=== PATIENT | female | born 1950 | race Caucasian/White ===

== ENCOUNTER → 2017-09-21 06:38 | Outpatient (CLI) | payer MEDICARE, OTHER, SELFPAY ==
[2017-09-21 07:06] LABS: Bedside Glucose 159 mg/dL (70-110)
--- NOTE | 2017-09-21 09:57 | STRESSREP_ITS ---
Stress Test Report Exercise myocardial perfusion stress test. 66-year-old lady with a history of syncope. Medications Norvasc Lipitor Lotensin Plavix. Stress protocol: Resting EKG demonstrates normal sinus rhythm with a rate of 69 bpm. Normal intervals are noted. The resting blood pressure is 122/80 mmHg. The patient exercised according to the regular Helio protocol for total duration of 4 minutes and 30 seconds completing 1 minute and 30 seconds into stage II of the Helio protocol the maximum heart rate attained was 129 bpm which was 84% of the maximum predicted heart rate. The maximum workload attained was 6.4 metabolic equivalents. At rest there were no ST or T-wave changes noted suggest ischemia at peak exercise upsloping ST changes only were noted with no meet the criteria for ischemia. No clinical angina was noted the test was terminated due to fatigue. The resting blood pressure was 122/80 with a final blood pressure 130/ 80 mmHg. Myocardial perfusion protocol. 11.1 mCi of technetium 99m sestamibi was injected at rest. The patient exercised for 4 minutes and 30 seconds attaining 84% of maximum predicted heart rate. The maximum workload was 6.4 metabolic equivalents at peak exercise 33.3 mCi of technetium 99m sestamibi was injected. Stress images were obtained stress and rest images were reconstructed and compared in the short axis vertical long and horizontal long axis. Gated images were also obtained. Perfusion SPECT analysis: Review of the stress images demonstrate normal uptake of tracer noted in all areas of the myocardium. The resting images similarly demonstrate normal uptake of tracer noted in all areas myocardium there is a small area of the apex which appears to have a mild perfusion defect on the stress and resting images suggestive of possible apical striping. No obvious ischemia is noted. No previous infarct is present. Gated SPECT analysis: The gated ejection fraction is 68%. Conclusion: Normal exercise myocardial perfusion stress test at a moderate workload. Preserved ejection fraction.
== END ==
PROVIDERS: Family Provider Family Medicine; PCP Family Medicine; Visit Provider Nurse Practitioner Family
DX: I25.10 Atherosclerotic heart disease of native coronary artery without angina pectoris (principal); I10 Essential (primary) hypertension; E78.2 Mixed hyperlipidemia; R55 Syncope and collapse
CPT/HCPCS: 78452; 82962; 93017; A9500; A4216

== ENCOUNTER 2017-10-02 22:41 | Emergency (ER) | payer MEDICARE, OTHER, SELFPAY ==
[2017-10-02 22:43] VITALS: BP 149/74; PULSE 82; RESP 14; TEMP 36.9; O2SAT 99; BMI 25.5
--- NOTE | 2017-10-02 22:55 | ED.RN ---
ED DR CALLED AND INFORMED ABOUT PT. DR ASKED ABOUT ORDERING A CT OF HEAD DUE TO PRIOR BRAIN BLEED. ED DR DECIDED TO HOLD ON CT TILL HIS EVALUATION.
--- NOTE | 2017-10-02 23:14 | CT_ITS ---
CT Head or Brain W/O Contrast INDICATION: FALL/HX OF BRAIN BLEED 08/09/17 COMPARISON: None TECHNIQUE: Noncontrast axial CT examination of the brain. Coronal and sagittal reformatted images. Radiation dose optimization technique applied. FINDINGS: The ventricular system is symmetric in size with mild prominence of the occipital horns. Cortical sulci and basal cisterns are well seen. Patchy bilateral periventricular and subcortical low densities are noted, similar compared to the prior study, and most compatible with chronic ischemic microvascular white matter changes. Hemorrhagic products over the left frontal region have resolved since the prior study. There is no evidence of acute intracranial hemorrhage at this time, no evidence of mass effect, midline shift, or abnormal extra-axial collection. The calvarium is intact and the visualized paranasal sinuses and mastoid air cells are clear. CT/Brain/Head without Contrast IMPRESSION: Chronic ischemic microvascular white matter changes and age-related cerebral volume loss. No evidence of acute intracranial hemorrhage at this time. at 0002 Reported and signed by: Radha Persaud MD Electronically Signed: Radha Persaud MD at 23:00 EST Tel , Service support ,
[2017-10-02] MEDS: Ondansetron ODT 4 MG Tablet PO (23:19)
[2017-10-02] MEDS: HYDROmorphone 1 MG/ML Syringe 0.5 MG IM (23:19)
--- NOTE | 2017-10-02 23:30 | RAD_ITS ---
XR Humerus Min 2 Views INDICATION: right arm pain after fall COMPARISON: None TECHNIQUE: 2 views of the humerus FINDINGS: There is a comminuted fracture at the right humerus involving the surgical neck and lateral aspect of the head. Mild angulation. The humerus appears low in position in relationship to the glenoid fossa, likely due to joint effusion. RAD/Humerus min 2 Views IMPRESSION: Mildly impacted and angulated fracture at the surgical neck of the right humerus and additional fracture fragment off of the lateral aspect of the humeral head. at 0014 Reported and signed by: Radha Persaud MD Electronically Signed: Radha Persaud MD at 23:12 EST Tel , Service support ,
--- NOTE | 2017-10-03 00:21 | RAD_ITS ---
XR Shoulder Min 2 Views INDICATION: right arm pain after fall. looking for dislocation COMPARISON: None TECHNIQUE: 3 views of the right shoulder FINDINGS: There is a fracture dislocation of the right shoulder with an impacted and displaced fracture at the surgical neck and an additional fracture fragment noted arising from the lateral aspect of the humeral head. There is abnormal glenohumeral relationship. RAD/Shoulder min 2 Views IMPRESSION: Fracture dislocation at the right shoulder with displaced and overlapping fracture at the surgical neck and additional small fracture fragment laterally. at 0039 Reported and signed by: Radha Persaud MD Electronically Signed: Radha Persaud MD at 23:38 EST Tel , Service support ,
[2017-10-03] MEDS: HYDROmorphone 1 MG/ML Syringe 0.5 MG IM (00:24)
--- NOTE | 2017-10-03 00:29 | ED.VISSUMM ---
- ER Visit Summary Date of Service: 10/03/17 Chief Complaint: Fall History of Present Illness: The patient is a [address] Johnathon Brown and Dr. Kearney. She reports that 3 or 4 hours ago she lost her balance going up an escalator when her suitcases got stuck. She fell backwards down the escalator. She hit her head but did not have a loss of consciousness. She is not on any anticoagulants. She denies a headache. She denies neck or back pain. No wrist or hip pain. Reports she has right shoulder pain is 10 out of 10 severity. Physical Examination: Vitals: Stable. Afebrile. Neck: No vertebral tenderness. Full ROM without difficulty. Cleared by NEXUS criteria. Back: No vertebral tenderness. General: A&O x 3. NAD. Cardiovascular exam: Regular rate and rhythm, no murmur, rub or gallop. Respiratory exam: Chest nontender. No crepitus. Clear to auscultation bilaterally. No wheezes or stridor. Abdominal exam: Soft, nontender, nondistended, normal bowel sounds. No pain in RUQ or LUQ specifically. No peritoneal signs. Extremity: Severe tenderness palpation over the right proximal humerus. Pain with any range of motion. She is neurovascular intact distal to this. Test Results: CT brain shows chronic changes and no intracranial hemorrhage. Right humerus x-ray shows a proximal humerus fracture. I did question whether there was dislocation of this. Because of this vacated right shoulder films were obtained. There is no dislocation. Emergency Department Course and Treatment: Patient was treated with Dilaudid IM and Zofran p.o. She was placed in a sling. Treatment Plan: She will be discharged with Clarinda, Zofran, and Colace. Instructed follow-up Dr. Yip in 1 week for another exam. Disposition: To home in improved and stable condition. Impression: 1. Fall. 2. Right proximal humerus fracture. This note was generated with [employer] dictation software. It may contain incorrect words, spelling, and punctuation that were not noted in review of the chart prior to signing ED Disposition - Plan for ED Patient: Disposition: Home or Assisted Living Chief Complaint: Upper Extremity Injury Instructions: ED Fx Shoulder Prescriptions: Hydrocodone Bitart/Apap 5-325 [[place] 5/325] 1 - 2 tablet PO Q4H PRN PRN 5 Days #20 tablet PRN Reason: Pain Ondansetron [Zofran Odt] 4 mg PO Q8H PRN PRN #10 tablet PRN Reason: Nausea Docusate Sodium [Colace] 100 mg PO DAILY #20 capsule Referrals: Leonel Yip DO [STAFF PHYSICIAN] - 1 Week
[2017-10-03] MEDS: HYDROcodone Bitartrate/Apap 5/325 Tablet PO (00:48)
[2017-10-03 01:01] VITALS: BP 132/68; PULSE 68; RESP 14; O2SAT 68
== END 2017-10-03 01:02 | disposition home or self-care (01) ==
LOC: ED 23:20
PROVIDERS: Emergency Provider Emergency Medicine; Family Provider Family Medicine; PCP Family Medicine
DX: S42.211A Unspecified displaced fracture of surgical neck of right humerus, initial encounter for closed fracture (principal); W10.0XXA Fall (on)(from) escalator, initial encounter; Y93.89 Activity, other specified; Y92.9 Unspecified place or not applicable; I25.10 Atherosclerotic heart disease of native coronary artery without angina pectoris; I10 Essential (primary) hypertension; E78.00 Pure hypercholesterolemia, unspecified; E11.9 Type 2 diabetes mellitus without complications; Z79.4 Long term (current) use of insulin; Z79.01 Long term (current) use of anticoagulants; Z79.899 Other long term (current) drug therapy
CPT/HCPCS: 70450; 73030; 73060; 96372; 99283

== ENCOUNTER → 2017-10-10 06:52 | Outpatient (CLI) | payer MEDICARE, OTHER, SELFPAY ==
--- NOTE | 2017-10-10 06:54 | CT_ITS ---
STUDY: CT RIGHT SHOULDER REASON FOR EXAM: Female, 66 years old. Fall 2 weeks ago. Pain RADIATION DOSAGE (If Supplied By Facility): CTDIvol = ( 24.58 ) mGy, DLP = ( 486.85 ) mGycm TECHNIQUE: The patient was scanned in a multi detector CT scanner. High resolution transaxial imaging was performed without the administration of intravenous contrast material. Sagittal and coronal images were reconstructed. Individualized dose optimization techniques were used for this CT. COMPARISON: X-ray October 03, 2017 FINDINGS: Normal glenohumeral articulation. There is joint effusion. Normal glenoid rim, neck and visualized scapula. There is comminuted humeral head and surgical neck fracture. There is impaction and overlapping of 1.4 cm. Fracture involves the greater tuberosity with displacement of 0.3 cm. Normal coracoid process. Normal visualized lateral clavicle. There is mild osteoarthritis with articular joint space narrowing. There is a Type II morphology (curved) acromion, with a neutral orientation. There is soft tissue swelling. There is postoperative change of the right breast with residual fluid collection. There are healing right rib fractures. CT/Extremity Upper without Contra IMPRESSION: Comminuted humeral head and surgical neck fractures. Electronically Signed: Jesus Cervantes MD at 8:59 EST , Service support ,
--- NOTE | 2017-10-10 06:54 | CT_ITS ---
STUDY: CT RIGHT SHOULDER REASON FOR EXAM: Female, 66 years old. Fall 2 weeks ago. Pain RADIATION DOSAGE (If Supplied By Facility): CTDIvol = ( 24.58 ) mGy, DLP = ( 486.85 ) mGycm TECHNIQUE: The patient was scanned in a multi detector CT scanner. High resolution transaxial imaging was performed without the administration of intravenous contrast material. Sagittal and coronal images were reconstructed. Individualized dose optimization techniques were used for this CT. COMPARISON: X-ray October 03, 2017 FINDINGS: Normal glenohumeral articulation. There is joint effusion. Normal glenoid rim, neck and visualized scapula. There is comminuted humeral head and surgical neck fracture. There is impaction and overlapping of 1.4 cm. Fracture involves the greater tuberosity with displacement of 0.3 cm. Normal coracoid process. Normal visualized lateral clavicle. There is mild osteoarthritis with articular joint space narrowing. There is a Type II morphology (curved) acromion, with a neutral orientation. There is soft tissue swelling. There is postoperative change of the right breast with residual fluid collection. There are healing right rib fractures. CT/Coronals Sag Multi Obl 3-D Rec IMPRESSION: Comminuted humeral head and surgical neck fractures. Electronically Signed: Jesus Cervantes MD at 8:59 EST , Service support ,
== END ==
PROVIDERS: Family Provider Family Medicine; PCP Family Medicine; Visit Provider Orthopaedic Surgery
DX: S42.291A Other displaced fracture of upper end of right humerus, initial encounter for closed fracture (principal); S42.211A Unspecified displaced fracture of surgical neck of right humerus, initial encounter for closed fracture; W19.XXXA Unspecified fall, initial encounter
CPT/HCPCS: 73200; 76377

== ENCOUNTER → 2017-10-29 09:16 | Outpatient (CLI) | payer MEDICARE, OTHER, SELFPAY ==
--- NOTE | 2017-10-29 09:36 | RAD_ITS ---
STUDY: X-RAY - RIGHT SHOULDER REASON FOR EXAM: Female, 66 years old. Pain. Fracture follow-up. TECHNIQUE: 3 view(s) of the shoulder. COMPARISON: 3 views of the right shoulder October 03, 2017; right shoulder CT October 10, 2017. FINDINGS: Normal glenohumeral alignment. There is stable mild degenerative arthrosis of the acromioclavicular joint without inferior osseous spur formation. Normal acromion. Comminuted fracture of the right humeral head again noted. Subtle haziness inferior to the lateral most fracture fragment suggests early callus formation. Dorsal angulation of the humeral shaft relative to the humeral head is stable. The soft tissue structures are unremarkable. Normal visualized pulmonary apex. RAD/Shoulder min 2 Views IMPRESSION: Early callus formation at the otherwise stable appearing comminuted fracture of the right humeral head. Electronically Signed: Guido Webber MD at 17:48 EST , Service support ,
== END ==
PROVIDERS: Family Provider Family Medicine; PCP Family Medicine; Visit Provider Orthopaedic Surgery
DX: S42.291A Other displaced fracture of upper end of right humerus, initial encounter for closed fracture (principal)
CPT/HCPCS: 73030

== ENCOUNTER → 2017-11-16 09:55 | Outpatient (CLI) | payer MEDICARE, OTHER, SELFPAY ==
--- NOTE | 2017-11-16 09:57 | RAD_ITS ---
STUDY: X-RAY - RIGHT SHOULDER REASON FOR EXAM: Female, 67 years old. Fracture, follow-up TECHNIQUE: 3 view(s) of the shoulder. COMPARISON: 10/30/2015 FINDINGS: Normal glenohumeral alignment. There is stable mild degenerative arthrosis of the acromioclavicular joint without inferior osseous spur formation. Normal acromion. Comminuted fracture of the right humeral head again noted. Subtle haziness inferior to the lateral most fracture fragment suggests early callus formation. Dorsal angulation of the humeral shaft relative to the humeral head is stable. The soft tissue structures are unremarkable. Normal visualized pulmonary apex. There is only been a minimal amount of healing since the previous study RAD/Shoulder min 2 Views IMPRESSION: Early callus formation at the otherwise stable appearing comminuted fracture of the right humeral head. Electronically Signed: Guido Patel MD at 10:31 EDT , Service support ,
== END ==
PROVIDERS: Family Provider Family Medicine; PCP Family Medicine; Visit Provider Orthopaedic Surgery
DX: S42.291A Other displaced fracture of upper end of right humerus, initial encounter for closed fracture (principal); M25.711 Osteophyte, right shoulder
CPT/HCPCS: 73030

== ENCOUNTER → 2017-12-28 09:00 | Outpatient (CLI) | payer MEDICARE, OTHER, SELFPAY ==
--- NOTE | 2017-12-28 09:02 | RAD_ITS ---
STUDY: X-RAY - RIGHT SHOULDER REASON FOR EXAM: Female, 67 years old. Follow up fracture TECHNIQUE: Three view(s) of the RIGHT shoulder were obtained. COMPARISON: November 16, 2017 FINDINGS: The glenohumeral joint is within normal limits. There is degenerative arthrosis of the acromioclavicular joint without inferior osseous spur formation. No acute abnormalities are seen in the visualized clavicle. Cortical irregularities are again seen in the greater tuberosity and humeral neck. The soft tissues are unremarkable. There are mild chronic changes in the visualized right lung. There is likely an old fracture of the anterior right third rib. RAD/Shoulder min 2 Views IMPRESSION: Stable appearance of old fractures in the greater tuberosity and neck of the right humerus. Electronically Signed: Aziza Madsen MD at 17:00 EDT Tel Direct: [phone], Service support ,
== END ==
PROVIDERS: Family Provider Family Medicine; PCP Family Medicine; Visit Provider Orthopaedic Surgery
DX: S42.291A Other displaced fracture of upper end of right humerus, initial encounter for closed fracture (principal)
CPT/HCPCS: 73030

== ENCOUNTER → 2018-04-12 12:55 | Outpatient (CLI) | payer MEDICARE, OTHER, SELFPAY ==
[2018-04-12 13:12] LABS: Lyme Ab Screen Interpretation REF LAB
[2018-04-12 14:08] LABS: Absolute Lymphocyte Count 1.24 X10^3/ul (0.83-4.51); Absolute Neutrophil Count 10.6 X10^3/uL (2.0-7.7); Basophil# 0.02 X10^3/uL; Basophil% 0.2 % (0-1); Eosinophil# 0.07 X10^3/uL; Eosinophils% 0.6 % (0-5); Hematocrit 42.9 % (37-47); Lymphocyte # 1.24 X10^3/ul (4.0); Lymphocyte % 9.9 % (19-41); Mean Corp Hgb Conc 32.6 g/gl (32-36); Mean Corpuscular Hgb 28.8 pg (27.0-32.0); Mean Corpuscular Volume 88.3 fL (81-99); Mean Platelet Vol. 9.5 fl (6.2-12.0); Monocyte# 0.65 X10^3/uL; Monocyte% 5.2 % (0-10); Neutrophil # 10.58 X10^3/uL (2.7-7.7); Platelet Count 238 K/mm3 (150-450); RBC Distribution Width SD 41.5 fl (35.1-43.9); Red Blood Count 4.86 M/mm3 (4.2-5.4); White Blood Count 12.6 K/mm3 (4.4-11.0)
[2018-04-12 14:10] LABS: POSITIVE COUNT NO; POSITIVE DIFFERENTIAL NO; POSITIVE MORPHOLOGY NO
[2018-04-12 14:25] LABS: Hemoglobin A1c 10.5 % (4.2-6.3)
[2018-04-12 14:31] LABS: BUN 17 mg/dL (7-18); Glucose 241 mg/dL (74-106)
[2018-04-12 14:32] LABS: ALB/GLOB Ratio 0.9 RATIO (0.9-2.4); AST(SGOT) 20 U/L (15-37); Alanine Aminotransfer ALT/SGPT 32 U/L (13-56); Albumin, Serum 3.7 g/dL (3.2-5.0); Alkaline Phosphatase 146 U/L (45-117); Anion Gap 12 (5-15); Calcium,Total 8.9 mg/dL (8.5-10.1); Chloride 105 mmol/L (98-107); EST Glomerular Filtration Rate 66 mL/min (>60); Est Glom Filt Rate - Afr Amer 80 mL/min (>60); Ferritin 89 ng/mL (8-252); Free T3 2.2 pg/mL (2.18-3.98); Globulin 3.9 g/dL (2.2-4.2); Potassium 4.2 mmol/L (3.5-5.1); Protein, Total 7.6 g/dL (6.4-8.2); Sodium Level 143 mmol/L (136-145); Thyroid Stim Hormone (TSH) 2.52 uIU/mL (0.358-3.74)
[2018-04-12 15:02] LABS: HIV - WCH Non-Reactive (Nonreactive); Vitamin B12 988 pg/mL (211-911); Vitamin D,25 Hydroxy 29.5 ng/mL (29.95-100.01)
[2018-04-13 13:13] LABS: Lyme Scn Total Ab w/Rflx <0.91 ISR (0.00-0.90)
[2018-04-16 03:58] LABS: Rapid Plasmin Reagin (RPR) NONREACTIVE (NONREACTIVE)
== END ==
PROVIDERS: Family Provider Family Medicine; PCP Family Medicine; Visit Provider Family Medicine
DX: I62.01 Nontraumatic acute subdural hemorrhage (principal); E03.9 Hypothyroidism, unspecified; E11.65 Type 2 diabetes mellitus with hyperglycemia; R41.89 Other symptoms and signs involving cognitive functions and awareness
CPT/HCPCS: 36415; 80053; 82306; 82607; 82728; 83036; 84439; 84443; 84481; 85025; 86592; 86618; 86703

== ENCOUNTER 2018-06-07 01:13 | Emergency (ER) | payer MEDICARE, OTHER, SELFPAY ==
[2018-06-07 01:14] VITALS: BP 177/90; PULSE 90; RESP 18; TEMP 36.4; O2SAT 94; BMI 26.7
--- NOTE | 2018-06-07 01:46 | ED.VIS.GEN ---
History of Present Illness Chief Complaint: Lower Extremity Injury Informant: Patient Onset: Hours - 1-2 Context: Sudden Onset - noticed when put weight on it to try to walk Timing: Continuous Quality: pain Location: left ankle Current Severity: Severe Maximum Severity: Severe Worsened by: any slight movement of ankle Relieved by: rest Associated Symptoms: none Narrative: Spontaneous onset of left ankle pain. No injuries. No fevers or systemic symptoms. No history of gout or other systemic arthritis. No other bothersome joints at this time. - Past Medical History (1) Controlled type 1 diabetes mellitus without complication Status: Chronic (2) HLD (hyperlipidemia) Status: Chronic (3) HTN (hypertension) Status: Chronic (4) History of coronary artery stent placement Status: Chronic Comment: PTCA/stent (JERROD) of proximal LAD 02/13/2009; PTCS/stent (JERROD) to OM1 and D2 10/12/2009. (5) Old myocardial infarction Status: Chronic Past Medical History - Allergies and Home Meds Allergies/Adverse Reactions: Allergies fentanyl Allergy (Verified 06/07/18 01:16) Low blood pressure diazepam [From Valium] Adverse Reaction (Verified 06/07/18 01:16) Other Primary Care Physician: Johnathon Brown MD [Primary Care Provider] - Smoking Status: Never smoker Review of Systems General: Denies: Chills, Fever, Sweats Cardiovascular: Denies: Chest pain, Palpitations Respiratory: Denies: Dyspnea, Cough, Dyspnea on exertion Gastrointestinal: Denies: Abdominal pain, Nausea, Vomiting, Diarrhea, Melena, Hematochezia Genitourinary: Denies: Dysuria, Hematuria, Frequency Musculoskeletal: Reports: Extremity Pain. Denies: Swelling Skin: Denies: Rash Neurological: Denies: Headache, Weakness, Numbness Physical Exam Vital Signs/Narrative: Vital Signs Temp Pulse Resp BP Pulse Ox 06/07/18 01:14 97.6 F L 90 18 177/90 H 94 Inital Vital Signs reviewed: Yes General: Well nourished, Well developed Head: Normocephalic, Atraumatic Eyes: Perrl, EOMI ENT: Moist mucous membranes, No rhinorrhea Respiratory: No distress, Chest nontender Extremities: No edema, Tenderness - left lateral ankle (pain is medial mostly). Laterally, ankle effusion is evident, and this area is tender. Not excessively warm/hot. Skin: Normal color - without erythema to left ankle, No rash - specifically, no lesions distal LLE. Neurological: Alert, Oriented x3, Cranial nerves II-XII grossly intact, Normal Strength, Normal Sensation Psychological: - - odd affect. Diagnostic/Tx/Re-eval Impressions Ankle X-Ray 06/07/18 03:10 IMPRESSION: Mild degenerative changes. Joint effusion. No demonstrated fracture, dislocation, or destructive osseous lesion. Electronically Signed: Nikko Zamora MD at 3:52 EDT , Service support , 06/07/18 03:10 Ankle min 3 Views [RAD] Stat 06/07/18 02:45 Fluid - Synovial (joint) Gram Stain - Preliminary Laboratory Results 06/07/18 06/07/18 06/07/18 01:58 01:58 02:45 WBC 5.8 RBC 4.99 Hgb 14.5 Hct 42.9 MCV 86.0 MCH 29.1 MCHC 33.8 RDW 12.8 RDW Differential 40.5 Plt Count 225 MPV 9.5 Immature Gran % (Auto) 0.000 Neut % (Auto) 56.3 Lymph % (Auto) 32.7 [place] % (Auto) 9.5 Eos % (Auto) 1.2 Baso % (Auto) 0.3 Absolute Neuts (auto) 3.3 Absolute Lymphs (auto) 1.89 Total Counted Not Reportable ESR 10 Sodium 137 Potassium 3.8 Chloride 103 Carbon Dioxide 27.0 Anion Gap 7 BUN 17 Creatinine 0.85 Estim Creat Clear Calc 47.14 Est GFR (MDRD) Af Amer 86 Est GFR (MDRD) Non-Af 71 BUN/Creatinine Ratio 20.1 H Glucose 442 H Uric Acid 3.0 Calcium 9.4 C-React Prot Ext Range < 2.90 Fluid Source Cancelled Fluid Color Cancelled Fluid Appearance Cancelled Fluid WBC Cancelled Fluid RBC Cancelled Fluid Tot Cell Count Cancelled Fld Polynuclear WBCs # Cancelled Fld Polynuclear WBCs % Cancelled Fluid Mononuclear WBCs Cancelled Fld Mononuclear WBCs % Cancelled Fluid Neutrophils Cancelled Fluid Lymphocytes Cancelled Fluid Monocytes Cancelled Fluid Plasma Cells Cancelled Fluid Macrophages Cancelled Fld Mesothelial Cells Cancelled Fluid Other Cells Cancelled Fluid Crystals Cancelled Fluid Crystal Source Cancelled Fl Crystal Path Review Cancelled Fl Pathologist Comment Cancelled Fluid Comment 2 Cancelled Synovial Source Synovial Color Synovial Appearance Synovial Volume Synovial Viscosity Synovial WBC Synovial RBC Synovial Tot Cell Ct Synov Polynuclear WBCs Synov Mononuclear WBCs Synovial Neutrophils Synovial Lymphocytes Synovial Monocytes Synovial Other Cells Synovial Polynuclear % Synovial Mononuclear % Synovial Path Comment 06/07/18 02:45 WBC RBC Hgb Hct MCV MCH MCHC RDW RDW Differential Plt Count MPV Immature Gran % (Auto) Neut % (Auto) Lymph % (Auto) [place] % (Auto) Eos % (Auto) Baso % (Auto) Absolute Neuts (auto) Absolute Lymphs (auto) Total Counted ESR Sodium Potassium Chloride Carbon Dioxide Anion Gap BUN Creatinine Estim Creat Clear Calc Est GFR (MDRD) Af Amer Est GFR (MDRD) Non-Af BUN/Creatinine Ratio Glucose Uric Acid Calcium C-React Prot Ext Range Fluid Source Fluid Color Fluid Appearance Fluid WBC Fluid RBC Fluid Tot Cell Count Fld Polynuclear WBCs # Fld Polynuclear WBCs % Fluid Mononuclear WBCs Fld Mononuclear WBCs % Fluid Neutrophils Fluid Lymphocytes Fluid Monocytes Fluid Plasma Cells Fluid Macrophages Fld Mesothelial Cells Fluid Other Cells Fluid Crystals SEE PATH REV Fluid Crystal Source SYNOVIAL Fl Crystal Path Review Will follow Fl Pathologist Comment Fluid Comment 2 Synovial Source LEFT ANKLE Synovial Color Bloody Synovial Appearance Turbid Synovial Volume 7.0 H Synovial Viscosity Viscous Synovial WBC 1.6250 H Synovial RBC 4.515 H Synovial Tot Cell Ct 1.6320 H Synov Polynuclear WBCs 0.777 Synov Mononuclear WBCs 0.848 Synovial Neutrophils 56 H Synovial Lymphocytes 40 Synovial Monocytes 1 Synovial Other Cells 3 Synovial Polynuclear % 47.8 Synovial Mononuclear % 52.2 [address]ovial [address] Comment May follow - Medical Decision Making Labs are very reassuring, with normal white blood count, ESR, and CRP. X-ray confirms my clinical suspicion of a joint effusion, and shows no other acute abnormality. The patient was barely able to display any motion of the ankle joint. Given her age and diabetes, I discussed with her the possibilities, which include septic arthritis, gout/pseudogout, which is not an inclusive list. However, we did discuss how treatment for these are opposite, and treating gout could make infection much worse. I recommended arthrocentesis, and after discussing pros and cons, she consented. This was performed with an anterior medial approach, first prepping with isopropanol and injecting 2 cc total of 1% lidocaine without epinephrine, subcutaneously, and without blood on aspiration prior to injecting. Then at the same location, between the medial malleolus and the tendon of the tibialis anterior, and a 18-gauge needle was inserted into the joint after prepping with chlorhexidine. About 3 cc of blood was obtained. In order to rule out the possibility of being in a vein, I reinserted a needle about 1.5-2 cm distally in the same region, again obtaining blood. This time, the 18-gauge needle was almost completely inserted, and was definitely within the joint space. Prior to the arthrocentesis, patient was given morphine, which helped just a little. Still very painful to move the joint at all. She declined empiric colchicine. We did send the blood/fluid from the synovial aspiration to the lab. Culture is sent and pending, Gram stain is negative, crystals preliminary is negative, and there are more red cells than white, there are approximately 1600 white blood cells per microliter. On reevaluation, she is able to move her ankle extremely well, saying that it does feel better. Given all of this, I do not think she has an acute septic arthritis. She is on clopidogrel. She appears to have a spontaneous hemarthrosis. Supportive care is advised for right now, including frequent icing, pain control, and crutches to limit weightbearing. She is also given an Kwan wrap and instructions for use. She should follow-up with orthopedics this week. She is comfortable with this plan and has a ride home. ED Disposition - Plan for ED Patient: Disposition: Home or Assisted Living Chief Complaint: Lower Extremity Injury Diagnosis: Hemarthrosis of left ankle Instructions: ED Braces for Lower Musculoskeletal Injuries Prescriptions: Hydrocodone Bitart/Apap 5-325 [[place] 5MG-325MG] 1 tablet PO Q4H PRN PRN 2 Days #10 tablet PRN Reason: Pain Referrals: Johnathon Brown MD [Primary Care Provider] - Mayank Gonsalves MD [STAFF PHYSICIAN] - Additional Instructions: Ice your ankle frequently. Limit your weightbearing for at least one week, moving her ankle and bearing weight could exacerbate the problem. Do not apply heat, do not take aspirin if you are already not taking it, do not take ibuprofen. You may continue your other medications. Return to ER for any other issues or if you spike a fever. Otherwise, follow-up with orthopedics.
[2018-06-07] MEDS: Morphine 4 MG/ML Syringe IV (02:01)
[2018-06-07 02:10] LABS: Absolute Lymphocyte Count 1.89 X10^3/ul (0.83-4.51); Absolute Neutrophil Count 3.3 X10^3/uL (2.0-7.7); Basophil# 0.02 X10^3/uL; Basophil% 0.3 % (0-1); Eosinophil# 0.07 X10^3/uL; Eosinophils% 1.2 % (0-5); Hematocrit 42.9 % (37-47); Hemoglobin 14.5 g/dl (12.0-15.0); Lymphocyte # 1.89 X10^3/ul (4.0); Lymphocyte % 32.7 % (19-41); Mean Corp Hgb Conc 33.8 g/gl (32-36); Mean Corpuscular Hgb 29.1 pg (27.0-32.0); Mean Platelet Vol. 9.5 fl (6.2-12.0); Monocyte# 0.55 X10^3/uL; Monocyte% 9.5 % (0-10); Neutrophil # 3.25 X10^3/uL (2.7-7.7); Neutrophil % 56.3 % (47-70); Platelet Count 225 K/mm3 (150-450); RBC Distribution Width CV 12.8 % (11.6-14.6); RBC Distribution Width SD 40.5 fl (35.1-43.9); Red Blood Count 4.99 M/mm3 (4.2-5.4); White Blood Count 5.8 K/mm3 (4.4-11.0)
[2018-06-07 02:16] LABS: POSITIVE COUNT NO; POSITIVE DIFFERENTIAL NO; POSITIVE MORPHOLOGY NO
[2018-06-07 02:23] LABS: Erythrocyte Sedimentation Rate 10 mm/hr (0-30)
[2018-06-07 02:36] LABS: Anion Gap 7 (5-15); BUN 17 mg/dL (7-18); BUN/Creat Ratio 20.1 RATIO (10-20); CRP < 2.90 mg/L (0.0-3.0); Calcium,Total 9.4 mg/dL (8.5-10.1); Chloride 103 mmol/L (98-107); Creatinine, Serum 0.85 mg/dL (0.55-1.02); EST Glomerular Filtration Rate 71 mL/min (>60); Est Glom Filt Rate - Afr Amer 86 mL/min (>60); Estimated Creatinine Clearance 47.14 ml/min; Glucose 442 mg/dL (74-106); Potassium 3.8 mmol/L (3.5-5.1); Sodium Level 137 mmol/L (136-145)
--- NOTE | 2018-06-07 03:10 | RAD_ITS ---
STUDY: X-RAY - LEFT ANKLE REASON FOR EXAM: Female, 67 years old. Distal tibia and fibular pain. No known injury. TECHNIQUE: view(s) of the ankle. COMPARISON: None. FINDINGS: Normal visualized distal tibia and fibula. Normal medial and lateral malleoli. There is mild degenerative arthrosis of the tibiotalar articulation and ankle mortise. Normal visualized talus and calcaneus. The visualized subtalar, talonavicular, calcaneocuboid and tarsal articulations are normal. There are atherosclerotic calcifications. There is soft tissue density overlying the anterior aspect of the tibiotalar articulation, consistent with a joint effusion. RAD/Ankle min 3 Views IMPRESSION: Mild degenerative changes. Joint effusion. No demonstrated fracture, dislocation, or destructive osseous lesion. Electronically Signed: Nikko Zamora MD at 3:52 EDT , Service support ,
[2018-06-07 03:20] LABS: Pathologist Comment May follow; Source- Body Fluid SYNOVIAL
[2018-06-07 03:21] LABS: Appearance /Synovial Fluid Turbid (CLEAR); Color / Synovial Fluid Bloody (Pale Yellow); Viscosity / Synovial Fluid Viscous (HIGH)
[2018-06-07 03:22] LABS: Source / Synovial Fluid LEFT ANKLE
[2018-06-07 03:44] LABS: AUTO B FLUID DILUENT BKGD CT WBC <0.1 RBC <0.01 (W<.1,R<.01); RBC /Synovial Fluid 4.515 10^6/uL (0)
[2018-06-07 03:45] LABS: Synovial Fld Mononuclear WBC # 0.848 10^3/ul; Synovial Fld Mononuclear WBC % 52.2 %; Synovial Fld Polynuclear WBC # 0.777 10^3/ul; Synovial Fld Polynuclear WBC % 47.8 %
[2018-06-07 03:48] LABS: Body Fluid QC Type(s) BF1Q,BF2Q
[2018-06-07 03:59] LABS: Lymph 40 %; Monocyte /Synovial Fluid 1 %; Neutrophil 56 % (0-25); Other Cell /Synovial Fluid 3 %
[2018-06-07 14:19] LABS: Pathologist Review Reviewed
== END 2018-06-07 05:44 | disposition home or self-care (01) ==
PROVIDERS: Emergency Provider Emergency Medicine; Family Provider Family Medicine; PCP Family Medicine
DX: M25.072 Hemarthrosis, left ankle (principal); E10.9 Type 1 diabetes mellitus without complications; E78.5 Hyperlipidemia, unspecified; I25.2 Old myocardial infarction; I10 Essential (primary) hypertension; Z79.4 Long term (current) use of insulin; Z79.82 Long term (current) use of aspirin; Z79.899 Other long term (current) drug therapy; Z98.61 Coronary angioplasty status
CPT/HCPCS: 20605; 20610; 73610; 80048; 84550; 85025; 85652; 86140; 87070; 87075; 87205; 89050; 89051; 89060; 96374; 99284; A4216

== ENCOUNTER → 2018-08-10 10:51 | Outpatient (CLI) | payer MEDICARE, OTHER, SELFPAY ==
[2018-08-10 12:13] LABS: Anion Gap 10 (5-15); Chloride 103 mmol/L (98-107); Sodium Level 136 mmol/L (136-145); Thyroid Stim Hormone (TSH) 0.46 uIU/mL (0.358-3.74)
[2018-08-10 12:20] LABS: Vitamin B12 940 pg/mL (211-911)
--- OUTSIDE RECORDS SUMMARY | 2018-11-11 19:16 | XMS RPT_ITS ---
:1950 Author Organization OHIP Support Name Relationship Address Phone FABIÁN ARAUZ Unavailable Unavailable + [place] [address] R Unavailable Unavailable Unavailable RICE, KATHARINA Unavailable Unavailable + [place] [address] HOFFFREDI FABIÁN Unavailable Unavailable + [place] [address] R Unavailable Unavailable Unavailable RICE, KATHARINA Unavailable Unavailable + [place] [address] HOFFEE FABIÁN Unavailable Unavailable + [place] [address] R Unavailable Unavailable Unavailable RICE, KATHARINA Unavailable Unavailable + [place] [address] HOFFEE, FABIÁN Unavailable Unavailable + [place] [address] R Unavailable Unavailable Unavailable RICE, KATHARINA Unavailable Unavailable + [place] [address] HOFFEE, FABIÁN Unavailable Unavailable + [place] [address] R Unavailable Unavailable Unavailable RICE, KATHARINA Unavailable Unavailable + [place] [address] [place] [address] + [place] [address] REGLA FABIÁN Un[place] + [place] [address] + [place] [address] REGLA FABIÁN Un[place] + [place] [address] + [place] [address] HOFFFREDI, FABIÁN Unavailable [place] + [place] [address] + [place] [address] HOFFEE, FABIÁN Unavailable [place] + [place] [address] + [place] [address] HOFFEE, FABIÁN Unavailable [place] + [place] [address] + [place] [address] HOFFEE, FABIÁN Unavailable [place] + [place] [address] + [place] [address] HOFFEE, FABI[place]N Unavailable [place] + [place] [address] + [place] [address] HOFFEE, FABI[place]N Unavailable [place] [address] + [place] [address] HOFFEE, FABIÁN Unavailable NA + [place] [address] + [place] [address] HOFFEE, FABIÁN Unavailable [place] + [place] [address] + [place] [address] HOFFEE, FABIÁN Unavailable [place] + [place] [address] + [place] [address] HOFFEE, FABI[place]N Unavailable [place] + [place] [address] + [place] [address] HOFFEE, FABIÁN Unavailable NA + [place], [place] Care Team Providers Name Role Phone Liberty Chiu Attending Unavailable Liberty Chiu Referring Unavailable Johnathon Brown Primary Care Unavailable Liberty Chiu Attending Unavailable Liberty Chiu Referring Unavailable Johnathon Brown Primary Care Unavailable Johnathon Brown Attending Unavailable Johnathon Brown Referring Unavailable Brown, Johnathon Primary Care Unavailable Roof, Tomas H Attending Unavailable Roof, Tomas H Referring Unavailable Brown, Johnathon Primary Care Unavailable Brown, Johnathon Primary Care Unavailable Stefan Dockery Attending Unavailable Phi, Leonel Attending Unavailable Brown, Johnathon Referring Unavailable Brown, Johnathon Primary Care Unavailable Phi, Leonel Attending Unavailable Brown, Johnathon Primary Care Unavailable Phi, Leonel Attending Unavailable Brown, Johnathon Referring Unavailable Brown, Johnathon Primary Care Unavailable [place], Castro Attending Unavailable Roof, Tomas H Referring Unavailable Phi, [place]onel Attending Unavailable Brown, Johnathon Referring Unavailable Brown, Johnathon Primary Care Unavailable Phi, [place]onel Attending Unavailable Brown, Johnathon Primary Care Unavailable Phi, Leonel Attending Unavailable Brown, Johnathon Referring Unavailable Brown, Johnathon Primary Care Unavailable Phi, Leonel Attending Unavailable Phi, [place]onel Referring Unavailable Brown, Johnathon Primary Care Unavailable Phi, [place]onel Attending Unavailable Brown, Johnathon Referring Unavailable Brown, Johnathon Primary Care Unavailable Phi, Leonel Attending Unavailable Phi, Leonel Referring Unavailable Brown, Johnathon Primary Care Unavailable [place], Castro Attending Unavailable Brown, Johnathon Referring Unavailable Brown, Johnathon Primary Care Unavailable Brown, Johnathon Attending Unavailable Brown, Johnathon Referring Unavailable Brown, Johnathno Primary Care Unavailable Brown, Johnathon Primary Care Unavailable DEREK FLOREZ Attending Unavailable PROBLEMS PROBLEMS DATE TYPE CONDITION / CODE ATTENDING STATUS SOURCE 09/14/2018 Unknown 250.02 - Diabetes Brown, Johnathon Active [place] mellitus without Community mention of Hospital complication, type II Repository or unspecified type, uncontrolled / 250.02(ICD-9) 09/14/2018 Unknown E11.65 - Type 2 Brown, Johnathon Active [place] diabetes mellitus Community with hyperglycemia / Hospital E11.65(ICD-10) Repository 09/14/2018 Unknown 780.93 - Memory loss Brown, Johnathon Active [place] / 780.93(ICD-9) Community Hospital Repository 09/14/2018 Unknown R41.3 - Other amnesia Brown, Johnathon Active [place] / R41.3(ICD-10) Community Hospital Repository 09/14/2018 Unknown N30.00 - Acute Brown, Johnathon Active [place] cystitis without Community hematuria / Hospital N30.00(ICD-10) Repository 06/07/2018 Unknown M25.072 - DEREK FLOREZ Active [place] Hemarthrosis, left Community ankle / Hospital M25.072(ICD-10) Repository 03/02/2018 Unknown I25.10 - [place], Castro Active [place] Atherosclerotic heart Community 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 Repository without angina pectoris / I25.10(ICD-10) 03/02/2018 Unknown I10 - Essential [place], [place] Active [place] (primary) Community hypertension / Hospital I10(ICD-10) Repository 03/02/2018 Unknown E78.2 - Mixed [place], Castro Active [place] hyperlipidemia / Community E78.2(ICD-10) Hospital Repository 03/02/2018 Unknown R07.9 - Chest pain, [place], [place] Active [place] unspecified / Community R07.9(ICD-10) Hospital Repository 12/28/2017 Unknown S42.291A - Other Leonel Yip Active [place] displaced fracture of Community upper end of right Hospital humerus, initial Repository encounter for closed fracture / S42.291A(ICD-10) 10/14/2017 Unknown S42.231A - 3-part [place] Yip Active [place] fracture of surgical Community neck of right Hospital humerus, initial Repository encounter for closed fracture / S42.231A(ICD-10) 10/03/2017 Unknown S42.91XA - Fracture Stefan Dockery Active [place] of right shoulder Community girdle, part Hospital unspecified, initial Repository encounter for closed fracture / S42.91XA(ICD-10) 09/21/2017 Unknown R55 - Syncope and Tomas Recinos Active [place] collapse / Community R55(ICD-10) Hospital Repository PROCEDURES PROCEDURES No Procedure Records FoundRESULTS RESULTS HEMOGLOBIN A1C Collected: 09/14/2018 Status: F Source: [facility] 9:55 AM [facility] REPOSITORY TYPE CODE TESTS RESULT OUT OF RANGE REFERENCE UNITS LAB L501.9985 4.2-6.3 % High HGB A1C 11.0 Performed By: #### L501.9985, L500.4050, L501.5200, L501.9520 #### [facility] [address] [place], [address] COMPREHENSIVE METABOLIC Collected: 09/14/2018 Status: F Source: [facility] 9:55 AM [facility] REPOSITORY TYPE CODE TESTS RESULT OUT OF RANGE REFERENCE UNITS LAB L501.0100 74-106 mg/dL High GLU 295 Result Comment: Glucose result greater than or equal to 200 mg/dL suggests DIABETES MELLITUS per A.D.A. criteria. Please note revised GLUCOSE reference range effective 2017. LAB L501.1000 7-18 mg/dL Normal BUN 15 LAB L501.1100 0.55-1.02 mg/dL Normal CREAT,SERUM 0.76 Result Comment: The validity of the calculated GFR AND GFRAA in patients over 70 years has not been determined. Clinical correlation is essential. LAB L501.1110 >60 mL/min Normal EST GFR 81 Result Comment: Non- GFR Calc LAB L501.1115 >60 mL/min Normal EST GFR - AA 97 Result Comment: GFR Calc LAB L501.1300 10-20 RATIO Normal BUN/CRE 19.8 LAB L501.1500 6.4-8.2 g/dL T Normal PROT 7.1 LAB L501.1800 3.2-5.0 g/dL Normal ALB 3.2 LAB L501.1950 2.2-4.2 g/dL Normal GLOB 3.9 LAB L501.2000 0.9-2.4 RATIO Low A/G 0.8 LAB L501.2200 8.5-10.1 mg/dL CA Normal 8.5 LAB L501.4100 15-37 U/L Low AST 14 LAB L501.4305 45-117 U/L High ALK P 122 LAB L501.4405 13-56 U/L Normal ALT 25 LAB L501.4600 0.20-1.00 mg/dL T Normal BILI 0.40 LAB L501.5300 136-145 mmol/L NA Normal 138 LAB L501.5600 3.5-5.1 mmol/L K Normal 4.0 LAB L501.5900 98-107 mmol/L CL Normal 105 LAB L501.6100 21.0-32.0 mmol/L Normal CO2 25.0 LAB L501.6200 5-15 Normal GAP 8 Performed By: #### L501.9985, L500.4050, L501.5200, L501.9520 #### [facility] [address] [place], [address] MAGNESIUM Collected: 09/14/2018 Status: F Source: [place] 9:55 AM [facility] REPOSITORY TYPE CODE TESTS RESULT OUT OF RANGE REFERENCE UNITS LAB L501.5200 1.6-2.6 mg/dL Normal MG 1.7 Performed By: #### L501.9985, L500.4050, L501.5200, L501.9520 #### [facility] [address] [place], [address] THYROID STIM HORMONE Collected: 09/14/2018 Status: F Source: [place] (TSH) 9:55 AM [facility] REPOSITORY TYPE CODE TESTS RESULT OUT OF RANGE REFERENCE UNITS LAB L501.9520 0.358-3.74 uIU/mL Normal TSH 0.76 Performed By: #### L501.9985, L500.4050, L501.5200, L501.9520 #### [facility] [address] [facility] [place], [address] ELECTROENCEPHALOGRAM Observed: 08/30/2018 Status: F Source: [place] 8:57 PM [facility] REPOSITORY [facility] Pulmonary Services/Neurology [address] [place] [address] MR#: [id number] Acct: [id number] Name: KAYLEIGH ROBERTS Rep #: [id number] : 1950 67 From: Lbierty Chiu MD Referring Dr: Aram VELASCO, Jo Ann Status: REG CLI Ordering Dr: Date: Location: [facility] Sex: F C - Electroencephalogram Date of service 08/27/2018 History EEG is being done in this 67 yr F to rule out seizures EEG Description: This is an 18 channel EEG with 10-20 lead placement system. Bipolar montages, Referential and Circumferential montages were reviewed. Photic stimulation and Hyperventilation were performed. The posterior dominant rhythm is 8 HZ synchronous, symmetric, reacting to eye opening and closing. Photo stimulation elicited normal driving response but no abnormal photoparoxysmal response, Hyperventilation did not elicit any abnormal photoparoxysmal response. Sleep was identified. There is no abnormal background slowing noted. There was no epileptiform discharges or electrographic seizures noted during this recording. EEG Interpretation This is a normal awake and asleep EEG. There is no epileptiform discharges or electrographic seizures noted during the record. 08/30/182056 <Electronically signed by Liberty Chiu MD> Date Liberty Chiu MD CC: Jo Ann Chiu MD; Johnathon Brown MD Date Dictated: 08/27/181424 Date Transcribed: 08/27/181424 Foundry Technician: RSR Signed BRAIN WITHOUT Observed: 08/27/2018 Status: F Source: [place] CONTRAST 9:27 AM [facility] REPOSITORY [facility] Imaging Services [address] [place] [address] Brain without Contrast MR#: [id number] Acct: [id number] Name: KAYLEIGH ROBERTS Rep #: [id number] : 1950 F 67 From: Joseph Rosas MD PCP: Johnathon Brown MD Status: REG CLI Study: Brain without Contrast Date of Exam: 08/27/18 Exam# [id number] Ordering Dr: Liberty Chiu MD STUDY: MRI BRAIN WITHOUT CONTRAST REASON FOR EXAM: Female, 67 years old. Confusion. Memory loss. TECHNIQUE: Standardized multiplanar fat and water weighted pulse sequences were obtained. COMPARISON: CT head without contrast 10/02/2017. FINDINGS: No restricted diffusion to suspect acute or subacute ischemic infarct. Normal size of the ventricles and extra-axial spaces for the patient's age. Multiple T2 FLAIR high signal intensity foci in the white matter of both cerebral hemispheres and across the central pontine tegmentum are chronic white matter ischemic changes. Normal bilateral basal ganglia. Normal thalami. There is no extra-axial fluid accumulation. Normal flow voids within the major intracranial circulation suggesting patency by spin echo criteria. Normal sella turcica, pituitary gland, infundibular stalk, optic chiasm and hypothalamus. Normal tectal plate and pineal gland. Normal midbrain and medulla. Normal cerebellum. Normal basal cisterns. Normal bilateral temporal bones. Normal bilateral internal auditory canals. No demonstrated orbital abnormality, within the constraints of a routine brain study. Normal visualized paranasal sinuses. Normal calvarium and skull base. Normal visualized soft tissue structures. Normal visualized upper cervical spine. MRI/Brain without Contrast IMPRESSION: 1. No MRI evidence of acute or subacute ischemic infarct. 2. Chronic white matter ischemic changes in both cerebral hemispheres and across the central pontine tegmentum. Electronically Signed: Joseph Rosas MD at 17:03 EST , Service support , CC: Jo Ann Chiu MD; Johnathon Brown MD Foundry Technician: Signed ELECTROLYTE PANEL Collected: 08/10/2018 Status: F Source: [place] 10:58 AM [facility] REPOS[facility]ORY TYPE CODE TESTS RESULT OUT OF RANGE REFERENCE UNITS LAB L501.5300 136-145 mmol/L Normal NA 136 LAB L501.5600 3.5-5.1 mmol/L Normal K 4.0 LAB L501.5900 98-107 mmol/L Normal CL 103 LAB L501.6100 21.0-32.0 mmol/L Normal CO2 23.0 LAB L501.6200 5-15 Normal GAP 10 Performed By: #### L501.5294, L501.9520 #### [facility] [address] [facility] [place], [place], [id number] THYROID STIM HORMONE Collected: 08/10/2018 Status: F Source: [place] (TSH) 10:58 AM [facility] REPOSITORY TYPE CODE TESTS RESULT OUT OF RANGE REFERENCE UNITS LAB L501.9520 0.358-3.74 uIU/mL Normal TSH 0.46 Performed By: #### L501.5294, L501.9520 #### [facility] [address] [facility]. [place], [place], [address] VITAMIN B12 Collected: 08/10/2018 Status: F Source: [place] 10:58 AM [facility] REPOS[facility]ORY TYPE CODE TESTS RESULT OUT OF REFERENCE UNITS RANGE LAB L503.0105 211-911 pg/mL High Vitamin B12 940 Performed By: #### L503.0105 #### [facility] [address] [place], [address] EMERGENCY DEPARTMENT Observed: 06/07/2018 Status: F Source: [facility] SUMMARY 5:27 AM [facility] REPOSITORY [facility] Medical Records Department [address] [place] [address] Emergency Department Summary 06/07/18 0146 MR#: [id number] Acct: [id number] Name: KAYELIGH ROBERTS Rep #: [id number] : 1950 67 From: Derek Florez MD PCP: Johnathon Brown MD Status: REG ER History of Present Illness Chief Complaint: Lower Extremity Injury Informant: Patient Onset: Hours - 1-2 Context: Sudden Onset - noticed when put weight on it to try to walk Timing: Continuous Quality: pain Location: left ankle Current Severity: Severe Maximum Severity: Severe Worsened by: any slight movement of ankle Relieved by: rest Associated Symptoms: none Narrative: Spontaneous onset of left ankle pain. No injuries. No fevers or systemic symptoms. No history of gout or other systemic arthritis. No other bothersome joints at this time. - Past Medical History (1) Controlled type 1 diabetes mellitus without complication Status: Chronic (2) HLD (hyperlipidemia) Status: Chronic (3) HTN (hypertension) Status: Chronic (4) History of coronary artery stent placement Status: Chronic Comment: PTCA/stent (JERROD) of proximal LAD 02/13/2009; PTCS/stent (JERROD) to OM1 and D2 10/12/2009. (5) Old myocardial infarction Status: Chronic Past Medical History - Allergies and Home Meds Allergies/Adverse Reactions: Allergies fentanyl Allergy (Verified 06/07/18 01:16) Low blood pressure diazepam [From Valium] Adverse Reaction (Verified 06/07/18 01:16) Other Primary Care Physician: Johnathon Brown MD [Primary Care Provider] - Smoking Status: Never smoker Review of Systems General: Denies: Chills, Fever, Sweats Cardiovascular: Denies: Chest pain, Palpitations Respiratory: Denies: Dyspnea, Cough, Dyspnea on exertion Gastrointestinal: Denies: Abdominal pain, Nausea, Vomiting, Diarrhea, Melena, Hematochezia Genitourinary: Denies: Dysuria, Hematuria, Frequency Musculoskeletal: Reports: Extremity Pain. Denies: Swelling Skin: Denies: Rash Neurological: Denies: Headache, Weakness, Numbness Physical Exam Vital Signs/Narrative: Vital Signs 06/07/18 01:14 97.6 F L 90 18 177/90 H 94 Inital Vital Signs reviewed: Yes General: Well nourished, Well developed Head: Normocephalic, Atraumatic Eyes: Perrl, EOMI ENT: Moist mucous membranes, No rhinorrhea Respiratory: No distress, Chest nontender Extremities: No edema, Tenderness - left lateral ankle (pain is medial mostly). Laterally, ankle effusion is evident, and this area is tender. Not excessively warm/hot. Skin: Normal color - without erythema to left ankle, No rash - specifically, no lesions distal LLE. Neurological: Alert, Oriented x3, Cranial nerves II-XII grossly intact, Normal Strength, Normal Sensation Psychological: - - odd affect. Diagnostic/Tx/Re-eval Impressions Ankle X-Ray 06/07/18 03:10 IMPRESSION: Mild degenerative changes. Joint effusion. No demonstrated fracture, dislocation, or destructive osseous lesion. Electronically Signed: Nikko Zamora MD at 3:52 EDT , Service support , 06/07/18 03:10 Ankle min 3 Views [RAD] Stat 06/07/18 02:45 Fluid - Synovial (joint) Gram Stain - Preliminary Laboratory Results WBC 5.8 RBC 4.99 Hgb 14.5 Hct 42.9 MCV 86.0 MCH 29.1 MCHC 33.8 RDW 12.8 RDW Differential 40.5 WBC RBC Hgb Hct MCV MCH MCHC RDW RDW Differential Plt Count MPV Immature Gran % (Auto) Neut % (Auto) - Medical Decision Making Labs are very reassuring, with normal white blood count, ESR, and CRP. X-ray confirms my clinical suspicion of a joint effusion, and shows no other acute abnormality. The patient was barely able to display any motion of the ankle joint. Given her age and diabetes, I discussed with her the possibilities, which include septic arthritis, gout/pseudogout, which is not an inclusive list. However, we did discuss how treatment for these are opposite, and treating gout could make infection much worse. I recommended arthrocentesis, and after discussing pros and cons, she consented. This was performed with an anterior medial approach, first prepping with isopropanol and injecting 2 cc total of 1% lidocaine without epinephrine, subcutaneously, and without blood on aspiration prior to injecting. Then at the same location, between the medial malleolus and the tendon of the tibialis anterior, and a 18-gauge needle was inserted into the joint after prepping with chlorhexidine. About 3 cc of blood was obtained. In order to rule out the possibility of being in a vein, I reinserted a needle about 1.5-2 cm distally in the same region, again obtaining blood. This time, the 18-gauge needle was almost completely inserted, and was definitely within the joint space. Prior to the arthrocentesis, patient was given morphine, which helped just a little. Still very painful to move the joint at all. She declined empiric colchicine. We did send the blood/fluid from the synovial aspiration to the lab. Culture is sent and pending, Gram stain is negative, crystals preliminary is negative, and there are more red cells than white, there are approximately 1600 white blood cells per microliter. On reevaluation, she is able to move her ankle extremely well, saying that it does feel better. Given all of this, I do not think she has an acute septic arthritis. She is on clopidogrel. She appears to have a spontaneous hemarthrosis. Supportive care is advised for right now, including frequent icing, pain control, and crutches to limit weightbearing. She is also given an Kwan wrap and instructions for use. She should follow-up with orthopedics this week. She is comfortable with this plan and has a ride home. ED Disposition - Plan for ED Patient: Disposition: Home or Assisted Living Chief Complaint: Lower Extremity Injury Diagnosis: Hemarthrosis of left ankle Instructions: ED Braces for Lower Musculoskeletal Injuries Prescriptions: Hydrocodone Bitart/Apap 5-325 [[place] 5MG-325MG] 1 tablet PO Q4H PRN PRN 2 Days #10 tablet PRN Reason: Pain Referrals: Johnathon Brown MD [Primary Care Provider] - Mayank Gonsalves MD [STAFF PHYSICIAN] - Additional Instructions: Ice your ankle frequently. Limit your weightbearing for at least one week, moving her ankle and bearing weight could exacerbate the problem. Do not apply heat, do not take aspirin if you are already not taking it, do not take ibuprofen. You may continue your other medications. Return to ER for any other issues or if you spike a fever. Otherwise, follow-up with orthopedics. What to do if you have Problems For any increased pain, shortness of breath, bleeding, nausea or vomiting, chest pain, or any unexpected problems, contact your Primary Care Provider. Call [facility] ([phone]) or report to the closest Emergency Room. Call 911 if necessary. 06/07/18 0527 <Electronically signed by Derek Florez MD> Date Derek Florez MD Cosigner Signature (If Indicated): Date CC: Johnathon Brown MD ANKLE MIN 3 VIEWS Observed: 06/07/2018 Status: F Source: [facility] 3:11 AM [facility] REPOSITORY [facility] Imaging Services [address] [place] [address] Ankle min 3 Views MR#: [id number] Acct: [id number] Name: KAYLEIGH ROBERTS Rep #: [id number] : 1950 F 67 From: Nikko Zamora MD PCP: Johnathon Brown MD Status: REG ER Study: Ankle min 3 Views Date of Exam: 06/07/18 Exam# [id number] Ordering Dr: Derek Florez MD STUDY: X-RAY - LEFT ANKLE REASON FOR EXAM: Female, 67 years old. Distal tibia and fibular pain. No known injury. TECHNIQUE: view(s) of the ankle. COMPARISON: None. FINDINGS: Normal visualized distal tibia and fibula. Normal medial and lateral malleoli. There is mild degenerative arthrosis of the tibiotalar articulation and ankle mortise. Normal visualized talus and calcaneus. The visualized subtalar, talonavicular, calcaneocuboid and tarsal articulations are normal. There are atherosclerotic calcifications. There is soft tissue density overlying the anterior aspect of the tibiotalar articulation, consistent with a joint effusion. RAD/Ankle min 3 Views IMPRESSION: Mild degenerative changes. Joint effusion. No demonstrated fracture, dislocation, or destructive osseous lesion. Electronically Signed: Nikko Zamora MD at 3:52 EDT , Service support , CC: DEREK FLOREZ MD; Johnathon Brown MD Foundry Technician: Signed SYNOVIAL FLUID RBC, Collected: 06/07/2018 Status: F Source: [place] WBC AND DIFF 2:45 AM [facility] REPOSITORY TYPE CODE TESTS RESULT OUT OF RANGE REFERENCE UNITS LAB L200.4700 0.1-3.5 ml High SYNOVIAL TV 7.0 LAB L200.4800 HIGH Normal VISCOSITY/SYFL Viscous LAB L200.4900 Pale Yellow Normal SYNOVIAL COLOR Bloody LAB L200.5000 CLEAR Normal SYNOVIAL IRAM. Turbid LAB L200.5800 Normal PATH COM/SYFL May follow LAB L200.4600 Normal SYNOVIAL LEFT ANKLE SOURCE LAB L200.5050 0.000-0.000 10 3 uL High SYN Tot Cell 1.6320 Ct Result Comment: This is the Total Number of Nucleated Cell Types in the Body Fluid. LAB L200.5100 0 10 6/uL High SYNOVIAL RBC 4.515 LAB L200.5200 0.000-0 10 3uL High .002 SYNOVIAL WBC 1.6250 LAB L200.5260 % Normal SYBF PMN WBC% 47.8 LAB L200.5270 10 3/ul Normal SYBF PMN WBC# 0.777 LAB L200.5280 % Normal SYBF MN WBC% 52.2 LAB L200.5290 10 3/ul Normal SYBF MN WBC# 0.848 LAB L200.5300 0-25 % High NEUTROPHIL 56 LAB L200.5400 % Normal LYMPH 40 LAB L200.5500 % Normal MONO 1 LAB L200.5700 % Normal OTHER CELL /SYN 3 Result Comment: EOSINOPHILS Performed By: #### L200.0400, L200.4175 #### [facility] [address] [place], [address] CRYSTALS, BODY FLUID Collected: 06/07/2018 Status: C Source: [facility] 2:45 AM [facility] REPOSITORY TYPE CODE TESTS RESULT OUT OF RANGE REFERENCE UNITS LAB L200.4200 Normal SEE PATH REV CRYSTALS/BF LAB L200.4225 Normal SYNOVIAL SOURCE/BF LAB L200.6020 Normal PATH Reviewed REV Result Comment: Negative for malignant cells. Bloody specimen. A few nondescript crystals are noted. Abdoulaye Meraz M.D. 06/07/18 AMENDED REPORT 06/07/18 1418 PATH REV previously reported as: Will follow Performed By: #### L200.0400, L200.4175 #### [facility] [address] [place], [address] Observed: 06/07/2018 Status: F Source: [facility] CULTURE, BODY FLUID 2:45 AM [facility] Comments: left ankle synovial Gram Stain Acceptable Specimen? Acceptable Specimen(Evaluation not needed) Centrifuged Specimen? Culture performed on centrifuged specimen Gram Stain No organisms seen Body Fluid Cult NO GROWTH IN 14 DAYS Cult, Anaerobic No anaerobic bacteria isolated. Performed By: #### M100.1300 #### [facility] [address] [place], [address] CBC W/DIFF, AUTOMATED Collected: 06/07/2018 Status: F Source: [facility]RISTEL 1:58 AM [facility] TYPE CODE TESTS RESULT OUT OF RANGE REFERENCE UNITS LAB L100.1000 4.4-11.0 K/mm3 Normal WBC 5.8 LAB L100.1200 4.2-5.4 M/mm3 Normal RBC 4.99 LAB L100.1300 12.0-15.0 g/dl Normal HGB 14.5 LAB L100.1400 37-47 % Normal HCT 42.9 LAB L100.1500 81-99 fL Normal MCV 86.0 LAB L100.1600 27.0-32.0 pg Normal MCH 29.1 LAB L100.1700 32-36 g/gl Normal MCHC 33.8 LAB L100.1810 11.6-14.6 % Normal RDW CV 12.8 LAB L100.1820 35.1-43.9 fl Normal RDW SD 40.5 LAB L100.1900 150-450 K/mm3 Normal PLT 225 LAB L100.2000 6.2-12.0 fl Normal MPV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 She is no longer wearing her sling. Denies numbness, tingling or other associated symptoms. ROS Const Reports system reviewed and no additional complaints, except as docu Eyes Reports system reviewed and no additional complaints, except as docu ENT Reports system reviewed and no additional complaints, except as docu Card Reports system reviewed and no additional complaints, except as docu Resp Reports system reviewed and no additional complaints, except as docu GI Reports system reviewed and no additional complaints, except as docu Reports system reviewed and no additional complaints, except as docu Musc Reports stiffness, Reports muscle weakness, Reports limited joint movement Skin/Breast Reports system reviewed and no additional complaints, except as docu Neuro Yes system reviewed and no additional complaints, except as docu Psych Reports system reviewed and no additional complaints, except as docu Endo Reports system reviewed and no additional complaints, except as docu Ortho Exam Right Shoulder Skin/Wound: Yes healed Contralateral Normal: Yes Internal Rotation: L2 SHOULDER: Alert oriented 3 no acute distress. Appropriate eye contact and affect. Otherwise intact the C5 the T2 distributions. She has positive pulses. She has no axial adenopathy. Range of motion to the right shoulder show 65 of external rotation at the side. Patient is able to abduct 80 and forward elevate to 105. Cuff strength appears to be 5 out of 5 days limited somewhat by pain. and plain film radiographs-evaluated by myself the patient patient at this point time which show a healed 3 part proximal humerus fracture with malunion but the articular margin appears to be central and located. Left Shoulder Skin/Wound: Yes CDI Contralateral Normal: Yes Testing: Yes AROM-Forward Elevation 0-180, Yes AROM-External Rotation at side 0-60, Yes PROM-External Rotation at side 0-60, Yes AROM-External Rotation at 90 0-60, Yes PROM-Forward Elevation 0-180, Yes PROM-External Rotation at 90 0-60 Internal Rotation: Tip of Scapula Assessment AND Plan Problems 1. Closed 3-part fracture of proximal end of right humerus with malunion, subsequent encounter S42.847P Plan Assessment: Right shoulder 3 part proximal humerus fracture with malunion but healed. Plan: At this point time shoulder was treated as a conservative measure was obviously given somewhat of a malunited position. However it is healed the articular margin is stable and the patient was well aware that she may have some diminished loss of range of motion over time but did not desire operative intervention. Currently on range of motion X looks very good and I think that over time she will continue to gain better range of motion as the articular margin very good position. I will see the patient back on a as needed basis. T with outpatient physical therapy and physician directed home exercise program. Any major issues return. Patient agrees the plan. The patient desires to follow-up because of issue I will have her see my partner or our physician speech assistant. Orders Orders: Coding Level of Care Code Off vis,est,level 4 Diagnoses Closed 3-part fracture of proximal end of right humerus with malunion, subsequent encounter S42.017S Encounter type: subsequent encounter Fracture healing: with malunion 01/07/18 1013 <Electronically signed by Leonel Yip DO> Date Leonel Yip DO Priyankaigner Signature: Date (if applicable) CC: SHOULDER MIN 2 VIEWS Observed: 12/28/2017 Status: F Source: [facility] 9:02 AM [facility] RE[facility]ITORY [facility] Imaging Services [address] [place] [address] Shoulder min 2 Views MR#: [id number] Acct: [id number] Name: KAYLEIGH ROBERTS Rep #: [id number] : 1950 F 67 From: Aziza Madsen MD PCP: Johnathon Brown MD Status: REG CLI Study: Shoulder min 2 Views Date of Exam: 12/28/17 Exam# [id number] Ordering Dr: Leonel Yip DO STUDY: X-RAY - RIGHT SHOULDER REASON FOR EXAM: Female, 67 years old. Follow up fracture TECHNIQUE: Three view(s) of the RIGHT shoulder were obtained. COMPARISON: November 16, 2017 FINDINGS: The glenohumeral joint is within normal limits. There is degenerative arthrosis of the acromioclavicular joint without inferior osseous spur formation. No acute abnormalities are seen in the visualized clavicle. Cortical irregularities are again seen in the greater tuberosity and humeral neck. The soft tissues are unremarkable. There are mild chronic changes in the visualized right lung. There is likely an old fracture of the anterior right third rib. RAD/Shoulder min 2 Views IMPRESSION: Stable appearance of old fractures in the greater tuberosity and neck of the right humerus. Electronically Signed: Aziza Madsen MD at 17:00 EDT Tel Direct: [phone], Service support , CC: Johnathon Brown MD; Leonel Yip DO Foundry Technician: Signed ORTHOPEDIC VISIT Observed: 11/22/2017 Status: F Source: [facility] REPORT 9:23 AM [facility] [address] [place] [address] [address] [place] [address] OFFICE VISIT Date of Service: 11/16/17 MR#: [id number] Acct: [id number] Name: KAYLEIGH ROBERTS Rep #: [id number] : 1950 Provider: Leonel Yip DO Age/Sex: 67/F Location: [facility] [place] Status: Signed Intake Intake Visit Reasons: RIGHT SHOULDER Allergies fentanyl Allergy (Verified 10/14/17 13:40) Low blood pressure diazepam [From Valium] Adverse Reaction (Verified 10/14/17 13:40) Other Medications Amlodipine [Norvasc] 5 mg PO BID 11/16/13 [History Confirmed 10/14/17] Clopidogrel Bisulfate [Plavix] 75 mg PO DAILY 11/16/13 [History Confirmed 10/14/17] Insulin Glargine [Lantus SoloStar Pen] 20 units SC DAILY 11/16/13 [History Confirmed 10/14/17] Isosorbide Mononitrate [Monoket] 20 mg PO BID 11/16/13 [History Confirmed 10/14/17] Thyroid,Pork [[place] Thyroid] 30 mg PO DAILY 11/16/13 [History Confirmed 10/14/17] Insulin Glargine,Hum.rec.anlog [Lantus] 10 units SQ QHS 07/23/15 [History Confirmed 10/14/17] levothyroxine 25 mcg capsule 25 mcg PO QDAY cap 09/10/17 [History Confirmed 10/14/17] metoprolol tartrate 50 mg tablet 50 mg PO BID tab 09/10/17 [History Confirmed 10/14/17] Docusate Sodium [Colace] 100 mg PO DAILY #20 cap 10/03/17 [Rx Confirmed 10/14/17] benazepril 20 mg tablet 20 mg PO BID tab 10/07/17 [History Confirmed 10/14/17] metoclopramide 5 mg tablet 5 mg PO TID PRN 10/14/17 [History Confirmed 10/14/17] oxycodone 5 mg tablet 5 mg PO Q4H PRN tab 10/14/17 [History Confirmed 10/14/17] atorvastatin 80 mg tablet 80 mg PO QHS #90 tab 10/15/17 [Rx] PFSH Medical History Controlled type 1 diabetes mellitus without complication (Chronic) HTN (hypertension) (Chronic) HLD (hyperlipidemia) (Chronic) Old myocardial infarction (Chronic) Atherosclerotic heart disease of [place] coronary artery without angina pectoris (Chronic) Palpitations (Chronic) Other chest pain (Chronic) Fatigue (Chronic) Surgical History History of coronary artery stent placement (Chronic) Family History Father , age63 CAD (coronary artery disease) CVA (cerebral vascular accident) Brother CVA (cerebral vascular accident) Sister Breast cancer Son Diabetes Social History Smoking Status: Never smoker alcohol intake: never substance use type: does not use caffeine: Yes Type: coffee, carbonated beverages what type of physical activity do you participate in: bicycling frequency: 1-2 times per week duration: 15-30 minutes/day seatbelt use: always do you feel safe at home: Yes HPI RIGHT SHOULDER: Details: KAYLEIGH ROBERTS is a 67 year old F here today for a followup on her right proximal humerus fracture. She states that she is doing well and is improving. Patient has been wearing her sling but has removed it to work on her elbow range of motion. She denies any numbness or tingling. ROS Musc Reports muscle weakness, Reports limited joint movement, Reports stiffness Ortho Exam Right Shoulder SHOULDER: Patient is alert and oriented 3 in no acute distress. Appropriate eye contact and affect. Otherwise intact the C5 to the T2 distributions. She has positive pulses. Gross motor function distally is 5 out of 5. No neurologic abnormalities. Patient has about 20 of external rotation at the side. She is able to forward elevate to about 70 and the patient can do about 50 and 50 of abduction external rotation at best. Otherwise the shoulder appears to be moving through good range of motion. She will flex and extend the elbow without difficulty. She has no adenopathy. X-rays: Evaluated myself with the patient-patient shows a stable healing somewhat of an impacted 3 part proximal humerus fracture. Left Shoulder Skin/Wound: Yes CDI Contralateral Normal: Yes Testing: Yes AROM-Forward Elevation 0-180, Yes AROM-External Rotation at side 0-60, Yes PROM-External Rotation at side 0-60, Yes AROM-External Rotation at 90 0-60, Yes PROM-Forward Elevation 0-180, Yes PROM-External Rotation at 90 0-60 Internal Rotation: Tip of Scapula Assessment AND Plan Problems 1. Closed 3-part fracture of proximal end of right humerus with routine healing, subsequent encounter S42.894N Plan Assessment: Right closed 3 part proximal humerus fracture stable. Plan: At this point time patient appears to be healing well. I want her start doing a little bit of a little more more motion with the shoulder both actively and passively she should be working on gentle forward elevation and table slides I reinstructed the patient on these I also instructed the patient on gentle forward elevation using her contralateral arm with a with forward elevation. The patient needs to be gently bring the arm off the side in order to prevent contracture into the axillary fossa. I will see the patient back in around 6 weeks. I will provide her with physical therapy prescription in case she desires to use it. I did provide her with the [facility] shoulder program for range of motion. X-rays at next. Any major issues return. Patient has been made abundantly clear that her shoulder will not move as well as the contralateral side. We will only know her range of motion restrictions really after 1 year follow-up. For now I think she is doing well in terms of her shoulder any major issues return. Orders Orders: Coding Level of Care Code Off vis,est,level 4 Diagnoses Closed 3-part fracture of proximal end of right humerus with routine healing, subsequent encounter S42.680A Encounter type: subsequent encounter Fracture healing: with routine healing 11/22/17 0923 <Electronically signed by Leonel Yip DO> Date Leonel Yip DO Cosigner Signature: Date (if applicable) CC: SHOULDER MIN 2 VIEWS Observed: 11/16/2017 Status: F Source: [facility] 9:57 AM [facility] REPOSITORY [facility] Imaging Services [address] [place] [address] Shoulder min 2 Views MR#: [id number] Acct: [id number] Name: KAYLEIGH ROBERTS Rep #: [id number] : 1950 F 67 From: Uvaldo Patel MD PCP: Johnathon Brown MD Status: REG CLI Study: Shoulder min 2 Views Date of Exam: 11/16/17 Exam# [id number] Ordering Dr: Leonel Yip DO STUDY: X-RAY - RIGHT SHOULDER REASON FOR EXAM: Female, 67 years old. Fracture, follow-up TECHNIQUE: 3 view(s) of the shoulder. COMPARISON: 10/30/2015 FINDINGS: Normal glenohumeral alignment. There is stable mild degenerative arthrosis of the acromioclavicular joint without inferior osseous spur formation. Normal acromion. Comminuted fracture of the right humeral head again noted. Subtle haziness inferior to the lateral most fracture fragment suggests early callus formation. Dorsal angulation of the humeral shaft relative to the humeral head is stable. The soft tissue structures are unremarkable. Normal visualized pulmonary apex. There is only been a minimal amount of healing since the previous study RAD/Shoulder min 2 Views IMPRESSION: Early callus formation at the otherwise stable appearing comminuted fracture of the right humeral head. Electronically Signed: Guido Patel MD at 10:31 EDT , Service support , CC: Johnathon Brown MD; Leonel Ypi DO Foundry Technician: Signed ORTHOPEDIC VISIT Observed: 11/04/2017 Status: F Source: [facility] REPORT 4:24 PM [facility] REPOSITORY [facility] [address] [place] [address] [address] [place] [address] OFFICE VISIT Date of Service: 10/29/17 MR#: [id number] Acct: [id number] Name: KAYLEIGH ROBERTS Rep #: [id number] : 1950 Provider: Leonel Yip DO Age/Sex: 66/F Location: [facility] [place] Status: Signed Intake Intake Visit Reasons: RIGHT SHOULDER Is patient in pain?: Yes Allergies fentanyl Allergy (Verified 10/14/17 13:40) Low blood pressure diazepam [From Valium] Adverse Reaction (Verified 10/14/17 13:40) Other Medications Amlodipine [Norvasc] 5 mg PO BID 11/16/13 [History Confirmed 10/14/17] Clopidogrel Bisulfate [Plavix] 75 mg PO DAILY 11/16/13 [History Confirmed 10/14/17] Insulin Glargine [Lantus SoloStar Pen] 20 units SC DAILY 11/16/13 [History Confirmed 10/14/17] Isosorbide Mononitrate [Monoket] 20 mg PO BID 11/16/13 [History Confirmed 10/14/17] Thyroid,Pork [[place] Thyroid] 30 mg PO DAILY 11/16/13 [History Confirmed 10/14/17] Insulin Glargine,Hum.rec.anlog [Lantus] 10 units SQ QHS 07/23/15 [History Confirmed 10/14/17] levothyroxine 25 mcg capsule 25 mcg PO QDAY cap 09/10/17 [History Confirmed 10/14/17] metoprolol tartrate 50 mg tablet 50 mg PO BID tab 09/10/17 [History Confirmed 10/14/17] Docusate Sodium [Colace] 100 mg PO DAILY #20 cap 10/03/17 [Rx Confirmed 10/14/17] benazepril 20 mg tablet 20 mg PO BID tab 10/07/17 [History Confirmed 10/14/17] metoclopramide 5 mg tablet 5 mg PO TID PRN 10/14/17 [History Confirmed 10/14/17] oxycodone 5 mg tablet 5 mg PO Q4H PRN tab 10/14/17 [History Confirmed 10/14/17] atorvastatin 80 mg tablet 80 mg PO QHS #90 tab 10/15/17 [Rx] PFSH Medical History Controlled type 1 diabetes mellitus without complication (Chronic) HTN (hypertension) (Chronic) HLD (hyperlipidemia) (Chronic) Old myocardial infarction (Chronic) Atherosclerotic heart disease of [place] coronary artery without angina pectoris (Chronic) Palpitations (Chronic) Other chest pain (Chronic) Fatigue (Chronic) Surgical History History of coronary artery stent placement (Chronic) Family History Father , age63 CAD (coronary artery disease) CVA (cerebral vascular accident) Brother CVA (cerebral vascular accident) Sister Breast cancer Son Diabetes Social History Smoking Status: Never smoker alcohol intake: never substance use type: does not use caffeine: Yes Type: coffee, carbonated beverages what type of physical activity do you participate in: bicycling frequency: 1-2 times per week duration: 15-30 minutes/day seatbelt use: always do you feel safe at home: Yes HPI RIGHT SHOULDER: Details: KAYLEIGH ROBERTS is a 66 year old F here today for a followup on her right proximal humerus fracture. She continues to wear her sling at all times but notes her pain is improving. She has increased pain with any movement of her arm. Denies numbness, tingling or other associated symptoms. ROS Const Reports system reviewed and no additional complaints, except as docu Eyes Reports system reviewed and no additional complaints, except as docu ENT Reports system reviewed and no additional complaints, except as docu Card Reports system reviewed and no additional complaints, except as docu Resp Reports system reviewed and no additional complaints, except as docu GI Reports system reviewed and no additional complaints, except as docu Reports system reviewed and no additional complaints, except as docu Musc Reports muscle weakness, Reports stiffness Skin/Breast Reports system reviewed and no additional complaints, except as docu Neuro Yes system reviewed and no additional complaints, except as docu Psych Reports system reviewed and no additional complaints, except as docu Endo Reports system reviewed and no additional complaints, except as docu Ortho Exam Right Shoulder SHOULDER: Alert and oriented 3 in no acute distress. But I contact and affect. Otherwise intact the C5-T2 distributions. She has positive pulses. She has no active adenopathy. Currently allowing the shoulder to be gently move through internal and external rotation. Feels that the shoulder is moving in continuity across her proximal humerus 3 part fracture. Range of motion external rotation was roughly 30 . She will elevated gently abduct the arm passively to about 45-50 . The shoulder appears to be supple. She will forward elevate to about 50 as well currently. Able to a fire against the axillary nerve function. Able to flex and extend the elbow without difficulty. X-rays: Evaluated myself the patient-3 part proximal humerus fracture with no loss reduction. Looks like there is some callus formation on the lateral aspect of the arm. No obvious signs of avascular necrosis Left Shoulder Skin/Wound: Yes CDI Contralateral Normal: Yes Testing: Yes AROM-Forward Elevation 0-180, Yes AROM-External Rotation at side 0-60, Yes PROM-External Rotation at side 0-60, Yes AROM-External Rotation at 90 0-60, Yes PROM-Forward Elevation 0-180, Yes PROM-External Rotation at 90 0-60 Internal Rotation: Tip of Scapula Assessment AND Plan Problems 1. Closed 3-part fracture of proximal end of right humerus with routine healing, subsequent encounter S42.223Q Plan Assessment: Right closed 3 part proximal humerus fracture healing well. Plan: At this point time again were treating this conservatively. I think the patient started to move the shoulder in continuity so I think the shaft is healing into the proximal humerus. I will start patient start doing a little bit more passive range of motion with the shoulder within her comfort range of prevent it from getting stiff. Ultimately some physical therapy will need to be performed in the future. We will see her back in 2 weeks get repeat radiographs at that time. And hopefully be able to DC her brace completely. Patient was covered by family and they agree with plan. Any major issues return. Gentle range of motion exercises as instructed by me Orders Orders: Coding Level of Care Code Off vis,est,level 4 Diagnoses Closed 3-part fracture of proximal end of right humerus with routine healing, subsequent encounter S42.672P Encounter type: subsequent encounter Fracture healing: with routine healing 11/04/17 1624 <Electronically signed by Leonel Yip DO> Date Leonel iYp DO Cosigner Signature: Date (if applicable) CC: SHOULDER MIN 2 VIEWS Observed: 10/29/2017 Status: F Source: [facility] 9:20 AM [facility] REPOSITORY [facility] Imaging Services [address] [place] [address] Shoulder min 2 Views MR#: [id number] Acct: [id number] Name: KAYLEIGH ROBERTS Rep #: [id number] : 1950 F 66 From: Uvaldo Webber MD PCP: Johnathon Brown MD Status: REG CLI Study: Shoulder min 2 Views Date of Exam: 10/29/17 Exam# [id number] Ordering Dr: Leonel Yip DO STUDY: X-RAY - RIGHT SHOULDER REASON FOR EXAM: Female, 66 years old. Pain. Fracture follow-up. TECHNIQUE: 3 view(s) of the shoulder. COMPARISON: 3 views of the right shoulder October 03, 2017; right shoulder CT October 10, 2017. FINDINGS: Normal glenohumeral alignment. There is stable mild degenerative arthrosis of the acromioclavicular joint without inferior osseous spur formation. Normal acromion. Comminuted fracture of the right humeral head again noted. Subtle haziness inferior to the lateral most fracture fragment suggests early callus formation. Dorsal angulation of the humeral shaft relative to the humeral head is stable. The soft tissue structures are unremarkable. Normal visualized pulmonary apex. RAD/Shoulder min 2 Views IMPRESSION: Early callus formation at the otherwise stable appearing comminuted fracture of the right humeral head. Electronically Signed: Guido Webber MD at 17:48 EST , Service support , CC: Johnathon Brown MD; Leonel Yip DO Foundry Technician: Signed ORTHOPEDIC VISIT Observed: 10/16/2017 Status: F Source: [facility] REPORT 4:05 PM [facility] RE[facility]ORY [facility] [address] [place] [address] [address] [place] [address] OFFICE VISIT Date of Service: 10/14/17 MR#: [id number] Acct: [id number] Name: KAYLEIGH ROBERTS Rep #: [id number] : 1950 Provider: Leonel Yip DO Age/Sex: 66/F Location: [facility] [place] Status: Signed Intake Intake Visit Reasons: RIGHT SHOULDER Is patient in pain?: Yes Pain scale (1-10): 6 Allergies fentanyl Allergy (Verified 10/14/17 13:40) Low blood pressure diazepam [From Valium] Adverse Reaction (Verified 10/14/17 13:40) Other Medications Amlodipine [Norvasc] 5 mg PO BID 11/16/13 [History Confirmed 10/14/17] Clopidogrel Bisulfate [Plavix] 75 mg PO DAILY 11/16/13 [History Confirmed 10/14/17] Insulin Glargine [Lantus SoloStar Pen] 20 units SC DAILY 11/16/13 [History Confirmed 10/14/17] Isosorbide Mononitrate [Monoket] 20 mg PO BID 11/16/13 [History Confirmed 10/14/17] Thyroid,Pork [[place] Thyroid] 30 mg PO DAILY 11/16/13 [History Confirmed 10/14/17] Insulin Glargine,Hum.rec.anlog [Lantus] 10 units SQ QHS 07/23/15 [History Confirmed 10/14/17] levothyroxine 25 mcg capsule 25 mcg PO QDAY cap 09/10/17 [History Confirmed 10/14/17] metoprolol tartrate 50 mg tablet 50 mg PO BID tab 09/10/17 [History Confirmed 10/14/17] Docusate Sodium [Colace] 100 mg PO DAILY #20 cap 10/03/17 [Rx Confirmed 10/14/17] benazepril 20 mg tablet 20 mg PO BID tab 10/07/17 [History Confirmed 10/14/17] metoclopramide 5 mg tablet 5 mg PO TID PRN 10/14/17 [History Confirmed 10/14/17] oxycodone 5 mg tablet 5 mg PO Q4H PRN tab 10/14/17 [History Confirmed 10/14/17] oxycodone 5 mg tablet 5 mg PO Q8H PRN 7 Days #30 tab 10/14/17 [Rx Confirmed 10/14/17] atorvastatin 80 mg tablet 80 mg PO QHS #90 tab 10/15/17 [Rx] PFSH Medical History Controlled type 1 diabetes mellitus without complication (Chronic) HTN (hypertension) (Chronic) HLD (hyperlipidemia) (Chronic) Old myocardial infarction (Chronic) Atherosclerotic heart disease of [place] coronary artery without angina pectoris (Chronic) Palpitations (Chronic) Other chest pain (Chronic) Fatigue (Chronic) Surgical History History of coronary artery stent placement (Chronic) Family History Father , age63 CAD (coronary artery disease) CVA (cerebral vascular accident) Brother CVA (cerebral vascular accident) Sister Breast cancer Son Diabetes Social History Smoking Status: Never smoker alcohol intake: never substance use type: does not use caffeine: Yes Type: coffee, carbonated beverages what type of physical activity do you participate in: bicycling frequency: 1-2 times per week duration: 15-30 minutes/day seatbelt use: always do you feel safe at home: Yes HPI RIGHT SHOULDER: Details: KAYLEIGH ROBERTS is a 66 year old F here today to discuss CT scan results of right shoulder. She denies having any shoulder pain. She complains of upper and lower arm pain with movement. No tingling/numbness. No swelling. She wears her sling daily. She continues to take Oxycodone 3 times per day which does help. ROS Const Reports system reviewed and no additional complaints, except as docu Eyes Reports system reviewed and no additional complaints, except as docu ENT Reports system reviewed and no additional complaints, except as docu Card Reports system reviewed and no additional complaints, except as docu Resp Reports system reviewed and no additional complaints, except as docu GI Reports system reviewed and no additional complaints, except as docu Reports system reviewed and no additional complaints, except as docu Musc Reports radiating pain into limb Skin/Breast Reports system reviewed and no additional complaints, except as docu Neuro Yes system reviewed and no additional complaints, except as docu Psych Reports system reviewed and no additional complaints, except as docu Endo Reports system reviewed and no additional complaints, except as docu Sushil/Lymph Reports system reviewed and no additional complaints, except as docu Aller/Immun Reports system reviewed and no additional complaints, except as docu Ortho Exam Right Shoulder Skin/Wound: Yes CDI, Yes ecchymosis Contralateral Normal: Yes SHOULDER: Patient remains distally neurovascular intact. Intact from C5-T2 distributions. She has positive pulses. She has improved ecchymosis. She will flex and extend the elbow currently without major difficulty. Still guards with gentle internal/external rotation. She is able to fire the axillary nerve. CT examination evaluated myself patient-patient shows a 3 part proximal humerus fracture that would appear to be impacted in mild varus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 Number: Effective Repository Date:2018-08-11 08/10/2018 KAYLEIGH L Primary KAYLEIGH L Christel [id number] Insurance:MEDICARE KAUFMANDOB: [facility] [id number] Number: Repository [address]Luu: 330 [id number] [phone] (HP) Date:2018-08-10 08/10/2018 Secondary KAYLEIGH L [place] Insurance:FORETHOUGHT KAUFMANDOB: Community Policy Number: [id number] Hospital [id number] Repository Date:6234-73-75CB [address] [place], [place] [address]KM: 08/10/2018 Tertiary NOT GIVENUNK Christel Insurance:SELF PAY [facility] Number: Effective Repository Date:2018-08-10 06/07/2018 KAYLEIGH L Primary KAYLEIGH L Christel [id number] Insurance:MEDICARE KAUFMANDOB: [facility] [id number] Number: Repository [address]Bhc: 330 [id number] [phone] () Date:2018-06-07 06/07/2018 Secondary KAYLEIGH L Christ[place] Insurance:FORETHOUGHT KAUFMANDOB: Community Policy Number: [id number] Hospital [id number] Repository Date:6055-91-22KR [address], [place] [address]MI: 06/07/2018 Tertiary NOT GIVENUNK [place] Insurance:SELF PAY [facility] Hospital Number: Effective Repository Date:2018-06-07 04/12/2018 KAYLEIGH L Primary KAYLEIGH L [place] [id number] Insurance:MEDICARE KAUFMANDOB: [facility] [id number] Number: Repository [address]Zqc: 330 [id number] [phone] () Date:2018-04-12 04/12/2018 Secondary KAYLEIGH L [place] Insurance:FORETHOUGHT KAUFMANDOB: Community Policy Number: [id number] Hospital [id number] Repository Date:0351-89-09KS [address] [place], [place] [address]FV: 04/12/2018 Tertiary NOT GIVENUNK [place] Insurance:SELF PAY [facility] Hospital Number: Effective Repository Date:2018-04-12 03/02/2018 KAYLEIGH L Primary KAYLEIGH L Christel [id number] Insurance:MEDICARE KAUFMANDOB: [facility] [id number] Number: Repository [address]Ves: 330 [id number] [phone] () Date:2017-08-04 03/02/2018 Secondary KAYLEIGH L [place] Insurance:FORETHOUGHT KAUFMANDOB: Community Policy Number: [id number] Hospital [id number] Repository Date:7367-70-84VW [address], [place] [address]AL: 03/02/2018 Tertiary NOT GIVENUNK [place] Insurance:SELF PAY [facility] Hospital Number: Effective Repository Date:2017-08-04 12/28/2017 KAYLEIGH L Primary KAYLEIGH L Christel [id number] Insurance:MEDICARE KAUFMANDOB: [facility] [id number] Number: Repository [address]Gxn: 330 [id number] [phone] () Date:2017-12-28 12/28/2017 Secondary KAYLEIGH L [place] Insurance:FORETHOUGHT KAUFMANDOB: [facility] Policy Number: [id number] Hospital [id number] Repository Date:2873-57-02VL [address], [place] [address]BY: 12/28/2017 Tertiary NOT GIVENUNK [place] Insurance:SELF PAY [facility] Hospital Number: Effective Repository Date:2017-12-28 12/28/2017 KAYLEIGH L Primary KAYLEIGH L [place] [id number] Insurance:MEDICARE KAUFMANDOB: [facility] [id number], [place] Number: Repository [address]Jsj: 330 [id number] [phone] () Date:2017-11-16 12/28/2017 Secondary KAYLEIGH L [place] Insurance:FORETHOUGHT KAUFMANDOB: [facility] Policy Number: [id number] Hospital [id number] Repository Date:8693-03-09VI [address], [place] [address]ES: 12/28/2017 Tertiary NOT GIVENUNK Christel Insurance:SELF PAY [facility] Hospital Number: Effective Repository Date:2017-12-28 11/16/2017 KAYLEIGH L Primary KAYLEIGH L Christel [id number] Insurance:MEDICARE KAUFMANDOB: [facility] [id number], [place] Number: Repository [address]Qvq: 330 [id number] [phone] () Date:2017-11-16 11/16/2017 Secondary KAYLEIGH L [place] Insurance:FORETHOUGHT KAUFMANDOB: [facility] Policy Number: [id number] Hospital [id number] Repository Date:4150-89-46ZU [facility] [place]188[place] [address]PV: 11/16/2017 Tertiary NOT GIVENUNK [place] Insurance:SELF PAY [facility] Hospital Number: Effective Repository Date:2017-11-16 11/16/2017 KAYLEIGH L Primary KAYLEIGH L [place] [id number] Insurance:MEDICARE KAUFMANDOB: [facility] [id number], [place] Number: Repository [address]Fwd: 330 [id number] [phone] () Date:2017-10-29 11/16/2017 Secondary KAYLEIGH L [place] Insurance:FORETHOUGHT KAUFMANDOB: Community Policy Number: [id number] Hospital [id number] Repository Date:4239-12-68HL [address], [place] [address]DT: 11/16/2017 Tertiary NOT GIVENUNK [place] Insurance:SELF PAY [facility] Hospital Number: Effective Repository Date:2017-11-16 10/29/2017 KAYLEIGH L Primary KAYLEIGH L [place] [id number] Insurance:MEDICARE KAUFMANDOB: [facility] [id number], [place] Number: Repository [address]Iam: 330 [id number] [phone] (HP) Date:2017-10-29 10/29/2017 Secondary KAYLEIGH L [place] Insurance:FORETHOUGHT KAUFMANDOB: Community Policy Number: [id number] Hospital [id number] Repository Date:0939-36-93JE [address] [place], [place] [address]JX: 10/29/2017 Tertiary NOT GIVENUNK Christel Insurance:SELF PAY [facility] Number: Effective Repository Date:2017-10-29 10/29/2017 KAYLEIGH L Primary KAYLEIGH L Christ[place] [id number] Insurance:MEDICARE KAUFMANDOB: [facility] [id number], [place] Number: Repository [address]Sqi: 330 [id number] [phone] () Date:2017-10-14 10/29/2017 Secondary KAYLEIGH L [place] Insurance:FORETHOUGHT KAUFMANDOB: Community Policy Number: [id number] Hospital [id number] Repository Date:1520-13-20CD [address] [place], [place] [address]GH: 10/29/2017 Tertiary NOT GIVENUNK Christel Insurance:SELF PAY [facility] Hospital Number: Effective Repository Date:2017-10-14 10/14/2017 KAYLEIGH L Primary KAYLEIGH L Christel [id number] Insurance:MEDICARE KAUFMANDOB: [facility] [id number], [place] Number: Repository [address]Tbm: 330 [id number] [phone] () Date:2017-10-08 10/14/2017 Secondary KAYLEIGH L [place] Insurance:FORETHOUGHT KAUFMANDOB: Community Policy Number: [id number] Hospital [id number] Repository Date:5182-29-78BO [address] [place], [place] [address]JP: 10/14/2017 Tertiary NOT GIVENUNK [place] Insurance:SELF PAY [facility] Hospital Number: Effective Repository Date:2017-10-08 10/10/2017 KAYLEIGH L Primary KAYLEIGH L Christel [id number] Insurance:MEDICARE KAUFMANDOB: [facility] [id number], [place] Number: Repository [address]Lqt: 330 [id number] [phone] () Date:2017-10-07 10/10/2017 Secondary KAYLEIGH L [place] Insurance:FORETHOUGHT KAUFMANDOB: Community Policy Number: [id number] Hospital [id number] Repository Date:4109-06-39JU [address] [place], [place] [address]IT: 10/10/2017 Tertiary NOT GIVENUNK Christel Insurance:SELF PAY [facility] Hospital Number: Effective Repository Date:2017-10-07 10/07/2017 KAYLEIGH L Primary KAYLEIGH L [place] [id number] Insurance:MEDICARE KAUFMANDOB: [facility] [id number], [place] Number: Repository [address]Beq: 330 [id number] [phone] () Date:2017-10-05 10/07/2017 Secondary KAYLEIGH L Christ[place] Insurance:FORETHOUGHT KAUFMANDOB: [facility] Policy Number: [id number] Hospital [id number] Repository Date:0528-26-29JJ [address], [place] [address]SN: 10/07/2017 Tertiary NOT GIVENUNK Christel Insurance:SELF PAY [facility] Hospital Number: Effective Repository Date:2017-10-05 10/02/2017 KAYLEIGH L Primary KAYLEIGH L Christel [id number] Insurance:MEDICARE KAUFMANDOB: [facility] [id number] Number: Repository [address]Ntr: 330 [id number] [phone] (HP) Date:2017-10-02 10/02/2017 Secondary KAYLEIGH L [place] Insurance:FORETHOUGHT KAUFMANDOB: Community Policy Number: [id number] Hospital [id number] Repository Date:9732-67-61DU [address] PASOCLEMENTINE [address]IK: 10/02/2017 Tertiary NOT GIVENUNK Christ[place] Insurance:SELF PAY [facility] Number: Effective Repository Date:2017-10-02 09/21/2017 KAYLEIGH L Primary KAYLEIGH L Christ[place] [id number] Insurance:MEDICARE KAUFMANDOB: [facility] [id number], [place] Number: Repository [address]Tpk: 330 [id number] [phone] () Date:2017-09-11 09/21/2017 Secondary KAYLEIGH L Christ[place] Insurance:FORETHOUGHT KAUFMANDOB: Community Policy Number: [id number] Hospital [id number] Repository Date:6244-82-54NA [address] CLEMENT[place] COTO [address]LY: 09/21/2017 Tertiary NOT GIVENUNK Christel Insurance:SELF PAY [facility] Hospital Number: Effective Repository Date:2017-09-11 09/21/2017 KAYLEIGH L Primary KAYLEIGH L [place] [id number] Insurance:MEDICARE KAUFMANDOB: [facility] [id number], [place] Number: Repository [address]Tqp: 330 [id number] [phone] () Date:2017-09-11 09/21/2017 Secondary KAYLEIGH L [place] Insurance:FORETHOUGHT KAUFMANDOB: Community Policy Number: [id number] Hospital [id number] Repository Date:0752-12-73CT [address] CLEMENT[place] COTO [id number]: 09/21/2017 Tertiary NOT GIVENUNK [place] Insurance:SELF PAY [facility] Hospital Number: Effective Repository Date:2017-09-21
== END ==
PROVIDERS: Family Provider Family Medicine; PCP Family Medicine; Referring Provider Psychiatry & Neurology Neurology; Visit Provider Psychiatry & Neurology Neurology
DX: R41.3 Other amnesia (principal)
CPT/HCPCS: 36415; 80051; 82607; 84443

== ENCOUNTER → 2018-08-27 09:09 | Outpatient (CLI) | payer MEDICARE, OTHER, SELFPAY ==
--- NOTE | 2018-08-27 11:30 | MRI_ITS ---
STUDY: MRI BRAIN WITHOUT CONTRAST REASON FOR EXAM: Female, 67 years old. Confusion. Memory loss. TECHNIQUE: Standardized multiplanar fat and water weighted pulse sequences were obtained. COMPARISON: CT head without contrast 10/02/2017. FINDINGS: No restricted diffusion to suspect acute or subacute ischemic infarct. Normal size of the ventricles and extra-axial spaces for the patient's age. Multiple T2 FLAIR high signal intensity foci in the white matter of both cerebral hemispheres and across the central pontine tegmentum are chronic white matter ischemic changes. Normal bilateral basal ganglia. Normal thalami. There is no extra-axial fluid accumulation. Normal flow voids within the major intracranial circulation suggesting patency by spin echo criteria. Normal sella turcica, pituitary gland, infundibular stalk, optic chiasm and hypothalamus. Normal tectal plate and pineal gland. Normal midbrain and medulla. Normal cerebellum. Normal basal cisterns. Normal bilateral temporal bones. Normal bilateral internal auditory canals. No demonstrated orbital abnormality, within the constraints of a routine brain study. Normal visualized paranasal sinuses. Normal calvarium and skull base. Normal visualized soft tissue structures. Normal visualized upper cervical spine. MRI/Brain without Contrast IMPRESSION: 1. No MRI evidence of acute or subacute ischemic infarct. 2. Chronic white matter ischemic changes in both cerebral hemispheres and across the central pontine tegmentum. Electronically Signed: Joseph Rosas MD at 17:03 EST , Service support ,
--- NOTE | 2018-08-27 14:25 | EEG ---
- Electroencephalogram Date of service 08/27/2018 History EEG is being done in this 67 yr F to rule out seizures EEG Description: This is an 18 channel EEG with 10-20 lead placement system. Bipolar montages, Referential and Circumferential montages were reviewed. Photic stimulation and Hyperventilation were performed. The posterior dominant rhythm is 8 HZ synchronous, symmetric, reacting to eye opening and closing. Photo stimulation elicited normal driving response but no abnormal photoparoxysmal response, Hyperventilation did not elicit any abnormal photoparoxysmal response. Sleep was identified. There is no abnormal background slowing noted. There was no epileptiform discharges or electrographic seizures noted during this recording. EEG Interpretation This is a normal awake and asleep EEG. There is no epileptiform discharges or electrographic seizures noted during the record.
== END ==
PROVIDERS: Family Provider Family Medicine; PCP Family Medicine; Referring Provider Psychiatry & Neurology Neurology; Visit Provider Psychiatry & Neurology Neurology
DX: S06.5X9A Traumatic subdural hemorrhage with loss of consciousness of unspecified duration, initial encounter (principal)
CPT/HCPCS: 70551

== ENCOUNTER → 2018-09-14 09:48 | Outpatient (CLI) | payer MEDICARE, OTHER, SELFPAY ==
[2018-09-14 12:41] LABS: ALB/GLOB Ratio 0.8 RATIO (0.9-2.4); AST(SGOT) 14 U/L (15-37); Alanine Aminotransfer ALT/SGPT 25 U/L (13-56); Albumin, Serum 3.2 g/dL (3.2-5.0); Alkaline Phosphatase 122 U/L (45-117); Anion Gap 8 (5-15); BUN 15 mg/dL (7-18); BUN/Creat Ratio 19.8 RATIO (10-20); Calcium,Total 8.5 mg/dL (8.5-10.1); Chloride 105 mmol/L (98-107); Creatinine, Serum 0.76 mg/dL (0.55-1.02); EST Glomerular Filtration Rate 81 mL/min (>60); Est Glom Filt Rate - Afr Amer 97 mL/min (>60); Globulin 3.9 g/dL (2.2-4.2); Glucose 295 mg/dL (74-106); Magnesium 1.7 mg/dL (1.6-2.6); Protein, Total 7.1 g/dL (6.4-8.2); Sodium Level 138 mmol/L (136-145); Thyroid Stim Hormone (TSH) 0.76 uIU/mL (0.358-3.74)
--- OUTSIDE RECORDS SUMMARY | 2018-11-16 11:36 | XMS RPT_ITS ---
:1950 Author Organization OHIP Support Name Relationship Address Phone FABIÁN ARAUZ Unavailable Unavailable + [place] [address] R Unavailable Unavailable Unavailable RICE, KATHARINA Unavailable Unavailable + [place] [address] HOFFFREDI FABIÁN Unavailable Unavailable + [place] [address] R Unavailable Unavailable Unavailable RICE, KATHARINA Unavailable Unavailable + [place] [address] HOFFEE FABIÁN Unavailable Unavailable + [place] [address] R Unavailable Unavailable Unavailable RICE, KATHARINA Unavailable Unavailable + [place] [address] HOFFEE, FABIÁN Unavailable Unavailable + [place] [address] R Unavailable Unavailable Unavailable RICE, KATHARINA Unavailable Unavailable + [place] [address] HOFFEE, FABIÁN Unavailable Unavailable + [place] [address] R Unavailable Unavailable Unavailable RICE, KATHARINA Unavailable Unavailable + [place] [address] [place] [address] + [place] [address] REGLA FABIÁN Un[place] + [place] [address] + [place] [address] REGLA FABIÁN Un[place] [address] + [place] [address] HOFFFREDI, FABIÁN Unavailable [place] [address] + [place] [address] HOFFEE, FABIÁN Un[place] [address] + [place] [address] HOFFEE, FABI[place]N Unavailable [place] [address] + [place] [address] HOFFEE, FABIÁN Unavailable [place] [address] + [place] [address] HOFFEE, FABI[place]N Unavailable [place] [address] + [place] [address] HOFFEE, FABI[place]N Unavailable [place] [address] + [place] [address] HOFFEE, FABIÁN Unavailable [place] [address] + [place] [address] HOFFEE, FABIÁN Unavailable [place] [address] + [place] [address] HOFFEE, FABIÁN Unavailable [place] [address] + [place] [address] HOFFEE, FABIÁN Unavailable [place] [address] + [place] [address] HOFFEE, FABIÁN Unavailable NA + NA, [place] [...] Unknown 250.02 - Diabetes Brown, Johnathon Active [place] mellitus without Community mention of Hospital complication, [...] Unknown N30.00 - Acute Brown, Johnathon Active [place] cystitis without Community hematuria / Hospital N30.00(ICD-10) Repository 06/07/2018 Unknown M25.072 - DEREK FLOREZ Active [place] Hemarthrosis, left Community ankle / Hospital M25.072(ICD-10) Repository 03/02/2018 Unknown I25.10 - [place], Castro Active [place] Atherosclerotic heart Community disease of [facility] coronary artery Repository without angina pectoris / I25.10(ICD-10) 03/02/2018 Unknown I10 - Essential [place], Vernon Active [place] (primary) Community hypertension / Hospital I10(ICD-10) Repository 03/02/2018 Unknown E78.2 - Mixed [place], Castro Active [place] hyperlipidemia / Community E78.2(ICD-10) Hospital Repository 03/02/2018 Unknown R07.9 - Chest pain, [place], Vernon Active [place] unspecified / Community R07.9(ICD-10) Hospital Repository 12/28/2017 Unknown S42.291A - Other Leonel Yip Active [place] displaced fracture of Community upper end of [...] PROCEDURES PROCEDURES No Procedure Records FoundRESULTS RESULTS Observed: 09/14/2018 Status: F Source: [place] CULTURE, URINE 1:12 PM [facility] REPOSITORY Urine Culture ORGANISM 1: Staphylococcus lugdunensis [place] Count 50,000-80,000 Staphylococcus lugdunensis: REACTION Cefoxitin *NF NEG Doxycline <=0.5 S Daptomycin $$ 0.5 S Inducable Clindamycin [place] NEG Gentamicin $ <=0.5 S Levofloxacin $ 0.25 S Linezolid $$$$ 2 S Moxifloxicin *NF <=0.25 S Nitrofurantoin $ <=16 S Oxacillin NF <=0.25 S Rifampin $$ <=0.5 S Tetracycline NF <=1 S Trimethoprim/Sulfametho $ <=10 S Vancomycin $ <=0.5 S (NF) indicates non-formulary drug at [facility]. Approval by Infectious Disease Specialist required before non-formulary drugs may be ordered and/or dispensed. * CLSI guidelines does not recommend testing of cephalosporins. This interpretation is deduced from Beta-lactam/penicillin results. Performed By: #### M100.0650 #### [facility] [address], [address] HEMOGLOBIN A1C Collected: 09/14/2018 Status: F Source: [place] 9:55 AM [facility] REPOSITORY TYPE CODE TESTS RESULT OUT OF RANGE REFERENCE UNITS LAB L501.9985 4.2-6.3 % High HGB A1C 11.0 Performed By: #### L501.9985, L500.4050, L501.5200, L501.9520 #### [facility] [address] [place], [address] COMPREHENSIVE METABOLIC Collected: 09/14/2018 Status: F Source: [facility] 9:55 [facility] TYPE CODE TESTS RESULT [...] By: #### L501.9985, L500.4050, L501.5200, L501.9520 #### [facility] [address] [place], [place], [address] MAGNESIUM Collected: 09/14/2018 Status: F Source: [place] 9:55 AM [facility] REPOSITORY TYPE CODE TESTS RESULT OUT OF RANGE REFERENCE UNITS LAB L501.5200 1.6-2.6 mg/dL Normal MG 1.7 Performed By: #### L501.9985, L500.4050, L501.5200, L501.9520 #### [facility] [address] [place], [place], [address] THYROID STIM HORMONE Collected: 09/14/2018 Status: F Source: [place] (TSH) 9:55 AM [facility] REPOSITORY TYPE CODE TESTS RESULT OUT OF RANGE REFERENCE UNITS LAB L501.9520 0.358-3.74 uIU/mL Normal TSH 0.76 Performed By: #### L501.9985, L500.4050, L501.5200, L501.9520 #### [facility] [address] [place], [place], [address] ELECTROENCEPHALOGRAM Observed: 08/30/2018 Status: F Source: [place] 8:57 PM [facility] REPOSITORY [facility] Pulmonary Services/Neurology [address] [place] [address] MR#: [id number] Acct: [id number] Name: KAYLEIGH ROBERTS Rep #: [id number] : 1950 67 From: Liberty Chiu MD Referring Dr: Aram VELASCO, Jo Ann Status: REG CLI Ordering Dr: Date: Location: [facility] Sex: F C - Electroencephalogram Date [...] MD Date Dictated: 08/27/181424 Date Transcribed: 08/27/181424 Industrial Service Technician: JERO Signed BRAIN WITHOUT Observed: 08/27/2018 Status: F Source: [place] CONTRAST 9:27 AM [facility] REPOSITORY [facility] Imaging Services [address] [place] [address] Brain without Contrast MR#: [id number] Acct: [id number] Name: KAYLEIGH ROBERTS Rep #: [id number] : 1950 F 67 From: Joseph Rosas MD PCP: Johnathon Brown MD Status: REG CLI Study: Brain without Contrast Date of Exam: 08/27/18 Exam# [id number] Ordering Dr: Liberty Chiu MD STUDY: MRI [...] Jo Ann Chiu MD; Johnathon Brown MD Industrial Service Technician: Signed ELECTROLYTE PANEL Collected: 08/10/2018 Status: F Source: [place] 10:58 AM [facility] REPOSITORY TYPE CODE TESTS RESULT OUT OF RANGE REFERENCE UNITS LAB L501.5300 136-145 mmol/L Normal NA 136 LAB L501.5600 3.5-5.1 mmol/L Normal K 4.0 LAB L501.5900 98-107 mmol/L Normal CL 103 LAB L501.6100 21.0-32.0 mmol/L Normal CO2 23.0 LAB L501.6200 5-15 Normal GAP 10 Performed By: #### L501.5294, L501.9520 #### [facility] [address] [place], [address] THYROID STIM HORMONE Collected: 08/10/2018 Status: F Source: [place] (TSH) 10:58 AM [facility] REPOSITORY TYPE CODE TESTS RESULT OUT OF RANGE REFERENCE UNITS LAB L501.9520 0.358-3.74 uIU/mL Normal TSH 0.46 Performed By: #### L501.5294, L501.9520 #### [facility] [address] [place], [address] VITAMIN B12 Collected: 08/10/2018 Status: F Source: [place] 10:58 AM [facility] REPOSITORY TYPE CODE TESTS RESULT OUT OF REFERENCE UNITS RANGE LAB L503.0105 211-911 pg/mL High Vitamin B12 940 Performed By: #### L503.0105 #### [facility] [address] [place], [address] EMERGENCY DEPARTMENT Observed: 06/07/2018 Status: F Source: [place] SUMMARY 5:27 AM [facility] REPOSITORY [facility] Medical Records Department [address] [place] [address] Emergency Department Summary 06/07/18 0146 MR#: [id number] Acct: [id number] Name: KAYLEIGH ROBERTS Rep #: [id number] : 1950 67 From: Derek Florez MD [...] Lower Musculoskeletal Injuries Prescriptions: Hydrocodone Bitart/Apap 5-325 [Tyrone 5MG-325MG] 1 tablet PO Q4H PRN PRN [...] problems, contact your Primary Care Provider. Call [facility] ([phone]) or report to the closest Emergency Room. Call 911 if necessary. 06/07/18 0527 <Electronically signed by Derek Florez MD> Date Derek Florez MD Cosigner Signature (If Indicated): Date CC: Johnathon Brown MD ANKLE MIN 3 VIEWS Observed: 06/07/2018 Status: F Source: [place] 3:11 AM [facility] REPOSITORY [facility] Imaging Services [address] [place] [address] Ankle min 3 Views MR#: [id number] Acct: [id number] Name: KAYLEIGH ROBERTS Rep #: [id number] : 1950 F 67 From: Nikko Zamora MD PCP: Johnathon Brown MD Status: REG ER Study: Ankle min 3 Views Date of Exam: 06/07/18 Exam# [id number] Ordering Dr: Derek Florez MD STUDY: X-RAY [...] CC: DEREK FLOREZ MD; Johnathon Brown MD Industrial Service Technician: Signed SYNOVIAL FLUID RBC, Collected: 06/07/2018 Status: F Source: [place] WBC AND DIFF 2:45 AM [facility] REPOSITORY TYPE CODE TESTS RESULT OUT OF [...] EOSINOPHILS Performed By: #### L200.0400, L200.4175 #### [facility] [address] [place], [address] CRYSTALS, BODY FLUID Collected: 06/07/2018 Status: C Source: [place] 2:45 AM [facility] REPOSITORY TYPE CODE TESTS RESULT OUT OF RANGE REFERENCE UNITS LAB L200.4200 Normal SEE PATH REV CRYSTALS/BF LAB L200.4225 Normal SYNOVIAL SOURCE/BF LAB L200.6020 Normal PATH Reviewed REV Result Comment: Negative for malignant cells. Bloody specimen. A few nondescript crystals are noted. Abdoulaye Meraz M.D. 06/07/18 AMENDED REPORT 06/07/18 1418 PATH REV previously reported as: Will follow Performed By: #### L200.0400, L200.4175 #### [facility] [address] [place], [place], [address] Observed: 06/07/2018 Status: F Source: [place] CULTURE, BODY FLUID 2:45 AM [facility] REPOSITORY Comments: left ankle synovial Gram Stain Acceptable Specimen? Acceptable Specimen(Evaluation not needed) Centrifuged Specimen? Culture performed on centrifuged specimen Gram Stain No organisms seen Body Fluid Cult NO GROWTH IN 14 DAYS Cult, Anaerobic No anaerobic bacteria isolated. Performed By: #### M100.1300 #### [facility] [address] [place], [address] CBC W/DIFF, AUTOMATED Collected: 06/07/2018 Status: F Source: [place] 1:58 AM [facility] REPOSITORY TYPE CODE TESTS RESULT OUT OF [...] 1.89 Performed By: #### L100.0100, L101.9900 #### [facility] [address] [place], [address] ERYTHROCYTE SED RATE Collected: 06/07/2018 Status: F Source: [place] 1:58 AM [facility] REPOSITORY TYPE CODE TESTS RESULT OUT OF RANGE REFERENCE UNITS LAB L102.0000 0-30 mm/hr Normal SED RATE 10 Performed By: #### L100.0100, L101.9900 #### [facility] [address] [place], [address] BASIC METABOLIC Collected: 06/07/2018 Status: F Source: [place] PROFILE (BMP) 1:58 AM [facility] REPOSITORY TYPE CODE TESTS RESULT OUT OF [...] Performed By: #### L500.2500, L501.1400, L501.6710 #### [facility] [address] [place], [address] URIC ACID Collected: 06/07/2018 Status: F Source: [place] 1:58 AM [facility] REPOSITORY TYPE CODE TESTS RESULT OUT OF RANGE REFERENCE UNITS LAB L501.1400 2.6-6.0 mg/dL Normal URIC 3.0 Result Comment: The drugs N-Acetylcysteine and Metamizole may falsely depress this assay. Performed By: #### L500.2500, L501.1400, L501.6710 #### [facility] [address] [place], [place], [id number] CRP Collected: 06/07/2018 Status: F Source: [place] 1:58 AM [facility] REPOSITORY TYPE CODE TESTS RESULT OUT OF RANGE REFERENCE UNITS LAB L501.6710 0.0-3.0 mg/L Normal < 2.90 C-REACTIVE PROT Result Comment: C-Reactive Protein (CRP) provides useful information for the diagnosis, therapy and monitoring of inflammatory processes and associated diseases. For the evaluation of Relative Risk for Cardiovascular Disease, a High Sensitivity CRP (HSCRP) should be ordered. Performed By: #### L500.2500, L501.1400, L501.6710 #### [facility] [address] [place], [address] RAPID PLASMIN REAGIN Collected: 04/12/2018 Status: F Source: [place] (RPR) 1:12 PM [facility] REPOSITORY TYPE CODE TESTS RESULT OUT OF REFERENCE UNITS RANGE LAB L700.5000 NONREACTIVE NONREACTIVE Normal RPR Performed By: #### L700.5000 #### [facility] [address] [place], [place], [address] CBC W/DIFF, AUTOMATED Collected: 04/12/2018 Status: F Source: [place] 1:09 PM [facility] REPOSITORY Order Comment: Order Date: 04/12/18 Order [...] By: #### L100.0100, L501.9985, L500.4050, L501.9520 #### [place] [facility] [address] [place], [address] HEMOGLOBIN A1C Collected: 04/12/2018 Status: F Source: [place] 1:09 PM [facility] Order Comment: Order Date: 09/10/17 Order Info: 4548-4 - A1C TYPE CODE TESTS RESULT OUT OF RANGE REFERENCE UNITS LAB L501.9985 4.2-6.3 % High HGB A1C 10.5 Performed By: #### L100.0100, L501.9985, L500.4050, L501.9520 #### [facility] [address] [place], [place], [address] COMPREHENSIVE METABOLIC Collected: 04/12/2018 Status: F Source: [place] JOY 1:09 PM [facility] REPOSITORY Order Comment: Order Date: 09/10/17 Order [...] By: #### L100.0100, L501.9985, L500.4050, L501.9520 #### [facility] [address] [place], [place], [address] THYROID STIM HORMONE Collected: 04/12/2018 Status: F Source: [place] (TSH) 1:09 PM [facility] REPOSITORY Order Comment: Order Date: 09/10/17 Order Info: 0786-1 - CMP Order Date: 04/12/18 Order Info: 3051-0 - T3F Order Info: 3016-3 - TSH Order Info: 2276-4 - KODY Order Info: 3024-7 - T4F TYPE CODE TESTS RESULT OUT OF RANGE REFERENCE UNITS LAB L501.9520 0.358-3.74 uIU/mL Normal TSH 2.52 Performed By: #### L100.0100, L501.9985, L500.4050, L501.9520 #### [facility] [address] [place], [place], [address] FREE T3 Collected: 04/12/2018 Status: F Source: [place] 1:09 PM [facility] REPOSITORY Order Comment: Order Date: 09/10/17 Order Info: 0786-1 - CMP Order Date: 04/12/18 Order Info: 3051-0 - T3F Order Info: 3016-3 - TSH Order Info: 2276-4 - KODY Order Info: 3024-7 - T4F TYPE CODE TESTS RESULT OUT OF RANGE REFERENCE UNITS LAB L501.29364 2.18-3.98 pg/mL Normal FREE T3 2.2 Performed By: #### L501.98643, L503.6550, L506.0400, L503.0105, L506.1000 #### [facility] [address] [place], [place], [address] #### L7000.5300 #### [facility] (refer to report for specific site) refer to report for address and phone number FERRITIN Collected: 04/12/2018 Status: F Source: [place] 1:09 PM [facility] REPOS[facility] Order Comment: Order Date: 09/10/17 Order Info: 0786-1 - CMP Order Date: 04/12/18 Order Info: 3051-0 - T3F Order Info: 3016-3 - TSH Order Info: 4 - KODY Order Info: 302-7 - T4F TYPE CODE TESTS RESULT OUT OF RANGE REFERENCE UNITS LAB L503.6550 8-252 ng/mL Normal FERRITIN 89 Performed By: #### L501.98467, L503.6550, L506.0400, L503.0105, L506.1000 #### [facility] [place], [place], [address] #### L7000.5300 #### [facility] (refer to report for specific site) refer to report for address and phone number T4 FREE DIRECT Collected: 04/12/2018 Status: F Source: [place] 1:09 PM [facility] REPOS[facility] Order Comment: Order Date: 09/10/17 Order Info: 0786-1 - CMP Order Date: 04/12/18 Order Info: 3051-0 - T3F Order Info: 3016-3 - TSH Order Info: 227-4 - KODY Order Info: 3024-7 - T4F TYPE CODE TESTS RESULT OUT OF RANGE REFERENCE UNITS LAB L506.0400 0.76-1.46 ng/dL Normal T4 FREE 1.00 DIRECT Performed By: #### L501.43010, L503.6550, L506.0400, L503.0105, L506.1000 #### [facility] [facility] [facility] [place], [place], [address] #### L7000.5300 #### [facility] (refer to report for specific site) refer to report for address and phone number VITAMIN B12 Collected: 04/12/2018 Status: F Source: [place] 1:09 PM [facility] REPOSITORY Order Comment: Order Date: 04/12/18 Order Info: 2132-9 - B12 Order Info: 76979-9 - VITD25 TYPE CODE TESTS RESULT OUT OF REFERENCE UNITS RANGE LAB L503.0105 211-911 pg/mL High Vitamin B12 988 Performed By: #### L501.34686, L503.6550, L506.0400, L503.0105, L506.1000 #### [facility] [address] [place], [address] #### L7000.5300 #### [facility] (refer to report for specific site) refer to report for address and phone number VITAMIN D,25 HYDROXY Collected: 04/12/2018 Status: F Source: [place] 1:09 [facility] Order Comment: Order Date: 04/12/18 Order Info: 2132-9 - B12 Order Info: 97938-0 - VITD25 TYPE CODE TESTS RESULT OUT OF REFERENCE UNITS RANGE LAB L506.1000 29.95-100.01 ng/mL Low Vitamin D 29.5 25-OH Result Comment: Vitamin D 25(OH) Status Range Deficiency <20 ng/mL (50nmol/L) Insuffciency 20 - 30 ng/mL (50 - 75 nmol/L) Sufficiency 30 - 100 ng/mL (75 - 250 nmol/L) Toxicity >100 ng/mL (>250 nmol/L) Performed By: #### L501.35998, L503.6550, L506.0400, L503.0105, L506.1000 #### [facility] [address] [place], [address] #### L7000.5300 #### [facility] (refer to report for specific site) refer to report for address and phone number LYME SCREEN W/REFLEX Collected: 04/12/2018 Status: F Source: [place] WB 1:09 PM [facility] REPOS[facility] Order Comment: Order Date: 04/12/18 Order Info: 9586-9 - LYMS TYPE CODE TESTS RESULT OUT OF RANGE REFERENCE UNITS LAB L7000.5400 0.00-0.90 ISR Normal LYME SCN <0.91 AB Result Comment: Negative <0.91 Equivocal 0.91 - 1.09 Positive >1.09 Performed at: [facility] [id number] Draw Press Operator: Dani Orozco PhD, Phone: [phone] LAB L1294.7196 Normal LYME SCN REF INTERP LAB Performed By: #### L501.85294, L503.6550, L506.0400, L503.0105, L506.1000 #### [facility] [address] [place], [place], [address] #### L7000.5300 #### [facility] (refer to report for specific site) refer to report for address and phone number HIV - WC Collected: 04/12/2018 Status: F Source: [place] 1:09 PM [facility] REPOS[facility] Order Comment: Order Date: 04/12/18 Order Info: 2132-9 - B12 Order Info: 62954-3 - VITD25 TYPE CODE TESTS RESULT OUT OF RANGE REFERENCE UNITS LAB L3890.6005 Nonreactive Normal HIV - [facility] Non-Reactive Performed By: #### L3890.6005 #### [facility] [address] [place], [place], [address] CARDIOLOGY VISIT Observed: 03/02/2018 Status: F Source: [place] REPORT 12:22 PM [facility] REPOSITORY [facility] [address] [place] [address] OFFICE VISIT Date of Service: 03/02/18 MR#: [id number] Acct: [id number] Name: KAYLEIGH ROBERTS Rep #: [id number] : 1950 Provider: Castro Kearney MD Age/Sex: 67/F Location: [facility] Status: Signed HPI HPI Chief Complaint: Follow-up [...] subdural hematoma. She was subsequently transferred to [facility] for further evaluation/treatment.Pt. states her last CT of her brain was 07/01/2018 and was told per neurology of [facility] that there was no bleed. She was [...] PO BID 11/16/13 [History Confirmed 03/02/18] Thyroid,Pork [Piffard Thyroid] 30 mg PO DAILY 11/16/13 [History [...] PRN #25 tab 03/02/18 [Rx Confirmed 03/02/18] PFS Medical History Subdural hematoma (Resolved 07/2017) Controlled type 1 diabetes mellitus without complication (Chronic) HTN (hypertension) (Chronic) HLD (hyperlipidemia) (Chronic) Old myocardial infarction (Chronic) 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) Palpitations [...] affect Assessment AND Plan 1. 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 transplanted heart: [place] heart Essential hypertension I10 Hypertension type: essential hypertension Chest pain, unspecified type R07.9 Chest pain type: unspecified Mixed hyperlipidemia E78.2 Hyperlipidemia type: mixed hyperlipidemia Coding Level of Care Code Off vis,est,level 4 Diagnoses Atherosclerosis of [place] coronary artery of [place] heart without angina pectoris I25.10 [place] vs. transplanted heart: [place] heart Essential hypertension I10 Hypertension type: essential hypertension Chest pain, unspecified type R07.9 Chest pain type: unspecified Mixed hyperlipidemia E78.2 Hyperlipidemia type: mixed hyperlipidemia 03/02/18 1222 <Electronically signed by Castro Kearney MD> Date Castro Kearney MD Cosigner Signature: Date (if applicable) CC: Johnathon Brown MD ORTHOPEDIC VISIT Observed: 01/07/2018 Status: F Source: [place] REPORT 10:13 AM [facility] [address] [place] [address] OFFICE VISIT Date of Service: 12/28/17 MR#: [id number] Acct: [id number] Name: KAYLEIGH ROBERTS Rep #: [id number] : 1950 Provider: Leonel Yip DO Age/Sex: 67/F Location: [facility] Status: Signed Intake Intake Visit Reasons: RIGHT [...] PO BID 11/16/13 [History Confirmed 10/14/17] Thyroid,Pork [Piffard Thyroid] 30 mg PO DAILY 11/16/13 [History [...] myocardial infarction (Chronic) 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) Palpitations [...] of right humerus with malunion, subsequent encounter S42.291P Plan Assessment: Right shoulder 3 part proximal [...] her see my partner or our physician assistant softball coach. Orders Orders: Coding Level of Care Code Off vis,est,level 4 Diagnoses Closed 3-part fracture of proximal end of right humerus with malunion, subsequent encounter S42.291P Encounter type: subsequent encounter Fracture healing: with malunion 01/07/18 1013 <Electronically signed by Leonel Yip DO> Date Leonel Yip DO Cosigner Signature: Date (if applicable) CC: SHOULDER MIN 2 VIEWS Observed: 12/28/2017 Status: F Source: [place] 9:02 AM [facility] REPOSITORY [facility] Imaging Services [address] [address] Shoulder min 2 Views MR#: [id number] Acct: [id number] Name: KAYLEIGH ROBERTS Rep #: [id number] : 1950 F 67 From: Aziza Madsen MD PCP: Johnathon Brown MD Status: REG CLI Study: Shoulder min 2 Views Date of Exam: 12/28/17 Exam# [id number] Ordering Dr: Leonel Yip DO STUDY: X-RAY [...] Madsen MD at 17:00 EDT Tel Direct: [phone], Service support , CC: Johnathon Brown MD; Leonel Yip DO Industrial Service Technician: Signed ORTHOPEDIC VISIT Observed: 11/22/2017 Status: F Source: [place] REPORT 9:23 AM [facility] Orthopaedics AND Sports Medicine [address] [place] [address] OFFICE VISIT Date of Service: 11/16/17 MR#: [id number] Acct: [id number] Name: KAYLEIGH ROBERTS Rep #: [id number] : 1950 Provider: Leonel Yip DO Age/Sex: 67/F Location: [facility] [place] Status: Signed Intake Intake Visit Reasons: RIGHT [...] PO BID 11/16/13 [History Confirmed 10/14/17] Thyroid,Pork [Piffard Thyroid] 30 mg PO DAILY 11/16/13 [History [...] myocardial infarction (Chronic) 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) Palpitations [...] She denies any numbness or tingling. ROS Franco Reports muscle weakness, Reports limited joint movement, [...] right humerus with routine healing, subsequent encounter S42.048R Plan Assessment: Right closed 3 part proximal [...] right humerus with routine healing, subsequent encounter S42.291D Encounter type: subsequent encounter Fracture healing: with routine healing 11/22/17 0923 <Electronically signed by Leonel Yip DO> Date Leonel Yip DO Cosigner Signature: Date (if applicable) CC: SHOULDER MIN 2 VIEWS Observed: 11/16/2017 Status: F Source: [place] 9:57 AM [facility] REPOSITORY [facility] Imaging Services [address] [place] [address] 23245 Shoulder min 2 Views MR#: [id number] Acct: [id number] Name: KAYLEIGH ROBERTS Nidhi Rep #: [id number] : 1950 F 67 From: Uvaldo Patel MD PCP: Johnathon Brown MD Status: REG CLI Study: Shoulder min 2 Views Date of Exam: 11/16/17 Exam# [id number] Ordering Dr: Leonel Yip DO STUDY: X-RAY [...] CC: Johnathon Brown MD; Leonel Yip DO Industrial Service Technician: Signed ORTHOPEDIC VISIT Observed: 11/04/2017 Status: F Source: [place] REPORT 4:24 PM [facility] REPOSITORY [facility] Orthopaedics AND Sports Medicine [address] [place] [address] OFFICE VISIT Date of Service: 10/29/17 MR#: [id number] Acct: [id number] Name: KAYLEIGH ROBERTS Rep #: [id number] : 1950 Provider: Leonel Yip DO Age/Sex: 66/F Location: [facility] [place] Status: Signed Intake Intake Visit Reasons: RIGHT [...] PO BID 11/16/13 [History Confirmed 10/14/17] Thyroid,Pork [Piffard Thyroid] 30 mg PO DAILY 11/16/13 [History [...] myocardial infarction (Chronic) 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) Palpitations [...] right humerus with routine healing, subsequent encounter S42.045D Plan Assessment: Right closed 3 part proximal [...] right humerus with routine healing, subsequent encounter S42.291D Encounter type: subsequent encounter Fracture healing: with routine healing 11/04/17 1624 <Electronically signed by Leonel Yip DO> Date Leonel Yip DO Cosigner Signature: Date (if applicable) CC: SHOULDER MIN 2 VIEWS Observed: 10/29/2017 Status: F Source: [place] 9:20 AM [facility] Imaging Services [address] [place] [address] 52910 Shoulder min 2 Views MR#: [id number] Acct: [id number] Name: KAYLEIGH ROBERTS Rep #: [id number] : 1950 F 66 From: Uvaldo Webber MD PCP: Johnathon Brown MD Status: REG CLI Study: Shoulder min 2 Views Date of Exam: 10/29/17 Exam# [id number] Ordering Dr: Leonel Yip DO STUDY: X-RAY [...] CC: Johnathon Brown MD; Leonel Yip DO Industrial Service Technician: Signed ORTHOPEDIC VISIT Observed: 10/16/2017 Status: F Source: [place] REPORT 4:05 PM [facility] REPOSITORY [facility] Orthopaedics AND Sports Medicine [address] [place] [address] OFFICE VISIT Date of Service: 10/14/17 MR#: [id number] Acct: [id number] Name: KAYLEIGH ROBERTS Rep #: [id number] : 1950 Provider: Leonel Yip DO Age/Sex: 66/F Location: [facility] Status: Signed Intake Intake Visit Reasons: RIGHT [...] PO BID 11/16/13 [History Confirmed 10/14/17] Thyroid,Pork [Piffard Thyroid] 30 mg PO DAILY 11/16/13 [History [...] myocardial infarction (Chronic) 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) Palpitations [...] right humerus with routine healing, subsequent encounter S42.099D Plan Assessment: Right closed 3 part proximal [...] right humerus with routine healing, subsequent encounter S42.291D Encounter type: subsequent encounter Fracture healing: with routine healing 10/16/17 1605 <Electronically signed by Leonel Yip DO> Date Leonel Yip DO Cosigner Signature: Date (if applicable) CC: JESÚS HAMPTON MULTI Observed: 10/10/2017 Status: F Source: [facility] 3-D REC 7:07 AM [facility] REPOSITORY [facility] Imaging Services [address] [place] [address] 76994 Coronals Sag Multi Obl 3-D Rec MR#: [id number] Acct: [id number] Name: KAYLEIGH ROBERTS Rep #: [id number] : 1950 F 66 From: Derek Cervantes MD PCP: Johnathon Brown MD Status: REG CLI Study: Coronals Sag Multi Obl 3-D Rec Date of Exam: 10/10/17 Exam# [id number] Ordering Dr: Leonel Yip DO STUDY: CT [...] CC: Johnathon Brown MD; Leonel Yip DO Industrial Service Technician: Signed EXTREMITY UPPER Observed: 10/10/2017 Status: F Source: [place] WITHOUT CONTRA 6:54 AM [facility] REPOSITORY [facility] Imaging Services [address] [place] [address] 14226 Extremity Upper without Contra MR#: [id number] Acct: [id number] Name: KAYLEIGH ROBERTS Rep #: [id number] : 1950 F 66 From: Derek Cervantes MD PCP: Johnathon Brown MD Status: REG CLI Study: Extremity Upper without Contra Date of Exam: 10/10/17 Exam# [id number] Ordering Dr: Leonel Yip DO STUDY: CT [...] CC: Johnathon Brown MD; Leonel Yip DO Industrial Service Technician: Signed ORTHOPEDIC VISIT Observed: 10/07/2017 Status: F Source: [place] REPORT 11:01 AM [facility] Orthopaedics AND Sports Medicine [address] [place] [address] OFFICE VISIT Date of Service: 10/07/17 MR#: [id number] Acct: [id number] Name: KAYLEIGH ROBERTS Rep #: [id number] : 1950 Provider: Leonel Yip DO Age/Sex: 66/F Location: [facility] Status: Signed Intake Vital Signs10/07/17 Height 5 [...] PO BID 11/16/13 [History Confirmed 10/07/17] Thyroid,Pork [Piffard Thyroid] 30 mg PO DAILY 11/16/13 [History [...] PO BID tab 10/07/17 [History Confirmed 10/07/17] PFS Medical History Controlled type 1 diabetes mellitus without complication (Chronic) HTN (hypertension) (Chronic) HLD (hyperlipidemia) (Chronic) Old myocardial infarction (Chronic) 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 She was seen at [place] ER x-ray of arm and CAT scan [...] signed by Leonel Yip DO> Date Leonel Terrellignlolis Signature: Date (if applicable) CC: EMERGENCY DEPARTMENT Observed: 10/05/2017 Status: F Source: [place] SUMMARY 1:11 AM [facility] REPOSITORY [facility] Medical Records Department [address] [place] [address] Emergency Department Summary 10/03/17 0029 MR#: [id number] Acct: [id number] Name: KAYLEIGH ROBERTS Rep #: [id number] : 1950 66 From: Stefan Dockery MD [...] Treatment Plan: She will be discharged with Tyrone, Zofran, and Colace. Instructed follow-up Dr. Yip in 1 week for another exam. Disposition: To home in improved and stable condition. Impression: 1. Fall. 2. Right proximal humerus fracture. This note was generated with BrightEdge dictation software. It may contain incorrect words, spelling, and punctuation that were not noted in review of the chart prior to signing ED Disposition - Plan for ED Patient: Disposition: Home or Assisted Living Chief Complaint: Upper Extremity Injury Instructions: ED Fx Shoulder Prescriptions: Hydrocodone Bitart/Apap 5-325 [Tyrone 5/325] 1 - 2 tablet PO Q4H PRN PRN 5 Days #20 tablet PRN Reason: Pain Ondansetron [Zofran Odt] 4 mg PO Q8H PRN PRN #10 tablet PRN Reason: Nausea Docusate Sodium [Colace] 100 mg PO DAILY #20 capsule Referrals: Leonel Yip DO [STAFF PHYSICIAN] - 1 Week What to do if you have Problems For any increased pain, shortness of breath, bleeding, nausea or vomiting, chest pain, or any unexpected problems, contact your Primary Care Provider. Call [facility] ([phone]) or report to the closest Emergency Room. Call 911 if necessary. 10/05/17 0111 <Electronically signed by Stefan Dockery MD> Date Stefan Dockery MD Cosigner Signature (If Indicated): Date CC: Johnathon Brown MD SHOULDER MIN 2 VIEWS Observed: 10/03/2017 Status: F Source: [place] 12:12 AM [facility] REPOSITORY [facility] Imaging Services [address] [place] [address] 27163 Shoulder min 2 Views MR#: [id number] Acct: [id number] Name: KAYLEIGH ROBERTS Rep #: [id number] : 1950 F 66 From: Radha Persaud MD PCP: Johnathon Brown MD Status: REG ER Study: Shoulder min 2 Views Date of Exam: 10/03/17 Exam# [id number] Ordering Dr: Stefan Dockery MD XR Shoulder Min 2 Views INDICATION: [...] CC: Johnathon Brown MD; Stefan Dockery MD Industrial Service Technician: Signed BRAIN/HEAD WITHOUT Observed: 10/02/2017 Status: F Source: [place] CONTRAST 11:15 PM [facility] REPOSITORY [facility] Imaging Services [address] [place] [address] Brain/Head without Contrast MR#: [id number] Acct: [id number] Name: KAYLEIGH ROBERTS Rep #: [id number] : 1950 F 66 From: Radha Persaud MD PCP: Johnathon Brown MD Status: REG ER Study: Brain/Head without Contrast Date of Exam: 10/02/17 Exam# [id number] Ordering Dr: Stefan Dockery MD CT Head [...] CC: Johnathon Brown MD; Stefan Dockery MD Industrial Service Technician: Signed HUMERUS MIN 2 VIEWS Observed: 10/02/2017 Status: F Source: [place] 10:51 PM [facility] REPOSITORY [facility] Imaging Services [address] [place] [address] Humerus min 2 Views MR#: [id number] Acct: [id number] Name: KAYLEIGH ROBERTS Rep #: [id number] : 1950 F 66 From: Radha Persaud MD PCP: Kevin VELASCO,Johnathon Status: REG ER Study: Humerus min 2 Views Date of Exam: 10/02/17 Exam# [id number] Ordering Dr: Stefan Dockery MD XR Humerus [...] CC: Johnathon Brown MD; Stefan Dockery MD Industrial Service Technician: Signed STRESS REPORT Observed: 09/21/2017 Status: F Source: [place] 9:57 AM [facility] REPOSITORY [facility] Cardiovascular Services [address] [place] [address] MR#: [id number] Acct: [id number] Name: KAYLEIGH ROBERTS Rep #: [id number] : 1950 66 From: Castro Kearney MD [...] MD Date Dictated: 09/21/17953 Date Transcribed: 09/21/17953 Industrial Service Technician: [place] Signed BEDSIDE GLUCOSE Collected: 09/21/2017 Status: F Source: [place] 6:57 AM [facility] REPOSITORY TYPE CODE TESTS RESULT OUT OF REFERENCE UNITS RANGE LAB L501.080 70-110 mg/dL High BEDSIDE GLU 159 Result Comment: MANAGEMENT OF PATIENT CARE PER NURSING PROTOCOL Performed By: #### L501.080 #### [facility] Laboratory Point of Care [address] [place] [address] ALLERGIES ALLERGIES DATE TYPE / CODE NAME / CODE REACTION SEVERITY SOURCE 06/07/2018 Drug diazepam/F00 Other Unknown [facility] Allergy/4160 9677883([place] [address](SNOMED ) Repository CT) 06/07/2018 Drug fentanyl/F00 Low blood Unknown [facility] Allergy/4160 9111207([place] 4723802(SNOMED ) Repository CT) ENCOUNTERS ENCOUNTERS ADMIT/DISCHARGE ACCOUNT ADMITTING ENCOUNTER LOCATION SOURCE NUMBER CLASS 09/14/2018 [id number] Ambulatory [place] 9 [facility] ing:MTLAB Repository 08/27/2018 [id number] Ambulatory [place] 8 [facility] ing:PSN Repository 08/10/2018 [id number] Ambulatory [place] 9 [facility] ing:LAB Repository 06/07/2018/ [id number] Emergency [place] 8 2 [facility] ing:ED Repository 04/12/2018 [id number] Ambulatory [place] 8 [facility] ing:MTLAB Repository 03/02/2018/ [id number] Ambulatory BMSBuilding:B [place] 8 9 [facility] Repository 12/28/2017 [id number] Ambulatory [place] 2 [facility] ing:HPRAD Repository 12/28/2017/ [id number] Ambulatory BMSBuilding:B [place] 8 7 [facility] Repository 11/16/2017 [id number] Ambulatory [place] 4 [facility] ing:HPRAD Repository 11/16/2017/ [id number] Ambulatory BMSBuilding:B [place] 8 7 [facility] Repository 10/29/2017 [id number] Ambulatory [place] 9 [facility] ing:HPRAD Repository 10/29/2017/ [id number] Ambulatory BMSBuilding:B [place] 8 9 [facility] Repository 10/14/2017/ [id number] Ambulatory BMSBuilding:B [place] 8 3 [facility] Repository 10/10/2017 [id number] Ambulatory [place] 1 [facility] ing:CT Repository 10/07/2017/ [id number] Ambulatory BMSBuilding:B [place] 8 0 [facility] Repository 10/02/2017/ [id number] Emergency [place] 8 2 [facility] ing:ED Repository 09/21/2017 [id number] Ambulatory [place] 7 [facility] ing:CVS Repository 09/21/2017 [id number] Ambulatory BMSBuilding:W [place] 0 [facility] Repository PAYERS PAYERS ENCOUNTER GUARANTOR PAYER SUBSCRIBER SOURCE 09/14/2018 KAYLEIGH L Primary KAYLEIGH L [place] [id number] Insurance:MEDICARE KAUFMANDOB: [facility] PART A [facility] [id number] Repository [address]Eul: [phone] [id number] [phone] () Date:2018-09-14 09/14/2018 Secondary KAYLEIGH L [place] Insurance:FORETHOUGHT KAUFMANDOB: [facility] Policy Number: [id number] Hospital [id number] Repository Date:6275-63-85VW [address] [place] [address]TH: 09/14/2018 Tertiary NOT GIVENUNK [place] Insurance:SELF PAY [facility] Number: Effective Repository Date:2018-09-14 08/27/2018 KAYLEIGH L Primary KAYLEIGH L [place] [id number] Insurance:MEDICARE KAUFMANDOB: [facility] [id number] Number: Repository [address]Tai: [phone] [id number] [phone] (HP) Date:2018-08-11 08/27/2018 Secondary KAYLEIGH L [place] Insurance:FORETHOUGHT KAUFMANDOB: Community Policy Number: [id number] Hospital [id number] Repository Date:9593-02-34IY [address] [place] [address]JR: 08/27/2018 Tertiary NOT GIVENUNK [place] Insurance:SELF PAY [facility] Hospital Number: Effective Repository Date:2018-08-11 08/10/2018 KAYLEIGH L Primary KAYLEIGH L [place] [id number] Insurance:MEDICARE KAUFMANDOB: [id number] [place] Number: Repository [address]Xsd: 330 [id number] [phone] (HP) Date:2018-08-10 08/10/2018 Secondary KAYLEIGH L [place] Insurance:FORETHOUGHT KAUFMANDOB: [facility] Policy Number: [id number] Hospital [id number] Repository Date:1650-41-64ME [address] [place] [address]QK: 08/10/2018 Tertiary NOT GIVENUNK [place] Insurance:SELF PAY [facility] Hospital Number: Effective Repository Date:2018-08-10 06/07/2018 KAYLEIGH L Primary KAYLEIGH L [place] [id number] Insurance:MEDICARE KAUFMANDOB: [facility] [id number] Number: Repository 98[address]Wuq: 330 [id number] [phone] (HP) Date:2018-06-07 06/07/2018 Secondary KAYLEIGH L [place] Insurance:FORETHOUGHT KAUFMANDOB: [facility] Policy Number: [id number] Hospital [id number] Repository Date:9544-54-70TE [address] [facility] [address]GZ: 06/07/2018 Tertiary NOT GIVENUNK [place] Insurance:SELF PAY [facility] Number: Effective Repository Date:2018-06-07 04/12/2018 KAYLEIGH L Primary KAYLEIGH L [place] [id number] Insurance:MEDICARE KAUFMANDOB: [facility] [id number] Number: Repository [address]Hkg: 330 [id number] [phone] (HP) Date:2018-04-12 04/12/2018 Secondary KAYLEIGH L [place] Insurance:FORETHOUGHT KAUFMANDOB: [facility] Policy Number: [id number] Hospital [id number] Repository Date:9925-12-02ZX [address] [facility] [address]SN: 04/12/2018 Tertiary NOT GIVENUNK [place] Insurance:SELF PAY [facility] Number: Effective Repository Date:2018-04-12 03/02/2018 KAYLEIGH L Primary KAYLEIGH L [place] [id number] Insurance:MEDICARE KAUFMANDOB: [facility] [id number] Number: Repository 35[address]Pbd: 330 [id number] [phone] (HP) Date:2017-08-04 03/02/2018 Secondary KAYLEIGH L [place] Insurance:FORETHOUGHT KAUFMANDOB: [facility] Policy Number: [id number] Hospital [id number] Repository Date:4609-99-22DQ [address] [place], [place] [address]GS: 03/02/2018 Tertiary NOT GIVENUNK [place] Insurance:SELF PAY [facility] Number: Effective Repository Date:2017-08-04 12/28/2017 KAYLEIGH L Primary KAYLEIGH L [place] [id number] Insurance:MEDICARE KAUFMANDOB: [facility] [id number] Number: Repository [address]Qri: [phone]) [id number] [phone] (HP) Date:2017-12-28 12/28/2017 Secondary KAYLEIGH L [place] Insurance:FORETHOUGHT KAUFMANDOB: [facility] Policy Number: [id number] Hospital [id number] Repository Date:4539-35-59IY [address] [place] [address]EI: 12/28/2017 Tertiary NOT GIVENUNK [place] Insurance:SELF PAY [facility] Number: Effective Repository Date:2017-12-28 12/28/2017 KAYLEIGH L Primary KAYLEIGH L [place] [id number] Insurance:MEDICARE KAUFMANDOB: [facility] [id number], [place] Number: Repository [address]Oha: [phone] [id number] [phone] () Date:2017-11-16 12/28/2017 Secondary KAYLEIGH L [place] Insurance:FORETHOUGHT KAUFMANDOB: [facility] Policy Number: [id number] Hospital [id number] Repository Date:0235-35-57OJ [address] [place] [address]TU: 12/28/2017 Tertiary NOT GIVENUNK [place] Insurance:SELF PAY [facility] Hospital Number: Effective Repository Date:2017-12-28 11/16/2017 KAYLEIGH L Primary KAYLEIGH L [place] [id number] Insurance:MEDICARE KAUFMANDOB: [facility] [id number], [place] Number: Repository [address]Zpl: [phone] [id number] [phone] (HP) Date:2017-11-16 11/16/2017 Secondary KAYLEIGH L [place] Insurance:FORETHOUGHT KAUFMANDOB: [facility] Policy Number: [id number] Hospital [id number] Repository Date:7728-32-21KM [address] [place] [address]TS: 11/16/2017 Tertiary NOT GIVENUNK [place] Insurance:SELF PAY [facility] Hospital Number: Effective Repository Date:2017-11-16 11/16/2017 KAYLEIGH L Primary KAYLEIGH L [place] [id number] Insurance:MEDICARE KAUFMANDOB: [facility] [id number] Number: Repository [address]Alv: 330 [id number] [phone] (HP) Date:2017-10-29 11/16/2017 Secondary KAYLEIGH L [place] Insurance:FORETHOUGHT KAUFMANDOB: [facility] Policy Number: [id number] Hospital [id number] Repository Date:2994-88-68QR [address], [place] [address]AS: 11/16/2017 Tertiary NOT GIVENUNK [place] Insurance:SELF PAY [facility] Number: Effective Repository Date:2017-11-16 10/29/2017 KAYLEIGH L Primary KAYLEIGH L [place] [id number] Insurance:MEDICARE KAUFMANDOB: [facility] [id number] [facility] [place] Number: Repository [address]Pwc: 330 [id number] [phone] (HP) Date:2017-10-29 10/29/2017 Secondary KAYLEIGH L [place] Insurance:FORETHOUGHT KAUFMANDOB: [facility] Policy Number: [id number] Hospital [id number] Repository Date:3503-52-38MG [address] [place], [place] [address]GT: 10/29/2017 Tertiary NOT GIVENUNK [place] Insurance:SELF PAY [facility] Hospital Number: Effective Repository Date:2017-10-29 10/29/2017 KAYLEIGH L Primary KAYLEIGH L [place] [id number] Insurance:MEDICARE KAUFMANDOB: [facility] [id number], [place] Number: Repository [address]Wpm: 330 [id number] [phone] (HP) Date:2017-10-14 10/29/2017 Secondary KAYLEIGH L [place] Insurance:FORETHOUGHT KAUFMANDOB: [facility] Policy Number: [id number] Hospital [id number] Repository Date:3226-18-49HW [address] [place], [place] [address]UQ: 10/29/2017 Tertiary NOT GIVENUNK [place] Insurance:SELF PAY [facility] Number: Effective Repository Date:2017-10-14 10/14/2017 KAYLEIGH L Primary KAYLEIGH L [place] [id number] Insurance:MEDICARE KAUFMANDOB: [facility] [id number], [place] Number: Repository [address]Llu: 330 [id number] [phone] () Date:2017-10-08 10/14/2017 Secondary KAYLEIGH L [place] Insurance:FORETHOUGHT KAUFMANDOB: [facility] Policy Number: [id number] Hospital [id number] Repository Date:1840-46-30ZL [address] [place], [place] [address]LP: 10/14/2017 Tertiary NOT GIVENUNK [place] Insurance:SELF PAY [facility] Number: Effective Repository Date:2017-10-08 10/10/2017 KAYLEIGH L Primary KAYLEIGH L [place] [id number] Insurance:MEDICARE KAUFMANDOB: [facility] [id number] Number: Repository [address]Smu: [phone] [id number] [phone] () Date:2017-10-07 10/10/2017 Secondary KAYLEIGH L [place] Insurance:FORETHOUGHT KAUFMANDOB: [facility] Policy Number: [id number] Hospital [id number] Repository Date:7393-03-31SP [address] [place], [place] [address]HY: 10/10/2017 Tertiary NOT GIVENUNK [place] Insurance:SELF PAY [facility] Number: Effective Repository Date:2017-10-07 10/07/2017 KAYLEIGH L Primary KAYLEIGH L [place] [id number] Insurance:MEDICARE KAUFMANDOB: [facility] [id number], [place] Number: Repository [address]Cwa: 330 [id number] [phone] (HP) Date:2017-10-05 10/07/2017 Secondary KAYLEIGH L [place] Insurance:FORETHOUGHT KAUFMANDOB: Community Policy Number: [id number] Hospital [id number] Repository Date:4861-66-15MO [address] [place], [place] [address]LL: 10/07/2017 Tertiary NOT GIVENUNK [place] Insurance:SELF PAY [facility] Number: Effective Repository Date:2017-10-05 10/02/2017 KAYLEIGH L Primary KAYLEIGH L [place] [id number] Insurance:MEDICARE KAUFMANDOB: [facility] [id number] Number: Repository [address]Iov: 330 [id number] [phone] () Date:2017-10-02 10/02/2017 Secondary KAYLEIGH L [place] Insurance:FORETHOUGHT KAUFMANDOB: Community Policy Number: [id number] Hospital [id number] Repository Date:4053-44-92FE [address] [place], [place] [address]MM: 10/02/2017 Tertiary NOT GIVENUNK [place] Insurance:SELF PAY [facility] Number: Effective Repository Date:2017-10-02 09/21/2017 KAYLEIGH L Primary KAYLEIGH L [place] [id number] Insurance:MEDICARE KAUFMANDOB: [facility] [id number], [place] Number: Repository [address]Wln: 330 [id number] [phone] (HP) Date:2017-09-11 09/21/2017 Secondary KAYLEIGH L [place] Insurance:FORETHOUGHT KAUFMANDOB: [facility] Policy Number: [id number] Hospital [id number] Repository Date:6220-06-84SU [address] [place], [place] [address]WB: 09/21/2017 Tertiary NOT GIVENUNK [place] Insurance:SELF PAY [facility] Hospital Number: Effective Repository Date:2017-09-11 09/21/2017 KAYLEIGH L Primary KAYLEIGH L [place] [id number] Insurance:MEDICARE KAUFMANDOB: [facility] PART A [id number] Repository [address]Rij: [phone] [id number] [phone] (HP) Date:2017-09-11 09/21/2017 Secondary KAYLEIGH L [place] Insurance:FORETHOUGHT KAUFMANDOB: Community Policy Number: [id number] Hospital [id number] Repository Date:[id number] [id number] CLEMENTINE COTO [id number]: 09/21/2017 Tertiary NOT GIVENUNK Christ[place] Insurance:SELF PAY [facility] Number: Effective Repository Date:2017-09-21
== END ==
PROVIDERS: Family Provider Family Medicine; PCP Family Medicine; Referring Provider Family Medicine; Visit Provider Family Medicine
DX: E11.65 Type 2 diabetes mellitus with hyperglycemia (principal); N30.00 Acute cystitis without hematuria; R41.3 Other amnesia
CPT/HCPCS: 36415; 80053; 83036; 83735; 84443; 87077; 87086; 87088; 87186

== ENCOUNTER → 2018-09-23 11:26 | Outpatient (CLI) | payer MEDICARE, OTHER, SELFPAY ==
[2018-09-23 13:38] LABS: Microalbumin:Creatinine Ratio 28.5 mg/g CRE (<30 mg/g CRE)
[2018-09-23 13:40] LABS: ALB/GLOB Ratio 0.8 RATIO (0.9-2.4); AST(SGOT) 17 U/L (15-37); Alanine Aminotransfer ALT/SGPT 27 U/L (13-56); Albumin, Serum 3.3 g/dL (3.2-5.0); Alkaline Phosphatase 125 U/L (45-117); Anion Gap 11 (5-15); BUN 20 mg/dL (7-18); BUN/Creat Ratio 26.7 RATIO (10-20); Calcium,Total 9.2 mg/dL (8.5-10.1); Chloride 105 mmol/L (98-107); Creatinine, Serum 0.75 mg/dL (0.55-1.02); EST Glomerular Filtration Rate 81 mL/min (>60); Est Glom Filt Rate - Afr Amer 98 mL/min (>60); Globulin 3.9 g/dL (2.2-4.2); Glucose 361 mg/dL (74-106); Potassium 4.2 mmol/L (3.5-5.1); Protein, Total 7.2 g/dL (6.4-8.2); Sodium Level 141 mmol/L (136-145)
== END ==
PROVIDERS: Family Provider Family Medicine; PCP Family Medicine; Referring Provider Internal Medicine Endocrinology, Diabetes & Metabolism; Visit Provider Internal Medicine Endocrinology, Diabetes & Metabolism
DX: M85.9 Disorder of bone density and structure, unspecified (principal); E11.65 Type 2 diabetes mellitus with hyperglycemia
CPT/HCPCS: 36415; 80053; 82043; 82570

== ENCOUNTER → 2018-12-06 11:22 | Outpatient (CLI) | payer MEDICARE, OTHER, SELFPAY ==
--- NOTE | 2018-12-06 12:00 | PET_ITS ---
EXAMINATION: FDG PET BRAIN INDICATIONS: A 68-year-old female with reported history of cognitive impairment, memory loss. COMPARISON EXAMINATION: MRI of the brain report dated 08/27/18. TECHNIQUE: Following the intravenous administration of 9.80 mCi of F-18 deoxyglucose via the left antecubital fossa, multiplanar image acquisitions of the brain obtained at 60 minutes post radiopharmaceutical administration reveal: SERUM GLUCOSE LEVEL: mg/dl. HEIGHT: 63 inches. WEIGHT: 140 lbs FINDINGS: 1. Qualitative, visual analysis demonstrates altered glucose metabolism defined in the distribution of the bilateral parietal and temporal cortex, with otherwise relative preservation of glucose metabolism noted in the remaining cerebral cortical structures. There is symmetric visualization of the basal ganglia and cerebellar hemispheres. 2. Quantitative analysis utilizing [employer] software demonstrates statistically significant altered glucose metabolism manifest in the bilateral parietal and temporal cerebral cortex with maximum altered quantitative glucose distribution noted in the right inferior temporal cortex with a Z-score of -6.55 and right inferior parietal cortex with a Z-score of -.4.46. PET/PET Brain Metabolic Eval IMPRESSION: 1. Altered glucose metabolism defined in the bilateral temporal and parietal cerebral cortex is commensurate with cholinergic dysfunction likely attributed to dementia, Alzheimer type, in the appropriate clinical context. Electronic Signature Miah Conteh D.O. Electronically Signed: Miah Conteh DO at 20:49 EDT Tel , Service support ,
== END ==
PROVIDERS: Family Provider Family Medicine; PCP Family Medicine; Referring Provider Psychiatry & Neurology Neurology; Visit Provider Psychiatry & Neurology Neurology
DX: Z00.6 Encounter for examination for normal comparison and control in clinical research program (principal); F03.90 Unspecified dementia, unspecified severity, without behavioral disturbance, psychotic disturbance, mood disturbance, and anxiety
CPT/HCPCS: 78608; A9552

== ENCOUNTER → 2018-12-10 09:02 | Outpatient (CLI) | payer MEDICARE, OTHER, SELFPAY ==
[2018-12-10 09:59] LABS: Hemoglobin A1c 8.9 % (4.2-6.3)
[2018-12-10 10:02] LABS: AST(SGOT) 25 U/L (15-37); Alanine Aminotransfer ALT/SGPT 30 U/L (13-56); Anion Gap 4 (5-15); BUN 19 mg/dL (7-18); BUN/Creat Ratio 24.4 RATIO (10-20); Calcium,Total 8.8 mg/dL (8.5-10.1); Chloride 108 mmol/L (98-107); Creatinine, Serum 0.78 mg/dL (0.55-1.02); EST Glomerular Filtration Rate 78 mL/min (>60); Est Glom Filt Rate - Afr Amer 94 mL/min (>60); Glucose 195 mg/dL (74-106); Potassium 3.8 mmol/L (3.5-5.1); Sodium Level 141 mmol/L (136-145)
== END ==
PROVIDERS: Family Provider Family Medicine; PCP Family Medicine; Referring Provider Internal Medicine Endocrinology, Diabetes & Metabolism; Visit Provider Internal Medicine Endocrinology, Diabetes & Metabolism
DX: M85.9 Disorder of bone density and structure, unspecified (principal); E11.65 Type 2 diabetes mellitus with hyperglycemia
CPT/HCPCS: 36415; 80048; 83036; 84450; 84460

== ENCOUNTER 2019-01-31 13:13 | Inpatient (IN) | payer MEDICARE, OTHER, SELFPAY ==
[2019-01-31 13:14] VITALS: BP 114/50; PULSE 55; PULSE 66; RESP 16; RESP 17; TEMP 36.8; O2SAT 94; O2SAT 99
--- NOTE | 2019-01-31 13:21 | EKG12_ITS ---
Test Reason : Blood Pressure : / mmHG Vent. Rate : 069 BPM Atrial Rate : 069 BPM P-R Int : 156 ms QRS Dur : 076 ms QT Int : 462 ms P-R-T Axes : 071 066 030 degrees QTc Int : 495 ms Sinus rhythm with Premature atrial complexes with Aberrant conduction Low voltage QRS Prolonged QT Abnormal ECG Confirmed by BAUTISTA VELASCO, KARTIK ([id number]), science editor VADIM CARDENAS ([id number]) on 02/01/2019 8:14:26 AM Referred By: Letha Johnson Confirmed By:KARTIK BAUM MD
--- NOTE | 2019-01-31 13:21 | RAD_ITS ---
STUDY: X-RAY CHEST REASON FOR EXAM: Female, 68 years old. Right hip pain following a fall. TECHNIQUE: Single AP portable view of the chest. COMPARISON: Comparison is made with prior study of November 16, 2013. FINDINGS: EKG electrodes are seen. The lungs are clear and expanded. There is no demonstrated pleural abnormality. Normal size heart. Normal mediastinum and sandra. Normal visualized pulmonary arteries. There is atherosclerotic tortuosity of the aortic arch and descending thoracic aorta. There are degenerative changes of the visualized thoracic spine. Normal visualized ribs, clavicles, and shoulders. There is no demonstrated abnormality of the visualized soft tissue structures of the upper abdomen. RAD/Chest 1 View (Portable) IMPRESSION: No acute abnormality is seen. Electronically Signed: Theodore Gorman, at 14:32 EDT , Service support ,
--- NOTE | 2019-01-31 13:23 | RAD_ITS ---
STUDY: X-RAY - PELVIS AND RIGHT HIP REASON FOR EXAM: Female, 68 years old. Right hip pain following a fall. TECHNIQUE: 3 views of the pelvis and hip. COMPARISON: None. FINDINGS: There is a non-specific bowel gas pattern. Calcified fibroid uterus. Normal bilateral iliac wings, sacroiliac joints and visualized sacrum. Normal bilateral superior and inferior pubic rami. There is narrowing with sclerosis of the pubic symphysis. Normal bilateral ischial tuberosities. There is a nondisplaced right intertrochanteric fracture. RAD/HIP, UNI W/ Pelvis 2-3 Views IMPRESSION: Nondisplaced right intertrochanteric fracture. Electronically Signed: Theodore Gorman, at 14:31 EDT , Service support ,
[2019-01-31 13:50] LABS: Absolute Lymphocyte Count 1.32 X10^3/ul (0.83-4.51); Absolute Neutrophil Count 9.1 X10^3/uL (2.0-7.7); Basophil# 0.02 X10^3/uL; Basophil% 0.2 % (0-1); Eosinophil# 0.06 X10^3/uL; Eosinophils% 0.5 % (0-5); Hematocrit 39.1 % (37-47); Hemoglobin 12.7 g/dl (12.0-15.0); Lymphocyte # 1.32 X10^3/ul (4.0); Mean Corp Hgb Conc 32.5 g/gl (32-36); Mean Corpuscular Hgb 28.5 pg (27.0-32.0); Mean Corpuscular Volume 87.9 fL (81-99); Mean Platelet Vol. 9.8 fl (6.2-12.0); Monocyte# 0.49 X10^3/uL; Monocyte% 4.5 % (0-10); Neutrophil # 9.06 X10^3/uL (2.7-7.7); Neutrophil % 82.6 % (47-70); Platelet Count 229 K/mm3 (150-450); RBC Distribution Width CV 14.4 % (11.6-14.6); RBC Distribution Width SD 46.2 fl (35.1-43.9); Red Blood Count 4.45 M/mm3 (4.2-5.4)
[2019-01-31 13:51] LABS: POSITIVE COUNT NO; POSITIVE DIFFERENTIAL NO; POSITIVE MORPHOLOGY NO
[2019-01-31 14:00] LABS: Anion Gap 6 (5-15); BUN 21 mg/dL (7-18); BUN/Creat Ratio 29.7 RATIO (10-20); Calcium,Total 8.9 mg/dL (8.5-10.1); Chloride 109 mmol/L (98-107); Creatinine, Serum 0.71 mg/dL (0.55-1.02); EST Glomerular Filtration Rate 87 mL/min (>60); Est Glom Filt Rate - Afr Amer 105 mL/min (>60); Glucose 91 mg/dL (74-106); Potassium 4.1 mmol/L (3.5-5.1); Sodium Level 141 mmol/L (136-145)
--- NOTE | 2019-01-31 14:19 | ED.VIS.GEN ---
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 She was unable to move after the fall. She is complaining of pain in the proximal anterior right thigh. She denied head trauma. She denies neck pain. She denies paresthesia, anesthesia motors. She denies cardiac restaurant symptoms. She denies black or maroon stool. She denies fever, chills night sweats. - Past Medical History (1) Atherosclerotic heart disease of [place] coronary artery without angina pectoris Status: Chronic Comment: PTCA/JERROD to proximal LAD 02/13/2009; PTCA/JERROD to OM1 and diagonal 2 in 10/12/2009; (2) Controlled type 1 diabetes mellitus without complication Status: Chronic (3) HLD (hyperlipidemia) Status: Chronic (4) HTN (hypertension) Status: Chronic (5) Old myocardial infarction Status: Chronic (6) Palpitations Status: Chronic (7) Subdural hematoma Status: Resolved Past Medical History - Allergies and Home Meds Allergies/Adverse Reactions: Allergies fentanyl Allergy (Verified 01/31/19 13:14) Low blood pressure diazepam [From Valium] Adverse Reaction (Verified 01/31/19 13:14) Other Prior records reviewed: Yes Surgical History: noncontributory Lives: Alone Smoking Status: Never smoker Alcohol: None Review of Systems General: Denies: Chills, Fever, Sweats Eyes: Denies: Visual changes - bilaterally, Blurred Vision - bilaterally, Diplopia ENT: Denies: Rhinorrhea, Sore throat Cardiovascular: Denies: Chest pain, Palpitations Respiratory: Denies: Dyspnea, Cough, Dyspnea on exertion Gastrointestinal: Denies: Abdominal pain, Nausea, Vomiting, Diarrhea, Melena, Hematochezia Genitourinary: Denies: Dysuria, Hematuria, Frequency Musculoskeletal: Reports: Extremity Pain. Denies: Myalgias, Arthralgias, Neck pain, Back pain, Swelling, -, - Skin: Denies: Rash, Wounds Neurological: Denies: Headache, Weakness, Numbness Hematologic: Denies: Easy bruising, Easy bleeding Allergy: Denies: Uticaria, Swelling of the mouth Physical Exam Vital Signs/Narrative: Vital Signs Temp Pulse Resp BP Pulse Ox 01/31/19 13:14 98.2 F 66 16 114/50 L 94 Inital Vital Signs reviewed: Yes General: Well nourished, Well developed, No Acute Distress Head: Normocephalic, Atraumatic Eyes: Perrl, EOMI. Negative for: Pale conjunctiva, Scleral icterus, - ENT: Moist mucous membranes, No rhinorrhea, TM's clear Neck: Supple, Nontender, No lymphadenopathy, No JVD Cardiovascular: Regular rate, Regular rhythm, No murmurs, Normal S1, Normal S2 Respiratory: No distress, CTA bilaterally, Chest nontender Abdomen: Soft, Nontender, Nondistended, Normal bowel sounds, No masses Rectal: Deferred Back: Nontender, Normal Inspection Extremities: No edema, - - There is no shortening of the right lower externally. Logrolling causes discomfort in the groin. This is concerning for a hip fracture.. Negative for: Nontender Skin: Normal color, No rash Neurological: Alert, Oriented x3, Cranial nerves II-XII grossly intact, Normal Strength, Normal Sensation. Negative for: Normal Gait Psychological: Normal affect Diagnostic/Tx/Re-eval Chest X-Ray - ED: 1 View, Read by ED Physician, Normal, Heart, Mediastinum, Bony Structures, No Acute Disease, Chronic Changes, - - Review x-ray of the right hip reveals a nondisplaced intertrochanteric fracture. 01/31/19 13:21 Chest 1 View (Portable) [RAD] Stat 01/31/19 13:23 HIP, UNI W/ Pelvis 2-3 Views [RAD] Stat Laboratory Results 01/31/19 01/31/19 13:40 13:40 WBC 11.0 RBC 4.45 Hgb 12.7 Hct 39.1 MCV 87.9 MCH 28.5 MCHC 32.5 RDW 14.4 RDW Differential 46.2 H Plt Count 229 MPV 9.8 Immature Gran % (Auto) 0.200 Neut % (Auto) 82.6 H Lymph % (Auto) 12.0 L [place] % (Auto) 4.5 Eos % (Auto) 0.5 Baso % (Auto) 0.2 Absolute Neuts (auto) 9.1 H Absolute Lymphs (auto) 1.32 Total Counted Not Reportable Sodium 141 Potassium 4.1 Chloride 109 H Carbon Dioxide 26.0 Anion Gap 6 BUN 21 H Creatinine 0.71 Estim Creat Clear Calc 43.30 Est GFR (MDRD) Af Amer 105 Est GFR (MDRD) Non-Af 87 BUN/Creatinine Ratio 29.7 H Glucose 91 Calcium 8.9 - EKG Initial EKG Interpretation: Sinus Rhythm - Ventricular rate 69. Premature atrial complex noted. Prolonged QT interval. NM intervals 156 ms. QRS duration 76 ms. [place] is normal. ED Disposition - Plan for ED Patient: Disposition: Acute Care [facility] Diagnosis: Intertrochanteric fracture of right femur
--- NOTE | 2019-01-31 14:24 | ED.DCSUM_ITS ---
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 She was unable to move after the fall. She is complaining of pain in the proximal anterior right thigh. She denied head trauma. She denies neck pain. She denies paresthesia, anesthesia motors. She denies cardiac restaurant symptoms. She denies black or maroon stool. She denies fever, chills night sweats. - Past Medical History (1) Atherosclerotic heart disease of [place] coronary artery without angina pectoris Status: Chronic Comment: PTCA/JERROD to proximal LAD 02/13/2009; PTCA/JERROD to OM1 and diagonal 2 in 10/12/2009; (2) Controlled type 1 diabetes mellitus without complication Status: Chronic (3) HLD (hyperlipidemia) Status: Chronic (4) HTN (hypertension) Status: Chronic (5) Old myocardial infarction Status: Chronic (6) Palpitations Status: Chronic (7) Subdural hematoma Status: Resolved Past Medical History - Allergies and Home Meds Allergies/Adverse Reactions: Allergies fentanyl Allergy (Verified 01/31/19 13:14) Low blood pressure diazepam [From Valium] Adverse Reaction (Verified 01/31/19 13:14) Other Prior records reviewed: Yes Surgical History: noncontributory Lives: Alone Smoking Status: Never smoker Alcohol: None Review of Systems General: Denies: Chills, Fever, Sweats Eyes: Denies: Visual changes - bilaterally, Blurred Vision - bilaterally, Diplopia ENT: Denies: Rhinorrhea, Sore throat Cardiovascular: Denies: Chest pain, Palpitations Respiratory: Denies: Dyspnea, Cough, Dyspnea on exertion Gastrointestinal: Denies: Abdominal pain, Nausea, Vomiting, Diarrhea, Melena, Hematochezia Genitourinary: Denies: Dysuria, Hematuria, Frequency Musculoskeletal: Reports: Extremity Pain. Denies: Myalgias, Arthralgias, Neck pain, Back pain, Swelling, -, - Skin: Denies: Rash, Wounds Neurological: Denies: Headache, Weakness, Numbness Hematologic: Denies: Easy bruising, Easy bleeding Allergy: Denies: Uticaria, Swelling of the mouth Physical Exam Vital Signs/Narrative: Vital Signs Temp Pulse Resp BP Pulse Ox 01/31/19 13:14 98.2 F 66 16 114/50 L 94 Inital Vital Signs reviewed: Yes General: Well nourished, Well developed, No Acute Distress Head: Normocephalic, Atraumatic Eyes: Perrl, EOMI. Negative for: Pale conjunctiva, Scleral icterus, - ENT: Moist mucous membranes, No rhinorrhea, TM's clear Neck: Supple, Nontender, No lymphadenopathy, No JVD Cardiovascular: Regular rate, Regular rhythm, No murmurs, Normal S1, Normal S2 Respiratory: No distress, CTA bilaterally, Chest nontender Abdomen: Soft, Nontender, Nondistended, Normal bowel sounds, No masses Rectal: Deferred Back: Nontender, Normal Inspection Extremities: No edema, - - There is no shortening of the right lower externally. Logrolling causes discomfort in the groin. This is concerning for a hip fracture.. Negative for: Nontender Skin: Normal color, No rash Neurological: Alert, Oriented x3, Cranial nerves II-XII grossly intact, Normal Strength, Normal Sensation. Negative for: Normal Gait Psychological: Normal affect Diagnostic/Tx/Re-eval Chest X-Ray - ED: 1 View, Read by ED Physician, Normal, Heart, Mediastinum, Bony Structures, No Acute Disease, Chronic Changes, - - Review x-ray of the right hip reveals a nondisplaced intertrochanteric fracture. 01/31/19 13:21 Chest 1 View (Portable) [RAD] Stat 01/31/19 13:23 HIP, UNI W/ Pelvis 2-3 Views [RAD] Stat Laboratory Results 01/31/19 01/31/19 13:40 13:40 WBC 11.0 RBC 4.45 Hgb 12.7 Hct 39.1 MCV 87.9 MCH 28.5 MCHC 32.5 RDW 14.4 RDW Differential 46.2 H Plt Count 229 MPV 9.8 Immature Gran % (Auto) 0.200 Neut % (Auto) 82.6 H Lymph % (Auto) 12.0 L [place] % (Auto) 4.5 Eos % (Auto) 0.5 Baso % (Auto) 0.2 Absolute Neuts (auto) 9.1 H Absolute Lymphs (auto) 1.32 Total Counted Not Reportable Sodium 141 Potassium 4.1 Chloride 109 H Carbon Dioxide 26.0 Anion Gap 6 BUN 21 H Creatinine 0.71 Estim Creat Clear Calc 43.30 Est GFR (MDRD) Af Amer 105 Est GFR (MDRD) Non-Af 87 BUN/Creatinine Ratio 29.7 H Glucose 91 Calcium 8.9 - EKG Initial EKG Interpretation: Sinus Rhythm - Ventricular rate 69. Premature atrial complex noted. Prolonged QT interval. MD intervals 156 ms. QRS duration 76 ms. [place] is normal. ED Disposition - Plan for ED Patient: Disposition: Acute Care Hospital [facility] Diagnosis: Intertrochanteric fracture of right femur
--- NOTE | 2019-01-31 14:26 | EKG12_ITS ---
Test Reason : PRE OP Blood Pressure : / mmHG Vent. Rate : 071 BPM Atrial Rate : 062 BPM P-R Int : 160 ms QRS Dur : 082 ms QT Int : 468 ms P-R-T Axes : 064 041 047 degrees QTc Int : 508 ms Sinus rhythm with sinus arrhythmia with occasional Premature ventricular complexes Prolonged QT Abnormal ECG Confirmed by ELENA VELASCO, OTIS ([id number]), editor managing director VADIM CARDENAS ([id number]) on 02/02/2019 11:39:09 AM Referred By: Letha Johnson Confirmed By:OTIS PARKER MD
--- NOTE | 2019-01-31 14:27 | NURSING ---
DR BONDS FOR DR CARSON
[2019-01-31 14:29] VITALS: BP 101/50; PULSE 74; RESP 16; O2SAT 97
--- NOTE | 2019-01-31 14:29 | NURSING ---
MED SURG PAINTSIL RT INTERTROCHANTERIC FX
--- NOTE | 2019-01-31 14:38 | HP.PCM_ITS ---
Problem List (1) Intertrochanteric fracture of right femur Status: Acute Qualifiers: Encounter type: initial encounter Fracture type: closed Fracture alignment: nondisplaced Qualified Code(s): S72.144A - Nondisplaced inte rtrochanteric fracture of right femur, initial encounter for closed fracture (2) Controlled type 1 diabetes mellitus without complication Status: Chronic (3) HTN (hypertension) Status: Chronic Qualifiers: Hypertension type: essential hypertension Qualified Code(s): I10 - Essential (primary) hypertension (4) HLD (hyperlipidemia) Status: Chronic Qualifiers: Hyperlipidemia type: mixed hyperlipidemia Qualified Code(s): E78.2 - Mixed hyperlipidemia (5) History of coronary artery stent placement Status: Chronic Comment: PTCA/stent (JERROD) of proximal LAD 02/13/2009; PTCS/stent (JERROD) to OM1 and D2 10/12/2009. (6) Dementia Status: Chronic Qualifiers: Dementia type: unspecified type Dementia behavioral disturbance: without behavioral disturbance Qualified Code(s): F03.90 - Unspecified dementia without behavioral disturbance History of Present Illness Date of Admission: 01/31/19 Chief Complaint: Fall, right hip pain - 1 day The patient is a 68 year old F with PMHx of Type 1 DM complicated by peripheral neuropathy, hypertension, hyperlipidemia, recently diagnosed with dementia, CAD s/p 2 stents who comes in after a fall in her kitchen. Patient believes that she may have tripped and fell down. She lives with his son. She was unable to get up because of severe pain in the right hip. Denied hitting her head. The EMS was called. Vitals in the ED show temperature of 98.2F, heart rate 55, blood pressure 114/50, respiratory rate was 70, SPO2 is 99% on room air. Admitting blood work is unremarkable. Chest x-ray showed no acute abnormality. X-ray of the pelvis and right hip showed nondisplaced right intertrochanteric fracture. Past Medical History Past Medical History (Chronic Problems): Chronic Problems (Last Reviewed 03/02/18 @ 12:17 by Castro Kearney MD) Dementia (Chronic) Controlled type 1 diabetes mellitus without complication (Chronic) HTN (hypertension) (Chronic) HLD (hyperlipidemia) (Chronic) Old myocardial infarction (Chronic) Atherosclerotic heart disease of [place] coronary artery without angina pectoris (Chronic) PTCA/JERROD to proximal LAD 02/13/2009; PTCA/JERROD to OM1 and diagonal 2 in 10/12/2009; Palpitations (Chronic) History of coronary artery stent placement (Chronic) PTCA/stent (JERROD) of proximal LAD 02/13/2009; PTCS/stent (JERROD) to OM1 and D2 10/12/2009. Medical History: Medical History (Last Reviewed 03/02/18 @ 12:17 by Castro Kearney MD) Subdural hematoma (Resolved) Onset Date: 07/2017 S06.5X9A Controlled type 1 diabetes mellitus without complication (Chronic) E10.9 HTN (hypertension) (Chronic) I10 HLD (hyperlipidemia) (Chronic) E78.5 Old myocardial infarction (Chronic) I25.2 Atherosclerotic heart disease of [place] coronary artery without angina pectoris (Chronic) I25.10 PTCA/JERROD to proximal LAD 02/13/2009; PTCA/JERROD to OM1 and diagonal 2 in 10/12/2009; Palpitations (Chronic) R00.2 Fatigue (Inactive) R53.83 Other chest pain (Inactive) R07.89 Allergies fentanyl Allergy (Verified 01/31/19 13:14) Low blood pressure diazepam [From Valium] Adverse Reaction (Verified 01/31/19 13:14) Other Home Medications: Ambulatory Orders Medication Instructions Recorded Amlodipine [Norvasc] 10 mg PO DAILY 11/16/13 Clopidogrel Bisulfate [Plavix] 75 mg PO DAILY 11/16/13 levothyroxine 25 mcg capsule 50 mcg PO DAILY cap 09/10/17 metoprolol tartrate 50 mg tablet 75 mg PO BID tab 09/10/17 benazepril 20 mg tablet 20 mg PO BID tab 10/07/17 aspirin 81 mg tablet,delayed 81 mg PO DAILY 03/02/18 release magnesium oxide 400 mg (241.3 mg 400 mg PO DAILY tab 03/02/18 magnesium) tablet mirabegron ER 25 mg 25 mg PO Q24H 03/02/18 tablet,extended release 24 hr Atorvastatin Calcium [Lipitor] 80 mg PO QHS 01/31/19 Biotin 1,000 mcg PO DAILY 01/31/19 Cholecalciferol (Vitamin D3) 400 unit PO DAILY 01/31/19 [Vitamin D3] Donepezil HCl 10 mg PO QHS 01/31/19 Escitalopram Oxalate 5 mg PO DAILY 01/31/19 Insulin Aspart Prot/Insuln Asp 28 unit SQ DINNER 01/31/19 [Novolog Mix 70-30 Vial] Insulin Aspart Prot/Insuln Asp 30 units SQ BREAKFAST 01/31/19 [Novolog Mix 70-30 Vial] Isosorbide Mononitrate [Monoket] 20 mg PO BID 01/31/19 L.acidoph,Paracasei, B.lactis 1 each PO DAILY 01/31/19 [Probiotic] Liothyronine Sodium 25 mcg PO DAILY 01/31/19 Mirtazapine [Remeron] 15 mg PO QHS 01/31/19 Pioglitazone [Actos] 30 mg PO DAILY 01/31/19 Ubidecarenone [Coq-10] 100 mg PO DAILY 01/31/19 metFORMIN (XR) [Glucophage Xr] 500 mg PO DAILY 01/31/19 Surgical History: Surgical History (Last Reviewed 03/02/18 @ 12:17 by Castro Kearney MD) History of coronary artery stent placement (Chronic) Z95.5 PTCA/stent (JERROD) of proximal LAD 02/13/2009; PTCS/stent (JERROD) to OM1 and D2 10/12/2009. 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 Lives: Alone Smoking Status: Never smoker Alcohol: None - *Family History Maternal Family History: Family History (Last Reviewed 03/02/18 @ 12:17 by Castro Kearney MD) Father CAD (coronary artery disease) CVA (cerebral vascular accident) Brother CVA (cerebral vascular accident) Sister Breast cancer Son Diabetes History Items: No pertinent history Paternal Family History: Family History (Last Reviewed 03/02/18 @ 12:17 by Castro Kearney MD) Father CAD (coronary artery disease) CVA (cerebral vascular accident) Brother CVA (cerebral vascular accident) Sister Breast cancer Son Diabetes History Items: Heart Disease, Stroke Sibling Family History: Family History (Last Reviewed 03/02/18 @ 12:17 by Castro Kearney MD) Father CAD (coronary artery disease) CVA (cerebral vascular accident) Brother CVA (cerebral vascular accident) Sister Breast cancer Son Diabetes History Items: Cancer - breast Offspring Family History: Family History (Last Reviewed 03/02/18 @ 12:17 by Castro Kearney MD) Father CAD (coronary artery disease) CVA (cerebral vascular accident) Brother CVA (cerebral vascular accident) Sister Breast cancer Son Diabetes History Items: Diabetes Review of Systems Constitutional: Denies: Anorexia, Chills, Fever, Night Sweats, Malaise, Weakness, Weight Change, Fatigue Eyes: Denies: Blurred vision, Cataracts, Conjunctivae Inflammation, Double vision, Pain, Redness HEENT: Denies: Difficulty Hearing, Difficulty Swallowing, Dysphasia, Head Aches, Hearing Changes, Sinus Congestion, Sinus Drainage Cardiovascular: Denies: Chest Pain, Claudication, Orthopnea, Palpitations Respiratory: Denies: Cough, Hemoptysis, Shortness of breath at rest, Shortness of breath upon exertion, Sputum production Gastrointestinal: Denies: Abdominal Pain, Constipation, Hematemesis, Hematochezia, Nausea, Vomiting Genitourinary: Denies: Dysuria, Frequency, Incontinence Musculoskeletal: Reports: Joint Pain, Joint stiffness, Joint Tenderness Skin: Denies: Dryness, Jaundice, Pruritis, Rash, Wounds Neurological: Denies: Numbness, Tingling, Focal weakness Psychiatric: Denies: Anxiety, Depression, Homicidal Ideations, Suicidal Ideations Hematologic/ Lymphatic: Denies: Easy Bruising, Easy Bleeding VTE Information - Inpt Only VTE Present on Admission: No VTE Pharm Prophylaxis ordered?: Yes Patient Problems: Active and Suspected Problems (Last Reviewed 03/02/18 @ 12:17 by Castro Kearney MD) Intertrochanteric fracture of right femur (Acute) - Physical Exam General: Alert, Oriented x3, Cooperative, - - in pain in right lower extre HEENT: Atraumatic, PERRLA, EOMI, Normocephalic Oral: Moist Mucosa Neck: Supple Lungs: Clear to auscultation, Normal air movement Cardiovascular: Regular rate, Regular Rhythm, Normal S1, Normal S2, No murmurs Abdomen: Bowel Sounds Present, Soft, Non Tender, Non-Distended, No Hepato- splenomegaly Extremities: Tenderness - over the right hip Skin: No rashes Musculoskeletal: No Tenderness to Palpation of Joints or Extremities Lymphatic: No Cervical, Supraclavicular, or Inguinal Adenopathy Neurological: Cranial nerves II-XII grossly intact, Neuro grossly intact Psych/Mental Status: Normal Affect, Appropriate Vital Signs Temp Pulse Resp BP Pulse Ox 98.2 F 74 16 101/50 L 97 01/31/19 13:14 01/31/19 14:29 01/31/19 14:29 01/31/19 14:29 01/31/19 14:29 Oxygen Delivery Method Room Air Weight: 77 kg Body Mass Index (BMI) 30.0 Finger Stick Blood Glucose 440 Laboratory Tests Past 24 Hrs 01/31/19 01/31/19 13:40 13:40 WBC 11.0 RBC 4.45 Hgb 12.7 Hct 39.1 MCV 87.9 MCH 28.5 MCHC 32.5 RDW 14.4 RDW Differential 46.2 H Plt Count 229 MPV 9.8 Immature Gran % (Auto) 0.200 Neut % (Auto) 82.6 H Lymph % (Auto) 12.0 L [place] % (Auto) 4.5 Eos % (Auto) 0.5 Baso % (Auto) 0.2 Absolute Neuts (auto) 9.1 H Absolute Lymphs (auto) 1.32 Total Counted Not Reportable Sodium 141 Potassium 4.1 Chloride 109 H Carbon Dioxide 26.0 Anion Gap 6 BUN 21 H Creatinine 0.71 Estim Creat Clear Calc 43.30 Est GFR (MDRD) Af Amer 105 Est GFR (MDRD) Non-Af 87 BUN/Creatinine Ratio 29.7 H Glucose 91 Calcium 8.9 Assessment/Plan All Active Problems (Last Reviewed 03/02/18 @ 12:17 by Castro Kearney MD) Intertrochanteric fracture of right femur (Acute) Subdural hematoma (Resolved 07/2017) 68 year old F with PMHx of Type 1 DM complicated by peripheral neuropathy, hypertension, hyperlipidemia, recently diagnosed with dementia, CAD s/p 2 stents who comes in after a fall in her kitchen and sustained severe right nondisplaced intertrochanteric fracture. 1. Acute right nondisplaced intertrochanteric fracture, traumatic, s/p fall, pain is fairly controlled Plan: Admit to MedSurg floor, pain control, IV fluids, orthopedic consulted from the emergency department Patient denies any active cardiac conditions, EKG shows no acute ST-T changes, [place] perioperative cardiac risk is 0.03%, she is low-moderate risk for planned procedure Aspirin and plavix have been held. 2. Type I DM complicated by peripheral neuropathy, would hold metformin, Actos Continue on home insulin therapy, will add Accu-Cheks with insulin sliding scale Her insulin regimen will need to be co-ordinated with timing of surgery. 3. Hypertension, controlled, on metoprolol, Lisinopril, amlodipinewill continue to monitor vitals 4. Hyperlipidemia, on statin, continue same 5. CAD status post stents in 2017 on statin, isosorbide, metoprolol, aspirin and Plavix on hold for now 6. Recently diagnosed dementia, on donepezil, will continue same 7. Hypothyroidism, on replacement, continue same 8. DVT PPx-heparin subcu Code Visit Inpatient E&M: 04086 Init Hosp L3
[2019-01-31 14:56] VITALS: BMI 30.1
[2019-01-31] MEDS: Morphine 2 MG/ML Syringe 1 MG IV (15:50)
[2019-01-31 15:53] VITALS: BMI 27.5
[2019-01-31] MEDS: Morphine 2 MG/ML Syringe IV (16:18)
[2019-01-31] MEDS: 0.9% NaCl Peripheral Flush Adult/Peds IV (16:19)
[2019-01-31 17:45] VITALS: BP 133/66; PULSE 83; RESP 18; TEMP 37.1; O2SAT 95
[2019-01-31 18:56] LABS: Bedside Glucose 116 mg/dL (70-110)
[2019-01-31 19:35] VITALS: O2SAT 96
[2019-01-31 22:15] VITALS: BP 126/56; PULSE 99; RESP 18; TEMP 37.2; O2SAT 93
[2019-01-31] MEDS: oxyCODONE 5 MG Tablet PO (22:30)
[2019-01-31] MEDS: Insulin Lispro 100 UNIT/ML INSULN.PEN SQ (22:31)
[2019-01-31] MEDS: Heparin Injection (Vial) 5,000 UNIT/ML VIAL 5000 UNIT SC (22:31)
[2019-01-31] MEDS: Acetaminophen 500 MG Tablet 1000 MG PO (22:31)
[2019-01-31] MEDS: Lisinopril 20 MG Tablet PO (22:31)
[2019-01-31 22:32] VITALS: BP 126/56; PULSE 99
[2019-01-31] MEDS: Donepezil HCl 10 MG Tablet PO (22:32)
[2019-01-31] MEDS: Isosorbide Mononitrate 20 MG Tablet PO (22:32)
[2019-01-31] MEDS: Metoprolol Tartrate 50 MG Tablet 75 MG PO (22:32)
[2019-01-31] MEDS: Atorvastatin Calcium 80 MG Tablet PO (22:32)
[2019-01-31 22:56] LABS: Bedside Glucose 275 mg/dL (70-110)
[2019-02-01] VITALS (13 sets, daily range): BP systolic 114–168; BP diastolic 57–98; PULSE 60–88; RESP 14–18; TEMP 36.2–36.9; O2SAT 91–97; BMI 27.5; BMI 30.1
[2019-02-01] MEDS: 0.9% Normal Saline 1,000 ML 75 ML IV ×2 (01:16→18:14)
[2019-02-01 05:32] LABS: Absolute Lymphocyte Count 2.02 X10^3/ul (0.83-4.51); Absolute Neutrophil Count 4.8 X10^3/uL (2.0-7.7); Basophil# 0.01 X10^3/uL; Basophil% 0.1 % (0-1); Eosinophil# 0.11 X10^3/uL; Eosinophils% 1.4 % (0-5); Hematocrit 37.5 % (37-47); Hemoglobin 12.3 g/dl (12.0-15.0); Lymphocyte # 2.02 X10^3/ul (4.0); Lymphocyte % 26.2 % (19-41); Mean Corp Hgb Conc 32.8 g/gl (32-36); Mean Corpuscular Hgb 28.5 pg (27.0-32.0); Mean Platelet Vol. 9.4 fl (6.2-12.0); Monocyte# 0.74 X10^3/uL; Monocyte% 9.6 % (0-10); Neutrophil # 4.83 X10^3/uL (2.7-7.7); Neutrophil % 62.6 % (47-70); Platelet Count 203 K/mm3 (150-450); RBC Distribution Width CV 14.4 % (11.6-14.6); RBC Distribution Width SD 44.9 fl (35.1-43.9); Red Blood Count 4.31 M/mm3 (4.2-5.4); White Blood Count 7.7 K/mm3 (4.4-11.0)
[2019-02-01 05:38] LABS: POSITIVE COUNT NO; POSITIVE DIFFERENTIAL NO; POSITIVE MORPHOLOGY NO
[2019-02-01 05:43] LABS: ALB/GLOB Ratio 0.8 RATIO (0.9-2.4); AST(SGOT) 18 U/L (15-37); Alanine Aminotransfer ALT/SGPT 23 U/L (13-56); Albumin, Serum 2.6 g/dL (3.2-5.0); Alkaline Phosphatase 97 U/L (45-117); Anion Gap 7 (5-15); BUN 14 mg/dL (7-18); BUN/Creat Ratio 21.5 RATIO (10-20); Calcium,Total 8.5 mg/dL (8.5-10.1); Chloride 108 mmol/L (98-107); Creatinine, Serum 0.65 mg/dL (0.55-1.02); EST Glomerular Filtration Rate 95 mL/min (>60); Est Glom Filt Rate - Afr Amer 115 mL/min (>60); Globulin 3.4 g/dL (2.2-4.2); Glucose 238 mg/dL (74-106); Sodium Level 140 mmol/L (136-145)
[2019-02-01] MEDS: Levothyroxine 50 MCG Tablet PO (06:27)
[2019-02-01] MEDS: Acetaminophen 500 MG Tablet 1000 MG PO (06:27)
[2019-02-01 06:36] LABS: Bedside Glucose 221 mg/dL (70-110)
--- NOTE | 2019-02-01 07:06 | PCM.CONS.GEN ---
Reason for Consult Date of Consultation: 02/01/19 Reason for Consultation: right Intertrochanteric fracture History of Present Illness: The patient is a 68 year old F Who sustained a ground-level fall in her kitchen landing onto the right hip immediately having pain and inability to ambulate. She denies other injury no back or knee pain no loss of consciousness. Past Medical History Past Medical History (Chronic Problems): Chronic Problems (Last Reviewed 03/02/18 @ 12:17 by Castro Kearney MD) Dementia (Chronic) Controlled type 1 diabetes mellitus without complication (Chronic) HTN (hypertension) (Chronic) HLD (hyperlipidemia) (Chronic) Old myocardial infarction (Chronic) Atherosclerotic heart disease of [place] coronary artery without angina pectoris (Chronic) PTCA/JERROD to proximal LAD 02/13/2009; PTCA/JERROD to OM1 and diagonal 2 in 10/12/2009; Palpitations (Chronic) History of coronary artery stent placement (Chronic) PTCA/stent (JERROD) of proximal LAD 02/13/2009; PTCS/stent (JERROD) to OM1 and D2 10/12/2009. Medical History: Medical History (Last Reviewed 03/02/18 @ 12:17 by Castro Kearney MD) Subdural hematoma (Resolved) Onset Date: 07/2017 S06.5X9A Controlled type 1 diabetes mellitus without complication (Chronic) E10.9 HTN (hypertension) (Chronic) I10 HLD (hyperlipidemia) (Chronic) E78.5 Old myocardial infarction (Chronic) I25.2 Atherosclerotic heart disease of [place] coronary artery without angina pectoris (Chronic) I25.10 PTCA/JERROD to proximal LAD 02/13/2009; PTCA/JERROD to OM1 and diagonal 2 in 10/12/2009; Palpitations (Chronic) R00.2 Fatigue (Inactive) R53.83 Other chest pain (Inactive) R07.89 Allergies fentanyl Allergy (Verified 01/31/19 13:14) Low blood pressure diazepam [From Valium] Adverse Reaction (Verified 01/31/19 13:14) Other Home Medications: Ambulatory Orders Medication Instructions Recorded Amlodipine [Norvasc] 10 mg PO DAILY 11/16/13 Clopidogrel Bisulfate [Plavix] 75 mg PO DAILY 11/16/13 levothyroxine 25 mcg capsule 50 mcg PO DAILY cap 09/10/17 metoprolol tartrate 50 mg tablet 75 mg PO BID tab 09/10/17 benazepril 20 mg tablet 20 mg PO BID tab 10/07/17 aspirin 81 mg tablet,delayed 81 mg PO DAILY 03/02/18 release magnesium oxide 400 mg (241.3 mg 400 mg PO DAILY tab 03/02/18 magnesium) tablet mirabegron ER 25 mg 25 mg PO Q24H 03/02/18 tablet,extended release 24 hr Atorvastatin Calcium [Lipitor] 80 mg PO QHS 01/31/19 Biotin 1,000 mcg PO DAILY 01/31/19 Cholecalciferol (Vitamin D3) 400 unit PO DAILY 01/31/19 [Vitamin D3] Donepezil HCl 10 mg PO QHS 01/31/19 Escitalopram Oxalate 5 mg PO DAILY 01/31/19 Insulin Aspart Prot/Insuln Asp 28 unit SQ DINNER 01/31/19 [Novolog Mix 70-30 Vial] Insulin Aspart Prot/Insuln Asp 30 units SQ BREAKFAST 01/31/19 [Novolog Mix 70-30 Vial] Isosorbide Mononitrate [Monoket] 20 mg PO BID 01/31/19 L.acidoph,Paracasei, B.lactis 1 each PO DAILY 01/31/19 [Probiotic] Liothyronine Sodium 25 mcg PO DAILY 01/31/19 Mirtazapine [Remeron] 15 mg PO QHS 01/31/19 Pioglitazone [Actos] 30 mg PO DAILY 01/31/19 Ubidecarenone [Coq-10] 100 mg PO DAILY 01/31/19 metFORMIN (XR) [Glucophage Xr] 500 mg PO DAILY 01/31/19 Surgical History: Surgical History (Last Reviewed 03/02/18 @ 12:17 by Castro Kearney MD) History of coronary artery stent placement (Chronic) Z95.5 PTCA/stent (JERROD) of proximal LAD 02/13/2009; PTCS/stent (JERROD) to OM1 and D2 10/12/2009. 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 Lives: Alone Smoking Status: Never smoker Tobacco Use: Non-smoker Alcohol: None - *Family History Maternal Family History: Family History (Last Reviewed 03/02/18 @ 12:17 by Castro Kearney MD) Father CAD (coronary artery disease) CVA (cerebral vascular accident) Brother CVA (cerebral vascular accident) Sister Breast cancer Son Diabetes History Items: No pertinent history Paternal Family History: Family History (Last Reviewed 03/02/18 @ 12:17 by Castro Kearney MD) Father CAD (coronary artery disease) CVA (cerebral vascular accident) Brother CVA (cerebral vascular accident) Sister Breast cancer Son Diabetes History Items: Heart Disease, Stroke Sibling Family History: Family History (Last Reviewed 03/02/18 @ 12:17 by Castro Kearney MD) Father CAD (coronary artery disease) CVA (cerebral vascular accident) Brother CVA (cerebral vascular accident) Sister Breast cancer Son Diabetes History Items: Cancer - breast Offspring Family History: Family History (Last Reviewed 03/02/18 @ 12:17 by Castro Kearney MD) Father CAD (coronary artery disease) CVA (cerebral vascular accident) Brother CVA (cerebral vascular accident) Sister Breast cancer Son Diabetes History Items: Diabetes Patient Problems: Active and Suspected Problems (Last Reviewed 03/02/18 @ 12:17 by Castro Kearney MD) Intertrochanteric fracture of right femur (Acute) - Physical Exam General: Alert, Oriented x3, Cooperative, No apparent distress Extremities: - - No open lesion no erythema or ecchymosis compartments soft thigh and calf. No gross motor or sensory deficit 1 out of 4 bilateral dorsalis pedis and posterior tibial pulses Vital Signs Temp Pulse Resp BP Pulse Ox 98 F 66 18 137/57 H 94 02/01/19 04:47 02/01/19 04:47 02/01/19 04:47 02/01/19 04:47 02/01/19 04:47 Oxygen Delivery Method Room Air Weight: 155 lb 9 oz Body Mass Index (BMI) 27.5 Finger Stick Blood Glucose 440 Intake and Output for Last 24 Hours 01/30/19 01/31/19 02/01/19 23:59 23:59 23:59 Intake Total 200 / 200 1150 / 1150 Output Total 175 / 175 700 / 700 Balance 25 / 25 450 / 450 Laboratory Tests Past 24 Hrs 01/31/19 01/31/19 02/01/19 13:40 13:40 05:16 WBC 11.0 7.7 RBC 4.45 4.31 Hgb 12.7 12.3 Hct 39.1 37.5 MCV 87.9 87.0 MCH 28.5 28.5 MCHC 32.5 32.8 RDW 14.4 14.4 RDW Differential 46.2 H 44.9 H Plt Count 229 203 MPV 9.8 9.4 Immature Gran % (Auto) 0.200 0.100 Neut % (Auto) 82.6 H 62.6 Lymph % (Auto) 12.0 L 26.2 [place] % (Auto) 4.5 9.6 Eos % (Auto) 0.5 1.4 Baso % (Auto) 0.2 0.1 Absolute Neuts (auto) 9.1 H 4.8 Absolute Lymphs (auto) 1.32 2.02 Total Counted Not Reportable Not Reportable Sodium 141 Potassium 4.1 Chloride 109 H Carbon Dioxide 26.0 Anion Gap 6 BUN 21 H Creatinine 0.71 Estim Creat Clear Calc 43.30 Est GFR (MDRD) Af Amer 105 Est GFR (MDRD) Non-Af 87 BUN/Creatinine Ratio 29.7 H Glucose 91 Hemoglobin A1c Calcium 8.9 Total Bilirubin AST ALT Alkaline Phosphatase Total Protein Albumin Globulin Albumin/Globulin Ratio Blood Type Antibody Screen 02/01/19 02/01/19 02/01/19 05:16 05:16 05:16 WBC RBC Hgb Hct MCV MCH MCHC RDW RDW Differential Plt Count MPV Immature Gran % (Auto) Neut % (Auto) Lymph % (Auto) [place] % (Auto) Eos % (Auto) Baso % (Auto) Absolute Neuts (auto) Absolute Lymphs (auto) Total Counted Sodium 140 Potassium 4.0 Chloride 108 H Carbon Dioxide 25.0 Anion Gap 7 BUN 14 Creatinine 0.65 Estim Creat Clear Calc 43.30 Est GFR (MDRD) Af Amer 115 Est GFR (MDRD) Non-Af 95 BUN/Creatinine Ratio 21.5 H Glucose 238 H Hemoglobin A1c Pending Calcium 8.5 Total Bilirubin 0.60 AST 18 ALT 23 Alkaline Phosphatase 97 Total Protein 6.0 L Albumin 2.6 L Globulin 3.4 Albumin/Globulin Ratio 0.8 L Blood Type O POSITIVE Antibody Screen NEGATIVE POC Glucose 02/01/19 01/31/19 01/31/19 06:31 22:25 17:54 POC Glucose 221 H 275 H 116 H Assessment/Plan All Active Problems (Last Reviewed 03/02/18 @ 12:17 by Castro Kearney MD) Intertrochanteric fracture of right femur (Acute) Subdural hematoma (Resolved 07/2017) Right hip nondisplaced intertrochanteric femur fracture Consented for right hip cephalo-medullary fixation today N.p.o. Anticoagulation held Antibiotics on-call the OR Plan for OR today
[2019-02-01 07:57] LABS: Hemoglobin A1c 9.7 % (4.2-6.3)
[2019-02-01] MEDS: Morphine 2 MG/ML Syringe IV ×2 (08:15→11:57)
[2019-02-01] MEDS: 0.9% NaCl Peripheral Flush Adult/Peds IV ×3 (08:16→22:33)
--- NOTE | 2019-02-01 08:19 | NURSING ---
PT RESTING QUIETLY @ THIS TIME, STATES PAIN ONLY WHEN I MOVE
[2019-02-01] MEDS: Insulin Lispro 100 UNIT/ML INSULN.PEN SQ ×3 (08:23→22:39)
--- NOTE | 2019-02-01 08:45 | PCM.PROGNOTE ---
Patient Problems: Active and Suspected Problems (Last Updated 02/01/19 @ 08:15 by Osei Barney MD) Intertrochanteric fracture of right femur (Acute) Subjective: Chief complaint: Follow-up after admission for acute traumatic nondisplaced right intertrochanteric hip fracture. Patient seen and examined. No acute events overnight. She complains of right hip pain upon movement. She denies chest pain or shortness of breath. She lives at home with her son and his 2 kids. At home, she is active, doing her daily activities without restrictions. She mentioned that she can walk up to 1 mile without any symptoms. - Physical Exam General: Alert, Oriented x3, Cooperative, No apparent distress HEENT: Atraumatic, PERRLA, EOMI, Normocephalic Oral: Moist Mucosa, No Gingival or Mucosal Lesions/ Ulcerations Neck: Supple, No JVD, Negative Carotid Bruits, Trachea Midline, Thyroid Normal Size and Texture Lungs: Clear to auscultation, No rhonchi, No wheeze, No rales, Diminished Cardiovascular: Regular rate, Regular Rhythm, Normal S1, Normal S2, No murmurs Abdomen: Bowel Sounds Present, Soft, Non Tender, Non-Distended, No Hepato-splenomegaly Extremities: No clubbing, No cyanosis, No edema Skin: No rashes, No breakdown Lymphatic: No Cervical, Supraclavicular, or Inguinal Adenopathy Neurological: Cranial nerves II-XII grossly intact, Motor Exam 5/5 strength throughout Psych/Mental Status: Normal Affect, Appropriate, Alert and oriented to time, place, person, mood and affect Vital Signs Temp Pulse Resp BP Pulse Ox 97.7 F L 68 18 148/64 H 93 02/01/19 08:20 02/01/19 08:20 02/01/19 08:20 02/01/19 08:20 02/01/19 08:20 Oxygen Delivery Method Room Air Weight: 155 lb 9 oz Body Mass Index (BMI) 27.5 Finger Stick Blood Glucose 440 Intake and Output for Last 24 Hours 01/30/19 01/31/19 02/01/19 23:59 23:59 23:59 Intake Total 200 / 200 1150 / 1150 Output Total 175 / 175 700 / 700 Balance 25 / 25 450 / 450 Laboratory Tests Past 24 Hrs 01/31/19 01/31/19 02/01/19 13:40 13:40 05:16 WBC 11.0 7.7 RBC 4.45 4.31 Hgb 12.7 12.3 Hct 39.1 37.5 MCV 87.9 87.0 MCH 28.5 28.5 MCHC 32.5 32.8 RDW 14.4 14.4 RDW Differential 46.2 H 44.9 H Plt Count 229 203 MPV 9.8 9.4 Immature Gran % (Auto) 0.200 0.100 Neut % (Auto) 82.6 H 62.6 Lymph % (Auto) 12.0 L 26.2 [place] % (Auto) 4.5 9.6 Eos % (Auto) 0.5 1.4 Baso % (Auto) 0.2 0.1 Absolute Neuts (auto) 9.1 H 4.8 Absolute Lymphs (auto) 1.32 2.02 Total Counted Not Reportable Not Reportable Sodium 141 Potassium 4.1 Chloride 109 H Carbon Dioxide 26.0 Anion Gap 6 BUN 21 H Creatinine 0.71 Estim Creat Clear Calc 43.30 Est GFR (MDRD) Af Amer 105 Est GFR (MDRD) Non-Af 87 BUN/Creatinine Ratio 29.7 H Glucose 91 Hemoglobin A1c Calcium 8.9 Total Bilirubin AST ALT Alkaline Phosphatase Total Protein Albumin Globulin Albumin/Globulin Ratio Blood Type Antibody Screen 02/01/19 02/01/19 02/01/19 05:16 05:16 05:16 WBC RBC Hgb Hct MCV MCH MCHC RDW RDW Differential Plt Count MPV Immature Gran % (Auto) Neut % (Auto) Lymph % (Auto) [place] % (Auto) Eos % (Auto) Baso % (Auto) Absolute Neuts (auto) Absolute Lymphs (auto) Total Counted Sodium 140 Potassium 4.0 Chloride 108 H Carbon Dioxide 25.0 Anion Gap 7 BUN 14 Creatinine 0.65 Estim Creat Clear Calc 43.30 Est GFR (MDRD) Af Amer 115 Est GFR (MDRD) Non-Af 95 BUN/Creatinine Ratio 21.5 H Glucose 238 H Hemoglobin A1c 9.7 H Calcium 8.5 Total Bilirubin 0.60 AST 18 ALT 23 Alkaline Phosphatase 97 Total Protein 6.0 L Albumin 2.6 L Globulin 3.4 Albumin/Globulin Ratio 0.8 L Blood Type O POSITIVE Antibody Screen NEGATIVE POC Glucose 02/01/19 01/31/19 01/31/19 06:31 22:25 17:54 POC Glucose 221 H 275 H 116 H Clinical Impression(s) from Imaging Studies Chest X-Ray 01/31/19 13:21 IMPRESSION: No acute abnormality is seen. Electronically Signed: Theodore Gorman, at 14:32 EDT , Service support , Hip/Pelvis X-Ray 01/31/19 13:23 IMPRESSION: Nondisplaced right intertrochanteric fracture. Electronically Signed: Thedoore Gorman, at 14:31 EDT , Service support , Medical Necessity - Tobacco Use Smoking Status: Never smoker Tobacco Use: Non-smoker Assessment/Plan All Active Problems (Last Updated 02/01/19 @ 08:15 by Osei Barney MD) Intertrochanteric fracture of right femur (Acute) This is a 68 years old female patient presented to the emergency room because of right hip pain after she slipped while walking and had a mechanical fall, found to have acute traumatic nondisplaced right intertrochanteric hip fracture. #1 acute traumatic nondisplaced right intertrochanteric hip fracture: X-ray of the right hip reviewed. She is on IV morphine PRN for pain as well as OxyIR PRN. Routine blood work was unremarkable. Orthopedic surgery consulted, plan for surgery today, repeat CBC and BMP tomorrow morning. #2 preoperative evaluation: She had a history of hypertension, hyperlipidemia, type 1 diabetes, CAD status post stents. She lives at home with her son and his 2 kids. She is active at home, can walk up to 1 mile daily without restrictions. She denied chest pain or shortness of breath with activities. Her chest x-ray showed no acute findings. EKG revealed normal sinus rhythm with PVCs, prolonged QTC, no acute ischemic changes. Based on her age, functional status, serum creatinine, past medical history and type of surgery, her estimated risk for perioperative myocardial infarction or cardiac arrest is 0.17%. At this time, no indication for further cardiac work-up. Plan to proceed with surgery. #3 CAD status post stents: Patient denied any symptoms, no chest pain or shortness of breath. EKG without acute ischemic changes. Aspirin held. Continue statins, nitrate, lisinopril and metoprolol. #4 type 2 diabetes mellitus: Blood sugar has been in the range of 200s. Hemoglobin A1c is 9.7. She is on insulin sliding scale. #5 hypertension: Blood pressure stable, continue Norvasc, isosorbide mononitrate, lisinopril and metoprolol. #6 hypothyroidism: Stable, continue levothyroxine. #7 hyperlipidemia: Continue statins. #8 dementia: Recently diagnosed, continue donepezil. At this time, patient is alert and oriented x3. #9 DVT prophylaxis: SCDs. This note was generated with [employer] dictation software. It may contain incorrect words, spelling, and punctuation that were not noted in checking the note before signing. Code Visit Inpatient E&M: 20454 Subs Hosp L3
--- NOTE | 2019-02-01 08:49 | PN_ITS ---
Patient Problems: Active and Suspected Problems (Last Updated 02/01/19 @ 08:15 by Osei Barney MD) Intertrochanteric fracture of right femur (Acute) Subjective: Chief complaint: Follow-up after admission for acute traumatic nondisplaced right intertrochanteric hip fracture. Patient seen and examined. No acute events overnight. She complains of right hip pain upon movement. She denies chest pain or shortness of breath. She lives at home with her son and his 2 kids. At home, she is active, doing her daily activities without restrictions. She mentioned that she can walk up to 1 mile without any symptoms. - Physical Exam General: Alert, Oriented x3, Cooperative, No apparent distress HEENT: Atraumatic, PERRLA, EOMI, Normocephalic Oral: Moist Mucosa, No Gingival or Mucosal Lesions/ Ulcerations Neck: Supple, No JVD, Negative Carotid Bruits, Trachea Midline, Thyroid Normal Size and Texture Lungs: Clear to auscultation, No rhonchi, No wheeze, No rales, Diminished Cardiovascular: Regular rate, Regular Rhythm, Normal S1, Normal S2, No murmurs Abdomen: Bowel Sounds Present, Soft, Non Tender, Non-Distended, No Hepato-spl enomegaly Extremities: No clubbing, No cyanosis, No edema Skin: No rashes, No breakdown Lymphatic: No Cervical, Supraclavicular, or Inguinal Adenopathy Neurological: Cranial nerves II-XII grossly intact, Motor Exam 5/5 strength throughout Psych/Mental Status: Normal Affect, Appropriate, Alert and oriented to time, place, person, mood and affect Vital Signs Temp Pulse Resp BP Pulse Ox 97.7 F L 68 18 148/64 H 93 02/01/19 08:20 02/01/19 08:20 02/01/19 08:20 02/01/19 08:20 02/01/19 08:20 Oxygen Delivery Method Room Air Weight: 155 lb 9 oz Body Mass Index (BMI) 27.5 Finger Stick Blood Glucose 440 Intake and Output for Last 24 Hours 01/30/19 01/31/19 02/01/19 23:59 23:59 23:59 Intake Total 200 / 200 1150 / 1150 Output Total 175 / 175 700 / 700 Balance 25 / 25 450 / 450 Laboratory Tests Past 24 Hrs 01/31/19 01/31/1902/01/19 13:40 13:40 05:16 WBC 11.0 7.7 RBC 4.45 4.31 Hgb 12.7 12.3 Hct 39.1 37.5 MCV 87.9 87.0 MCH 28.5 28.5 MCHC 32.5 32.8 RDW 14.4 14.4 RDW Differential 46.2 H 44.9 H Plt Count 229 203 MPV 9.8 9.4 Immature Gran % (Auto) 0.200 0.100 Neut % (Auto) 82.6 H 62.6 Lymph % (Auto) 12.0 L 26.2 [place] % (Auto) 4.5 9.6 Eos % (Auto) 0.5 1.4 Baso % (Auto) 0.2 0.1 Absolute Neuts (auto) 9.1 H 4.8 Absolute Lymphs (auto) 1.32 2.02 Total Counted Not Reportable Not Reportable Sodium 141 Potassium 4.1 Chloride 109 H Carbon Dioxide 26.0 Anion Gap 6 BUN 21 H Creatinine 0.71 Estim Creat Clear Calc 43.30 Est GFR (MDRD) Af Amer 105 Est GFR (MDRD) Non-Af 87 BUN/Creatinine Ratio 29.7 H Glucose 91 Hemoglobin A1c Calcium 8.9 Total Bilirubin AST ALT Alkaline Phosphatase Total Protein Albumin Globulin Albumin/Globulin Ratio Blood Type Antibody Screen 02/01/19 02/01/19 02/01/19 05:16 05:16 05:16 WBC RBC Hgb Hct MCV MCH MCHC RDW RDW Differential Plt Count MPV Immature Gran % (Auto) Neut % (Auto) Lymph % (Auto) [place] % (Auto) Eos % (Auto) Baso % (Auto) Absolute Neuts (auto) Absolute Lymphs (auto) Total Counted Sodium 140 Potassium 4.0 Chloride 108 H Carbon Dioxide 25.0 Anion Gap 7 BUN 14 Creatinine 0.65 Estim Creat Clear Calc 43.30 Est GFR (MDRD) Af Amer 115 Est GFR (MDRD) Non-Af 95 BUN/Creatinine Ratio 21.5 H Glucose 238 H Hemoglobin A1c 9.7 H Calcium 8.5 Total Bilirubin 0.60 AST 18 ALT 23 Alkaline Phosphatase 97 Total Protein 6.0 L Albumin 2.6 L Globulin 3.4 Albumin/Globulin Ratio 0.8 L Blood Type O POSITIVE Antibody Screen NEGATIVE POC Glucose 02/01/19 01/31/1919 06:31 22:25 17:54 POC Glucose 221 H 275 H 116 H Clinical Impression(s) from Imaging Studies Chest X-Ray 01/31/19 13:21 IMPRESSION: No acute abnormality is seen. Electronically Signed: Theodore Gorman, at 14:32 EDT , Service support , Hip/Pelvis X-Ray 01/31/19 13:23 IMPRESSION: Nondisplaced right intertrochanteric fracture. Electronically Signed: Theodore Gorman, at 14:31 EDT , Service support , Medical Necessity - Tobacco Use Smoking Status: Never smoker Tobacco Use: Non-smoker Assessment/Plan All Active Problems (Last Updated 02/01/19 @ 08:15 by Osei Barney MD) Intertrochanteric fracture of right femur (Acute) This is a 68 years old female patient presented to the emergency room because of right hip pain after she slipped while walking and had a mechanical fall, found to have acute traumatic nondisplaced right intertrochanteric hip fracture. #1 acute traumatic nondisplaced right intertrochanteric hip fracture: X-ray of the right hip reviewed. She is on IV morphine PRN for pain as well as OxyIR PRN. Routine blood work was unremarkable. Orthopedic surgery consulted, plan for surgery today, repeat CBC and BMP tomorrow morning. #2 preoperative evaluation: She had a history of hypertension, hyperlipidemia, type 1 diabetes, CAD status post stents. She lives at home with her son and his 2 kids. She is active at home, can walk up to 1 mile daily without restrictions. She denied chest pain or shortness of breath with activities. Her chest x-ray showed no acute findings. EKG revealed normal sinus rhythm with PVCs, prolonged QTC, no acute ischemic changes. Based on her age, functional status, serum creatinine, past medical history and type of surgery, her estimated risk for perioperative myocardial infarction or cardiac arrest is 0.17%. At this time, no indication for further cardiac work-up. Plan to proceed with surgery. #3 CAD status post stents: Patient denied any symptoms, no chest pain or sh ortness of breath. EKG without acute ischemic changes. Aspirin held. Continue statins, nitrate, lisinopril and metoprolol. #4 type 2 diabetes mellitus: Blood sugar has been in the range of 200s. Hemoglobin A1c is 9.7. She is on insulin sliding scale. #5 hypertension: Blood pressure stable, continue Norvasc, isosorbide mononitrate, lisinopril and metoprolol. #6 hypothyroidism: Stable, continue levothyroxine. #7 hyperlipidemia: Continue statins. #8 dementia: Recently diagnosed, continue donepezil. At this time, patient is alert and oriented x3. #9 DVT prophylaxis: SCDs. This note was generated with [employer] dictation software. It may contain incorrect words, spelling, and punctuation that were not noted in checking the note before signing. Code Visit Inpatient E&M: 37250 Subs Hosp L3
--- NOTE | 2019-02-01 09:00 | CASEMGMT ---
Social Work Note MADISON received call from Zelda with [facility] stating that pt may be a good candidate for RU and to let her know if pt is agreeable. SW informed Zelda that this worker will talk to pt today. Anna Richey NEIGHBORHOOD PLANNER, RISK INTERN
--- NOTE | 2019-02-01 10:24 | CASEMGMT ---
Social Work Assessment Referral Date: 02/01/2019 Date of Assessment: 02/01/2019 Reason for consult: Hip Fracture Informant: MADISON Personal Status: SW met with pt to complete initial assessment. SW introduced self and role at [facility]. Pt is alert and orientated x3. Pt's ex- walked into pt's room during assessment. Pt gave this worker permission to speak to her in front of her guest. Pt's ex- states that he goes out to dinner 2-3 times a week with pt. Pt states that she lives with her son and his two kids in a one story home. Pt states that there are a few steps to enter the home and there are handrails along the steps. Pt states that she was previously independent with ALDs, states that she still drives except for at night. DME include cane and wheelchair. Pt states she doesn't use the DME though. Pharmacy is [facility] and PCP is Dr. Johnathon Brown. Substance Abuse Hx: Pt denied Mental Health Hx: Pt states has history of depression and anxiety but states that it's nothing serious. MADISON informed pt that typically after hip fracture a pt may need short term rehabilitation at either SNF or RU at [facility]. SW informed pt that RU had been in contact with this worker already today that pt may be a good candidate for RU. SW explained RU vs. TCU vs. SNF. SW informed pt that once pt has surgery, PT/OT will likely work with pt tomorrow and they will recommend discharge needs for pt. SW informed pt that she has the choice to decide what she would like to do at discharge but that it may be beneficial to at least pt pt's name on RU list in the event that RU is needed. SW informed pt that because she was previously independent RU could be a good idea for pt and that her insurance would cover it. SW explained additional options of HHC and Outpatient therapy. Pt agreeable to putting her name on RU list at this time. SW informed pt that this worker will follow up with pt, likely tomorrow, after she works with PT/OT. Pt states understanding. MADISON placed a call to Zelda with RU, left message, to put pt on RU list. Plan: Likely RU at discharge Anna Richey PAD MAKING MACHINE OPERATOR, FOREIGN SERVICE TEACHER
[2019-02-01] MEDS: Metoprolol Tartrate 50 MG Tablet 75 MG PO ×2 (10:35→22:34)
[2019-02-01 10:46] LABS: Bedside Glucose 221 mg/dL (70-110)
--- NOTE | 2019-02-01 12:43 | NURSING ---
REPORT CALLED TO DELFINA IN [facility]
[2019-02-01] MEDS: Cefazolin 2 GM in 0.9% Normal Saline 100 ML IV (15:17)
[2019-02-01 15:31] LABS: Bedside Glucose 189 mg/dL (70-110)
--- NOTE | 2019-02-01 15:35 | CHAPLAIN ---
patient was out of room for surgery; left a calling card
--- NOTE | 2019-02-01 15:38 | RAD_ITS ---
STUDY: X-RAY - PELVIS AND RIGHT HIP REASON FOR EXAM: Female, 68 years old. Surgery TECHNIQUE: 3 views of the pelvis and hip. COMPARISON: 01/31/2019 FINDINGS: Fluoroscopy the right hip was utilized upper inner 3 images submitted for interpretation. RAD/Hip 1 view with Pelvis IMPRESSION: Fluoroscopy during surgery. Electronically Signed: Miah Watkins MD at 16:36 EDT Tel , Service support ,
[2019-02-01] MEDS: Bupiv/Epi 0.5% Mpf 30 ML Vial (16:43)
--- NOTE | 2019-02-01 17:00 | PCM.OPRPT ---
Report of Operation Date of Procedure: 02/01/19 Description of Surgical Findings:: Preoperative diagnosis: Right hip intertrochanteric femur fracture Postoperative diagnosis: Same Procedure: Cephalo-medullary fixation right hip Implants: Synthes short nail 12 mm diameter 95 mm helical blade 36 mm screw Anesthesia: General EBL: 50 Complications: None Condition: Stable to PACU Indication for procedure: 68-year-old female patient with ground-level fall sustaining injury to right hip fractures demonstrated intertrochanteric femur fracture on the right risk benefits and alternatives were reviewed including risk of bleeding infection nerve, artery, bone, tissue damage, blood clot need for further surgery and continued pain. Procedure: Patient met in the preoperative holding area once again the operative extremity was identified by both patient and physician and was marked. Patient was met by anesthesia and IV was started she was brought back to the to the operating room anesthesia was started. She was then positioned on the fracture table all bony prominences were well-padded. She was then positioned with abduction internal rotation and traction and fluoroscopy was brought in to ensure that an adequate reduction could be performed. Patient was then prepped and draped in usual sterile fashion and timeout was called to ensure the proper patient procedure and extremity were being contemplated. Fluoroscopy was used to [place] the tip of the greater trochanter and a 3 fingerbreadth incision was made 2 finger breaths proximal to the tip of the greater trochanter. Was carried carried down through the skin and subcutaneous tissue as well as the gluteal fascia. Guidepin was then inserted through the tip of the greater trochanter directed towards the level of lesser trochanter this was checked in both AP and lateral projections. An opening reamer was performed. Following this was the insertion of the nail the appropriate height jig was used and a triple trocar sleeve was advanced to the skin and a stab incision was made at the trocar was inserted to the level of the bone and a guidepin was placed into the femoral neck and head checked on both AP and lateral projections. This was then measured and appropriately sized helical blade was inserted the nail was locked proximally the fracture was compressed and a locking screw was placed distally the same incision was extended slightly distally to allow the insertion of the trocar for the transverse screw. This was then drilled and measured under fluoroscopy and the appropriate size screw was inserted. Vital AP and lateral projections were saved to the PACS system of the entire construct the wounds were thoroughly irrigated the fascia was closed with #1 [id number] Vicryls followed by 2-0 Vicryl in the subcutaneous tissues followed by aldo in the skin. 0.5% Marcaine with epinephrine was injected into the subcutaneous tissues dressing was applied form of Xeroform 4 x 4 ABD and [place]oban tape. Patient tolerated procedure well there is no intraoperative complications she was brought back to the PACU in stable condition.
[2019-02-01 17:41] LABS: Bedside Glucose 190 mg/dL (70-110)
[2019-02-01] MEDS: Isosorbide Mononitrate 20 MG Tablet PO (22:34)
[2019-02-01] MEDS: Lisinopril 20 MG Tablet PO (22:34)
[2019-02-01] MEDS: Atorvastatin Calcium 80 MG Tablet PO (22:34)
[2019-02-01] MEDS: Donepezil HCl 10 MG Tablet PO (22:34)
[2019-02-01 23:21] LABS: Bedside Glucose 294 mg/dL (70-110)
[2019-02-02] VITALS (10 sets, daily range): BP systolic 108–150; BP diastolic 38–58; PULSE 70–79; RESP 16–18; TEMP 37.2–38.1; O2SAT 94–96
[2019-02-02] MEDS: HYDROcodone Bitartrate/Apap 5/325 Tablet PO ×3 (02:25→19:04)
--- NOTE | 2019-02-02 05:06 | NURSING ---
PT PERSISTENTLY REMOVED O2 AND CONTINUOUS PULSE OX THIS CLOSED CIRCUIT SCREEN WATCHER. PT STATED THAT SHE DIDN'T NEED THEM, AND SHE DIDN'T LIKE WEARING THE OXYGEN. THIS NURSE DISCUSSED WITH PT THROUGHOUT THIS CLOSED CIRCUIT SCREEN WATCHER THE IMPORTANCE OF WEARING BOTH. WILL CONTINUE TO MONITOR PT AND RE-ENFORCE IMPORTANCE.
[2019-02-02 05:59] LABS: Anion Gap 17 (5-15); BUN 12 mg/dL (7-18); BUN/Creat Ratio 14.7 RATIO (10-20); Calcium,Total 8.5 mg/dL (8.5-10.1); Chloride 103 mmol/L (98-107); Creatinine, Serum 0.82 mg/dL (0.55-1.02); EST Glomerular Filtration Rate 73 mL/min (>60); Est Glom Filt Rate - Afr Amer 89 mL/min (>60); Estimated Creatinine Clearance 52.81 ml/min; Glucose 426 mg/dL (74-106); Potassium 5.2 mmol/L (3.5-5.1); Sodium Level 134 mmol/L (136-145)
[2019-02-02 06:00] LABS: Absolute Lymphocyte Count 1.18 X10^3/ul (0.83-4.51); Absolute Neutrophil Count 8.3 X10^3/uL (2.0-7.7); Basophil# 0.01 X10^3/uL; Basophil% 0.1 % (0-1); Hematocrit 34.4 % (37-47); Hemoglobin 11.1 g/dl (12.0-15.0); Lymphocyte # 1.18 X10^3/ul (4.0); Lymphocyte % 11.3 % (19-41); Mean Corp Hgb Conc 32.3 g/gl (32-36); Mean Corpuscular Hgb 28.4 pg (27.0-32.0); Mean Platelet Vol. 10.4 fl (6.2-12.0); Monocyte# 0.88 X10^3/uL; Monocyte% 8.5 % (0-10); Neutrophil % 79.8 % (47-70); Platelet Count 191 K/mm3 (150-450); RBC Distribution Width CV 13.9 % (11.6-14.6); Red Blood Count 3.91 M/mm3 (4.2-5.4); White Blood Count 10.4 K/mm3 (4.4-11.0)
[2019-02-02 06:04] LABS: POSITIVE COUNT NO; POSITIVE DIFFERENTIAL NO; POSITIVE MORPHOLOGY NO
[2019-02-02] MEDS: APIXABAN 2.5 MG TABLET PO ×2 (06:19→22:36)
[2019-02-02] MEDS: Levothyroxine 50 MCG Tablet PO (06:19)
[2019-02-02] MEDS: Insulin Lispro 100 UNIT/ML INSULN.PEN SQ ×4 (06:30→22:37)
[2019-02-02 06:35] LABS: Bedside Glucose 404 mg/dL (70-110)
--- NOTE | 2019-02-02 07:39 | PCM.PN.ORT ---
Patient Problems: Active and Suspected Problems (Last Updated 02/01/19 @ 08:15 by Osei Barney MD) Intertrochanteric fracture of right femur (Acute) Subjective: Seen and examined with daughter at bedside patient resting comfortably. Complains of pain and anxiety about walking - Physical Exam General: No apparent distress Extremities: - - Dressing clean dry and intact compartments soft neurovascularly intact Vital Signs Temp Pulse Resp BP Pulse Ox 99.1 F 78 16 130/58 H 95 02/02/19 02:27 02/02/19 02:27 02/02/19 02:27 02/02/19 02:27 02/02/19 02:27 Oxygen Flow Rate (L/min) 2 Oxygen Delivery Method Room Air Weight: 155 lb 9.001 oz Body Mass Index (BMI) 27.5 Finger Stick Blood Glucose 190 Intake and Output for Last 24 Hours 01/31/19 02/01/19 02/02/19 23:59 23:59 23:59 Intake Total 200 / 200 2896 / 2896 1511 / 1511 Output Total 175 / 175 1550 / 1550 2150 / 2150 Balance 1346 / 1346 -639 / -639 Laboratory Tests Past 24 Hrs 02/01/19 02/02/19 02/02/19 05:16 05:28 05:28 WBC 10.4 RBC 3.91 L Hgb 11.1 L Hct 34.4 L MCV 88.0 MCH 28.4 MCHC 32.3 RDW 13.9 RDW Differential 44.0 H Plt Count 191 MPV 10.4 Immature Gran % (Auto) 0.300 Neut % (Auto) 79.8 H Lymph % (Auto) 11.3 L [place] % (Auto) 8.5 Eos % (Auto) 0.0 Baso % (Auto) 0.1 Absolute Neuts (auto) 8.3 H Absolute Lymphs (auto) 1.18 Total Counted Not Reportable Sodium 134 L Potassium 5.2 H Chloride 103 Carbon Dioxide 14.0 L Anion Gap 17 H BUN 12 Creatinine 0.82 Estim Creat Clear Calc 52.81 Est GFR (MDRD) Af Amer 89 Est GFR (MDRD) Non-Af 73 BUN/Creatinine Ratio 14.7 Glucose 426 H Hemoglobin A1c 9.7 H Calcium 8.5 POC Glucose 02/02/19 02/01/19 02/01/19 06:29 22:37 17:36 POC Glucose 404 H 294 H 190 H 02/01/19 02/01/19 15:26 10:39 POC Glucose 189 H 221 H Medical Necessity - Tobacco Use Smoking Status: Never smoker Tobacco Use: Non-smoker Assessment/Plan All Active Problems (Last Updated 02/01/19 @ 08:15 by Osei Barney MD) Intertrochanteric fracture of right femur (Acute) Postop day #1 right intertrochanteric femur fracture cephalo-medullary fixation DVT prophylaxis SCDs KYLE hose Eliquis 2.5 mg twice daily for 21 days PT OT weightbearing as tolerated Dressing to be changed tomorrow morning incision clean with Betadine ABD pad and silk tape to be applied May begin showering postop day #3 and then daily do not submerge in tub or pool [place] to be removed 2 weeks postop Patient likely needs rehab Follow-up 4 weeks in office
--- NOTE | 2019-02-02 08:11 | PCM.PROGNOTE ---
Patient Problems: Active and Suspected Problems (Last Updated 02/01/19 @ 08:15 by Osei Barney MD) Intertrochanteric fracture of right femur (Acute) Subjective: Chief complaint: Follow-up after admission for acute traumatic nondisplaced right intertrochanteric hip fracture status post cephalo-medullary nail fixation of the right hip. Patient seen and examined. No acute events overnight. She denies any right hip pain but she is anxious about start walking. She denies chest pain or shortness of breath. Denied abdominal pain, nausea or vomiting. Her vital signs are stable. - Physical Exam General: Alert, Oriented x3, Cooperative, No apparent distress HEENT: Atraumatic, PERRLA, EOMI, Normocephalic Oral: Moist Mucosa, No Gingival or Mucosal Lesions/ Ulcerations Neck: Supple, No JVD, Negative Carotid Bruits, Trachea Midline, Thyroid Normal Size and Texture Lungs: Clear to auscultation, No rhonchi, No wheeze, No rales, Diminished Cardiovascular: Regular rate, Regular Rhythm, Normal S1, Normal S2, PMI Normal Abdomen: Bowel Sounds Present, Soft, Non Tender, Non-Distended, No Hepato-splenomegaly Extremities: No clubbing, No cyanosis, No edema Skin: No rashes, No breakdown Lymphatic: No Cervical, Supraclavicular, or Inguinal Adenopathy Neurological: Cranial nerves II-XII grossly intact, Neuro grossly intact Psych/Mental Status: Normal Affect, Appropriate Vital Signs Temp Pulse Resp BP Pulse Ox 99.1 F 78 16 130/58 H 95 02/02/19 02:27 02/02/19 02:27 02/02/19 02:27 02/02/19 02:27 02/02/19 07:20 Oxygen Flow Rate (L/min) 2 Oxygen Delivery Method Room Air Weight: 155 lb 9.001 oz Body Mass Index (BMI) 27.5 Finger Stick Blood Glucose 190 Intake and Output for Last 24 Hours 01/31/19 02/01/19 02/02/19 23:59 23:59 23:59 Intake Total 200 / 200 2896 / 2896 1511 / 1511 Output Total 175 / 175 1550 / 1550 2150 / 2150 Balance 1346 / 1346 -639 / -639 Laboratory Tests Past 24 Hrs 02/02/19 02/02/19 05:28 05:28 WBC 10.4 RBC 3.91 L Hgb 11.1 L Hct 34.4 L MCV 88.0 MCH 28.4 MCHC 32.3 RDW 13.9 RDW Differential 44.0 H Plt Count 191 MPV 10.4 Immature Gran % (Auto) 0.300 Neut % (Auto) 79.8 H Lymph % (Auto) 11.3 L [place] % (Auto) 8.5 Eos % (Auto) 0.0 Baso % (Auto) 0.1 Absolute Neuts (auto) 8.3 H Absolute Lymphs (auto) 1.18 Total Counted Not Reportable Sodium 134 L Potassium 5.2 H Chloride 103 Carbon Dioxide 14.0 L Anion Gap 17 H BUN 12 Creatinine 0.82 Estim Creat Clear Calc 52.81 Est GFR (MDRD) Af Amer 89 Est GFR (MDRD) Non-Af 73 BUN/Creatinine Ratio 14.7 Glucose 426 H Calcium 8.5 POC Glucose 02/02/19 02/01/19 02/01/19 06:29 22:37 17:36 POC Glucose 404 H 294 H 190 H 02/01/19 02/01/19 15:26 10:39 POC Glucose 189 H 221 H Medical Necessity - Tobacco Use Smoking Status: Never smoker Tobacco Use: Non-smoker Assessment/Plan All Active Problems (Last Updated 02/01/19 @ 08:15 by Osei Barney MD) Intertrochanteric fracture of right femur (Acute) This is a 68 years old female patient presented to the emergency room because of right hip pain after she slipped while walking and had a mechanical fall, found to have acute traumatic nondisplaced right intertrochanteric hip fracture status post cephalo-medullary nail fixation of the right hip. #1 acute traumatic nondisplaced right intertrochanteric hip fracture: Status post cephalo-medullary nail fixation, postoperative day 1. X-ray of the right hip reviewed. She is on IV morphine and [place] PRN for pain. Her vital signs are stable. Repeat routine blood work from today reviewed, revealed potassium of 5.2 but patient has been on IV potassium supplement. Orthopedic surgery is on the case. Plan: Continue same treatment, DC KCl, change fluids to IV normal saline, repeat potassium at 5 PM today, patient will need placement to rehabilitation. #3 CAD status post stents: Stable, no complaints. Continue statins, nitrate, lisinopril and metoprolol. Patient was started on Eliquis for DVT prophylaxis. Will discuss with orthopedic surgery regarding restarting aspirin and Plavix. #4 type 2 diabetes mellitus: Blood sugar has been fluctuating. Hemoglobin A1c is 9.7. She is on insulin sliding scale, started back on home doses of insulin. Plan to monitor. #5 hypertension: Blood pressure stable, continue Norvasc, isosorbide mononitrate, lisinopril and metoprolol. #6 hypothyroidism: Stable, continue levothyroxine. #7 hyperlipidemia: Continue statins. #8 dementia: Recently diagnosed, continue donepezil. At this time, patient is alert and oriented x3. #9 DVT prophylaxis: Continue Eliquis. This note was generated with [employer] dictation software. It may contain incorrect words, spelling, and punctuation that were not noted in checking the note before signing. Code Visit Inpatient E&M: 21887 Subs Hosp L2
[2019-02-02] MEDS: 0.9% Normal Saline 1,000 ML 75 ML IV (08:17)
[2019-02-02] MEDS: Insulin Human 75/25 Kwickpen 30 UNIT SC (10:52)
[2019-02-02] MEDS: Mirabegron 25 MG TAB.ER.24H PO (10:52)
[2019-02-02] MEDS: Isosorbide Mononitrate 20 MG Tablet PO ×2 (10:53→22:42)
[2019-02-02] MEDS: Metoprolol Tartrate 50 MG Tablet 75 MG PO ×2 (10:53→22:42)
--- NOTE | 2019-02-02 10:53 | CASEMGMT ---
Social Work Note MADISON spoke with PT/OT who are recommending pt go to [facility]. SW reviewed PT/OT. Pt was assist of 2 sit to stand and started out assist of 2 for walking then was assist of 1. MADISON met with pt. SW informed pt that PT/OT are stating pt would be a good candidate for RU at [facility]. MADISON explained again that RU is short term and the goal is to get pt's home faster. MADISON informed pt that there are safety concerns with pt returning home right now due to pt requiring 2 assist and her son is not always home. Pt began tearful. SW provided emotional support to pt. SW reassured pt that RU is very short term and that it is for pt's safety but that pt does have a choice. Pt agreeable to RU. Pt gave this worker permission to call her daughter Arminda and update her. MADISON informed pt that per physician, pt will likely be discharged tomorrow to . Pt states understanding. MADISON placed a call to pt's daughter Arminda. MADISON updated Arminda on PT/OT recommendations and acceptance to RU at [facility]. Arminda states understanding and is agreeable to pt going to RU. MADISON informed Arminda that pt will likely be discharged to [facility] tomorrow. MADISON placed a call to Zelda in [facility] and updated her on likely discharge tomorrow. Zelda states understanding, confirms she is able to take pt tomorrow. Plan: [facility] tomorrow Anna Richey [employer], [employer]
[2019-02-02 12:41] LABS: Bedside Glucose 428 mg/dL (70-110)
--- NOTE | 2019-02-02 17:04 | NURSING ---
davis catheter removed at this time-
[2019-02-02 17:15] LABS: Bedside Glucose 421 mg/dL (70-110)
[2019-02-02 18:05] LABS: Potassium 4.2 mmol/L (3.5-5.1)
[2019-02-02] MEDS: Insulin Human 75/25 Kwickpen 28 UNIT SC (18:17)
[2019-02-02] MEDS: Atorvastatin Calcium 80 MG Tablet PO (22:37)
[2019-02-02] MEDS: Donepezil HCl 10 MG Tablet PO (22:38)
[2019-02-02] MEDS: Lisinopril 20 MG Tablet PO (22:42)
[2019-02-02 22:56] LABS: Bedside Glucose 227 mg/dL (70-110)
[2019-02-03 03:00] VITALS: BP 121/63; PULSE 72; RESP 18; TEMP 37.1; O2SAT 97
[2019-02-03] MEDS: HYDROcodone Bitartrate/Apap 5/325 Tablet PO ×3 (03:06→14:08)
[2019-02-03] MEDS: 0.9% NaCl Peripheral Flush Adult/Peds IV (03:11)
[2019-02-03] MEDS: Ondansetron 4 MG/2 ML Vial IV (03:11)
[2019-02-03 05:35] VITALS: TEMP 37.1
[2019-02-03] MEDS: Levothyroxine 50 MCG Tablet PO (05:39)
[2019-02-03 07:34] VITALS: BP 119/37; PULSE 69; RESP 16; TEMP 36.9; O2SAT 93
[2019-02-03 07:45] LABS: Absolute Lymphocyte Count 1.92 X10^3/ul (0.83-4.51); Absolute Neutrophil Count 7.2 X10^3/uL (2.0-7.7); Basophil# 0.01 X10^3/uL; Basophil% 0.1 % (0-1); Eosinophil# 0.08 X10^3/uL; Eosinophils% 0.8 % (0-5); Hematocrit 30.2 % (37-47); Hemoglobin 9.9 g/dl (12.0-15.0); Lymphocyte # 1.92 X10^3/ul (4.0); Lymphocyte % 18.4 % (19-41); Mean Corp Hgb Conc 32.8 g/gl (32-36); Mean Corpuscular Hgb 28.4 pg (27.0-32.0); Mean Corpuscular Volume 86.8 fL (81-99); Mean Platelet Vol. 9.1 fl (6.2-12.0); Monocyte# 1.18 X10^3/uL; Monocyte% 11.3 % (0-10); Neutrophil % 69.1 % (47-70); Platelet Count 171 K/mm3 (150-450); RBC Distribution Width CV 14.2 % (11.6-14.6); Red Blood Count 3.48 M/mm3 (4.2-5.4); White Blood Count 10.4 K/mm3 (4.4-11.0)
--- NOTE | 2019-02-03 07:46 | RAD_ITS ---
STUDY: X-RAY CHEST REASON FOR EXAM: Female, 68 years old. Postoperative evaluation. TECHNIQUE: Single AP portable view of the chest. COMPARISON: Comparison is made with prior study dated January 31, 2019. FINDINGS: Minimal degree of increased markings at the lung bases suggestive of a mild bibasilar atelectasis. There is no demonstrated pleural abnormality. There is borderline cardiomegaly. Normal mediastinum and sandra. Normal visualized pulmonary arteries. There is atherosclerotic tortuosity of the aortic arch and descending thoracic aorta. There are diffuse degenerative changes of the visualized thoracic spine. Deformity of the proximal right humerus secondary to a healed right humeral neck fracture. There is no demonstrated abnormality of the visualized soft tissue structures of the upper abdomen. RAD/Chest 1 View (Portable) IMPRESSION: Mild increased markings at the lung bases suggestive of atelectasis. Electronically Signed: Theodore Gorman, at 13:17 EDT , Service support ,
--- NOTE | 2019-02-03 07:47 | NURSING ---
Dr. Kearney is relocation coordinator
[2019-02-03 07:55] LABS: POSITIVE COUNT NO; POSITIVE DIFFERENTIAL NO; POSITIVE MORPHOLOGY NO
[2019-02-03] MEDS: Mirabegron 25 MG TAB.ER.24H PO (08:19)
[2019-02-03 08:20] VITALS: PULSE 69
[2019-02-03] MEDS: Metoprolol Tartrate 50 MG Tablet 75 MG PO (08:20)
[2019-02-03] MEDS: Isosorbide Mononitrate 20 MG Tablet PO (08:20)
[2019-02-03] MEDS: Insulin Human 75/25 Kwickpen 30 UNIT SC (08:21)
[2019-02-03] MEDS: Insulin Lispro 100 UNIT/ML INSULN.PEN SQ ×2 (08:21→11:52)
[2019-02-03 08:24] LABS: Bacteria 0 SEEN /hpf (None Seen); Red Blood Cells-Urine 0 SEEN /hpf (0-5); Squamous Epithelial Cells - UA 0 SEEN /hpf (5-10); White Blood Cells 0 SEEN /hpf (0-5)
[2019-02-03 08:28] LABS: Color, Urine Yellow (Yellow); Glucose, Dipstick 1000 mg/dl (Normal); Ketone-Dipstick 15 mg/dl (Negative); Leukocyte Esterase-Dipstick Negative /ul (Negative); Nitrite-Dipstick Negative (Negative); Occult Blood-Urine 10 /ul (Negative); Protein-Dipstick 15 mg/dl (Negative); Urine Bilirubin Dipstick Negative (Negative); Urine Clarity Clear (Clear); Urine Urobilinogen Normal (Normal)
[2019-02-03 08:30] LABS: Bedside Glucose 253 mg/dL (70-110)
[2019-02-03 08:34] LABS: Mucous, Urine 2+ /hpf (<or=2+)
--- NOTE | 2019-02-03 08:36 | PCM.PN.ORT ---
Patient Problems: Active and Suspected Problems (Last Updated 02/01/19 @ 08:15 by Osei Barney MD) Intertrochanteric fracture of right femur (Acute) Subjective: Resting comfortably in bed complain of pain during ambulation comfortable currently - Physical Exam General: Alert, Cooperative, No apparent distress Extremities: - - Dressing clean dry and intact compartments soft neurovascular intact Vital Signs Temp Pulse Resp BP Pulse Ox 98.5 F 69 16 119/37 L 93 02/03/19 07:34 02/03/19 08:20 02/03/19 07:34 02/03/19 07:34 02/03/19 07:34 Oxygen Flow Rate (L/min) 2 Oxygen Delivery Method Room Air Weight: 155 lb 9.001 oz Body Mass Index (BMI) 27.5 Finger Stick Blood Glucose 190 Intake and Output for Last 24 Hours 02/01/19 02/02/19 02/03/19 23:59 23:59 23:59 Intake Total 2896 / 2896 3170 / 3170 707 / 707 Output Total 1550 / 1550 3350 / 3350 400 / 400 Balance 1346 / 1346 -180 / -180 307 / 307 Laboratory Tests Past 24 Hrs 02/02/19 02/03/19 02/03/19 17:40 07:30 08:10 WBC 10.4 RBC 3.48 L Hgb 9.9 L Hct 30.2 L MCV 86.8 MCH 28.4 MCHC 32.8 RDW 14.2 RDW Differential 43.0 Plt Count 171 MPV 9.1 Immature Gran % (Auto) 0.300 Neut % (Auto) 69.1 Lymph % (Auto) 18.4 L [place] % (Auto) 11.3 H Eos % (Auto) 0.8 Baso % (Auto) 0.1 Absolute Neuts (auto) 7.2 Absolute Lymphs (auto) 1.92 Total Counted Not Reportable Potassium 4.2 Urine Color Yellow Urine Clarity Clear Urine pH 6.0 Ur Specific [place] 1.020 Urine Protein 15 H Urine Glucose (UA) 1000 H Urine Ketones 15 H Urine Occult Blood 10 H Urine Nitrite Negative Urine Bilirubin Negative Urine Urobilinogen Normal Ur Leukocyte Esterase Negative Urine RBC 0 SEEN Urine WBC 0 SEEN Ur Squamous Epith Cells 0 SEEN Urine Bacteria 0 SEEN Urine Mucus 2+ POC Glucose 02/03/19 02/02/19 02/02/19 07:50 22:28 16:53 POC Glucose 253 H 227 H 421 H 02/02/19 12:28 POC Glucose 428 H Medical Necessity - Tobacco Use Smoking Status: Never smoker Tobacco Use: Non-smoker Assessment/Plan All Active Problems (Last Updated 02/01/19 @ 08:15 by Osei Barney MD) Intertrochanteric fracture of right femur (Acute) Postop day #2 right intertrochanteric femur fracture cephalo-medullary fixation DVT prophylaxis SCDs KYLE hose Eliquis 2.5 mg twice daily for 21 days hold plavix until completed PT OT weightbearing as tolerated Dressing to be changed daily at this point incision clean with Betadine ABD pad and silk tape to be applied May begin showering postop day #3 and then daily do not submerge in tub or pool [place] to be removed 2 weeks postop Patient likely needs rehab Follow-up 4 weeks in office
--- NOTE | 2019-02-03 11:16 | PCM.DC ---
- Discharge Diagnoses Current Active Problems: Current Active and Chronic Problems (Last Updated 02/01/19 @ 08:15 by Osei Barney MD) Intertrochanteric fracture of right femur (Acute) Dementia (Chronic) You will use the following diet at home:: Calorie/Carbohydrate Controlled (specify 1200, 1400, etc) - 1800 CURT., Cardiac Your food should be the consistency of: Regular Discharge Activity: Return to Normal Activity Weight Bearing Status: Weight bearing as tolerated Keep extremity elevated above heart level: Right Leg Call your doctor if your incision/area has: Continuous Slow Oozing, Sudden Increased Bleeding, Increased Pain/ Swelling, Increased Redness, Foul Smelling Discharge, Swelling at the incision site Call your doctor if you observe: Fever of 101 or Higher, Shortness of breath, Dizziness, Fainting spells, Chest pain, Increased palpitations (irregular heartbeat), Uncontrolled pain Additional Instructions: -Continue Eliquis for 21 days. Restart Plavix once Eliquis is done. -Dressing to be changed daily at this point incision clean with Betadine ABD pad and silk tape to be applied. -May begin showering postop day #3 and then daily do not submerge in tub or pool. -[place] to be removed 2 weeks postop. Allergies/Adverse Reactions: Allergies fentanyl Allergy (Verified 01/31/19 13:14) Low blood pressure diazepam [From Valium] Adverse Reaction (Verified 01/31/19 13:14) Other Medications to take at Discharge Amlodipine [Norvasc] 10 mg PO DAILY 11/16/13 levothyroxine 25 mcg capsule 50 mcg PO DAILY cap 09/10/17 metoprolol tartrate 50 mg tablet 75 mg PO BID tab 09/10/17 benazepril 20 mg tablet 20 mg PO BID tab 10/07/17 aspirin 81 mg tablet,delayed release 81 mg PO DAILY 03/02/18 magnesium oxide 400 mg (241.3 mg magnesium) tablet 400 mg PO DAILY tab 03/02/18 mirabegron ER 25 mg tablet,extended release 24 hr 25 mg PO Q24H 03/02/18 Atorvastatin Calcium [Lipitor] 80 mg PO QHS 01/31/19 Biotin 1,000 mcg PO DAILY 01/31/19 Cholecalciferol (Vitamin D3) [Vitamin D3] 400 unit PO DAILY 01/31/19 Donepezil HCl 10 mg PO QHS 01/31/19 Escitalopram Oxalate 5 mg PO DAILY 01/31/19 Insulin Aspart Prot/Insuln Asp [Novolog Mix 70-30 Vial] 28 unit SQ DINNER 01/31/19 Insulin Aspart Prot/Insuln Asp [Novolog Mix 70-30 Vial] 30 units SQ BREAKFAST 01/31/19 Isosorbide Mononitrate [Monoket] 20 mg PO BID 01/31/19 L.acidoph,Paracasei, B.lactis [Probiotic] 1 each PO DAILY 01/31/19 Liothyronine Sodium 25 mcg PO DAILY 01/31/19 Mirtazapine [Remeron] 15 mg PO QHS 01/31/19 Pioglitazone [Actos] 30 mg PO DAILY 01/31/19 Ubidecarenone [Coq-10] 100 mg PO DAILY 01/31/19 metFORMIN (XR) [Glucophage Xr] 500 mg PO DAILY 01/31/19 Apixaban [Eliquis] 2.5 mg PO BID #42 tab 02/03/19 Hydrocodone Bitart/Apap 5-325 [[place] 5/325] 1 - 2 tab PO Q4H PRN PRN 7 Days #30 tab 02/03/19 The following prescriptions were given: Hydrocodone Bitart/Apap 5-325 [[place] 5/325] 1 - 2 tab PO Q4H PRN PRN 7 Days #30 tab PRN Reason: Severe Pain (-06/02) Apixaban [Eliquis] 2.5 mg PO BID #42 tab Primary Care Physician: Johnathon Brown MD [Primary Care Provider] - Please follow up with your Primary Care Physician in: 1-2 WEEKS. Test Results: Test results from this visit will be discussed in further detail at your follow-up appointment, if applicable. Please Follow Up With: Sammy Barnard DO When: 4 WEEKS.
--- NOTE | 2019-02-03 11:19 | DCINST_ITS ---
- Discharge Diagnoses Current Active Problems: Current Active and Chronic Problems (Last Updated 02/01/19 @ 08:15 by Osei Barney MD) Intertrochanteric fracture of right femur (Acute) Dementia (Chronic) You will use the following diet at home:: Calorie/Carbohydrate Controlled (specify 1200, 1400, etc) - 1800 CURT., Cardiac Your food should be the consistency of: Regular Discharge Activity: Return to Normal Activity Weight Bearing Status: Weight bearing as tolerated Keep extremity elevated above heart level: Right Leg Call your doctor if your incision/area has: Continuous Slow Oozing, Sudden Increased Bleeding, Increased Pain/ Swelling, Increased Redness, Foul Smelling Discharge, Swelling at the incision site Call your doctor if you observe: Fever of 101 or Higher, Shortness of breath, Dizziness, Fainting spells, Chest pain, Increased palpitations (irregular heartbeat), Uncontrolled pain Additional Instructions: -Continue Eliquis for 21 days. Restart Plavix once Eliquis is done. -Dressing to be changed daily at this point incision clean with Betadine ABD pad and silk tape to be applied. -May begin showering postop day #3 and then daily do not submerge in tub or pool. -[place] to be removed 2 weeks postop. Allergies/Adverse Reactions: Allergies fentanyl Allergy (Verified 01/31/19 13:14) Low blood pressure diazepam [From Valium] Adverse Reaction (Verified 01/31/19 13:14) Other Medications to take at Discharge Amlodipine [Norvasc] 10 mg PO DAILY 11/16/13 levothyroxine 25 mcg capsule 50 mcg PO DAILY cap 09/10/17 metoprolol tartrate 50 mg tablet 75 mg PO BID tab 09/10/17 benazepril 20 mg tablet 20 mg PO BID tab 10/07/17 aspirin 81 mg tablet,delayed release 81 mg PO DAILY 03/02/18 magnesium oxide 400 mg (241.3 mg magnesium) tablet 400 mg PO DAILY tab 03/02/18 mirabegron ER 25 mg tablet,extended release 24 hr 25 mg PO Q24H 03/02/18 Atorvastatin Calcium [Lipitor] 80 mg PO QHS 01/31/19 Biotin 1,000 mcg PO DAILY 01/31/19 Cholecalciferol (Vitamin D3) [Vitamin D3] 400 unit PO DAILY 01/31/19 Donepezil HCl 10 mg PO QHS 01/31/19 Escitalopram Oxalate 5 mg PO DAILY 01/31/19 Insulin Aspart Prot/Insuln Asp [Novolog Mix 70-30 Vial] 28 unit SQ DINNER 01/31/19 Insulin Aspart Prot/Insuln Asp [Novolog Mix 70-30 Vial] 30 units SQ BREAKFAST 01/31/19 Isosorbide Mononitrate [Monoket] 20 mg PO BID 01/31/19 L.acidoph,Paracasei, B.lactis [Probiotic] 1 each PO DAILY 01/31/19 Liothyronine Sodium 25 mcg PO DAILY 01/31/19 Mirtazapine [Remeron] 15 mg PO QHS 01/31/19 Pioglitazone [Actos] 30 mg PO DAILY 01/31/19 Ubidecarenone [Coq-10] 100 mg PO DAILY 01/31/19 metFORMIN (XR) [Glucophage Xr] 500 mg PO DAILY 01/31/19 Apixaban [Eliquis] 2.5 mg PO BID #42 tab 02/03/19 Hydrocodone Bitart/Apap 5-325 [[place] 5/325] 1 - 2 tab PO Q4H PRN PRN 7 Days #30 tab 02/03/19 The following prescriptions were given: Hydrocodone Bitart/Apap 5-325 [[place] 5/325] 1 - 2 tab PO Q4H PRN PRN 7 Days #30 tab PRN Reason: Severe Pain (-06/02) Apixaban [Eliquis] 2.5 mg PO BID #42 tab Primary Care Physician: Johnathon Brown MD [Primary Care Provider] - Please follow up with your Primary Care Physician in: 1-2 WEEKS. Test Results: Test results from this visit will be discussed in further detail at your follow- up appointment, if applicable. Please Follow Up With: Sammy Barnard DO When: 4 WEEKS.
--- NOTE | 2019-02-03 11:31 | NURSING ---
radiology called and notified that Dr. Barney is requesting for cxr from this AM to be read- to be able to d/c pt. Understanding verbalized.
[2019-02-03] MEDS: APIXABAN 2.5 MG TABLET PO (11:49)
[2019-02-03 12:10] LABS: Bedside Glucose 246 mg/dL (70-110)
[2019-02-03 12:22] VITALS: BP 102/47; PULSE 65
--- NOTE | 2019-02-03 13:04 | CASEMGMT ---
Addendum entered by Anna Richey 02/03/19 13:43: SW placed a call to pt's daughter Arminda and informed her that pt is going to be discharge to [facility] today. Original Note: Social Work Note SW received call from Zelda with [facility] stating pt is able to discharge to [facility] whenever. RN updated. Plan: today Anna Richey [employer], [employer]
--- NOTE | 2019-02-03 13:26 | DS.PCM_ITS ---
Discharge Date and Diagnosis - Problem List Patient Problems: Active and Suspected Problems (Last Updated 02/01/19 @ 08:15 by Osei Barney MD) Intertrochanteric fracture of right femur (Acute) Date of Admission: 01/31/19 Date of Discharge: 02/03/19 - Primary Discharge Diagnosis Active and Suspected Problems (Last Updated 02/01/19 @ 08:15 by Osei Barney MD) #1 postoperative acute traumatic nondisplaced intertrochanteric fracture of right hip status post cephalo-medullary nail fixation (Acute). #2 anemia likely due to blood loss during surgery and hemodilution. - Secondary Discharge Diagnosis Chronic Problems (Last Reviewed 03/02/18 @ 12:17 by Castro Kearney MD) Dementia (Chronic) Controlled type 1 diabetes mellitus without complication (Chronic) HTN (hypertension) (Chronic) HLD (hyperlipidemia) (Chronic) Old myocardial infarction (Chronic) Atherosclerotic heart disease of [place] coronary artery without angina pectoris (Chronic) PTCA/JERROD to proximal LAD 02/13/2009; PTCA/JERROD to OM1 and diagonal 2 in 10/12/2009; History of coronary artery stent placement (Chronic) PTCA/stent (JERROD) of proximal LAD 02/13/2009; PTCS/stent (JERROD) to OM1 and D2 10/12/2009. Hospital Course and Treatment Imaging Results: 02/03/19 07:46 CXR [Chest 1 View (Portable)] [RAD] Urgent Clinical Impression(s) from Imaging Studies Chest X-Ray 01/31/19 13:21 IMPRESSION: No acute abnormality is seen. Electronically Signed: Theodore Gorman, at 14:32 EDT , Service support , Hip/Pelvis X-Ray 01/31/19 13:23 IMPRESSION: Nondisplaced right intertrochanteric fracture. Electronically Signed: Theodore Gorman, at 14:31 EDT , Service support , Hip/Pelvis X-Ray 02/01/19 15:38 IMPRESSION: Fluoroscopy during surgery. Electronically Signed: Miah Watkins MD at 16:36 EDT Tel , Service support , Chest X-Ray 02/03/19 07:46 IMPRESSION: Mild increased markings at the lung bases suggestive of atelectasis. Electronically Signed: Theodore Francisambreen, at 13:17 EDT , Service support , Dr. Barnard orthopedic surgery., Operations: - - Cephalo-medullary nail fixation of the right intertrochanteric fracture. Procedures: None Summary of Care Provided: Patient seen and examined on the day of discharge and appeared to be stable to be discharged home. Nursing staff reported that patient has been anxious to start walking and she has been having some pains. Her vital signs are stable. Yesterday, she was able to stand and start to walk. The patient is a 68 year old F presented to the emergency room because of right hip pain after she slipped at home and she was found to have acute traumatic nondisplaced right intertrochanteric hip fracture. There was no prodromal symptoms such as chest pain, shortness of breath, dizziness, syncope or presyncope. She underwent surgical fixation of the fracture with cephalo- medullary nail fixation. Her postoperative course was uneventful without significant postoperative complications except dropping hemoglobin without need for blood transfusion. She did have isolated episode of low-grade fever. Chest x-ray performed that showed no acute infiltrate. Urinalysis showed no evidence of acute cystitis. Patient denies any symptoms assistive of infection. Postoperatively, hemoglobin was 9.9 g/dL without evidence of active bleeding and it is attributed to blood loss during surgery and hemodilution. Patient has a history of CAD status post stents around 8 to 9 years ago and she was on aspirin and Plavix. After her surgery, she was started on Eliquis 2.5 mg p.o. twice daily. I discussed the case with Dr. Inman who agreed to stop Plavix for now, continue aspirin and Eliquis for 3 weeks and then patient may resume her Plavix back. Patient discharged to inpatient rehabilitation unit in a stable medical condition, discharged on aspirin and Eliquis, discharged on [place] PRN for pain, continued on her previous home medication without any changes, recommended follow-up with PCP in 1 to 2 weeks, follow-up with orthopedic surgery in 4 weeks. Patient Problems: Active and Suspected Problems (Last Updated 02/01/19 @ 08:15 by Osei Barney MD) Intertrochanteric fracture of right femur (Acute) - Physical Exam General: Alert, Oriented x3, Cooperative, No apparent distress HEENT: Atraumatic, PERRLA, EOMI, Normocephalic Oral: Moist Mucosa, No Gingival or Mucosal Lesions/ Ulcerations Neck: Supple, No JVD, Negative Carotid Bruits Lungs: Clear to auscultation, Normal air movement, No rhonchi, No wheeze, No rales Cardiovascular: Regular rate, Regular Rhythm, Normal S1, Normal S2, No murmurs Abdomen: Bowel Sounds Present, Soft, Non Tender, Non-Distended, No Hepato- splenomegaly Extremities: No clubbing, No cyanosis, No edema Skin: No rashes, No breakdown Lymphatic: No Cervical, Supraclavicular, or Inguinal Adenopathy Neurological: Cranial nerves II-XII grossly intact, Neuro grossly intact Psych/Mental Status: Normal Affect, Appropriate Vital Signs Temp Pulse Resp BP Pulse Ox 98.5 F 65 16 102/47 L 93 02/03/19 07:34 02/03/19 12:22 02/03/19 07:34 02/03/19 12:22 02/03/19 07:34 Oxygen Flow Rate (L/min) 2 Oxygen Delivery Method Room Air Weight: 155 lb 9.001 oz Body Mass Index (BMI) 27.5 Finger Stick Blood Glucose 190 Intake and Output for Last 24 Hours 02/01/19 02/02/19 02/03/19 23:59 23:59 23:59 Intake Total 2896 / 2896 3170 / 3170 1507 / 1507 Output Total 1550 / 1550 3350 / 3350 1090 / 1090 Balance 1346 / 1346 -180 / -180 417 / 417 Laboratory Tests Past 24 Hrs 02/02/19 02/03/19 02/03/19 17:40 07:30 08:10 WBC 10.4 RBC 3.48 L Hgb 9.9 L Hct 30.2 L MCV 86.8 MCH 28.4 MCHC 32.8 RDW 14.2 RDW Differential 43.0 Plt Count 171 MPV 9.1 Immature Gran % (Auto) 0.300 Neut % (Auto) 69.1 Lymph % (Auto) 18.4 L [place] % (Auto) 11.3 H Eos % (Auto) 0.8 Baso % (Auto) 0.1 Absolute Neuts (auto) 7.2 Absolute Lymphs (auto) 1.92 Total Counted Not Reportable Potassium 4.2 Urine Color Yellow Urine Clarity Clear Urine pH 6.0 Ur Specific [place] 1.020 Urine Protein 15 H Urine Glucose (UA) 1000 H Urine Ketones 15 H Urine Occult Blood 10 H Urine Nitrite Negative Urine Bilirubin Negative Urine Urobilinogen Normal Ur Leukocyte Esterase Negative Urine RBC 0 SEEN Urine WBC 0 SEEN Ur Squamous Epith Cells 0 SEEN Urine Bacteria 0 SEEN Urine Mucus 2+ POC Glucose 02/03/19 02/03/19 02/02/19 11:44 07:50 22:28 POC Glucose 246 H 253 H 227 H 02/02/19 16:53 POC Glucose 421 H Discharge Activity: Return to Normal Activity Weight Bearing Status: Weight bearing as tolerated Keep extremity elevated above heart level: Right Leg Call your doctor if your incision/area has: Continuous Slow Oozing, Sudden Increased Bleeding, Increased Pain/ Swelling, Increased Redness, Foul Smelling Discharge, Swelling at the incision site Call your doctor if you observe: Fever of 101 or Higher, Shortness of breath, Dizziness, Fainting spells, Chest pain, Increased palpitations (irregular heartbeat), Uncontrolled pain Home Medications: Medications to take at Discharge Amlodipine [Norvasc] 10 mg PO DAILY 11/16/13 levothyroxine 25 mcg capsule 50 mcg PO DAILY cap 09/10/17 metoprolol tartrate 50 mg tablet 75 mg PO BID tab 09/10/17 benazepril 20 mg tablet 20 mg PO BID tab 10/07/17 aspirin 81 mg tablet,delayed release 81 mg PO DAILY 03/02/18 magnesium oxide 400 mg (241.3 mg magnesium) tablet 400 mg PO DAILY tab 03/02/18 mirabegron ER 25 mg tablet,extended release 24 hr 25 mg PO Q24H 03/02/18 Atorvastatin Calcium [Lipitor] 80 mg PO QHS 01/31/19 Biotin 1,000 mcg PO DAILY 01/31/19 Cholecalciferol (Vitamin D3) [Vitamin D3] 400 unit PO DAILY 01/31/19 Donepezil HCl 10 mg PO QHS 01/31/19 Escitalopram Oxalate 5 mg PO DAILY 01/31/19 Insulin Aspart Prot/Insuln Asp [Novolog Mix 70-30 Vial] 28 unit SQ DINNER 01/31/19 Insulin Aspart Prot/Insuln Asp [Novolog Mix 70-30 Vial] 30 units SQ BREAKFAST 01/31/19 Isosorbide Mononitrate [Monoket] 20 mg PO BID 01/31/19 L.acidoph,Paracasei, B.lactis [Probiotic] 1 each PO DAILY 01/31/19 Liothyronine Sodium 25 mcg PO DAILY 01/31/19 Mirtazapine [Remeron] 15 mg PO QHS 01/31/19 Pioglitazone [Actos] 30 mg PO DAILY 01/31/19 Ubidecarenone [Coq-10] 100 mg PO DAILY 01/31/19 metFORMIN (XR) [Glucophage Xr] 500 mg PO DAILY 01/31/19 Apixaban [Eliquis] 2.5 mg PO BID #42 tab 02/03/19 Hydrocodone Bitart/Apap 5-325 [[place] 5/325] 1 - 2 tab PO Q4H PRN PRN 7 Days #30 tab 02/03/19 Following Prescrptions Were Given to Patient: Hydrocodone Bitart/Apap 5-325 [[place] 5/325] 1 - 2 tab PO Q4H PRN PRN 7 Days #30 tab PRN Reason: Severe Pain (-06/02) Apixaban [Eliquis] 2.5 mg PO BID #42 tab Primary Care Physician: Johnathon Brown MD [Primary Care Provider] - Please follow up with your Primary Care Physician in: 1-2 WEEKS. Please Follow Up With: Sammy Barnard DO When: 4 WEEKS. Disposition: Inpt Rehab Unit/Facility Minutes spent on discharge:: 32 Patient Condition:: Stable Medical Necessity - Tobacco Use Smoking Status: Never smoker Tobacco Use: Non-smoker Meaningful Use Info Meaningful Use Diagnoses (Choose all that apply): None applicable Code Visit Inpatient E&M: 93085 Disch Hosp
[2019-02-03 13:45] VITALS: BP 116/50; PULSE 74; RESP 18; TEMP 36.9; O2SAT 97
--- NOTE | 2019-02-03 14:24 | NURSING ---
report called to hayden rosario- pt preparing to be transported to rehab at this time.
== END 2019-02-03 14:27 | DRG 481 ==
LOC: ED 14:30 → MS3 14:40
PROVIDERS: Anesthesiology; Orthopaedic Surgery; Admitting Provider Internal Medicine; Emergency Provider Emergency Medicine; Family Provider Family Medicine; PCP Family Medicine; Referring Provider Internal Medicine; Visit Provider Hospitalist
PROC: 0QH636Z Insertion of Intramedullary Internal Fixation Device into Right Upper Femur, Percutaneous Approach (ICD-10-PCS; principal; 2019-02-01 14:15)
DX: S72.144A Nondisplaced intertrochanteric fracture of right femur, initial encounter for closed fracture (principal); D62 Acute posthemorrhagic anemia; W01.0XXA Fall on same level from slipping, tripping and stumbling without subsequent striking against object, initial encounter; Y92.010 Kitchen of single-family (private) house as the place of occurrence of the external cause; I25.10 Atherosclerotic heart disease of native coronary artery without angina pectoris; I10 Essential (primary) hypertension; F03.90 Unspecified dementia, unspecified severity, without behavioral disturbance, psychotic disturbance, mood disturbance, and anxiety; E03.9 Hypothyroidism, unspecified; E10.42 Type 1 diabetes mellitus with diabetic polyneuropathy; E78.5 Hyperlipidemia, unspecified; Z79.4 Long term (current) use of insulin; I25.2 Old myocardial infarction; Z95.5 Presence of coronary angioplasty implant and graft
CPT/HCPCS: 36415; 71045; 73501; 73502; 76000; 80048; 80053; 81001; 82962; 83036; 84132; 85025; 86850; 86900; 93005; 97163; 97166; 97535; 97802; 99251; 99285; C1713; C1776; J7030; A4216; G0463; J2405

== ENCOUNTER 2019-02-03 14:35 | Inpatient (IN) | payer MEDICARE, OTHER, SELFPAY ==
[2019-02-01 12:26] VITALS: BMI 27.5
[2019-02-03 15:26] VITALS: BP 121/67; PULSE 72; RESP 16; TEMP 37; O2SAT 95; BMI 27.5; BMI 27.6
[2019-02-03 17:02] VITALS: O2SAT 97
[2019-02-03] MEDS: Insulin Human 75/25 Kwickpen 28 UNIT SC (17:11)
[2019-02-03 17:21] LABS: Bedside Glucose 196 mg/dL (70-110)
[2019-02-03 20:27] VITALS: BP 102/41; PULSE 89; RESP 18; TEMP 37.5; O2SAT 95
[2019-02-03] MEDS: HYDROcodone Bitartrate/Apap 5/325 Tablet PO (20:45)
[2019-02-03] MEDS: Lisinopril 20 MG Tablet PO (20:46)
[2019-02-03] MEDS: Mirtazapine 15 MG Tablet PO (20:47)
[2019-02-03] MEDS: Isosorbide Mononitrate 20 MG Tablet PO (20:47)
[2019-02-03 20:48] VITALS: BP 102/41; PULSE 89
[2019-02-03] MEDS: Metoprolol Tartrate 25 MG Tablet 75 MG PO (20:48)
[2019-02-03] MEDS: Atorvastatin Calcium 80 MG Tablet PO (20:48)
[2019-02-03] MEDS: APIXABAN 2.5 MG TABLET PO (20:48)
[2019-02-03] MEDS: Donepezil HCl 10 MG Tablet PO (20:52)
[2019-02-03] MEDS: Glucerna Shake 120 ML LIQUID PO (20:53)
[2019-02-03 22:11] LABS: Bedside Glucose 395 mg/dL (70-110)
[2019-02-04] MEDS: HYDROcodone Bitartrate/Apap 5/325 Tablet PO ×3 (05:05→13:47)
[2019-02-04] MEDS: Levothyroxine 50 MCG Tablet PO (05:06)
[2019-02-04 05:57] LABS: Hematocrit 29.9 % (37-47); Hemoglobin 9.8 g/dl (12.0-15.0); Mean Corp Hgb Conc 32.8 g/gl (32-36); Mean Corpuscular Hgb 28.6 pg (27.0-32.0); Mean Corpuscular Volume 87.2 fL (81-99); Mean Platelet Vol. 9.4 fl (6.2-12.0); Platelet Count 174 K/mm3 (150-450); RBC Distribution Width CV 14.4 % (11.6-14.6); RBC Distribution Width SD 43.9 fl (35.1-43.9); Red Blood Count 3.43 M/mm3 (4.2-5.4); White Blood Count 8.4 K/mm3 (4.4-11.0)
[2019-02-04 06:01] LABS: Scan Indicated on CBC? Y/N NO
[2019-02-04 06:07] LABS: Anion Gap 8 (5-15); BUN 13 mg/dL (7-18); BUN/Creat Ratio 19.3 RATIO (10-20); Calcium,Total 8.4 mg/dL (8.5-10.1); Chloride 106 mmol/L (98-107); Creatinine, Serum 0.67 mg/dL (0.55-1.02); EST Glomerular Filtration Rate 92 mL/min (>60); Est Glom Filt Rate - Afr Amer 112 mL/min (>60); Glucose 330 mg/dL (74-106); Potassium 3.9 mmol/L (3.5-5.1); Sodium Level 139 mmol/L (136-145)
[2019-02-04 06:39] VITALS: O2SAT 93
[2019-02-04 06:46] LABS: Bedside Glucose 317 mg/dL (70-110)
[2019-02-04] MEDS: Lisinopril 20 MG Tablet PO ×2 (07:47→21:29)
[2019-02-04 07:48] VITALS: PULSE 70
[2019-02-04] MEDS: Escitalopram Oxalate 10 MG Tablet 5 MG PO (07:48)
[2019-02-04] MEDS: Pioglitazone Hydrochloride 30 MG Tablet PO (07:48)
[2019-02-04] MEDS: Metoprolol Tartrate 25 MG Tablet 75 MG PO ×2 (07:48→21:29)
[2019-02-04] MEDS: metFORMIN (XR) 500 MG Tablet PO (07:49)
[2019-02-04] MEDS: Mirabegron 25 MG TAB.ER.24H PO (07:49)
[2019-02-04] MEDS: Aspirin E.C. 81 MG Tablet PO (07:50)
[2019-02-04] MEDS: Senna/Docusate Sodium 1 Tablet 2 TABLET PO ×2 (07:50→21:31)
[2019-02-04] MEDS: APIXABAN 2.5 MG TABLET PO ×2 (07:51→21:29)
[2019-02-04] MEDS: Magnesium Oxide 400 MG Tablet PO (07:51)
[2019-02-04] MEDS: amLODIPine 10 MG Tablet PO (07:52)
[2019-02-04] MEDS: Isosorbide Mononitrate 20 MG Tablet PO ×2 (07:52→21:30)
[2019-02-04] MEDS: Insulin Human 75/25 Kwickpen 30 UNIT SC (07:56)
[2019-02-04 08:20] VITALS: BP 119/60; PULSE 74; RESP 18; TEMP 36.7; O2SAT 95
[2019-02-04] MEDS: Glucerna Shake 120 ML LIQUID PO ×4 (10:00→21:48)
--- NOTE | 2019-02-04 11:08 | PCM.CONS.GEN ---
Problem List (1) Intertrochanteric fracture of right femur Status: Acute Qualifiers: (2) Controlled type 1 diabetes mellitus without complication Status: Chronic (3) HTN (hypertension) Status: Chronic Qualifiers: (4) HLD (hyperlipidemia) Status: Chronic Qualifiers: (5) Atherosclerotic heart disease of [place] coronary artery without angina pectoris Status: Chronic Qualifiers: Comment: PTCA/JERROD to proximal LAD 02/13/2009; PTCA/JERROD to OM1 and diagonal 2 in 10/12/2009; (6) History of coronary artery stent placement Status: Chronic Comment: PTCA/stent (JERROD) of proximal LAD 02/13/2009; PTCS/stent (JERROD) to OM1 and D2 10/12/2009. Reason for Consult Date of Consultation: 02/04/19 Reason for Consultation: Medical management. History of Present Illness: The patient is a 68 year old F admitted to inpatient rehabitation unit after she suffered acute traumatic nondisplaced right intertrochanteric femur fracture, underwent surgical fixation with cephalo-medullary nail and I am seeing this patient in consultation for medical management. At this time, the patient is doing physical therapy. She reported significant pain upon ambulation which goes up to 10 out of 10 in severity. Pain worsens with ambulation. Physical therapist mentioned that she was able to walk for about 20 feet today. She denies any other complaints. Her history of type 2 diabetes mellitus which seems to be uncontrolled, her sugar has been in the 300s and has been fluctuating and hemoglobin A1c was 9.7 few days ago. She has history of CAD status post stents and she has been stable. She has history of hypertension and seemed to be under control with Norvasc, lisinopril and metoprolol. Today, her blood pressure is borderline, other vital signs are stable. She is asymptomatic. Routine blood work from today reviewed, revealed hemoglobin of 8.9 g considered, otherwise normal. Blood sugar is 330 this morning. Past Medical History Past Medical History (Chronic Problems): Chronic Problems (Last Reviewed 03/02/18 @ 12:17 by Castro Kearney MD) Dementia (Chronic) Controlled type 1 diabetes mellitus without complication (Chronic) HTN (hypertension) (Chronic) HLD (hyperlipidemia) (Chronic) Old myocardial infarction (Chronic) Atherosclerotic heart disease of [place] coronary artery without angina pectoris (Chronic) PTCA/JERROD to proximal LAD 02/13/2009; PTCA/JERROD to OM1 and diagonal 2 in 10/12/2009; History of coronary artery stent placement (Chronic) PTCA/stent (JERROD) of proximal LAD 02/13/2009; PTCS/stent (JERROD) to OM1 and D2 10/12/2009. Medical History: Medical History (Last Updated 02/01/19 @ 08:15 by Osei Barney MD) Controlled type 1 diabetes mellitus without complication (Chronic) E10.9 HTN (hypertension) (Chronic) I10 HLD (hyperlipidemia) (Chronic) E78.5 Old myocardial infarction (Chronic) I25.2 Atherosclerotic heart disease of [place] coronary artery without angina pectoris (Chronic) I25.10 PTCA/JERROD to proximal LAD 02/13/2009; PTCA/JERROD to OM1 and diagonal 2 in 10/12/2009; Fatigue (Inactive) R53.83 Other chest pain (Inactive) R07.89 Subdural hematoma (Inactive) Onset Date: 07/2017 S06.5X9A Allergies fentanyl Allergy (Verified 01/31/19 13:14) Low blood pressure diazepam [From Valium] Adverse Reaction (Verified 01/31/19 13:14) Other Home Medications: Ambulatory Orders Medication Instructions Recorded Amlodipine [Norvasc] 10 mg PO DAILY 11/16/13 levothyroxine 25 mcg capsule 50 mcg PO DAILY cap 09/10/17 metoprolol tartrate 50 mg tablet 75 mg PO BID tab 09/10/17 benazepril 20 mg tablet 20 mg PO BID tab 10/07/17 aspirin 81 mg tablet,delayed 81 mg PO DAILY 03/02/18 release magnesium oxide 400 mg (241.3 mg 400 mg PO DAILY tab 03/02/18 magnesium) tablet mirabegron ER 25 mg 25 mg PO Q24H 03/02/18 tablet,extended release 24 hr Atorvastatin Calcium [Lipitor] 80 mg PO QHS 01/31/19 Biotin 1,000 mcg PO DAILY 01/31/19 Cholecalciferol (Vitamin D3) 400 unit PO DAILY 01/31/19 [Vitamin D3] Donepezil HCl 10 mg PO QHS 01/31/19 Escitalopram Oxalate 5 mg PO DAILY 01/31/19 Insulin Aspart Prot/Insuln Asp 28 unit SQ DINNER 01/31/19 [Novolog Mix 70-30 Vial] Insulin Aspart Prot/Insuln Asp 30 units SQ BREAKFAST 01/31/19 [Novolog Mix 70-30 Vial] Isosorbide Mononitrate [Monoket] 20 mg PO BID 01/31/19 L.acidoph,Paracasei, B.lactis 1 each PO DAILY 01/31/19 [Probiotic] Liothyronine Sodium 25 mcg PO DAILY 01/31/19 Mirtazapine [Remeron] 15 mg PO QHS 01/31/19 Pioglitazone [Actos] 30 mg PO DAILY 01/31/19 Ubidecarenone [Coq-10] 100 mg PO DAILY 01/31/19 metFORMIN (XR) [Glucophage Xr] 500 mg PO DAILY 01/31/19 Apixaban [Eliquis] 2.5 mg PO BID 02/03/19 Hydrocodone Bitart/Apap 5-325 1 - 2 tab PO Q4H PRN PRN 7 Days 02/03/19 [[place] 5/325] #30 tab Surgical History: Surgical History (Last Reviewed 03/02/18 @ 12:17 by Castro Kearney MD) History of coronary artery stent placement (Chronic) Z95.5 PTCA/stent (JERROD) of proximal LAD 02/13/2009; PTCS/stent (JERROD) to OM1 and D2 10/12/2009. 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 Lives: Alone Smoking Status: Never smoker Tobacco Use: Non-smoker Alcohol: None Drugs: None - *Family History Maternal Family History: Family History (Last Reviewed 03/02/18 @ 12:17 by Castro Kearney MD) Father CAD (coronary artery disease) CVA (cerebral vascular accident) Brother CVA (cerebral vascular accident) Sister Breast cancer Son Diabetes History Items: No pertinent history Paternal Family History: Family History (Last Reviewed 03/02/18 @ 12:17 by Castro Kearney MD) Father CAD (coronary artery disease) CVA (cerebral vascular accident) Brother CVA (cerebral vascular accident) Sister Breast cancer Son Diabetes History Items: Heart Disease, Stroke Sibling Family History: Family History (Last Reviewed 03/02/18 @ 12:17 by Castro Kearney MD) Father CAD (coronary artery disease) CVA (cerebral vascular accident) Brother CVA (cerebral vascular accident) Sister Breast cancer Son Diabetes History Items: Cancer - breast Offspring Family History: Family History (Last Reviewed 03/02/18 @ 12:17 by Castro Kearney MD) Father CAD (coronary artery disease) CVA (cerebral vascular accident) Brother CVA (cerebral vascular accident) Sister Breast cancer Son Diabetes History Items: Diabetes Review of Systems Constitutional: Denies: Anorexia, Chills, Fever, Weakness Eyes: Denies: Blurred vision, Double vision, Drainage, Redness HEENT: Denies: Difficulty Hearing, Ear Pain, Eye Pain, Nasal Congestion, Sore Throat Cardiovascular: Denies: Chest Pain, Claudication, Edema, Heaviness, Palpitations, Syncope Respiratory: Denies: Cough, Pleuritic Pain, Shortness of Breath, Sputum production, Wheezing Gastrointestinal: Denies: Abdominal Pain, Constipation, Diarrhea, Nausea, Vomiting Genitourinary: Denies: Dysuria, Frequency, Hematuria Musculoskeletal: Reports: Joint Pain. Denies: Arm Pain, Back Pain Skin: Denies: Dryness, Rash Neurological: Denies: Balance problems, Change in Speech, Slurred speech, Confusion, Headaches, Incoordination, Numbness Psychiatric: Denies: Anxiety, Depression Endocrine: Denies: Change in Body Habitus, Polydipsia - Physical Exam General: Alert, Oriented x3, No apparent distress HEENT: Atraumatic, PERRLA, EOMI, Normocephalic Oral: Moist Mucosa, No Gingival or Mucosal Lesions/ Ulcerations Neck: Supple, No JVD, Negative Carotid Bruits, Trachea Midline, Thyroid Normal Size and Texture Lungs: Clear to auscultation, Normal air movement, No rhonchi, No wheeze, No rales Cardiovascular: Regular rate, Regular Rhythm, Normal S1, Normal S2, PMI Normal Abdomen: Bowel Sounds Present, Soft, Non Tender, Non-Distended, No Hepato-splenomegaly Extremities: No clubbing, No cyanosis, No edema Skin: No rashes, No breakdown Lymphatic: No Cervical, Supraclavicular, or Inguinal Adenopathy Neurological: Cranial nerves II-XII grossly intact, Motor Exam 5/5 strength throughout Psych/Mental Status: Normal Affect, Appropriate, Alert and oriented to time, place, person, mood and affect Vital Signs Temp Pulse Resp BP Pulse Ox 99.5 F H 70 18 102/41 L 93 02/03/19 20:27 02/04/19 07:48 02/03/19 20:27 02/03/19 20:48 02/04/19 06:39 Oxygen Delivery Method Room Air Weight: 155 lb 8.931 oz Body Mass Index (BMI) 27.5 Finger Stick Blood Glucose 190 Intake and Output for Last 24 Hours 02/02/19 02/03/19 02/04/19 23:59 23:59 23:59 Intake Total 480 / 480 Output Total 300 / 300 Balance -300 / -300 480 / 480 Laboratory Tests Past 24 Hrs 02/04/19 02/04/19 05:49 05:49 WBC 8.4 RBC 3.43 L Hgb 9.8 L Hct 29.9 L MCV 87.2 MCH 28.6 MCHC 32.8 RDW 14.4 RDW Differential 43.9 Plt Count 174 MPV 9.4 Sodium 139 Potassium 3.9 Chloride 106 Carbon Dioxide 25.0 Anion Gap 8 BUN 13 Creatinine 0.67 Estim Creat Clear Calc 43.30 Est GFR (MDRD) Af Amer 112 Est GFR (MDRD) Non-Af 92 BUN/Creatinine Ratio 19.3 Glucose 330 H Calcium 8.4 L POC Glucose 02/04/19 02/03/19 02/03/19 06:38 22:05 17:11 POC Glucose 317 H 395 H 196 H Assessment/Plan All Active Problems (Last Updated 02/01/19 @ 08:15 by Osei Barney MD) Intertrochanteric fracture of right femur (Acute) This is a 68 years old female patient admitted to inpatient rehabilitation unit after she suffered acute traumatic nondisplaced right intertrochanteric hip fracture status post cephalo-medullary nail fixation of the right hip. #1 acute traumatic nondisplaced right intertrochanteric hip fracture: Status post cephalo-medullary nail fixation, postoperative day 3. She is on [place] PRN for pain. She is having pain upon ambulation. Her vital signs are stable except borderline blood pressure but she is asymptomatic. Repeat routine blood work from today reviewed, revealed hemoglobin of 9.8 g/dL, otherwise normal. Recommend to give pain medication right before starting physical therapy, continue PT OT according to rehab team. #2 postoperative anemia: Due to blood loss during surgery and hemodilution. No evidence of active bleeding. Today's hemoglobin is 9.8 g/dL. Plan to repeat CBC on Thursday. #3 CAD status post stents: Stable, no complaints. Continue aspirin, statins, nitrate, lisinopril and metoprolol. Plavix held while patient on Eliquis for 3 weeks and plan to restart Plavix after discontinuation of Eliquis in 3 weeks. #4 type 2 diabetes mellitus: Blood sugar has been uncontrolled. Hemoglobin A1c is 9.7. She is on insulin sliding scale, she is on insulin 75/25, 30 units breakfast and 28 units dinner. Plan to increase insulin both morning and evening dose. #5 hypertension: Blood pressure on the lower side, she is on Norvasc, isosorbide mononitrate, lisinopril and metoprolol. Plan to decrease Norvasc to 5 mg p.o. daily, monitor blood pressure. #6 hypothyroidism: Stable, continue levothyroxine. #7 hyperlipidemia: Continue statins. #8 dementia: Recently diagnosed, continue donepezil. At this time, patient is alert and oriented x3. #9 DVT prophylaxis: Continue Eliquis. This note was generated with [employer] dictation software. It may contain incorrect words, spelling, and punctuation that were not noted in checking the note before signing. Code Visit Inpatient E&M: 94683 Init Hosp L2
--- NOTE | 2019-02-04 11:14 | CON.PCM_ITS ---
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 Reason for Consult Date of Consultation: 02/04/19 Reason for Consultation: Medical management. History of Present Illness: The patient is a 68 year old F admitted to inpatient rehabitation unit after she suffered acute traumatic nondisplaced right intertrochanteric femur fracture, underwent surgical fixation with cephalo-medullary nail and I am seeing this patient in consultation for medical management. At this time, the patient is doing physical therapy. She reported significant pain upon ambulation which goes up to 10 out of 10 in severity. Pain worsens with ambulation. Physical therapist mentioned that she was able to walk for about 20 feet today. She denies any other complaints. Her history of type 2 diabetes mellitus which seems to be uncontrolled, her sugar has been in the 300s and has been fluctuating and hemoglobin A1c was 9.7 few days ago. She has history of CAD status post stents and she has been stable. She has history of hypertension and seemed to be under control with Norvasc, lisinopril and metoprolol. Today, her blood pressure is borderline, other vital signs are stable. She is asymptomatic. Routine blood work from today reviewed, revealed hemoglobin of 8.9 g considered, otherwise normal. Blood sugar is 330 this morning. Past Medical History Past Medical History (Chronic Problems): Chronic Problems (Last Reviewed 03/02/18 @ 12:17 by Castro Kearney MD) Dementia (Chronic) Controlled type 1 diabetes mellitus without complication (Chronic) HTN (hypertension) (Chronic) HLD (hyperlipidemia) (Chronic) Old myocardial infarction (Chronic) Atherosclerotic heart disease of [place] coronary artery without angina pectoris (Chronic) PTCA/JERROD to proximal LAD 02/13/2009; PTCA/JERROD to OM1 and diagonal 2 in 10/12/2009; History of coronary artery stent placement (Chronic) PTCA/stent (JERROD) of proximal LAD 02/13/2009; PTCS/stent (JERROD) to OM1 and D2 10/12/2009. Medical History: Medical History (Last Updated 02/01/19 @ 08:15 by Osei Barney MD) Controlled type 1 diabetes mellitus without complication (Chronic) E10.9 HTN (hypertension) (Chronic) I10 HLD (hyperlipidemia) (Chronic) E78.5 Old myocardial infarction (Chronic) I25.2 Atherosclerotic heart disease of [place] coronary artery without angina pectoris (Chronic) I25.10 PTCA/JERROD to proximal LAD 02/13/2009; PTCA/JERROD to OM1 and diagonal 2 in 10/12/2009; Fatigue (Inactive) R53.83 Other chest pain (Inactive) R07.89 Subdural hematoma (Inactive) Onset Date: 07/2017 S06.5X9A Allergies fentanyl Allergy (Verified 01/31/19 13:14) Low blood pressure diazepam [From Valium] Adverse Reaction (Verified 01/31/19 13:14) Other Home Medications: Ambulatory Orders Medication Instructions Recorded Amlodipine [Norvasc] 10 mg PO DAILY 11/16/13 levothyroxine 25 mcg capsule 50 mcg PO DAILY cap 09/10/17 metoprolol tartrate 50 mg tablet 75 mg PO BID tab 09/10/17 benazepril 20 mg tablet 20 mg PO BID tab 10/07/17 aspirin 81 mg tablet,delayed 81 mg PO DAILY 03/02/18 release magnesium oxide 400 mg (241.3 mg 400 mg PO DAILY tab 03/02/18 magnesium) tablet mirabegron ER 25 mg 25 mg PO Q24H 03/02/18 tablet,extended release 24 hr Atorvastatin Calcium [Lipitor] 80 mg PO QHS 01/31/19 Biotin 1,000 mcg PO DAILY 01/31/19 Cholecalciferol (Vitamin D3) 400 unit PO DAILY 01/31/19 [Vitamin D3] Donepezil HCl 10 mg PO QHS 01/31/19 Escitalopram Oxalate 5 mg PO DAILY 01/31/19 Insulin Aspart Prot/Insuln Asp 28 unit SQ DINNER 01/31/19 [Novolog Mix 70-30 Vial] Insulin Aspart Prot/Insuln Asp 30 units SQ BREAKFAST 01/31/19 [Novolog Mix 70-30 Vial] Isosorbide Mononitrate [Monoket] 20 mg PO BID 01/31/19 L.acidoph,Paracasei, B.lactis 1 each PO DAILY 01/31/19 [Probiotic] Liothyronine Sodium 25 mcg PO DAILY 01/31/19 Mirtazapine [Remeron] 15 mg PO QHS 01/31/19 Pioglitazone [Actos] 30 mg PO DAILY 01/31/19 Ubidecarenone [Coq-10] 100 mg PO DAILY 01/31/19 metFORMIN (XR) [Glucophage Xr] 500 mg PO DAILY 01/31/19 Apixaban [Eliquis] 2.5 mg PO BID 02/03/19 Hydrocodone Bitart/Apap 5-325 1 - 2 tab PO Q4H PRN PRN 7 Days 02/03/19 [Newcomb 5/325] #30 tab Surgical History: Surgical History (Last Reviewed 03/02/18 @ 12:17 by Csatro Kearney MD) History of coronary artery stent placement (Chronic) Z95.5 PTCA/stent (JERROD) of proximal LAD 02/13/2009; PTCS/stent (JERROD) to OM1 and D2 10/12/2009. Surgical History: - - s/p 2 stents Psychiatric History: No pertinent psych hx MDS RN History: No pertinent MDS RN history Lives: Alone Smoking Status: Never smoker Tobacco Use: Non-smoker Alcohol: None Drugs: None - *Family History Maternal Family History: Family History (Last Reviewed 03/02/18 @ 12:17 by Castro Kearney MD) Father CAD (coronary artery disease) CVA (cerebral vascular accident) Brother CVA (cerebral vascular accident) Sister Breast cancer Son Diabetes History Items: No pertinent history Paternal Family History: Family History (Last Reviewed 03/02/18 @ 12:17 by Castro Kearney MD) Father CAD (coronary artery disease) CVA (cerebral vascular accident) Brother CVA (cerebral vascular accident) Sister Breast cancer Son Diabetes History Items: Heart Disease, Stroke Sibling Family History: Family History (Last Reviewed 03/02/18 @ 12:17 by Castro Kearney MD) Father CAD (coronary artery disease) CVA (cerebral vascular accident) Brother CVA (cerebral vascular accident) Sister Breast cancer Son Diabetes History Items: Cancer - breast Offspring Family History: Family History (Last Reviewed 03/02/18 @ 12:17 by Castro Kearney MD) Father CAD (coronary artery disease) CVA (cerebral vascular accident) Brother CVA (cerebral vascular accident) Sister Breast cancer Son Diabetes History Items: Diabetes Review of Systems Constitutional: Denies: Anorexia, Chills, Fever, Weakness Eyes: Denies: Blurred vision, Double vision, Drainage, Redness HEENT: Denies: Difficulty Hearing, Ear Pain, Eye Pain, Nasal Congestion, Sore Throat Cardiovascular: Denies: Chest Pain, Claudication, Edema, Heaviness, Palpitations, Syncope Respiratory: Denies: Cough, Pleuritic Pain, Shortness of Breath, Sputum production, Wheezing Gastrointestinal: Denies: Abdominal Pain, Constipation, Diarrhea, Nausea, Vomiting Genitourinary: Denies: Dysuria, Frequency, Hematuria Musculoskeletal: Reports: Joint Pain. Denies: Arm Pain, Back Pain Skin: Denies: Dryness, Rash Neurological: Denies: Balance problems, Change in Speech, Slurred speech, Confusion, Headaches, Incoordination, Numbness Psychiatric: Denies: Anxiety, Depression Endocrine: Denies: Change in Body Habitus, Polydipsia - Physical Exam General: Alert, Oriented x3, No apparent distress HEENT: Atraumatic, PERRLA, EOMI, Normocephalic Oral: Moist Mucosa, No Gingival or Mucosal Lesions/ Ulcerations Neck: Supple, No JVD, Negative Carotid Bruits, Trachea Midline, Thyroid Normal Size and Texture Lungs: Clear to auscultation, Normal air movement, No rhonchi, No wheeze, No rales Cardiovascular: Regular rate, Regular Rhythm, Normal S1, Normal S2, PMI Normal Abdomen: Bowel Sounds Present, Soft, Non Tender, Non-Distended, No Hepato-sple nomegaly Extremities: No clubbing, No cyanosis, No edema Skin: No rashes, No breakdown Lymphatic: No Cervical, Supraclavicular, or Inguinal Adenopathy Neurological: Cranial nerves II-XII grossly intact, Motor Exam 5/5 strength throughout Psych/Mental Status: Normal Affect, Appropriate, Alert and oriented to time, place, person, mood and affect Vital Signs Temp Pulse Resp BP Pulse Ox 99.5 F H 70 18 102/41 L 93 02/03/19 20:27 02/04/19 07:48 02/03/19 20:27 02/03/19 20:48 02/04/19 06:39 Oxygen Delivery Method Room Air Weight: 155 lb 8.931 oz Body Mass Index (BMI) 27.5 Finger Stick Blood Glucose 190 Intake and Output for Last 24 Hours 02/02/19 02/03/19 02/04/19 23:59 23:59 23:59 Intake Total 480 / 480 Output Total 300 / 300 Balance -300 / -300 480 / 480 Laboratory Tests Past 24 Hrs 02/04/19 02/04/19 05:49 05:49 WBC 8.4 RBC 3.43 L Hgb 9.8 L Hct 29.9 L MCV 87.2 MCH 28.6 MCHC 32.8 RDW 14.4 RDW Differential 43.9 Plt Count 174 MPV 9.4 Sodium 139 Potassium 3.9 Chloride 106 Carbon Dioxide 25.0 Anion Gap 8 BUN 13 Creatinine 0.67 Estim Creat Clear Calc 43.30 Est GFR (MDRD) Af Amer 112 Est GFR (MDRD) Non-Af 92 BUN/Creatinine Ratio 19.3 Glucose 330 H Calcium 8.4 L POC Glucose 02/04/19 02/03/19 02/03/19 06:38 22:05 17:11 POC Glucose 317 H 395 H 196 H Assessment/Plan All Active Problems (Last Updated 02/01/19 @ 08:15 by Osei Barney MD) Intertrochanteric fracture of right femur (Acute) This is a 68 years old female patient admitted to inpatient rehabilitation unit after she suffered acute traumatic nondisplaced right intertrochanteric hip fracture status post cephalo-medullary nail fixation of the right hip. #1 acute traumatic nondisplaced right intertrochanteric hip fracture: Status post cephalo-medullary nail fixation, postoperative day 3. She is on Newcomb PRN for pain. She is having pain upon ambulation. Her vital signs are stable except borderline blood pressure but she is asymptomatic. Repeat routine blood work from today reviewed, revealed hemoglobin of 9.8 g/dL, otherwise normal. Recommend to give pain medication right before starting physical therapy, continue PT OT according to rehab team. #2 postoperative anemia: Due to blood loss during surgery and hemodilution. No evidence of active bleeding. Today's hemoglobin is 9.8 g/dL. Plan to repeat CBC on Thursday. #3 CAD status post stents: Stable, no complaints. Continue aspirin, statins, nitrate, lisinopril and metoprolol. Plavix held while patient on Eliquis for 3 weeks and plan to restart Plavix after discontinuation of Eliquis in 3 weeks. #4 type 2 diabetes mellitus: Blood sugar has been uncontrolled. Hemoglobin A1c is 9.7. She is on insulin sliding scale, she is on insulin 75/25, 30 units breakfast and 28 units dinner. Plan to increase insulin both morning and even ing dose. #5 hypertension: Blood pressure on the lower side, she is on Norvasc, isosorbide mononitrate, lisinopril and metoprolol. Plan to decrease Norvasc to 5 mg p.o. daily, monitor blood pressure. #6 hypothyroidism: Stable, continue levothyroxine. #7 hyperlipidemia: Continue statins. #8 dementia: Recently diagnosed, continue donepezil. At this time, patient is alert and oriented x3. #9 DVT prophylaxis: Continue Eliquis. This note was generated with [employer] dictation software. It may contain incorrect words, spelling, and punctuation that were not noted in checking the note before signing. Code Visit Inpatient E&M: 67683 Init Hosp L2
--- NOTE | 2019-02-04 11:26 | PCM.HP.STD ---
History of Present Illness Date of Admission: 02/04/19 Chief Complaint: Debility, right hip pain Karlee is a 68-year-old female who lives at home with her son and 2 teenage grandchildren who slipped on the floor in the kitchen and fell resulting in a fracture of her right femur on 01/31/2019. The following day she had open reduction and internal fixation performed. She says her postoperative course was uneventful. She lives at home, is independent, continues to drive and the goal of rehab is zoroastrianism of her prior level of functional independence. 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 She denies any GI or complaints. She lives in a one-story house but she does need to access the basement in order to do laundry. Her only complaint now is mild to moderate right hip pain but she says this is improving. Per hospital discharge summary: Patient seen and examined on the day of discharge and appeared to be stable to be discharged home. Nursing staff reported that patient has been anxious to start walking and she has been having some pains. Her vital signs are stable. Yesterday, she was able to stand and start to walk. The patient is a 68 year old F presented to the emergency room because of right hip pain after she slipped at home and she was found to have acute traumatic nondisplaced right intertrochanteric hip fracture. There was no prodromal symptoms such as chest pain, shortness of breath, dizziness, syncope or presyncope. She underwent surgical fixation of the fracture with cephalo-medullary nail fixation. Her postoperative course was uneventful without significant postoperative complications except dropping hemoglobin without need for blood transfusion. She did have isolated episode of low-grade fever. Chest x-ray performed that showed no acute infiltrate. Urinalysis showed no evidence of acute cystitis. Patient denies any symptoms assistive of infection. Postoperatively, hemoglobin was 9.9 g/dL without evidence of active bleeding and it is attributed to blood loss during surgery and hemodilution. Patient has a history of CAD status post stents around 8 to 9 years ago and she was on aspirin and Plavix. After her surgery, she was started on Eliquis 2.5 mg p.o. twice daily. I discussed the case with Dr. Inman who agreed to stop Plavix for now, continue aspirin and Eliquis for 3 weeks and then patient may resume her Plavix back. Patient discharged to inpatient rehabilitation unit in a stable medical condition, discharged on aspirin and Eliquis, discharged on Buda PRN for pain, continued on her previous home medication without any changes, recommended follow-up with PCP in 1 to 2 weeks, follow-up with orthopedic surgery in 4 weeks. Past Medical History Past Medical History (Chronic Problems): Chronic Problems (Last Reviewed 02/04/19 @ 11:29 by Kyler Maldonado MD) Dementia (Chronic) Controlled type 1 diabetes mellitus without complication (Chronic) HTN (hypertension) (Chronic) HLD (hyperlipidemia) (Chronic) Old myocardial infarction (Chronic) Atherosclerotic heart disease of [place] coronary artery without angina pectoris (Chronic) PTCA/JERROD to proximal LAD 02/13/2009; PTCA/JERROD to OM1 and diagonal 2 in 10/12/2009; History of coronary artery stent placement (Chronic) PTCA/stent (JERROD) of proximal LAD 02/13/2009; PTCS/stent (JERROD) to OM1 and D2 10/12/2009. Medical History: Medical History (Last Reviewed 02/04/19 @ 11:29 by Kyler Maldonado MD) Controlled type 1 diabetes mellitus without complication (Chronic) E10.9 HTN (hypertension) (Chronic) I10 HLD (hyperlipidemia) (Chronic) E78.5 Old myocardial infarction (Chronic) I25.2 Atherosclerotic heart disease of [place] coronary artery without angina pectoris (Chronic) I25.10 PTCA/JERROD to proximal LAD 02/13/2009; PTCA/JERROD to OM1 and diagonal 2 in 10/12/2009; Fatigue (Inactive) R53.83 Other chest pain (Inactive) R07.89 Subdural hematoma (Inactive) Onset Date: 07/2017 S06.5X9A Allergies fentanyl Allergy (Verified 01/31/19 13:14) Low blood pressure diazepam [From Valium] Adverse Reaction (Verified 01/31/19 13:14) Other Home Medications: Ambulatory Orders Medication Instructions Recorded Amlodipine [Norvasc] 10 mg PO DAILY 11/16/13 levothyroxine 25 mcg capsule 50 mcg PO DAILY cap 09/10/17 metoprolol tartrate 50 mg tablet 75 mg PO BID tab 09/10/17 benazepril 20 mg tablet 20 mg PO BID tab 10/07/17 aspirin 81 mg tablet,delayed 81 mg PO DAILY 03/02/18 release magnesium oxide 400 mg (241.3 mg 400 mg PO DAILY tab 03/02/18 magnesium) tablet mirabegron ER 25 mg 25 mg PO Q24H 03/02/18 tablet,extended release 24 hr Atorvastatin Calcium [Lipitor] 80 mg PO QHS 01/31/19 Biotin 1,000 mcg PO DAILY 01/31/19 Cholecalciferol (Vitamin D3) 400 unit PO DAILY 01/31/19 [Vitamin D3] Donepezil HCl 10 mg PO QHS 01/31/19 Escitalopram Oxalate 5 mg PO DAILY 01/31/19 Insulin Aspart Prot/Insuln Asp 28 unit SQ DINNER 01/31/19 [Novolog Mix 70-30 Vial] Insulin Aspart Prot/Insuln Asp 30 units SQ BREAKFAST 01/31/19 [Novolog Mix 70-30 Vial] Isosorbide Mononitrate [Monoket] 20 mg PO BID 01/31/19 L.acidoph,Paracasei, B.lactis 1 each PO DAILY 01/31/19 [Probiotic] Liothyronine Sodium 25 mcg PO DAILY 01/31/19 Mirtazapine [Remeron] 15 mg PO QHS 01/31/19 Pioglitazone [Actos] 30 mg PO DAILY 01/31/19 Ubidecarenone [Coq-10] 100 mg PO DAILY 01/31/19 metFORMIN (XR) [Glucophage Xr] 500 mg PO DAILY 01/31/19 Apixaban [Eliquis] 2.5 mg PO BID 02/03/19 Hydrocodone Bitart/Apap 5-325 1 - 2 tab PO Q4H PRN PRN 7 Days 02/03/19 [Buda 5/325] #30 tab Surgical History: Surgical History (Last Reviewed 02/04/19 @ 11:29 by Kyler Maldonado MD) History of coronary artery stent placement (Chronic) Z95.5 PTCA/stent (JERROD) of proximal LAD 02/13/2009; PTCS/stent (JERROD) to OM1 and D2 10/12/2009. 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 Lives: Alone Smoking Status: Never smoker Tobacco Use: Non-smoker Alcohol: None Drugs: None - *Family History Maternal Family History: Family History (Last Reviewed 02/04/19 @ 11:29 by Kyler Maldonado MD) Father CAD (coronary artery disease) CVA (cerebral vascular accident) Brother CVA (cerebral vascular accident) Sister Breast cancer Son Diabetes History Items: No pertinent history Paternal Family History: Family History (Last Reviewed 02/04/19 @ 11:29 by Kyler Maldonado MD) Father CAD (coronary artery disease) CVA (cerebral vascular accident) Brother CVA (cerebral vascular accident) Sister Breast cancer Son Diabetes History Items: Heart Disease, Stroke Sibling Family History: Family History (Last Reviewed 02/04/19 @ 11:29 by Kyler Maldonado MD) Father CAD (coronary artery disease) CVA (cerebral vascular accident) Brother CVA (cerebral vascular accident) Sister Breast cancer Son Diabetes History Items: Cancer - breast Offspring Family History: Family History (Last Reviewed 02/04/19 @ 11:29 by Kyler Maldonado MD) Father CAD (coronary artery disease) CVA (cerebral vascular accident) Brother CVA (cerebral vascular accident) Sister Breast cancer Son Diabetes History Items: Diabetes Review of Systems Constitutional: Denies: Chills, Fever, Weight Change HEENT: Denies: Head Aches, Sinus Congestion, Sinus Drainage Cardiovascular: Denies: Chest Pain, Palpitations Respiratory: Denies: Cough, Shortness of breath at rest, Sputum production Gastrointestinal: Denies: Abdominal Pain, Nausea, Vomiting Genitourinary: Denies: Dysuria Musculoskeletal: Reports: Joint Pain. Denies: Joint Tenderness Skin: Denies: Rash, Wounds Neurological: Denies: Numbness, Tingling, Focal weakness Psychiatric: Denies: Anxiety, Depression, Homicidal Ideations, Suicidal Ideations Hematologic/ Lymphatic: Denies: Easy Bruising, Easy Bleeding VTE Information - Inpt Only VTE Present on Admission: Yes VTE Pharm Prophylaxis ordered?: Yes - Physical Exam General: Alert, Oriented x3, Cooperative, No apparent distress HEENT: Atraumatic, PERRLA, EOMI, Normocephalic Lungs: Clear to auscultation Cardiovascular: Regular rate Abdomen: Bowel Sounds Present Extremities: No Calf Tenderness Neurological: Cranial nerves II-XII grossly intact Psych/Mental Status: Normal Affect, Alert and oriented to time, place, person, mood and affect Vital Signs Temp Pulse Resp BP Pulse Ox 37.5 C H 70 18 102/41 L 93 02/03/19 20:27 02/04/19 07:48 02/03/19 20:27 02/03/19 20:48 02/04/19 06:39 Oxygen Delivery Method Room Air Weight: 70.56 kg Body Mass Index (BMI) 27.5 Finger Stick Blood Glucose 190 Intake and Output for Last 24 Hours 02/02/19 02/03/19 02/04/19 23:59 23:59 23:59 Intake Total 480 / 480 Output Total 300 / 300 Balance -300 / -300 480 / 480 Laboratory Tests Past 24 Hrs 02/04/19 02/04/19 05:49 05:49 WBC 8.4 RBC 3.43 L Hgb 9.8 L Hct 29.9 L MCV 87.2 MCH 28.6 MCHC 32.8 RDW 14.4 RDW Differential 43.9 Plt Count 174 MPV 9.4 Sodium 139 Potassium 3.9 Chloride 106 Carbon Dioxide 25.0 Anion Gap 8 BUN 13 Creatinine 0.67 Estim Creat Clear Calc 43.30 Est GFR (MDRD) Af Amer 112 Est GFR (MDRD) Non-Af 92 BUN/Creatinine Ratio 19.3 Glucose 330 H Calcium 8.4 L POC Glucose 02/04/19 02/03/19 02/03/19 06:38 22:05 17:11 POC Glucose 317 H 395 H 196 H Current Medications Generic Name Dose Route Start Last Admin Trade Name Freq PRN Reason Stop Dose Admin Acetaminophen 650 mg 02/03/19 15:52 Tylenol PO Q6H PRN PRN Mild Pain (0-3/10)/Headache Hydrocodone Bitart/Acetaminophen 1 - 2 tablet 02/03/19 17:24 02/04/19 10:24 Buda 5mg-325mg PO 2 tablet Q4H PRN PRN Administration SEVERE PAIN (6-10/10) Amlodipine Besylate 5 mg 02/05/19 10:00 Norvasc PO DAILY [facility] Apixaban 2.5 mg 02/03/19 22:00 02/04/19 07:51 Eliquis PO 02/24/19 10:01 2.5 mg BID ANDREA Administration Aspirin 81 mg 02/04/19 08:00 02/04/19 07:50 Ecotrin PO 81 mg DAILY@0800 [facility] Administration Atorvastatin Calcium 80 mg 02/03/19 22:00 02/03/19 20:48 Lipitor PO 80 mg QHS ANDREA Administration Bisacodyl 10 mg 02/03/19 15:52 Dulcolax RECTAL .PRN X 1 PRN Constipation Cholecalciferol 500 unit 02/04/19 10:00 02/04/19 07:51 Vitamin D PO 500 unit DAILY ANDREA Administration Donepezil HCl 10 mg 02/03/19 22:00 02/03/19 20:52 Aricept PO 10 mg QHS ANDREA Administration Escitalopram Oxalate 5 mg 02/04/19 10:00 02/04/19 07:48 Lexapro PO 5 mg DAILY ANDREA Administration Isosorbide Mononitrate 20 mg 02/03/19 22:00 02/04/19 07:52 Monoket PO 20 mg BID ANDREA Administration Lactobacillus Acidophilus 1 tablet 02/04/19 10:00 02/04/19 07:51 Acidophilus PO 1 tablet DAILY ANDREA Administration Levothyroxine Sodium 50 mcg 02/04/19 06:00 02/04/19 05:06 Synthroid PO 50 mcg DAILY@0600 [facility] Administration Liothyronine Sodium 25 mcg 02/04/19 06:00 02/04/19 05:06 Cytomel PO 25 mcg DAILY@0600 [facility] Administration Lisinopril 20 mg 02/03/19 22:00 02/04/19 07:47 Zestril PO 20 mg BID ANDREA Administration Magnesium Hydroxide 30 ml 02/03/19 15:52 Milk Of Magnesia PO .PRN X 1 PRN Constipation Magnesium Oxide 400 mg 02/04/19 10:00 02/04/19 07:51 Mag-Ox 400 PO 400 mg DAILY ANDREA Administration Metformin HCl 500 mg 02/04/19 08:00 02/04/19 07:49 Glucophage Xr PO 500 mg DAILY@0800 [facility] Administration Metoprolol Tartrate 75 mg 02/03/19 22:00 02/04/19 07:48 Lopressor (Beta [place]) PO 75 mg BID ANDREA Administration Mirtazapine 15 mg 02/03/19 22:00 02/03/19 20:47 Remeron PO 15 mg QHS [facility] Administration Nutritional Formula (Lactose Free) 120 ml 02/03/19 22:00 02/03/19 20:53 Glucerna Shake PO 120 ml 4X/DAY ANDREA Administration Pioglitazone HCl 30 mg 02/04/19 10:00 02/04/19 07:48 Actos PO 30 mg DAILY ANDREA Administration Senna/Docusate Sodium 2 tablet 02/03/19 22:00 02/04/19 07:50 Senokot-S, Ella-Colace PO 2 tablet BID ANDREA Administration Assessment/Plan All Active Problems (Last Reviewed 02/04/19 @ 11:29 by Kyler Maldonado MD) Intertrochanteric fracture of right femur (Acute) Debility status post right hip fracture status post open reduction internal fixation. Previously functionally independent, goal of rehab is zoroastrianism of prior level of functional independence. Complicated by history of mild dementia, coronary disease, hypertension, hyperlipidemia Plan: Physical therapy for gait and balance Occupational Therapy for ADLs Speech therapy for cognition Bowel protocol PRN analgesics DVT prophylaxis Continue antihypertensives and monitor Statin therapy Aricept
--- NOTE | 2019-02-04 11:32 | REHABEVAL_ITS ---
Admission Information Status Changes from Prescreening?: No changes Identified Actual Problem List:: Falls, Pain, ALteration in Cmfrt, Cognitve Impr/Memory Loss, Alteration in Nutrition, Mobility Impaired, Self Care Deficit, BP, Hypertension, Ineffect.D/C Plan r/t Psy Potential Problem List:: DVT, Bleeding, Infection, UTI, Aspiration, Falls, Skin Integrity, Depression Risk of Complications DVT: LMWH, KYLE Hose, Sequential Compression Device Bleeding: Monitor Lab Values, Nursing to Teach Precautions for anti-coagulation therapy., Wound, if applicable, to be assessed every shift., Stroke patients assessed for lethargy or change in status. Infection: Clinical Staff to Monitor for S/S of infection:, S/S of infection include fever, redness, warmth, etc. Urinary Tract Infection: Monitor for frequency, burning, discomfort, or incontinence., Nursing will obtain urine sample for urinalysis and C&S when ordered. Aspiration: Clinical staff will monitor for coughing, drooling, congestion., Speech will evaluate swallowing and dsyphasia., Nursing will monitor patient swallowing during meals. Falls: Patient will be evaluated for Fall Precautions, Patient will be placed on Fall Precautions as indicated per protocol. Skin Breakdown: Nursing will assess skin daily using assessment tool., Nursing will place on Skin Breakdown Precautions as indicated. Pain: Clinical staff will assess patient's pain level per protocol., Medications will be given, if needed, and the pain level reassessed., Other methods: Massage, distraction, decrease stimulus, etc. used PRN. Plan of Care Patient requires physician specializing in physical medicine and rehab oversight to provide close medical supervision of rehab issues including: Pain Management, Sleep Problems, Bowel and Bladder, Medical and co-morbidity Management, DVT prophylaxis, Rehabilitation Leadership, Coordination of treatment team Patient needs Physical Therapy: For a minimum of 1 hour, At least 5 out of 7 days Patient needs Physical Therapy to improve:: Mobility, Mobility, Mobility, Strengthening, Transfers, Stretching, ROM, Endurance, Stairs, Gait, Balance Patient needs Occupational Therapy: For a minimum of 1 hour, At least 5 out of 7 days Patient needs Occupational Therapy to improve ADL's incl.: Eating, Grooming, Bathing, Dressing, Toileting, Toilet transfers, Community Reintegration, Higher functioning activities, Household tasks, Adaptive Equipment, Splinting, Other activities as determined Patient requires speech therapy: For a minimum of 1 hour, At least 5 out of 7 days Patient requires speech therapy for: Swallowing, Cognition, Language Skills, Compensatory Strategies Patient requires 24/ Rehabilitation Nursing for: Pain Issues, Identifying and preventing risk factors, Monitoring and reporting current medical conditions, Assisting with ambulation, transfer, and all ADL's, Teaching patients about disease process and medications, Family teaching, Providing safe environment, Bowel and Bladder Issues, Skin integrity, Medication Management Patient needs Electronic Die Maker/ Case Management for: Discharge Planning, Arranging Home Equipment or Services, Family Interventions Patient needs Dietary and Nutrition Services for: Adequate Nutrition, Nutritional Supplements, Nutritional Education Goals Patient will remain: free from falls, or injury at time of discharge. Patient will perform bed mobility at: MOD I level of assist. Patient will complete transfers from bed to chair at: MOD I level of assist. Patient will ambulate: 100 feet, with MOD I assist, with LRD Patient will complete upper body dressing at: MOD I level of assist. Patient will complete lower body dressing at: MOD I level of assist. Patient will complete toileting at: MOD I level of assist. Patient will perform bathing at: MOD I level of assist. Patient will complete grooming at: MOD I level of assist. Patient will complete home management skills at: MOD I level of assist. Patient will achieve: 12 stairs, at MOD I assist Patient will have pain level of: of 3 or less Patient's skin will: remain intact, free from infection. Patient will receive: adequate nutrition. Discharge Planning Pt Prognosis for Sig. Practical Improv. w/in Reasonable Time: Good Anticipated D/C Destination: Home with Outpt Therapy Was Preadmission Assessment Accurate?: Yes
[2019-02-04 11:44] VITALS: BMI 27.5
[2019-02-04 12:56] LABS: Bedside Glucose 328 mg/dL (70-110)
[2019-02-04] MEDS: Insulin Human 75/25 Kwickpen 34 UNIT SC (16:44)
[2019-02-04 17:11] LABS: Bedside Glucose 408 mg/dL (70-110)
[2019-02-04 20:50] VITALS: BP 132/54; PULSE 84; RESP 18; TEMP 36.8; O2SAT 95
[2019-02-04 21:15] LABS: Bedside Glucose 184 mg/dL (70-110)
[2019-02-04 21:29] VITALS: BP 132/54; PULSE 84
[2019-02-04] MEDS: Mirtazapine 15 MG Tablet PO (21:29)
[2019-02-04] MEDS: Atorvastatin Calcium 80 MG Tablet PO (21:29)
[2019-02-04] MEDS: Donepezil HCl 10 MG Tablet PO (21:49)
[2019-02-05] MEDS: Levothyroxine 50 MCG Tablet PO (05:34)
[2019-02-05] MEDS: HYDROcodone Bitartrate/Apap 5/325 Tablet PO ×3 (05:55→22:16)
[2019-02-05 06:31] LABS: Bedside Glucose 169 mg/dL (70-110)
[2019-02-05] MEDS: metFORMIN (XR) 500 MG Tablet PO (08:16)
[2019-02-05] MEDS: Aspirin E.C. 81 MG Tablet PO (08:16)
[2019-02-05] MEDS: Mirabegron 25 MG TAB.ER.24H PO (08:17)
[2019-02-05] MEDS: APIXABAN 2.5 MG TABLET PO ×2 (08:17→22:19)
[2019-02-05] MEDS: Magnesium Oxide 400 MG Tablet PO (08:17)
[2019-02-05] MEDS: Pioglitazone Hydrochloride 30 MG Tablet PO (08:18)
[2019-02-05] MEDS: Escitalopram Oxalate 10 MG Tablet 5 MG PO (08:18)
[2019-02-05] MEDS: Glucerna Shake 120 ML LIQUID PO ×3 (08:20→22:18)
[2019-02-05] MEDS: Insulin Human 75/25 Kwickpen 32 UNIT SC (08:21)
[2019-02-05] MEDS: Senna/Docusate Sodium 1 Tablet 2 TABLET PO ×2 (08:24→22:17)
[2019-02-05] MEDS: Lisinopril 20 MG Tablet PO ×2 (08:24→22:17)
[2019-02-05] MEDS: amLODIPine 5 MG Tablet PO (08:24)
[2019-02-05] MEDS: Isosorbide Mononitrate 20 MG Tablet PO ×2 (08:24→22:18)
[2019-02-05 08:26] VITALS: BP 141/90; PULSE 90
[2019-02-05] MEDS: Metoprolol Tartrate 25 MG Tablet 75 MG PO ×2 (08:26→22:18)
[2019-02-05 09:26] VITALS: BP 141/90; PULSE 90; RESP 18; TEMP 36.9; O2SAT 95
[2019-02-05 11:36] LABS: Bedside Glucose 234 mg/dL (70-110)
[2019-02-05] MEDS: Ondansetron ODT 4 MG Tablet PO (13:09)
[2019-02-05 16:46] LABS: Bedside Glucose 289 mg/dL (70-110)
[2019-02-05] MEDS: Insulin Human 75/25 Kwickpen 34 UNIT SC (17:43)
--- NOTE | 2019-02-05 19:37 | PCM.PROGNOTE ---
Subjective: The patient is a 68-year-old female with a past medical history of uncontrolled diabetes mellitus type 2 with a recent hemoglobin A1c of 9.7., hypertension, depression, hyperlipidemia, coronary artery disease with history of PTCA secondary to a fall. She underwent a cephalo-medullary nail to the intertrochanteric fracture and was subsequently transferred to the rehab unit for ongoing PT/OT. Family tells me that she was recently diagnosed with osteoporosis by her lining mechanic. Medication reconciliation was reviewed. She is on apixaban 2.5 mg twice daily for DVT prophylaxis. Plavix is being held while she is on apixaban. She will remain on aspirin 81 mg daily. She is taking Vicodin for pain relief. She denies nausea or vomiting but states that she gets some abdominal cramping, mostly after taking [place]. Denies any constipation. Denies chest pain, shortness of breath, calf pain. She is afebrile with stable vital signs. Blood sugars are not yet adequately controlled. Fasting blood sugar was 169 today and the blood sugar at supper was 289. - Physical Exam General: Alert, Oriented x3, Cooperative, No apparent distress, Well developed, Well nourished HEENT: Atraumatic, Normocephalic Oral: Dry Mucosa Neck: Supple, No JVD Lungs: Clear to auscultation Cardiovascular: Regular rate, Regular Rhythm, Normal S1, Normal S2, No murmurs, No Gallop Abdomen: Bowel Sounds Present, Soft, Non Tender, Non-Distended Extremities: No clubbing, No cyanosis, No Calf Tenderness Skin: No rashes Neurological: Cranial nerves II-XII grossly intact, Neuro grossly intact Psych/Mental Status: Normal Affect, Appropriate Vital Signs Temp Pulse Resp BP Pulse Ox 98.4 F 90 18 141/90 H 95 02/05/19 09:26 02/05/19 09:26 02/05/19 09:26 02/05/19 09:26 02/05/19 09:26 Oxygen Delivery Method Room Air Weight: 155 lb 6.814 oz Body Mass Index (BMI) 27.5 Finger Stick Blood Glucose 190 Intake and Output for Last 24 Hours 02/03/19 02/04/19 02/05/19 23:59 23:59 23:59 Intake Total 840 / 840 180 / 180 Output Total 300 / 300 Balance -300 / -300 840 / 840 180 / 180 POC Glucose 02/05/19 02/05/19 02/05/19 16:39 11:28 06:24 POC Glucose 289 H 234 H 169 H 02/04/19 20:59 POC Glucose 184 H Medical Necessity - Tobacco Use Smoking Status: Never smoker Tobacco Use: Non-smoker Assessment/Plan All Active Problems (Last Reviewed 02/04/19 @ 11:29 by Kyler Maldonado MD) Intertrochanteric fracture of right femur (Acute) Impressions 1. Acute traumatic nondisplaced right intertrochanteric hip fracture, status post cephalo-medullary nail fixation on 01/31/2019. Pain is adequately controlled with Wilton. 2. Postoperative anemia secondary to blood loss and hemodilution. Hemoglobin is stable. 3. Uncontrolled diabetes mellitus type 2 4. Coronary artery disease with history of PCI 5. Hypertension 6. Hyperlipidemia 7. Recently diagnosed dementia-has been started on donepezil 8. Recently diagnosed osteoporosis per the family 9. Depression-on Escitalopram 10. Hypothyroidism Continue apixaban 2.5 mg p.o. twice daily for DVT prophylaxis Continue to adjust insulin to achieve good blood sugar control. Will add a sliding insulin scale until these 75/25 insulin has been adequately adjusted Start vitamin D supplement Will defer treatment of osteoporosis to her lining mechanic post discharge Discontinue regular diet and start a 1600 to 1700-calorie cardiac diet per the dietitian's recommendation Code Visit Inpatient E&M: 74336 Subs Hosp L2
--- NOTE | 2019-02-05 19:43 | PN_ITS ---
Subjective: The patient is a 68-year-old female with a past medical history of uncontrolled diabetes mellitus type 2 with a recent hemoglobin A1c of 9.7., hypertension, depression, hyperlipidemia, coronary artery disease with history of PTCA secondary to a fall. She underwent a cephalo-medullary nail to the intertrochanteric fracture and was subsequently transferred to the rehab unit for ongoing PT/OT. 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 Medication reconciliation was reviewed. She is on apixaban 2.5 mg twice daily for DVT prophylaxis. Plavix is being held while she is on apixaban. She will remain on aspirin 81 mg daily. She is taking Vicodin for pain relief. She denies nausea or vomiting but states that she gets some abdominal cramping, mostly after taking [place]. Denies any constipation. Denies chest pain, shortness of breath, calf pain. She is afebrile with stable vital signs. Blood sugars are not yet adequately controlled. Fasting blood sugar was 169 today and the blood sugar at supper was 289. - Physical Exam General: Alert, Oriented x3, Cooperative, No apparent distress, Well developed, Well nourished HEENT: Atraumatic, Normocephalic Oral: Dry Mucosa Neck: Supple, No JVD Lungs: Clear to auscultation Cardiovascular: Regular rate, Regular Rhythm, Normal S1, Normal S2, No murmurs, No Gallop Abdomen: Bowel Sounds Present, Soft, Non Tender, Non-Distended Extremities: No clubbing, No cyanosis, No Calf Tenderness Skin: No rashes Neurological: Cranial nerves II-XII grossly intact, Neuro grossly intact Psych/Mental Status: Normal Affect, Appropriate Vital Signs Temp Pulse Resp BP Pulse Ox 98.4 F 90 18 141/90 H 95 02/05/19 09:26 02/05/19 09:26 02/05/19 09:26 02/05/19 09:26 02/05/19 09:26 Oxygen Delivery Method Room Air Weight: 155 lb 6.814 oz Body Mass Index (BMI) 27.5 Finger Stick Blood Glucose 190 Intake and Output for Last 24 Hours 02/03/19 02/04/19 02/05/19 23:59 23:59 23:59 Intake Total 840 / 840 180 / 180 Output Total 300 / 300 Balance -300 / -300 840 / 840 180 / 180 POC Glucose 02/05/19 02/05/19 02/05/19 16:39 11:28 06:24 POC Glucose 289 H 234 H 169 H 02/04/19 20:59 POC Glucose 184 H Medical Necessity - Tobacco Use Smoking Status: Never smoker Tobacco Use: Non-smoker Assessment/Plan All Active Problems (Last Reviewed 02/04/19 @ 11:29 by Kyler Maldonado MD) Intertrochanteric fracture of right femur (Acute) Impressions 1. Acute traumatic nondisplaced right intertrochanteric hip fracture, status post cephalo-medullary nail fixation on 01/31/2019. Pain is adequately controlled with [place]. 2. Postoperative anemia secondary to blood loss and hemodilution. Hemoglobin is stable. 3. Uncontrolled diabetes mellitus type 2 4. Coronary artery disease with history of PCI 5. Hypertension 6. Hyperlipidemia 7. Recently diagnosed dementia-has been started on donepezil 8. Recently diagnosed osteoporosis per the family 9. Depression-on Escitalopram 10. Hypothyroidism Continue apixaban 2.5 mg p.o. twice daily for DVT prophylaxis Continue to adjust insulin to achieve good blood sugar control. Will add a sliding insulin scale until these 75/25 insulin has been adequately adjusted Start vitamin D supplement Will defer treatment of osteoporosis to her automatic corn grinder operator post discharge Discontinue regular diet and start a 1600 to 1700-calorie cardiac diet per the dietitian's recommendation Code Visit Inpatient E&M: 13970 Subs Hosp L2
[2019-02-05 19:52] VITALS: BP 118/56; PULSE 85; RESP 18; TEMP 36.9; O2SAT 95
[2019-02-05 20:30] LABS: Bedside Glucose 280 mg/dL (70-110)
[2019-02-05] MEDS: Mirtazapine 15 MG Tablet PO (22:17)
[2019-02-05 22:18] VITALS: BP 118/56; PULSE 85
[2019-02-05] MEDS: Atorvastatin Calcium 80 MG Tablet PO (22:18)
[2019-02-05] MEDS: Donepezil HCl 10 MG Tablet PO (22:19)
[2019-02-06] MEDS: Levothyroxine 50 MCG Tablet PO (05:13)
[2019-02-06] MEDS: HYDROcodone Bitartrate/Apap 5/325 Tablet PO ×3 (06:33→18:13)
[2019-02-06 07:21] LABS: Bedside Glucose 253 mg/dL (70-110)
[2019-02-06 07:21] LABS: Bedside Glucose 213 mg/dL (70-110)
[2019-02-06 07:35] VITALS: BP 126/70; PULSE 78; RESP 12; TEMP 36.9; O2SAT 94
[2019-02-06 08:38] VITALS: BP 126/70; PULSE 78
[2019-02-06] MEDS: metFORMIN (XR) 500 MG Tablet PO (08:38)
[2019-02-06] MEDS: Mirabegron 25 MG TAB.ER.24H PO (08:38)
[2019-02-06] MEDS: Lisinopril 20 MG Tablet PO ×2 (08:38→21:29)
[2019-02-06] MEDS: Metoprolol Tartrate 25 MG Tablet 75 MG PO ×2 (08:38→21:29)
[2019-02-06] MEDS: Senna/Docusate Sodium 1 Tablet 2 TABLET PO ×2 (08:38→21:29)
[2019-02-06] MEDS: Isosorbide Mononitrate 20 MG Tablet PO ×2 (08:38→21:29)
[2019-02-06] MEDS: amLODIPine 5 MG Tablet PO (08:38)
[2019-02-06] MEDS: Magnesium Oxide 400 MG Tablet PO (08:38)
[2019-02-06] MEDS: Pioglitazone Hydrochloride 30 MG Tablet PO (08:39)
[2019-02-06] MEDS: Escitalopram Oxalate 10 MG Tablet 5 MG PO (08:39)
[2019-02-06] MEDS: APIXABAN 2.5 MG TABLET PO ×2 (08:39→21:30)
[2019-02-06] MEDS: Aspirin E.C. 81 MG Tablet PO (08:39)
[2019-02-06] MEDS: Insulin Lispro 100 UNIT/ML INSULN.PEN SC ×2 (08:40→11:58)
[2019-02-06] MEDS: Insulin Human 75/25 Kwickpen 42 UNIT SC (08:40)
[2019-02-06] MEDS: Glucerna Shake 120 ML LIQUID PO ×2 (10:45→13:43)
[2019-02-06] MEDS: Ondansetron ODT 4 MG Tablet PO (10:47)
[2019-02-06 11:45] LABS: Bedside Glucose 222 mg/dL (70-110)
--- NOTE | 2019-02-06 17:05 | NURSING ---
ACCUCHECK 49, PT ASYMPTOMATIC. VISITOR AT SIDE. EATING DONUT AND GIVEN 120CC OJ. WILL RECHECK IN 15 MINUTES. KATHARINA Olivier RN MADE AWARE.
[2019-02-06 17:11] LABS: Bedside Glucose 49 mg/dL (70-110)
--- NOTE | 2019-02-06 17:25 | NURSING ---
ACCUCHECK 52. EATING SUPPER. WILL RECHECK IN 15 MINUTES. REMAINS ASYMPTOMATIC.
[2019-02-06 17:31] LABS: Bedside Glucose 52 mg/dL (70-110)
--- NOTE | 2019-02-06 17:37 | NURSING ---
Spoke to Dr. Pruitt pt's bs was 49, pt eating donut and drinking OJ, rechecked 15 mins later bs now 52, per Dr. Pruitt give half of the 34 units of Insulin due now and Dr. Pruitt will put in new insulin orders
[2019-02-06 17:45] LABS: Bedside Glucose 101 mg/dL (70-110)
--- NOTE | 2019-02-06 17:45 | NURSING ---
ACCUCHECK 101. PT ATE APPLESAUCE AND 25% OF PASTA WITH MEAT SAUCE. PT REQUESTING ANOTHER APPLESAUCE AND GIVEN. STATES PASTA IS NOT TASTING GOOD.
[2019-02-06] MEDS: Insulin Human 75/25 Kwickpen 34 UNIT SC (18:17)
[2019-02-06 18:25] LABS: Bedside Glucose 131 mg/dL (70-110)
[2019-02-06 20:30] VITALS: BP 131/71; PULSE 80; RESP 18; TEMP 36.6; O2SAT 94
[2019-02-06 21:29] VITALS: BP 131/71; PULSE 80
[2019-02-06] MEDS: Atorvastatin Calcium 80 MG Tablet PO (21:29)
[2019-02-06] MEDS: Mirtazapine 15 MG Tablet PO (21:29)
[2019-02-06] MEDS: Donepezil HCl 10 MG Tablet PO (21:30)
[2019-02-06 22:35] LABS: Bedside Glucose 139 mg/dL (70-110)
[2019-02-07 06:10] LABS: Absolute Lymphocyte Count 1.86 X10^3/ul (0.83-4.51); Absolute Neutrophil Count 2.7 X10^3/uL (2.0-7.7); Basophil# 0.02 X10^3/uL; Basophil% 0.4 % (0-1); Eosinophil# 0.27 X10^3/uL; Eosinophils% 4.9 % (0-5); Hematocrit 29.9 % (37-47); Hemoglobin 9.5 g/dl (12.0-15.0); Lymphocyte # 1.86 X10^3/ul (4.0); Lymphocyte % 34.1 % (19-41); Mean Corp Hgb Conc 31.8 g/gl (32-36); Mean Corpuscular Volume 88.2 fL (81-99); Mean Platelet Vol. 9.8 fl (6.2-12.0); Monocyte# 0.59 X10^3/uL; Monocyte% 10.8 % (0-10); Neutrophil # 2.71 X10^3/uL (2.7-7.7); Neutrophil % 49.6 % (47-70); Platelet Count 211 K/mm3 (150-450); RBC Distribution Width CV 14.9 % (11.6-14.6); RBC Distribution Width SD 47.5 fl (35.1-43.9); Red Blood Count 3.39 M/mm3 (4.2-5.4); White Blood Count 5.5 K/mm3 (4.4-11.0)
[2019-02-07 06:14] LABS: POSITIVE COUNT NO; POSITIVE DIFFERENTIAL NO; POSITIVE MORPHOLOGY NO
[2019-02-07] MEDS: HYDROcodone Bitartrate/Apap 5/325 Tablet PO ×3 (06:45→21:12)
[2019-02-07] MEDS: Levothyroxine 50 MCG Tablet PO (06:46)
[2019-02-07] MEDS: Insulin Lispro 100 UNIT/ML INSULN.PEN SC ×2 (06:53→11:57)
[2019-02-07 07:15] LABS: Bedside Glucose 229 mg/dL (70-110)
[2019-02-07] MEDS: APIXABAN 2.5 MG TABLET PO ×2 (08:36→21:27)
[2019-02-07] MEDS: Aspirin E.C. 81 MG Tablet PO (08:36)
[2019-02-07] MEDS: metFORMIN (XR) 500 MG Tablet PO (08:36)
[2019-02-07 08:37] VITALS: BP 130/68; PULSE 81
[2019-02-07] MEDS: Pioglitazone Hydrochloride 30 MG Tablet PO (08:37)
[2019-02-07] MEDS: Escitalopram Oxalate 10 MG Tablet 5 MG PO (08:37)
[2019-02-07] MEDS: Metoprolol Tartrate 25 MG Tablet 75 MG PO ×2 (08:37→21:26)
[2019-02-07] MEDS: Mirabegron 25 MG TAB.ER.24H PO (08:38)
[2019-02-07] MEDS: Magnesium Oxide 400 MG Tablet PO (08:38)
[2019-02-07] MEDS: Senna/Docusate Sodium 1 Tablet 2 TABLET PO ×2 (08:38→21:25)
[2019-02-07] MEDS: amLODIPine 5 MG Tablet PO (08:38)
[2019-02-07] MEDS: Lisinopril 20 MG Tablet PO ×2 (08:38→21:25)
[2019-02-07] MEDS: Isosorbide Mononitrate 20 MG Tablet PO ×2 (08:38→21:26)
[2019-02-07] MEDS: Insulin Human 75/25 Kwickpen 36 UNIT SC (08:42)
[2019-02-07] MEDS: Glucerna Shake 120 ML LIQUID PO ×2 (08:43→21:14)
[2019-02-07 08:50] VITALS: BP 130/68; PULSE 81; RESP 16; TEMP 37.1; O2SAT 94
--- NOTE | 2019-02-07 10:39 | PCM.PN.NEU ---
Subjective: Per nursing no issues overnight. Per patient tolerating therapies well and pain is well controlled. - Physical Exam General: Alert, Oriented x3, Cooperative HEENT: Atraumatic, PERRLA Oral: Moist Mucosa Neck: Supple, No JVD Lungs: Clear to auscultation, Normal air movement Cardiovascular: Regular rate, Regular Rhythm Abdomen: Bowel Sounds Present, Soft, Non Tender Extremities: No clubbing, No cyanosis, No edema Skin: Incision - aldo intact to right hip without redness and minimal drng. DSD Neurological: Cranial nerves II-XII grossly intact, Deep Tendon Reflexes 2+/4 and Symmetrical, Neuro grossly intact, Motor Exam 5/5 strength throughout Psych/Mental Status: Normal Affect, Appropriate, Alert and oriented to time, place, person, mood and affect Vital Signs Temp Pulse Resp BP Pulse Ox 98.7 F 81 16 130/68 H 94 02/07/19 08:50 02/07/19 08:50 02/07/19 08:50 02/07/19 08:50 02/07/19 08:50 Oxygen Delivery Method Room Air Weight: 70.5 kg Body Mass Index (BMI) 27.5 Finger Stick Blood Glucose 190 Intake and Output for Last 24 Hours 02/05/19 02/06/19 02/07/19 23:59 23:59 23:59 Intake Total 180 / 180 480 / 480 Balance 180 / 180 480 / 480 Laboratory Tests Past 24 Hrs 02/07/19 05:30 WBC 5.5 RBC 3.39 L Hgb 9.5 L Hct 29.9 L MCV 88.2 MCH 28.0 MCHC 31.8 L RDW 14.9 H RDW Differential 47.5 H Plt Count 211 MPV 9.8 Immature Gran % (Auto) 0.200 Neut % (Auto) 49.6 Lymph % (Auto) 34.1 [place] % (Auto) 10.8 H Eos % (Auto) 4.9 Baso % (Auto) 0.4 Absolute Neuts (auto) 2.7 Absolute Lymphs (auto) 1.86 Total Counted Not Reportable POC Glucose 02/07/19 02/06/19 02/06/19 06:50 21:20 18:12 POC Glucose 229 H 139 H 131 H 02/06/19 02/06/19 02/06/19 17:43 17:25 17:04 POC Glucose 101 52 L 49 L 02/06/19 11:39 POC Glucose 222 H Medical Necessity - Tobacco Use Smoking Status: Never smoker Tobacco Use: Non-smoker Assessment/Plan All Active Problems (Last Reviewed 02/04/19 @ 11:29 by Kyler Maldonado MD) Intertrochanteric fracture of right femur (Acute) A 68-year-old female who lives at home with her son and 2 teenage grandchildren who slipped on the floor in the kitchen and fell resulting in a fracture of her right femur on 01/31/2019. The following day she had open reduction and internal fixation performed. She says her postoperative course was uneventful. She lives at home, is independent, continues to drive and the goal of rehab is temple of her prior level of functional independence. 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 She denies any GI or complaints. She lives in a one-story house but she does need to access the basement in order to do laundry. Her only complaint now is mild to moderate right hip pain but she says this is improving. Per hospital discharge summary: Presented to the emergency room because of right hip pain after she slipped at home and she was found to have acute traumatic nondisplaced right intertrochanteric hip fracture. There was no prodromal symptoms such as chest pain, shortness of breath, dizziness, syncope or presyncope. She underwent surgical fixation of the fracture with cephalo-medullary nail fixation. Her postoperative course was uneventful without significant postoperative complications except dropping hemoglobin without need for blood transfusion. She did have isolated episode of low-grade fever. Chest x-ray performed that showed no acute infiltrate. Urinalysis showed no evidence of acute cystitis. Patient denies any symptoms assistive of infection. Postoperatively, hemoglobin was 9.9 g/dL without evidence of active bleeding and it is attributed to blood loss during surgery and hemodilution. Patient has a history of CAD status post stents around 8 to 9 years ago and she was on aspirin and Plavix. After her surgery, she was started on Eliquis 2.5 mg p.o. twice daily. I discussed the case with Dr. Inman who agreed to stop Plavix for now, continue aspirin and Eliquis for 3 weeks and then patient may resume her Plavix back. Patient discharged to inpatient rehabilitation unit in a stable medical condition, discharged on aspirin and Eliquis, discharged on [place] PRN for pain, continued on her previous home medication without any changes, recommended follow-up with PCP in 1 to 2 weeks, follow-up with orthopedic surgery in 4 weeks. Plan PT for mobility OT for ADLs Analgesics as needed Bowel protocol Fall Precautions Right intertrochangteric femur FX post ORIF D/C aldo on 02/15/2019 HTN on zertril and lopressor DM on glucophage, actos, Humalog and Humalog S.C accuchecks HLD on lipitor Mild Dementia on aricept Depression on lexapro and remeron Hypothyroidism on Synthroid and cytomel CAD post stents 2008 and 2009 On ASA, lipitor, zestril , lopressor and monoket. plavix on hold d/t on Eliquis x3 weeks DVT prophylaxis on eliquis/knee high jose haynes Medical management per hospitalist-consult
[2019-02-07 11:45] LABS: Bedside Glucose 255 mg/dL (70-110)
--- NOTE | 2019-02-07 16:55 | CHAPLAIN ---
Type of Pastoral Visit _x__ Initial Visit ___ Follow-up Visit ___ On-call Visit ___ General Patient Visit ___ Spiritual Assessment ___ Family Conference ___ Bereavement ___ Rapid Response ___ Code Blue ___ Other (describe below) Pastoral Care Referral From _x__ Patient ___ Family ___ Nurse ___ Physician ___ Relief Worker ___ Educational Interpreter ___ Other (describe below) Sacrament/Intervention _x__ Active listening ___ Anointing ___ Judaism ___ Bereavement ___ Communion ___ Natalya exploration ___ ___ Life review ___ Prayer ___ Reconciliation ___ Sacrament of Sick ___ Supportive presence ___ Wedding ___ Other (describe below) Pastoral Comments made a brief introduction and greeting; patient had family and friend visiting; offer to return another time accepted
[2019-02-07 17:05] LABS: Bedside Glucose 103 mg/dL (70-110)
[2019-02-07] MEDS: Insulin Human 75/25 Kwickpen 26 UNIT SC (17:55)
[2019-02-07 18:05] LABS: Bedside Glucose 134 mg/dL (70-110)
[2019-02-07 19:09] VITALS: BP 135/66; PULSE 78; RESP 16; TEMP 36.9; O2SAT 95
[2019-02-07 21:10] LABS: Bedside Glucose 55 mg/dL (70-110)
[2019-02-07 21:10] LABS: Bedside Glucose 84 mg/dL (70-110)
[2019-02-07] MEDS: Ondansetron ODT 4 MG Tablet PO (21:23)
[2019-02-07 21:26] VITALS: PULSE 78
[2019-02-07] MEDS: Mirtazapine 15 MG Tablet PO (21:26)
[2019-02-07] MEDS: Atorvastatin Calcium 80 MG Tablet PO (21:27)
[2019-02-07] MEDS: Donepezil HCl 10 MG Tablet PO (21:27)
--- NOTE | 2019-02-07 21:34 | NURSING ---
Hospitalist, Dr Figueredo, notified of low BS for pt hs check. Glucose level was 55 and asymptomatic. One intervention per protocol of OJ and glucose at 2nd check was 84. Pt will be monitored and rechecked per Dr Pruitt at 03:00. NNOs at this time.
[2019-02-07 22:00] VITALS: PULSE 78; O2SAT 94
[2019-02-07 22:21] LABS: Bedside Glucose 145 mg/dL (70-110)
--- NOTE | 2019-02-08 00:09 | NURSING ---
Pt found at foot of bed with legs dangling over the side rail up, according to SMOKING PIPES CLEANER. pt reminded to await assistance to get up for toileting needs. Pt stated that she was not trying to get up! PA had been removed by pt. Chair pad alarm in place and activated. Pt reminded of safety protocol. Staff will continue to monitor.
[2019-02-08] MEDS: HYDROcodone Bitartrate/Apap 5/325 Tablet PO ×4 (02:05→17:15)
[2019-02-08 02:11] LABS: Bedside Glucose 85 mg/dL (70-110)
[2019-02-08] MEDS: Levothyroxine 50 MCG Tablet PO (06:24)
--- NOTE | 2019-02-08 06:27 | NURSING ---
pt found very tearful this a.m. Pt admits reluctantly to pain but upon further investigation pt admits she just wants to go home. Pt comforted and pt mumbled a few more words. Pt rocking back and forth in recliner while cuddling stuffed animal. Staff will monitor.
[2019-02-08 06:51] LABS: Bedside Glucose 162 mg/dL (70-110)
[2019-02-08 07:15] VITALS: BP 147/53; PULSE 78; RESP 16; TEMP 36.4; O2SAT 93
[2019-02-08] MEDS: Pioglitazone Hydrochloride 30 MG Tablet PO (08:04)
[2019-02-08] MEDS: Aspirin E.C. 81 MG Tablet PO (08:04)
[2019-02-08] MEDS: metFORMIN (XR) 500 MG Tablet PO (08:04)
[2019-02-08] MEDS: Escitalopram Oxalate 10 MG Tablet 5 MG PO (08:04)
[2019-02-08] MEDS: Magnesium Oxide 400 MG Tablet PO (08:04)
[2019-02-08] MEDS: Mirabegron 25 MG TAB.ER.24H PO (08:05)
[2019-02-08] MEDS: Lisinopril 20 MG Tablet PO ×2 (08:05→22:07)
[2019-02-08] MEDS: Isosorbide Mononitrate 20 MG Tablet PO ×2 (08:05→22:04)
[2019-02-08] MEDS: amLODIPine 5 MG Tablet PO (08:05)
[2019-02-08 08:06] VITALS: BP 147/53; PULSE 78
[2019-02-08] MEDS: Metoprolol Tartrate 25 MG Tablet 75 MG PO ×2 (08:06→22:04)
[2019-02-08] MEDS: Insulin Lispro 100 UNIT/ML INSULN.PEN SC (08:06)
[2019-02-08] MEDS: APIXABAN 2.5 MG TABLET PO ×2 (08:06→22:04)
[2019-02-08] MEDS: Insulin Human 75/25 Kwickpen 36 UNIT SC (08:13)
[2019-02-08] MEDS: Glucerna Shake 120 ML LIQUID PO ×2 (08:15→22:05)
--- NOTE | 2019-02-08 09:55 | PCM.PN.NEU ---
Subjective: Per nursing hospitalist aware of glucose levels and will be following. Per patient tolerating therapies well and pain is controlled. Denies further questions or concerns. - Physical Exam General: Alert, Oriented x3, Cooperative HEENT: Atraumatic, PERRLA Oral: Moist Mucosa Neck: Supple, No JVD Lungs: Clear to auscultation, Normal air movement Cardiovascular: Regular rate, Regular Rhythm Abdomen: Bowel Sounds Present, Soft, Non Tender Extremities: No clubbing, No cyanosis Skin: Incision - aldo intact to right hip without redness and minimal drng, DSD Neurological: Cranial nerves II-XII grossly intact, Deep Tendon Reflexes 2+/4 and Symmetrical, Neuro grossly intact, Motor Exam 5/5 strength throughout Psych/Mental Status: Normal Affect, Appropriate, Alert and oriented to time, place, person, mood and affect Vital Signs Temp Pulse Resp BP Pulse Ox 97.6 F L 78 16 147/53 H 93 02/08/19 07:15 02/08/19 08:06 02/08/19 07:15 02/08/19 08:06 02/08/19 07:15 Oxygen Delivery Method Room Air Weight: 70.5 kg Body Mass Index (BMI) 27.5 Finger Stick Blood Glucose 190 Intake and Output for Last 24 Hours 02/06/19 02/07/19 02/08/19 23:59 23:59 23:59 Intake Total 480 / 480 240 / 240 Balance 480 / 480 240 / 240 POC Glucose 02/08/19 02/08/19 02/07/19 06:28 01:58 22:09 POC Glucose 162 H 85 145 H 02/07/19 02/07/19 02/07/19 20:59 20:31 17:53 POC Glucose 84 55 L 134 H 02/07/19 02/07/19 16:39 11:28 POC Glucose 103 255 H Medical Necessity - Tobacco Use Smoking Status: Never smoker Tobacco Use: Non-smoker Assessment/Plan All Active Problems (Last Reviewed 02/04/19 @ 11:29 by Kyler Maldonado MD) Intertrochanteric fracture of right femur (Acute) A 68-year-old female who lives at home with her son and 2 teenage grandchildren who slipped on the floor in the kitchen and fell resulting in a fracture of her right femur on 01/31/2019. The following day she had open reduction and internal fixation performed. She says her postoperative course was uneventful. She lives at home, is independent, continues to drive and the goal of rehab is religious of her prior level of functional independence. 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 She denies any GI or complaints. She lives in a one-story house but she does need to access the basement in order to do laundry. Her only complaint now is mild to moderate right hip pain but she says this is improving. Per hospital discharge summary: Presented to the emergency room because of right hip pain after she slipped at home and she was found to have acute traumatic nondisplaced right intertrochanteric hip fracture. There was no prodromal symptoms such as chest pain, shortness of breath, dizziness, syncope or presyncope. She underwent surgical fixation of the fracture with cephalo-medullary nail fixation. Her postoperative course was uneventful without significant postoperative complications except dropping hemoglobin without need for blood transfusion. She did have isolated episode of low-grade fever. Chest x-ray performed that showed no acute infiltrate. Urinalysis showed no evidence of acute cystitis. Patient denies any symptoms assistive of infection. Postoperatively, hemoglobin was 9.9 g/dL without evidence of active bleeding and it is attributed to blood loss during surgery and hemodilution. Patient has a history of CAD status post stents around 8 to 9 years ago and she was on aspirin and Plavix. After her surgery, she was started on Eliquis 2.5 mg p.o. twice daily. I discussed the case with Dr. Inman who agreed to stop Plavix for now, continue aspirin and Eliquis for 3 weeks and then patient may resume her Plavix back. Patient discharged to inpatient rehabilitation unit in a stable medical condition, discharged on aspirin and Eliquis, discharged on [place] PRN for pain, continued on her previous home medication without any changes, recommended follow-up with PCP in 1 to 2 weeks, follow-up with orthopedic surgery in 4 weeks. Plan PT for mobility OT for ADLs Analgesics as needed Bowel protocol Fall Precautions Right intertrochangteric femur FX post ORIF D/C aldo on 02/15/2019 HTN on zertril and lopressor DM on glucophage, actos, Humalog and Humalog S.C accuchecks HLD on lipitor Mild Dementia on aricept Depression on lexapro and remeron Hypothyroidism on Synthroid and cytomel CAD post stents 2008 and 2009 On ASA, lipitor, zestril , lopressor and monoket. plavix on hold d/t on Eliquis x3 weeks DVT prophylaxis on eliquis/knee high jose haynes Medical management per hospitalist-consult F/U with PCP and Orthopedics
[2019-02-08 12:11] LABS: Bedside Glucose 76 mg/dL (70-110)
[2019-02-08] MEDS: Acetaminophen 325 MG Tablet 650 MG PO ×2 (13:12→22:01)
[2019-02-08 16:41] LABS: Bedside Glucose 54 mg/dL (70-110)
[2019-02-08 17:00] LABS: Bedside Glucose 80 mg/dL (70-110)
--- NOTE | 2019-02-08 17:30 | NURSING ---
Hospitalist, Dr Pruitt, notified of low BS for pt at 1600 check. Glucose level was 54 and pt is asymptomatic. One intervention per protocol of OJ and repeat glucose at 2nd check was 80. Dr Pruitt will make changes to insulin.
[2019-02-08 19:10] VITALS: BP 130/55; PULSE 73; RESP 16; TEMP 36.9; O2SAT 94
[2019-02-08 20:41] LABS: Bedside Glucose 274 mg/dL (70-110)
[2019-02-08 22:00] VITALS: PULSE 73; O2SAT 93
[2019-02-08 22:04] VITALS: PULSE 73
[2019-02-08] MEDS: Donepezil HCl 10 MG Tablet PO (22:04)
[2019-02-08] MEDS: Atorvastatin Calcium 80 MG Tablet PO (22:04)
[2019-02-08] MEDS: Mirtazapine 15 MG Tablet PO (22:04)
[2019-02-08] MEDS: Senna/Docusate Sodium 1 Tablet 2 TABLET PO (22:04)
[2019-02-09 02:26] LABS: Bedside Glucose 282 mg/dL (70-110)
[2019-02-09] MEDS: HYDROcodone Bitartrate/Apap 5/325 Tablet PO ×4 (02:42→21:20)
[2019-02-09] MEDS: Levothyroxine 50 MCG Tablet PO (05:59)
[2019-02-09 06:50] LABS: Bedside Glucose 303 mg/dL (70-110)
[2019-02-09 07:09] VITALS: BP 152/76; PULSE 70; RESP 18; TEMP 36.4; O2SAT 96
[2019-02-09] MEDS: Insulin Lispro 100 UNIT/ML INSULN.PEN SC ×3 (08:20→17:11)
[2019-02-09] MEDS: Aspirin E.C. 81 MG Tablet PO (08:20)
[2019-02-09] MEDS: Mirabegron 25 MG TAB.ER.24H PO (08:21)
[2019-02-09] MEDS: metFORMIN (XR) 500 MG Tablet PO (08:21)
[2019-02-09] MEDS: Pioglitazone Hydrochloride 30 MG Tablet PO (08:21)
[2019-02-09] MEDS: Escitalopram Oxalate 10 MG Tablet 5 MG PO (08:21)
[2019-02-09] MEDS: Isosorbide Mononitrate 20 MG Tablet PO ×2 (08:21→21:20)
[2019-02-09] MEDS: amLODIPine 5 MG Tablet PO (08:21)
[2019-02-09 08:22] VITALS: PULSE 70
[2019-02-09] MEDS: Metoprolol Tartrate 25 MG Tablet 75 MG PO ×2 (08:22→21:22)
[2019-02-09] MEDS: Lisinopril 20 MG Tablet PO ×2 (08:22→21:20)
[2019-02-09] MEDS: APIXABAN 2.5 MG TABLET PO ×2 (08:22→21:19)
[2019-02-09] MEDS: Insulin Human 75/25 Kwickpen 28 UNIT SC (08:25)
[2019-02-09] MEDS: Glucerna Shake 120 ML LIQUID PO ×2 (08:26→21:19)
[2019-02-09] MEDS: Magnesium Oxide 400 MG Tablet PO (08:26)
[2019-02-09 11:31] LABS: Bedside Glucose 275 mg/dL (70-110)
[2019-02-09] MEDS: Ondansetron ODT 4 MG Tablet PO (11:43)
--- NOTE | 2019-02-09 13:04 | PCM.PN.NEU ---
Subjective: Per nursing no issues overnight. Per patient, continues to tolerate therapy and pain is controlled. Denies further questions or concerns. - Physical Exam General: Alert, Oriented x3, Cooperative HEENT: Atraumatic, PERRLA Oral: Moist Mucosa Neck: Supple, No JVD Lungs: Clear to auscultation, Normal air movement Cardiovascular: Regular rate, Regular Rhythm Abdomen: Bowel Sounds Present, Soft, Non Tender Extremities: No clubbing, No cyanosis Skin: Incision - aldo intact to right hip, without redness and drng. DSD Neurological: Cranial nerves II-XII grossly intact, Deep Tendon Reflexes 2+/4 and Symmetrical, Neuro grossly intact, Motor Exam 5/5 strength throughout Psych/Mental Status: Normal Affect, Appropriate, Alert and oriented to time, place, person, mood and affect Vital Signs Temp Pulse Resp BP Pulse Ox 97.6 F L 70 18 152/76 H 96 02/09/19 07:09 02/09/19 08:22 02/09/19 07:09 02/09/19 07:09 02/09/19 07:09 Oxygen Delivery Method Room Air Weight: 70 kg Body Mass Index (BMI) 27.5 Finger Stick Blood Glucose 190 Intake and Output for Last 24 Hours 02/07/19 02/08/19 02/09/19 23:59 23:59 23:59 Intake Total 680 / 680 720 / 720 Balance 680 / 680 720 / 720 POC Glucose 02/09/19 02/09/19 02/09/19 11:15 06:43 02:21 POC Glucose 275 H 303 H 282 H 02/08/19 02/08/19 02/08/19 20:28 16:56 16:25 POC Glucose 274 H 80 54 L Medical Necessity - Tobacco Use Smoking Status: Never smoker Tobacco Use: Non-smoker Assessment/Plan All Active Problems (Last Reviewed 02/04/19 @ 11:29 by Kyler Maldonado MD) Intertrochanteric fracture of right femur (Acute) A 68-year-old female who lives at home with her son and 2 teenage grandchildren who slipped on the floor in the kitchen and fell resulting in a fracture of her right femur on 01/31/2019. The following day she had open reduction and internal fixation performed. She says her postoperative course was uneventful. She lives at home, is independent, continues to drive and the goal of rehab is congregational of her prior level of functional independence. 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 She denies any GI or complaints. She lives in a one-story house but she does need to access the basement in order to do laundry. Her only complaint now is mild to moderate right hip pain but she says this is improving. Per hospital discharge summary: Presented to the emergency room because of right hip pain after she slipped at home and she was found to have acute traumatic nondisplaced right intertrochanteric hip fracture. There was no prodromal symptoms such as chest pain, shortness of breath, dizziness, syncope or presyncope. She underwent surgical fixation of the fracture with cephalo-medullary nail fixation. Her postoperative course was uneventful without significant postoperative complications except dropping hemoglobin without need for blood transfusion. She did have isolated episode of low-grade fever. Chest x-ray performed that showed no acute infiltrate. Urinalysis showed no evidence of acute cystitis. Patient denies any symptoms assistive of infection. Postoperatively, hemoglobin was 9.9 g/dL without evidence of active bleeding and it is attributed to blood loss during surgery and hemodilution. Patient has a history of CAD status post stents around 8 to 9 years ago and she was on aspirin and Plavix. After her surgery, she was started on Eliquis 2.5 mg p.o. twice daily. I discussed the case with Dr. Inman who agreed to stop Plavix for now, continue aspirin and Eliquis for 3 weeks and then patient may resume her Plavix back. Patient discharged to inpatient rehabilitation unit in a stable medical condition, discharged on aspirin and Eliquis, discharged on [place] PRN for pain, continued on her previous home medication without any changes, recommended follow-up with PCP in 1 to 2 weeks, follow-up with orthopedic surgery in 4 weeks. Plan PT for mobility OT for ADLs Analgesics as needed Bowel protocol Fall Precautions Right intertrochanteric femur FX post ORIF D/C aldo on 02/15/2019 HTN on zertril and lopressor DM on glucophage, actos, Humalog and Humalog S.C accuchecks -hospitalist managing HLD on lipitor Mild Dementia on aricept Depression on lexapro and remeron Hypothyroidism on Synthroid and cytomel CAD post stents 2008 and 2009 On ASA, lipitor, zestril , lopressor and monoket. plavix on hold d/t on Eliquis x3 weeks DVT prophylaxis on eliquis/knee high jose [place] Medical management per hospitalist-consult F/U with PCP and Orthopedics
[2019-02-09 16:45] LABS: Bedside Glucose 226 mg/dL (70-110)
[2019-02-09] MEDS: Insulin Human 75/25 Kwickpen 20 UNIT SC (17:11)
[2019-02-09] MEDS: Atorvastatin Calcium 80 MG Tablet PO (21:19)
[2019-02-09] MEDS: Donepezil HCl 10 MG Tablet PO (21:19)
[2019-02-09] MEDS: Mirtazapine 15 MG Tablet PO (21:20)
[2019-02-09 21:22] VITALS: PULSE 79
[2019-02-09 21:41] LABS: Bedside Glucose 240 mg/dL (70-110)
[2019-02-09 21:51] VITALS: BP 131/55; PULSE 79; RESP 16; TEMP 36.8; O2SAT 96
--- NOTE | 2019-02-09 23:55 | NURSING ---
REVIEWED AND AGREE WITH ENVIRONMENTAL MONITORING SPECIALIST'S FIM AND HANDOFF CHARTING.
[2019-02-10] MEDS: Levothyroxine 50 MCG Tablet PO (05:29)
[2019-02-10] MEDS: HYDROcodone Bitartrate/Apap 5/325 Tablet PO ×4 (05:29→22:50)
[2019-02-10 06:44] VITALS: O2SAT 89
[2019-02-10 06:46] LABS: Bedside Glucose 243 mg/dL (70-110)
[2019-02-10] MEDS: Insulin Lispro 100 UNIT/ML INSULN.PEN SC ×2 (07:30→16:56)
[2019-02-10] MEDS: Insulin Human 75/25 Kwickpen 28 UNIT SC (07:30)
[2019-02-10] MEDS: Lisinopril 20 MG Tablet PO ×2 (07:31→22:50)
[2019-02-10 07:32] VITALS: PULSE 77
[2019-02-10] MEDS: Metoprolol Tartrate 25 MG Tablet 75 MG PO ×2 (07:32→22:50)
[2019-02-10] MEDS: Escitalopram Oxalate 10 MG Tablet 5 MG PO (07:32)
[2019-02-10] MEDS: Pioglitazone Hydrochloride 30 MG Tablet PO (07:32)
[2019-02-10] MEDS: Aspirin E.C. 81 MG Tablet PO (07:32)
[2019-02-10] MEDS: Mirabegron 25 MG TAB.ER.24H PO (07:32)
[2019-02-10] MEDS: APIXABAN 2.5 MG TABLET PO ×2 (07:36→22:50)
[2019-02-10] MEDS: Magnesium Oxide 400 MG Tablet PO (07:36)
[2019-02-10] MEDS: metFORMIN (XR) 500 MG Tablet PO (07:37)
[2019-02-10] MEDS: Isosorbide Mononitrate 20 MG Tablet PO ×2 (07:38→22:50)
[2019-02-10] MEDS: amLODIPine 5 MG Tablet PO (07:38)
[2019-02-10 08:17] VITALS: BP 126/60; PULSE 67; RESP 16; TEMP 36.8; O2SAT 93
--- NOTE | 2019-02-10 09:19 | PCM.PN.NEU ---
Subjective: Team meeting held today. Per PT, Uses [place] boat[employer] to get in and out of bed. Uses walker with ambulation with stand by assist. Per OT, has a little LOB with toileting needs, rest of ADLs stand by assist. Per nursing and patient verbalized pain is controlled and uses polar care as needed. Discussed need for family trainng for monitoring glucose levels and administer insulin at home. Per SW, will re-team next week. - Physical Exam General: Alert, Oriented x3, Cooperative HEENT: Atraumatic, PERRLA Oral: Moist Mucosa Neck: Supple, No JVD Lungs: Clear to auscultation, Normal air movement Cardiovascular: Regular rate, Regular Rhythm Abdomen: Bowel Sounds Present, Soft, Non Tender Extremities: No clubbing, No cyanosis, No edema Skin: Incision - aldo intact to right hip, without redness or drng Neurological: Cranial nerves II-XII grossly intact, Deep Tendon Reflexes 2+/4 and Symmetrical, Neuro grossly intact, Motor Exam 5/5 strength throughout Psych/Mental Status: Normal Affect, Appropriate, Alert and oriented to time, place, person, mood and affect Vital Signs Temp Pulse Resp BP Pulse Ox 98.3 F 67 16 126/60 H 93 02/10/19 08:17 02/10/19 08:17 02/10/19 08:17 02/10/19 08:17 02/10/19 08:17 Oxygen Delivery Method Room Air Weight: 70 kg Body Mass Index (BMI) 27.5 Finger Stick Blood Glucose 190 Intake and Output for Last 24 Hours 02/08/19 02/09/19 02/10/19 23:59 23:59 23:59 Intake Total 680 / 680 1080 / 1080 240 / 240 Balance 680 / 680 1080 / 1080 240 / 240 POC Glucose 02/10/19 02/09/19 02/09/19 06:36 21:19 16:26 POC Glucose 243 H 240 H 226 H 02/09/19 11:15 POC Glucose 275 H Medical Necessity - Tobacco Use Smoking Status: Never smoker Tobacco Use: Non-smoker Assessment/Plan All Active Problems (Last Reviewed 02/04/19 @ 11:29 by Kyelr Maldonado MD) Intertrochanteric fracture of right femur (Acute) A 68-year-old female who lives at home with her son and 2 teenage grandchildren who slipped on the floor in the kitchen and fell resulting in a fracture of her right femur on 01/31/2019. The following day she had open reduction and internal fixation performed. She says her postoperative course was uneventful. She lives at home, is independent, continues to drive and the goal of rehab is gnosticist of her prior level of functional independence. 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 She denies any GI or complaints. She lives in a one-story house but she does need to access the basement in order to do laundry. Her only complaint now is mild to moderate right hip pain but she says this is improving. Per hospital discharge summary: Presented to the emergency room because of right hip pain after she slipped at home and she was found to have acute traumatic nondisplaced right intertrochanteric hip fracture. There was no prodromal symptoms such as chest pain, shortness of breath, dizziness, syncope or presyncope. She underwent surgical fixation of the fracture with cephalo-medullary nail fixation. Her postoperative course was uneventful without significant postoperative complications except dropping hemoglobin without need for blood transfusion. She did have isolated episode of low-grade fever. Chest x-ray performed that showed no acute infiltrate. Urinalysis showed no evidence of acute cystitis. Patient denies any symptoms assistive of infection. Postoperatively, hemoglobin was 9.9 g/dL without evidence of active bleeding and it is attributed to blood loss during surgery and hemodilution. Patient has a history of CAD status post stents around 8 to 9 years ago and she was on aspirin and Plavix. After her surgery, she was started on Eliquis 2.5 mg p.o. twice daily. I discussed the case with Dr. Inman who agreed to stop Plavix for now, continue aspirin and Eliquis for 3 weeks and then patient may resume her Plavix back. Patient discharged to inpatient rehabilitation unit in a stable medical condition, discharged on aspirin and Eliquis, discharged on [place] PRN for pain, continued on her previous home medication without any changes, recommended follow-up with PCP in 1 to 2 weeks, follow-up with orthopedic surgery in 4 weeks. Plan PT for mobility OT for ADLs Analgesics as needed Bowel protocol Fall Precautions Right intertrochanteric femur FX post ORIF D/C aldo on 02/15/2019 HTN on zertril and lopressor DM on glucophage, actos, Humalog and Humalog S.C accuchecks -hospitalist managing HLD on lipitor Mild Dementia on aricept Depression on lexapro and remeron Hypothyroidism on Synthroid and cytomel CAD post stents 2008 and 2009 On ASA, lipitor, zestril , lopressor and monoket. plavix on hold d/t on Eliquis x3 weeks DVT prophylaxis on eliquis/knee high jose hay[place] Medical management per hospitalist-consult F/U with PCP and Orthopedics
--- NOTE | 2019-02-10 10:47 | CASEMGMT ---
Addendum entered by Betty Orr 02/10/19 14:28: Spoke with son whom stated he does live with the patient and his two children. He works different hours, but is able to check on the patient, typically in the evenings, almost every day. Between himself and his children, they assist with medications and meals daily. He stated their neighbor, whom is also pt's ex-, comes over every morning to assist with breakfast, medications, including her insulin. He is interested in having, ex-, Saeid, his two children and himself come in for training on the patient's new insulin and anything else she needs. Notified nurse to reach out to schedule training - Christ [phone]. Followed up with patient about the above information and provided resources to all the services discussed prior. Original Note: Social Work IDT met with patient and daughter, Arminda, for Team meeting. Discussed patient progressing well in therapy, but still needing some assistance with lower body ADLs, and blood sugars are varying. Nursing reaching out to family for training when pt discharges to assist. Contacted son, Christ, whom lives with pt, with patient permission - left message. Spoke with patient about Passport and Medicaid resources along with Meals on Wheels and talking pill dispenser to provide timed reminders to take medications. Patient open to the resources but wants to be as independent as possible at home. Medicare approved patient for 16 days - set discharge date for 02/19 - pt and IDT agreeable. Will reteam next week to discuss DC recommendations and referrals. Will continue to follow for active discharge planning. BILLIE HernándezW
[2019-02-10 11:45] LABS: Bedside Glucose 68 mg/dL (70-110)
[2019-02-10 16:40] LABS: Bedside Glucose 163 mg/dL (70-110)
[2019-02-10] MEDS: Insulin Human 75/25 Kwickpen 20 UNIT SC (16:56)
[2019-02-10 21:40] LABS: Bedside Glucose 131 mg/dL (70-110)
[2019-02-10 22:00] VITALS: BP 133/65; PULSE 82; RESP 16; TEMP 36.9; O2SAT 96
[2019-02-10] MEDS: Donepezil HCl 10 MG Tablet PO (22:49)
[2019-02-10 22:50] VITALS: PULSE 82
[2019-02-10] MEDS: Atorvastatin Calcium 80 MG Tablet PO (22:50)
[2019-02-10] MEDS: Mirtazapine 15 MG Tablet PO (22:50)
--- NOTE | 2019-02-11 04:32 | NURSING ---
Reviewed and agree with LPNs fims and handoff
[2019-02-11 06:27] VITALS: O2SAT 91
[2019-02-11] MEDS: Levothyroxine 50 MCG Tablet PO (06:34)
[2019-02-11] MEDS: HYDROcodone Bitartrate/Apap 5/325 Tablet PO ×4 (06:34→20:34)
[2019-02-11 07:46] VITALS: PULSE 79
[2019-02-11] MEDS: Senna/Docusate Sodium 1 Tablet 2 TABLET PO ×2 (07:46→20:33)
[2019-02-11] MEDS: Metoprolol Tartrate 25 MG Tablet 75 MG PO ×2 (07:46→20:32)
[2019-02-11] MEDS: Aspirin E.C. 81 MG Tablet PO (07:47)
[2019-02-11] MEDS: Magnesium Oxide 400 MG Tablet PO (07:47)
[2019-02-11] MEDS: metFORMIN (XR) 500 MG Tablet PO (07:47)
[2019-02-11] MEDS: Pioglitazone Hydrochloride 30 MG Tablet PO (07:47)
[2019-02-11] MEDS: amLODIPine 5 MG Tablet PO (07:47)
[2019-02-11] MEDS: Escitalopram Oxalate 10 MG Tablet 5 MG PO (07:48)
[2019-02-11] MEDS: Lisinopril 20 MG Tablet PO ×2 (07:49→20:33)
[2019-02-11] MEDS: Isosorbide Mononitrate 20 MG Tablet PO ×2 (07:49→20:33)
[2019-02-11] MEDS: APIXABAN 2.5 MG TABLET PO ×2 (07:50→20:34)
[2019-02-11] MEDS: Insulin Lispro 100 UNIT/ML INSULN.PEN SC ×4 (08:06→21:29)
[2019-02-11] MEDS: Insulin Human 75/25 Kwickpen 28 UNIT SC (08:07)
[2019-02-11] MEDS: Mirabegron 25 MG TAB.ER.24H PO (08:08)
[2019-02-11 08:31] LABS: Bedside Glucose 259 mg/dL (70-110)
[2019-02-11 08:48] VITALS: BP 129/66; PULSE 71; RESP 16; TEMP 36.9; O2SAT 93
[2019-02-11 11:35] LABS: Bedside Glucose 173 mg/dL (70-110)
--- NOTE | 2019-02-11 11:44 | PCM.PN.NEU ---
Subjective: Per nursing no issues overnight. Per patient continues to tolerate therapy and pain is controlled. Denies further questions or concerns. - Physical Exam General: Alert, Oriented x3, Cooperative HEENT: Atraumatic, PERRLA Oral: Moist Mucosa Neck: Supple, No JVD Lungs: Clear to auscultation, Normal air movement Cardiovascular: Regular rate, Regular Rhythm Abdomen: Bowel Sounds Present, Soft, Non Tender Extremities: No clubbing, No cyanosis, No edema Skin: Incision - aldo intact to right hip,without redness or drng-DSD Neurological: Cranial nerves II-XII grossly intact, Deep Tendon Reflexes 2+/4 and Symmetrical, Neuro grossly intact, Motor Exam 5/5 strength throughout Psych/Mental Status: Normal Affect, Appropriate, Alert and oriented to time, place, person, mood and affect Vital Signs Temp Pulse Resp BP Pulse Ox 98.5 F 71 16 129/66 H 93 02/11/19 08:48 02/11/19 08:48 02/11/19 08:48 02/11/19 08:48 02/11/19 08:48 Oxygen Delivery Method Room Air Weight: 70 kg Body Mass Index (BMI) 27.5 Finger Stick Blood Glucose 190 Intake and Output for Last 24 Hours 02/09/19 02/10/19 02/11/19 23:59 23:59 23:59 Intake Total 1080 / 1080 840 / 840 Balance 1080 / 1080 840 / 840 POC Glucose 02/11/19 02/11/19 02/10/19 11:15 08:05 21:30 POC Glucose 173 H 259 H 131 H 02/10/19 02/10/19 16:36 11:40 POC Glucose 163 H 68 L Medical Necessity - Tobacco Use Smoking Status: Never smoker Tobacco Use: Non-smoker Assessment/Plan All Active Problems (Last Reviewed 02/04/19 @ 11:29 by Kyler Maldonado MD) Intertrochanteric fracture of right femur (Acute) A 68-year-old female who lives at home with her son and 2 teenage grandchildren who slipped on the floor in the kitchen and fell resulting in a fracture of her right femur on 01/31/2019. The following day she had open reduction and internal fixation performed. She says her postoperative course was uneventful. She lives at home, is independent, continues to drive and the goal of rehab is islam of her prior level of functional independence. 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 She denies any GI or complaints. She lives in a one-story house but she does need to access the basement in order to do laundry. Her only complaint now is mild to moderate right hip pain but she says this is improving. Per hospital discharge summary: Presented to the emergency room because of right hip pain after she slipped at home and she was found to have acute traumatic nondisplaced right intertrochanteric hip fracture. There was no prodromal symptoms such as chest pain, shortness of breath, dizziness, syncope or presyncope. She underwent surgical fixation of the fracture with cephalo-medullary nail fixation. Her postoperative course was uneventful without significant postoperative complications except dropping hemoglobin without need for blood transfusion. She did have isolated episode of low-grade fever. Chest x-ray performed that showed no acute infiltrate. Urinalysis showed no evidence of acute cystitis. Patient denies any symptoms assistive of infection. Postoperatively, hemoglobin was 9.9 g/dL without evidence of active bleeding and it is attributed to blood loss during surgery and hemodilution. Patient has a history of CAD status post stents around 8 to 9 years ago and she was on aspirin and Plavix. After her surgery, she was started on Eliquis 2.5 mg p.o. twice daily. I discussed the case with Dr. Inman who agreed to stop Plavix for now, continue aspirin and Eliquis for 3 weeks and then patient may resume her Plavix back. Patient discharged to inpatient rehabilitation unit in a stable medical condition, discharged on aspirin and Eliquis, discharged on [place] PRN for pain, continued on her previous home medication without any changes, recommended follow-up with PCP in 1 to 2 weeks, follow-up with orthopedic surgery in 4 weeks. Plan PT for mobility OT for ADLs Analgesics as needed Bowel protocol Fall Precautions Right intertrochanteric femur FX post ORIF D/C aldo on 02/15/2019 HTN on zertril and lopressor DM on glucophage, actos, Humalog and Humalog S.C accuchecks -hospitalist managing HLD on lipitor Mild Dementia on aricept Depression on lexapro and remeron Hypothyroidism on Synthroid and cytomel CAD post stents 2008 and 2009 On ASA, lipitor, zestril , lopressor and monoket. plavix on hold d/t on Eliquis x3 weeks last dose on 02/24/19 DVT prophylaxis on eliquis/knee high jose hay[place] Medical management per hospitalist-consult F/U with PCP and Orthopedics
[2019-02-11] MEDS: Insulin Human 75/25 Kwickpen 20 UNIT SC (16:46)
[2019-02-11 17:01] LABS: Bedside Glucose 171 mg/dL (70-110)
[2019-02-11 20:19] VITALS: BP 127/57; PULSE 71; RESP 18; TEMP 36.8; O2SAT 96
[2019-02-11 20:32] VITALS: PULSE 71
[2019-02-11] MEDS: Mirtazapine 15 MG Tablet PO (20:34)
[2019-02-11] MEDS: Atorvastatin Calcium 80 MG Tablet PO (20:34)
[2019-02-11] MEDS: Glucerna Shake 120 ML LIQUID PO (20:35)
[2019-02-11] MEDS: Donepezil HCl 10 MG Tablet PO (20:35)
[2019-02-12 00:16] LABS: Bedside Glucose 377 mg/dL (70-110)
[2019-02-12] MEDS: Levothyroxine 50 MCG Tablet PO (05:31)
[2019-02-12] MEDS: HYDROcodone Bitartrate/Apap 5/325 Tablet PO ×2 (05:31→21:50)
[2019-02-12 06:56] LABS: Bedside Glucose 265 mg/dL (70-110)
[2019-02-12] MEDS: Insulin Human 75/25 Kwickpen 28 UNIT SC (08:10)
[2019-02-12] MEDS: Insulin Lispro 100 UNIT/ML INSULN.PEN SC ×2 (08:12→17:25)
[2019-02-12] MEDS: Aspirin E.C. 81 MG Tablet PO (08:13)
[2019-02-12] MEDS: metFORMIN (XR) 500 MG Tablet PO (08:14)
[2019-02-12] MEDS: amLODIPine 5 MG Tablet PO (08:14)
[2019-02-12] MEDS: Escitalopram Oxalate 10 MG Tablet 5 MG PO (08:14)
[2019-02-12] MEDS: Isosorbide Mononitrate 20 MG Tablet PO ×2 (08:15→20:35)
[2019-02-12] MEDS: Magnesium Oxide 400 MG Tablet PO (08:15)
[2019-02-12 08:17] VITALS: BP 131/83; PULSE 71
[2019-02-12] MEDS: Metoprolol Tartrate 25 MG Tablet 75 MG PO ×2 (08:17→20:35)
[2019-02-12] MEDS: Pioglitazone Hydrochloride 30 MG Tablet PO (08:17)
[2019-02-12] MEDS: Lisinopril 20 MG Tablet PO ×2 (08:17→20:37)
[2019-02-12] MEDS: Mirabegron 25 MG TAB.ER.24H PO (08:17)
[2019-02-12] MEDS: APIXABAN 2.5 MG TABLET PO ×2 (08:18→20:34)
[2019-02-12] MEDS: Glucerna Shake 120 ML LIQUID PO ×4 (08:21→20:36)
[2019-02-12 08:32] VITALS: BP 131/83; PULSE 71; RESP 16; TEMP 36.8; O2SAT 97
[2019-02-12 12:15] LABS: Bedside Glucose 103 mg/dL (70-110)
[2019-02-12 17:20] LABS: Bedside Glucose 379 mg/dL (70-110)
[2019-02-12] MEDS: Insulin Human 75/25 Kwickpen 20 UNIT SC (17:25)
[2019-02-12 18:52] VITALS: BP 138/56; PULSE 77; RESP 18; TEMP 36.6; O2SAT 97
[2019-02-12 20:20] VITALS: PULSE 77; RESP 17; O2SAT 97
[2019-02-12] MEDS: Atorvastatin Calcium 80 MG Tablet PO (20:34)
[2019-02-12] MEDS: Mirtazapine 15 MG Tablet PO (20:34)
[2019-02-12] MEDS: Donepezil HCl 10 MG Tablet PO (20:34)
[2019-02-12 20:35] VITALS: PULSE 77
[2019-02-12 21:31] LABS: Bedside Glucose 146 mg/dL (70-110)
[2019-02-13] MEDS: HYDROcodone Bitartrate/Apap 5/325 Tablet PO (05:55)
[2019-02-13] MEDS: Levothyroxine 50 MCG Tablet PO (05:56)
[2019-02-13 06:56] LABS: Bedside Glucose 411 mg/dL (70-110)
[2019-02-13] MEDS: Insulin Lispro 100 UNIT/ML INSULN.PEN SC ×3 (06:58→22:02)
[2019-02-13] MEDS: Insulin Human 75/25 Kwickpen 28 UNIT SC ×2 (06:59→18:32)
[2019-02-13 08:44] VITALS: BP 140/64; PULSE 88; RESP 16; TEMP 36.8; O2SAT 96
[2019-02-13] MEDS: Pioglitazone Hydrochloride 30 MG Tablet PO (08:52)
[2019-02-13] MEDS: Aspirin E.C. 81 MG Tablet PO (08:52)
[2019-02-13] MEDS: metFORMIN (XR) 500 MG Tablet PO (08:52)
[2019-02-13] MEDS: APIXABAN 2.5 MG TABLET PO ×2 (08:53→22:02)
[2019-02-13] MEDS: Escitalopram Oxalate 10 MG Tablet 5 MG PO (08:53)
[2019-02-13 08:54] VITALS: BP 140/64; PULSE 88
[2019-02-13] MEDS: Isosorbide Mononitrate 20 MG Tablet PO ×2 (08:54→22:04)
[2019-02-13] MEDS: Mirabegron 25 MG TAB.ER.24H PO (08:54)
[2019-02-13] MEDS: Metoprolol Tartrate 25 MG Tablet 75 MG PO ×2 (08:54→22:03)
[2019-02-13] MEDS: amLODIPine 5 MG Tablet PO (08:54)
[2019-02-13] MEDS: Lisinopril 20 MG Tablet PO ×2 (08:56→22:04)
[2019-02-13] MEDS: Magnesium Oxide 400 MG Tablet PO (08:56)
[2019-02-13] MEDS: Glucerna Shake 120 ML LIQUID PO (08:58)
[2019-02-13 12:01] LABS: Bedside Glucose 276 mg/dL (70-110)
--- NOTE | 2019-02-13 13:33 | NURSING ---
Staff ambulated pt in hallway.
[2019-02-13 16:36] LABS: Bedside Glucose 462 mg/dL (70-110)
[2019-02-13 17:06] LABS: Glucose 516 mg/dL (74-106)
--- NOTE | 2019-02-13 17:12 | NURSING ---
BS with Lab backup [id number], Dr. Pruitt notified and will put new orders in.
[2019-02-13] MEDS: Insulin Lispro 100 UNIT/ML INSULN.PEN 15 UNIT SC (18:31)
[2019-02-13 19:30] VITALS: BP 134/64; PULSE 78; RESP 18; TEMP 36.8; O2SAT 95
[2019-02-13 21:46] LABS: Bedside Glucose 283 mg/dL (70-110)
[2019-02-13 21:55] VITALS: PULSE 78; RESP 18; O2SAT 95
[2019-02-13] MEDS: Donepezil HCl 10 MG Tablet PO (22:02)
[2019-02-13 22:03] VITALS: BP 136/64; PULSE 78
[2019-02-13] MEDS: Atorvastatin Calcium 80 MG Tablet PO (22:03)
[2019-02-13] MEDS: Mirtazapine 15 MG Tablet PO (22:04)
[2019-02-13] MEDS: Acetaminophen 325 MG Tablet 650 MG PO (22:06)
[2019-02-14] MEDS: HYDROcodone Bitartrate/Apap 5/325 Tablet PO ×4 (01:10→21:21)
--- NOTE | 2019-02-14 01:23 | NURSING ---
Reviewed and agree with voice over artist documentation and FIMs charting.
[2019-02-14] MEDS: Levothyroxine 50 MCG Tablet PO (05:36)
--- NOTE | 2019-02-14 06:58 | NURSING ---
torpedo man to take pt blood sugar and was 459 and rn aware and lab called for stat back up. pt was asymptomatic.
[2019-02-14 07:06] LABS: Bedside Glucose 459 mg/dL (70-110)
[2019-02-14 07:26] LABS: Glucose 500 mg/dL (74-106)
--- NOTE | 2019-02-14 07:30 | NURSING ---
Olive from lab called with Critical lab view Glucose 500. This RN paged Dr. Pruitt at [phone].
[2019-02-14 08:04] VITALS: BP 143/72; PULSE 68; RESP 17; TEMP 36.8; O2SAT 96
[2019-02-14 08:52] VITALS: PULSE 68
[2019-02-14] MEDS: Mirabegron 25 MG TAB.ER.24H PO (08:52)
[2019-02-14] MEDS: Isosorbide Mononitrate 20 MG Tablet PO ×2 (08:52→21:16)
[2019-02-14] MEDS: Pioglitazone Hydrochloride 30 MG Tablet PO (08:52)
[2019-02-14] MEDS: amLODIPine 5 MG Tablet PO (08:52)
[2019-02-14] MEDS: Metoprolol Tartrate 25 MG Tablet 75 MG PO ×2 (08:52→21:17)
[2019-02-14] MEDS: Lisinopril 20 MG Tablet PO ×2 (08:52→21:16)
[2019-02-14] MEDS: Magnesium Oxide 400 MG Tablet PO (08:52)
[2019-02-14] MEDS: metFORMIN (XR) 500 MG Tablet PO (08:53)
[2019-02-14] MEDS: Aspirin E.C. 81 MG Tablet PO (08:53)
[2019-02-14] MEDS: APIXABAN 2.5 MG TABLET PO ×2 (08:53→21:17)
[2019-02-14] MEDS: Insulin Lispro 100 UNIT/ML INSULN.PEN 8 UNIT SC (08:54)
[2019-02-14] MEDS: Insulin Lispro 100 UNIT/ML INSULN.PEN SC ×3 (08:54→17:32)
[2019-02-14] MEDS: Escitalopram Oxalate 10 MG Tablet 5 MG PO (08:56)
--- NOTE | 2019-02-14 09:56 | PN.NEURO_ITS ---
Subjective: Per nursing glucose levels were elevated in the low 500's, asymptomatic. Hospitalist adjusted Humalog and added Lantus. Per patient tolerating therapies well and pain is controlled. Denies further questions or concerns. - Physical Exam General: Alert, Oriented x3 - can be forgetful at times HEENT: Atraumatic, PERRLA Oral: Moist Mucosa Neck: Supple, No JVD Lungs: Clear to auscultation, Normal air movement Cardiovascular: Regular rate, Regular Rhythm Abdomen: Bowel Sounds Present, Soft, Non Tender Extremities: No clubbing, No cyanosis, No edema Skin: Incision - aldo intact to left hip, without redness or drng Neurological: Cranial nerves II-XII grossly intact, Deep Tendon Reflexes 2+/4 and Symmetrical, Motor Exam 5/5 strength throughout Psych/Mental Status: Normal Affect, Appropriate, - - can be forgetful at times, Alert and oriented to time, place, person, mood and affect Vital Signs Temp Pulse Resp BP Pulse Ox 98.2 F 68 17 143/72 H 96 02/14/19 08:04 02/14/19 08:52 02/14/19 08:04 02/14/19 08:04 02/14/19 08:04 Oxygen Delivery Method Room Air Weight: 70 kg Body Mass Index (BMI) 27.5 Finger Stick Blood Glucose 190 Intake and Output for Last 24 Hours 02/12/19 02/13/19 02/14/19 23:59 23:59 23:59 Intake Total 240 / 240 400 / 400 Balance 240 / 240 400 / 400 Laboratory Tests Past 24 Hrs 02/13/19 02/14/19 16:35 07:06 Glucose 516 H* 500 H* POC Glucose 02/14/19 02/13/19 02/13/19 06:54 21:36 16:17 POC Glucose 459 H* 283 H 462 H* 02/13/19 11:40 POC Glucose 276 H Medical Necessity - Tobacco Use Smoking Status: Never smoker Tobacco Use: Non-smoker Assessment/Plan All Active Problems (Last Reviewed 02/04/19 @ 11:29 by Kyler Maldonado MD) Intertrochanteric fracture of right femur (Acute) A 68-year-old female who lives at home with her son and 2 teenage grandchildren who slipped on the floor in the kitchen and fell resulting in a fracture of her right femur on 01/31/2019. The following day she had open reduction and internal fixation performed. She says her postoperative course was uneventful. She lives at home, is independent, continues to drive and the goal of rehab is episcopalian of her prior level of functional independence. 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 She denies any GI or complaints. She lives in a one-story house but she does need to access the basement in order to do laundry. Her only complaint now is mild to moderate right hip pain but she says this is improving. Per hospital discharge summary: Presented to the emergency room because of right hip pain after she slipped at home and she was found to have acute traumatic nondisplaced right intertrochanteric hip fracture. There was no prodromal symptoms such as chest pain, shortness of breath, dizziness, syncope or presyncope. She underwent surgical fixation of the fracture with cephalo-medullary nail fixation. Her postoperative course was uneventful without significant postoperative complications except dropping hemoglobin without need for blood transfusion. She did have isolated episode of low-grade fever. Chest x-ray performed that showed no acute infiltrate. Urinalysis showed no evidence of acute cystitis. Patient denies any symptoms assistive of infection. Postoperatively, hemoglobin was 9.9 g/dL without evidence of active bleeding and it is attributed to blood loss during surgery and hemodilution. Patient has a history of CAD status post stents around 8 to 9 years ago and she was on aspirin and Plavix. After her surgery, she was started on Eliquis 2.5 mg p.o. twice daily. I discussed the case with Dr. Inman who agreed to stop Plavix for now, continue aspirin and Eliquis for 3 weeks and then patient may resume her Plavix back. Patient discharged to inpatient rehabilitation unit in a stable medical condition, discharged on aspirin and Eliquis, discharged on [place] PRN for pain, continued on her previous home medication without any changes, recommended follow-up with PCP in 1 to 2 weeks, follow-up with orthopedic surgery in 4 weeks. Plan PT for mobility OT for ADLs Analgesics as needed Bowel protocol Fall Precautions Right intertrochanteric femur FX post ORIF D/C aldo on 02/15/2019 HTN on zertril and lopressor DM on glucophage, actos, Humalog and Humalog S.C, Lantus added d/t elevated glucose levels, accuchecks -hospitalist managing HLD on lipitor Mild Dementia on aricept Depression on lexapro and remeron Hypothyroidism on Synthroid and cytomel CAD post stents 2008 and 2009 On ASA, lipitor, zestril , lopressor and monoket. plavix on hold d/t on Eliquis x3 weeks last dose on 02/24/19 DVT prophylaxis on eliquis/knee high jose hose Medical management per hospitalist-consult F/U with PCP and Orthopedics
[2019-02-14 11:21] LABS: Bedside Glucose 331 mg/dL (70-110)
[2019-02-14] MEDS: Insulin Lispro 100 UNIT/ML INSULN.PEN 12 UNIT SC (12:01)
--- NOTE | 2019-02-14 16:33 | CHAPLAIN ---
Type of Pastoral Visit ___ Initial Visit _x__ Follow-up Visit ___ On-call Visit ___ General Patient Visit ___ Spiritual Assessment ___ Family Conference ___ Bereavement ___ Rapid Response ___ Code Blue ___ Other (describe below) Pastoral Care Referral From _x__ Patient ___ Family ___ Nurse ___ Physician ___ Electrician Underground ___ Suit Maker ___ Other (describe below) Sacrament/Intervention _x__ Active listening ___ Anointing ___ Mosque ___ Bereavement ___ Communion ___ Natalya exploration ___ ___ Life review _x__ Prayer ___ Reconciliation ___ Sacrament of Sick ___ Supportive presence ___ Wedding ___ Other (describe below) Pastoral Comments Patient is making a request for communion from [place]; reviewed with director Zelda about providing communion from [facility] to patients; message given to [facility]
[2019-02-14 17:05] LABS: Bedside Glucose 223 mg/dL (70-110)
[2019-02-14] MEDS: Insulin Lispro 100 UNIT/ML INSULN.PEN 15 UNIT SC (17:32)
[2019-02-14 18:22] VITALS: BP 114/64; PULSE 84; RESP 16; TEMP 36.6; O2SAT 95
[2019-02-14 21:10] VITALS: PULSE 84; RESP 16
[2019-02-14] MEDS: Mirtazapine 15 MG Tablet PO (21:16)
[2019-02-14 21:17] VITALS: BP 114/64; PULSE 84
[2019-02-14] MEDS: Donepezil HCl 10 MG Tablet PO (21:17)
[2019-02-14] MEDS: Atorvastatin Calcium 80 MG Tablet PO (21:17)
[2019-02-14 21:21] LABS: Bedside Glucose 127 mg/dL (70-110)
--- NOTE | 2019-02-15 01:14 | NURSING ---
Reviewed and agree with BILL RECAPITULATION CLERK documentation and FIMs charting.
--- NOTE | 2019-02-15 02:27 | NURSING ---
0230 blood sugar checked at this time and was 49. pt was sleeping soundly and denied any sx. rn aware and snack given and will recheck blood sugar at 0245
[2019-02-15 02:31] LABS: Bedside Glucose 49 mg/dL (70-110)
--- NOTE | 2019-02-15 02:51 | NURSING ---
recheck of blood sugar at this time was 60. pt still had not eaten all of snack and was encouraged to do so. rn aware. pt remains asymptomatic rn to call doctor .
--- NOTE | 2019-02-15 02:58 | NURSING ---
Hospitalist, Dr Rosa, paged regarding 3am bs check. BS was 49 and then 60 with one intervention. Pt asymptomatic. Dr Rosa to decrease Lantus order to 10u BID and instructed staff to hold a.m. dose if BS is still low.
--- NOTE | 2019-02-15 03:03 | NURSING ---
blood sugar retaken and was 70, new orders received from doctor. pt is asymptomatic will recheck in 30min as per protocol
--- NOTE | 2019-02-15 03:39 | NURSING ---
blood sugar is now 95 and rn aware
[2019-02-15] MEDS: Levothyroxine 50 MCG Tablet PO (04:52)
[2019-02-15 04:56] LABS: Bedside Glucose 95 mg/dL (70-110)
[2019-02-15 04:56] LABS: Bedside Glucose 137 mg/dL (70-110)
[2019-02-15 07:10] LABS: Bedside Glucose 145 mg/dL (70-110)
[2019-02-15 07:28] VITALS: BP 128/66; PULSE 67; RESP 17; TEMP 36.6; O2SAT 96
[2019-02-15] MEDS: Lisinopril 20 MG Tablet PO ×2 (08:10→22:16)
[2019-02-15] MEDS: Senna/Docusate Sodium 1 Tablet 2 TABLET PO (08:10)
[2019-02-15 08:11] VITALS: PULSE 77
[2019-02-15 08:11] LABS: Bedside Glucose 60 mg/dL (70-110)
[2019-02-15 08:11] LABS: Bedside Glucose 70 mg/dL (70-110)
[2019-02-15] MEDS: Mirabegron 25 MG TAB.ER.24H PO (08:11)
[2019-02-15] MEDS: Escitalopram Oxalate 10 MG Tablet 5 MG PO (08:11)
[2019-02-15] MEDS: Isosorbide Mononitrate 20 MG Tablet PO ×2 (08:11→22:16)
[2019-02-15] MEDS: Metoprolol Tartrate 25 MG Tablet 75 MG PO ×2 (08:11→22:16)
[2019-02-15] MEDS: amLODIPine 5 MG Tablet PO (08:11)
[2019-02-15] MEDS: metFORMIN (XR) 500 MG Tablet PO (08:12)
[2019-02-15] MEDS: APIXABAN 2.5 MG TABLET PO ×2 (08:12→22:19)
[2019-02-15] MEDS: Magnesium Oxide 400 MG Tablet PO (08:12)
[2019-02-15] MEDS: Aspirin E.C. 81 MG Tablet PO (08:12)
[2019-02-15] MEDS: Insulin Lispro 100 UNIT/ML INSULN.PEN 8 UNIT SC (08:16)
[2019-02-15] MEDS: HYDROcodone Bitartrate/Apap 5/325 Tablet PO ×3 (08:26→23:03)
[2019-02-15] MEDS: Pioglitazone Hydrochloride 30 MG Tablet PO (08:26)
[2019-02-15 11:25] LABS: Bedside Glucose 138 mg/dL (70-110)
[2019-02-15] MEDS: Insulin Lispro 100 UNIT/ML INSULN.PEN 12 UNIT SC (12:03)
--- NOTE | 2019-02-15 12:53 | PN.NEURO_ITS ---
Subjective: Per nursing no issues overnight. Patient continues to tolerate therapies well and pain is controlled per patient. Diabetes education continues about accuchecks and administering insulin. Nursing is also involving family. Denies further questions or concerns. - Physical Exam General: Alert, Oriented x3 - can forgetful, Cooperative HEENT: Atraumatic, PERRLA Oral: Moist Mucosa Neck: Supple, No JVD Lungs: Clear to auscultation, Normal air movement Cardiovascular: Regular rate, Regular Rhythm Abdomen: Non Tender Extremities: No clubbing, No cyanosis, No edema Skin: Incision - aldo discontinued today, incision without redness or drng. Neurological: Cranial nerves II-XII grossly intact, Deep Tendon Reflexes 2+/4 and Symmetrical, Motor Exam 5/5 strength throughout Psych/Mental Status: Normal Affect, Appropriate, Alert and oriented to time, place, person, mood and affect - at times can be forgetful, but reorients easily Vital Signs Temp Pulse Resp BP Pulse Ox 97.8 F 77 17 128/66 H 96 02/15/19 07:28 02/15/19 08:11 02/15/19 07:28 02/15/19 07:28 02/15/19 07:28 Oxygen Delivery Method Room Air Weight: 70 kg Body Mass Index (BMI) 27.5 Finger Stick Blood Glucose 190 Intake and Output for Last 24 Hours 02/13/19 02/14/19 02/15/19 23:59 23:59 23:59 Intake Total 400 / 400 160 / 160 Balance 400 / 400 160 / 160 POC Glucose 02/15/19 02/15/19 02/15/19 11:19 07:03 04:36 POC Glucose 138 H 145 H 137 H 02/15/19 02/15/19 02/15/19 03:37 03:00 02:47 POC Glucose 95 70 60 L 02/15/19 02/14/19 02/14/19 02:20 21:13 16:58 POC Glucose 49 L 127 H 223 H Medical Necessity - Tobacco Use Smoking Status: Never smoker Tobacco Use: Non-smoker Assessment/Plan All Active Problems (Last Reviewed 02/04/19 @ 11:29 by Kyler Maldonado MD) Intertrochanteric fracture of right femur (Acute) A 68-year-old female who lives at home with her son and 2 teenage grandchildren who slipped on the floor in the kitchen and fell resulting in a fracture of her right femur on 01/31/2019. The following day she had open reduction and internal fixation performed. She says her postoperative course was uneventful. She lives at home, is independent, continues to drive and the goal of rehab is alevism of her prior level of functional independence. 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 She denies any GI or complaints. She lives in a one-story house but she does need to access the basement in order to do laundry. Her only complaint now is mild to moderate right hip pain but she says this is improving. Per hospital discharge summary: Presented to the emergency room because of right hip pain after she slipped at home and she was found to have acute traumatic nondisplaced right intertrochanteric hip fracture. There was no prodromal symptoms such as chest pain, shortness of breath, dizziness, syncope or presyncope. She underwent surgical fixation of the fracture with cephalo-medullary nail fixation. Her postoperative course was uneventful without significant postoperative complications except dropping hemoglobin without need for blood transfusion. She did have isolated episode of low-grade fever. Chest x-ray performed that showed no acute infiltrate. Urinalysis showed no evidence of acute cystitis. Patient denies any symptoms assistive of infection. Postoperatively, hemoglobin was 9.9 g/dL without evidence of active bleeding and it is attributed to blood loss during surgery and hemodilution. Patient has a history of CAD status post stents around 8 to 9 years ago and she was on aspirin and Plavix. After her surgery, she was started on Eliquis 2.5 mg p.o. twice daily. I discussed the case with Dr. Inman who agreed to stop Plavix for now, continue aspirin and Eliquis for 3 weeks and then patient may resume her Plavix back. Patient discharged to inpatient rehabilitation unit in a stable medical condition, discharged on aspirin and Eliquis, discharged on [place] PRN for pain, continued on her previous home medication without any changes, recommended follow-up with PCP in 1 to 2 weeks, follow-up with orthopedic surgery in 4 weeks. Plan PT for mobility OT for ADLs Analgesics as needed Bowel protocol Fall Precautions Right intertrochanteric femur FX post ORIF 02/15/19 aldo was D/C. HTN on zertril and lopressor DM on glucophage, actos, Humalog and Humalog S.C, Lantus, accuchecks patient and family training and education -hospitalist managing HLD on lipitor Mild Dementia on aricept Depression on lexapro and remeron Hypothyroidism on Synthroid and cytomel CAD post stents 2008 and 2009 On ASA, lipitor, zestril , lopressor and monoket. plavix on hold d/t on Eliquis x3 weeks last dose on 02/24/19 DVT prophylaxis on eliquis/knee high jose haynes Medical management per hospitalist-consult F/U with PCP and Orthopedics
[2019-02-15 17:00] LABS: Bedside Glucose 90 mg/dL (70-110)
--- NOTE | 2019-02-15 17:00 | NURSING ---
This nurse spoke to patient's daughter and therapy and correction education will be this and nursing will go over diabetes education with daughter regarding the new changes of her medications.
[2019-02-15] MEDS: Insulin Lispro 100 UNIT/ML INSULN.PEN 15 UNIT SC (17:49)
[2019-02-15 19:30] VITALS: BP 118/65; PULSE 71; RESP 16; TEMP 37; O2SAT 93
[2019-02-15 21:25] LABS: Bedside Glucose 136 mg/dL (70-110)
[2019-02-15 22:00] VITALS: RESP 16
[2019-02-15 22:16] VITALS: PULSE 71
[2019-02-15] MEDS: Mirtazapine 15 MG Tablet PO (22:16)
[2019-02-15] MEDS: Atorvastatin Calcium 80 MG Tablet PO (22:17)
[2019-02-15] MEDS: Donepezil HCl 10 MG Tablet PO (22:19)
[2019-02-16] MEDS: Levothyroxine 50 MCG Tablet PO (05:44)
--- NOTE | 2019-02-16 05:48 | NURSING ---
Nursing advised pt of a.m. ADLs with therapy. Pt denied pain meds and denied pain, so therefore did not take pain meds before therapy in order to avoid getting behind pain with movement.
[2019-02-16 07:10] LABS: Bedside Glucose 299 mg/dL (70-110)
[2019-02-16 07:31] VITALS: BP 122/66; PULSE 72; RESP 18; TEMP 36.6; O2SAT 97
[2019-02-16] MEDS: Isosorbide Mononitrate 20 MG Tablet PO ×2 (07:51→21:40)
[2019-02-16] MEDS: Pioglitazone Hydrochloride 30 MG Tablet PO (07:51)
[2019-02-16] MEDS: Aspirin E.C. 81 MG Tablet PO (07:51)
[2019-02-16] MEDS: Lisinopril 20 MG Tablet PO ×2 (07:52→21:40)
[2019-02-16] MEDS: Mirabegron 25 MG TAB.ER.24H PO (07:52)
[2019-02-16] MEDS: Escitalopram Oxalate 10 MG Tablet 5 MG PO (07:52)
[2019-02-16] MEDS: Magnesium Oxide 400 MG Tablet PO (07:52)
[2019-02-16] MEDS: APIXABAN 2.5 MG TABLET PO ×2 (07:53→21:40)
[2019-02-16] MEDS: metFORMIN (XR) 500 MG Tablet PO (07:53)
[2019-02-16] MEDS: amLODIPine 5 MG Tablet PO (07:53)
[2019-02-16] MEDS: HYDROcodone Bitartrate/Apap 5/325 Tablet PO ×3 (07:53→21:40)
[2019-02-16 07:54] VITALS: PULSE 90
[2019-02-16] MEDS: Metoprolol Tartrate 25 MG Tablet 75 MG PO ×2 (07:54→21:40)
[2019-02-16] MEDS: Insulin Lispro 100 UNIT/ML INSULN.PEN 8 UNIT SC (07:55)
[2019-02-16] MEDS: Insulin Lispro 100 UNIT/ML INSULN.PEN SC ×4 (07:55→21:42)
--- NOTE | 2019-02-16 09:16 | PN.NEURO_ITS ---
Subjective: Per nursing no issues overnight. Per patient tolerating therapies well and pain is controlled. Nursing continues to provide diabetes education, glucose monitoring and insulin administration. Per nursing patient is forgetful and can not remember sequences and frequent required. Nursing set up diabetes education with family on 02/17/19 19. - Physical Exam General: Alert, Oriented x3 - can be forgetful, Cooperative HEENT: Atraumatic, PERRLA Oral: Moist Mucosa Neck: Supple, No JVD Lungs: Clear to auscultation, Normal air movement Cardiovascular: Regular rate, Regular Rhythm Abdomen: Bowel Sounds Present, Soft, Non Tender Extremities: No clubbing, No cyanosis, No edema Skin: Incision - right hip incision healing, without redness or drng Neurological: Cranial nerves II-XII grossly intact, Deep Tendon Reflexes 2+/4 and Symmetrical, Motor Exam 5/5 strength throughout Psych/Mental Status: Normal Affect, Appropriate, - - A/O x3, can be forgetful Vital Signs Temp Pulse Resp BP Pulse Ox 97.9 F 90 18 122/66 H 97 02/16/19 07:31 02/16/19 07:54 02/16/19 07:31 02/16/19 07:31 02/16/19 07:31 Oxygen Delivery Method Room Air Weight: 70.9 kg Body Mass Index (BMI) 27.5 Finger Stick Blood Glucose 190 Intake and Output for Last 24 Hours 02/14/19 02/15/19 02/16/19 23:59 23:59 23:59 Intake Total 160 / 160 Balance 160 / 160 POC Glucose 02/16/19 02/15/19 02/15/19 07:08 20:55 16:57 POC Glucose 299 H 136 H 90 02/15/19 11:19 POC Glucose 138 H Medical Necessity - Tobacco Use Smoking Status: Never smoker Tobacco Use: Non-smoker Assessment/Plan All Active Problems (Last Reviewed 02/04/19 @ 11:29 by Kyler Maldonado MD) Intertrochanteric fracture of right femur (Acute) A 68-year-old female who lives at home with her son and 2 teenage grandchildren who slipped on the floor in the kitchen and fell resulting in a fracture of her right femur on 01/31/2019. The following day she had open reduction and internal fixation performed. She says her postoperative course was uneventful. She lives at home, is independent, continues to drive and the goal of rehab is pentecostal of her prior level of functional independence. 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 She denies any GI or complaints. She lives in a one-story house but she does need to access the basement in order to do laundry. Her only complaint now is mild to moderate right hip pain but she says this is improving. Per hospital discharge summary: Presented to the emergency room because of right hip pain after she slipped at home and she was found to have acute traumatic nondisplaced right intertrochanteric hip fracture. There was no prodromal symptoms such as chest pain, shortness of breath, dizziness, syncope or presyncope. She underwent surgical fixation of the fracture with cephalo-medullary nail fixation. Her postoperative course was uneventful without significant postoperative co mplications except dropping hemoglobin without need for blood transfusion. She did have isolated episode of low-grade fever. Chest x-ray performed that showed no acute infiltrate. Urinalysis showed no evidence of acute cystitis. Patient denies any symptoms assistive of infection. Postoperatively, hemoglobin was 9.9 g/dL without evidence of active bleeding and it is attributed to blood loss du ring surgery and hemodilution. Patient has a history of CAD status post stents around 8 to 9 years ago and she was on aspirin and Plavix. After her surgery, she was started on Eliquis 2.5 mg p.o. twice daily. I discussed the case with Dr. Inman who agreed to stop Plavix for now, continue aspirin and Eliquis for 3 weeks and then patient may resume her Plavix back. Patient discharged to inpatient rehabilitation unit in a stable medical condition, discharged on aspirin and Eliquis, discharged on [place] PRN for pain, continued on her previous home medication without any changes, recommended follow-up with PCP in 1 to 2 weeks, follow-up with orthopedic surgery in 4 weeks. Plan PT for mobility OT for ADLs Analgesics as needed Bowel protocol Fall Precautions Right intertrochanteric femur FX post ORIF 02/15/19 aldo was D/C. HTN on zertril and lopressor DM on glucophage, actos, Humalog and Humalog S.C, Lantus, accuchecks patient education, family training/education on 02/17/19 -hospitalist managing HLD on lipitor Mild Dementia on aricept Depression on lexapro and remeron Hypothyroidism on Synthroid and cytomel CAD post stents 2008 and 2009 On ASA, lipitor, zestril , lopressor and monoket. plavix on hold d/t on Eliquis x3 weeks last dose on 02/24/19 DVT prophylaxis on eliquis/knee high jose [place] Medical management per hospitalist-consult F/U with PCP and Orthopedics
[2019-02-16] MEDS: Insulin Lispro 100 UNIT/ML INSULN.PEN 12 UNIT SC (11:32)
[2019-02-16 12:21] LABS: Bedside Glucose 263 mg/dL (70-110)
--- NOTE | 2019-02-16 16:37 | PCM.PN.HOSP ---
Subjective: Ritu have been removed on 02/15. Patient is doing good with physical therapy. Vitals/I&O's: Vital Signs Temp Pulse Resp BP Pulse Ox 97.9 F 90 18 122/66 H 97 02/16/19 07:31 02/16/19 07:54 02/16/19 07:31 02/16/19 07:31 02/16/19 07:31 Oxygen Delivery Method Room Air Weight: 156 lb 4.924 oz Body Mass Index (BMI) 27.5 Finger Stick Blood Glucose 190 Intake and Output for Last 24 Hours 02/14/19 02/15/19 02/16/19 23:59 23:59 23:59 Intake Total 160 / 160 Balance 160 / 160 General: Alert, Oriented x3, Cooperative HEENT: Atraumatic, PERRLA, EOMI, Normocephalic Neck: Supple, No JVD, Negative Carotid Bruits Lungs: Clear to auscultation, Normal air movement, No rhonchi, No wheeze, No rales Cardiovascular: Regular rate, Regular Rhythm, Normal S1, No murmurs Abdomen: Bowel Sounds Present, Soft, Non Tender, Non-Distended Extremities: No edema, Capillary Refill Less than 3 Seconds Skin: No rashes, No breakdown Musculoskeletal: No Tenderness to Palpation of Joints or Extremities, Arthritic Changes, - - Right hip surgical scar healthy. Lymphatic: No Cervical, Supraclavicular, or Inguinal Adenopathy Neurological: Cranial nerves II-XII grossly intact, Deep Tendon Reflexes 2+/4 and Symmetrical, Neuro grossly intact, Motor Exam 5/5 strength throughout Psych/Mental Status: Normal Affect, Appropriate Laboratory Results 02/15/19 16:57: POC Glucose 90 02/15/19 20:55: POC Glucose 136 H 02/16/19 07:08: POC Glucose 299 H 02/16/19 11:31: POC Glucose 263 H Current Medications Acetaminophen (Tylenol) 650 mg PO Q6H PRN PRN PRN Reason: Mild Pain (0-3/10)/Headache Last Admin: 02/13/19 22:06 Dose: 650 mg Documented by: Hydrocodone Bitart/Acetaminophen ([place] 5mg-325mg) 1 - 2 tablet PO Q4H PRN PRN PRN Reason: SEVERE PAIN (6-10/10) Last Admin: 02/16/19 15:14 Dose: 2 tablet Documented by: Amlodipine Besylate (Norvasc) 5 mg PO DAILY PENDING SALE TO [facility] Last Admin: 02/16/19 07:53 Dose: 5 mg Documented by: Apixaban (Eliquis) 2.5 mg PO BID PENDING SALE TO [facility] Stop: 02/24/19 10:01 Last Admin: 02/16/19 07:53 Dose: 2.5 mg Documented by: Aspirin (Ecotrin) 81 mg PO DAILY@0800 PENDING SALE TO [facility] Last Admin: 02/16/19 07:51 Dose: 81 mg Documented by: Atorvastatin Calcium (Lipitor) 80 mg PO QHS PENDING SALE TO [facility] Last Admin: 02/15/19 22:17 Dose: 80 mg Documented by: Bisacodyl (Dulcolax) 10 mg RECTAL .PRN X 1 PRN PRN Reason: Constipation Cholecalciferol (Vitamin D) 500 unit PO DAILY PENDING SALE TO [facility] Last Admin: 02/16/19 07:51 Dose: 500 unit Documented by: Donepezil HCl (Aricept) 10 mg PO QHS PENDING SALE TO [facility] Last Admin: 02/15/19 22:19 Dose: 10 mg Documented by: Escitalopram Oxalate (Lexapro) 5 mg PO DAILY PENDING SALE TO [facility] Last Admin: 02/16/19 07:52 Dose: 5 mg Documented by: Insulin Glargine (Lantus (Bkc)) 10 units SC BID PENDING SALE TO [facility] Last Admin: 02/16/19 11:32 Dose: 10 u Documented by: Insulin Human Lispro (Humalog Kwikpen (Bkc)) 12 unit SC LUNCH PENDING SALE TO [facility] Last Admin: 02/16/19 11:32 Dose: 12 units Documented by: Insulin Human Lispro (Humalog Kwikpen (Bkc)) 0 unit SC ACHS PENDING SALE TO [facility]; Protocol Last Admin: 02/16/19 11:32 Dose: 6 u Documented by: Insulin Human Lispro (Humalog Kwikpen (Bkc)) 15 unit SC DINNER PENDING SALE TO [facility] Last Admin: 02/15/19 17:49 Dose: 15 units Documented by: Insulin Human Lispro (Humalog Kwikpen (Bkc)) 8 unit SC BREAKFAST PENDING SALE TO [facility] Last Admin: 02/16/19 07:55 Dose: 8 u Documented by: Isosorbide Mononitrate (Monoket) 20 mg PO BID PENDING SALE TO [facility] Last Admin: 02/16/19 07:51 Dose: 20 mg Documented by: Lactobacillus Acidophilus (Acidophilus) 1 tablet PO DAILY PENDING SALE TO [facility] Last Admin: 02/16/19 07:51 Dose: 1 tablet Documented by: Levothyroxine Sodium (Synthroid) 50 mcg PO DAILY@0600 PENDING SALE TO [facility] Last Admin: 02/16/19 05:44 Dose: 50 mcg Documented by: Liothyronine Sodium (Cytomel) 25 mcg PO DAILY@0600 PENDING SALE TO [facility] Last Admin: 02/16/19 05:44 Dose: 25 mcg Documented by: Lisinopril (Zestril) 20 mg PO BID PENDING SALE TO [facility] Last Admin: 02/16/19 07:52 Dose: 20 mg Documented by: Magnesium Hydroxide (Milk Of Magnesia) 30 ml PO .PRN X 1 PRN PRN Reason: Constipation Magnesium Oxide (Mag-Ox 400) 400 mg PO DAILY PENDING SALE TO [facility] Last Admin: 02/16/19 07:52 Dose: 400 mg Documented by: Metformin HCl (Glucophage Xr) 500 mg PO DAILY@0800 PENDING SALE TO [facility] Last Admin: 02/16/19 07:53 Dose: 500 mg Documented by: Metoprolol Tartrate (Lopressor (Beta [place])) 75 mg PO BID PENDING SALE TO [facility] Last Admin: 02/16/19 07:54 Dose: 75 mg Documented by: Mirtazapine (Remeron) 15 mg PO QHS PENDING SALE TO [facility] Last Admin: 02/15/19 22:16 Dose: 15 mg Documented by: Ondansetron HCl (Zofran Odt) 4 mg PO Q8H PRN PRN PRN Reason: NAUSEA Last Admin: 02/09/19 11:43 Dose: 4 mg Documented by: Pioglitazone HCl (Actos) 30 mg PO DAILY PENDING SALE TO [facility] Last Admin: 02/16/19 07:51 Dose: 30 mg Documented by: Senna/Docusate Sodium (Senokot-S, Ella-Colace) 2 tablet PO BID PENDING SALE TO [facility] Last Admin: 02/16/19 07:54 Dose: Not Given Documented by: Medical Necessity - Tobacco Use Smoking Status: Never smoker Tobacco Use: Non-smoker Assessment/Plan All Active Problems (Last Reviewed 02/04/19 @ 11:29 by Kyler Maldonado MD) Intertrochanteric fracture of right femur (Acute) The patient is a 68-year-old female with a past medical history of uncontrolled diabetes mellitus type 2 with a recent hemoglobin A1c of 9.7, hypertension, depression, hyperlipidemia, coronary artery disease was admitted to acute rehab after she had [place] medullary nail for right intertrochanteric fracture. She had fracture secondary to fall. She is recently diagnosed osteoporosis by [employer]. Assessment and plan: 1. Acute traumatic nondisplaced right intertrochanteric hip fracture, status post cephalo-medullary nail fixation on 01/31/2019. Pain is adequately controlled with [place]. Ritu were removed on 02/15. Currently on PT and OT and doing well. 2. Postoperative anemia secondary to blood loss and hemodilution. Hemoglobin is stable. Last H&H 9.01/20. 3. Labile diabetes mellitus type 2: Blood sugar fluctuates, in 500s on 02/13 and 02/14. Currently running low 62 and 86. Insulin titrated accordingly. Lantus and Humalog insulin decreased. 4. Coronary artery disease with history of PCI 5. Hypertension 6. Hyperlipidemia 7. dementia- on donepezil 8. osteoporosis: On vitamin and calcium supplement. Continue PT and OT. 9. Depression-on Escitalopram 10. Hypothyroidism DVT prophylaxis: On Eliquis 2.5 mg twice daily Active Medications Acetaminophen (Tylenol) 650 mg PO Q6H PRN PRN PRN Reason: Mild Pain (0-3/10)/Headache Last Admin: 02/13/19 22:06 Dose: 650 mg Documented by: Hydrocodone Bitart/Acetaminophen ([place] 5mg-325mg) 1 - 2 tablet PO Q4H PRN PRN PRN Reason: SEVERE PAIN (6-10/10) Last Admin: 02/16/19 15:14 Dose: 2 tablet Documented by: Amlodipine Besylate (Norvasc) 5 mg PO DAILY PENDING SALE TO [facility] Last Admin: 02/16/19 07:53 Dose: 5 mg Documented by: Apixaban (Eliquis) 2.5 mg PO BID PENDING SALE TO [facility] Stop: 02/24/19 10:01 Last Admin: 02/16/19 07:53 Dose: 2.5 mg Documented by: Aspirin (Ecotrin) 81 mg PO DAILY@0800 PENDING SALE TO [facility] Last Admin: 02/16/19 07:51 Dose: 81 mg Documented by: Atorvastatin Calcium (Lipitor) 80 mg PO QHS PENDING SALE TO [facility] Last Admin: 02/15/19 22:17 Dose: 80 mg Documented by: Bisacodyl (Dulcolax) 10 mg RECTAL .PRN X 1 PRN PRN Reason: Constipation Cholecalciferol (Vitamin D) 500 unit PO DAILY PENDING SALE TO [facility] Last Admin: 02/16/19 07:51 Dose: 500 unit Documented by: Donepezil HCl (Aricept) 10 mg PO QHS PENDING SALE TO [facility] Last Admin: 02/15/19 22:19 Dose: 10 mg Documented by: Escitalopram Oxalate (Lexapro) 5 mg PO DAILY PENDING SALE TO [facility] Last Admin: 02/16/19 07:52 Dose: 5 mg Documented by: Insulin Glargine (Lantus (Bkc)) 10 units SC BID PENDING SALE TO [facility] Last Admin: 02/16/19 11:32 Dose: 10 u Documented by: Insulin Human Lispro (Humalog Kwikpen (Bkc)) 12 unit SC LUNCH PENDING SALE TO [facility] Last Admin: 02/16/19 11:32 Dose: 12 units Documented by: Insulin Human Lispro (Humalog Kwikpen (Bkc)) 0 unit SC ACHS PENDING SALE TO [facility]; Protocol Last Admin: 02/16/19 11:32 Dose: 6 u Documented by: Insulin Human Lispro (Humalog Kwikpen (Bkc)) 15 unit SC DINNER PENDING SALE TO [facility] Last Admin: 02/16/19 17:09 Dose: Not Given Documented by: Insulin Human Lispro (Humalog Kwikpen (Bkc)) 8 unit SC BREAKFAST PENDING SALE TO [facility] Last Admin: 02/16/19 07:55 Dose: 8 u Documented by: Isosorbide Mononitrate (Monoket) 20 mg PO BID PENDING SALE TO [facility] Last Admin: 02/16/19 07:51 Dose: 20 mg Documented by: Lactobacillus Acidophilus (Acidophilus) 1 tablet PO DAILY PENDING SALE TO [facility] Last Admin: 02/16/19 07:51 Dose: 1 tablet Documented by: Levothyroxine Sodium (Synthroid) 50 mcg PO DAILY@0600 PENDING SALE TO [facility] Last Admin: 02/16/19 05:44 Dose: 50 mcg Documented by: Liothyronine Sodium (Cytomel) 25 mcg PO DAILY@0600 PENDING SALE TO [facility] Last Admin: 02/16/19 05:44 Dose: 25 mcg Documented by: Lisinopril (Zestril) 20 mg PO BID PENDING SALE TO [facility] Last Admin: 02/16/19 07:52 Dose: 20 mg Documented by: Magnesium Hydroxide (Milk Of Magnesia) 30 ml PO .PRN X 1 PRN PRN Reason: Constipation Magnesium Oxide (Mag-Ox 400) 400 mg PO DAILY PENDING SALE TO [facility] Last Admin: 02/16/19 07:52 Dose: 400 mg Documented by: Metformin HCl (Glucophage Xr) 500 mg PO DAILY@0800 PENDING SALE TO [facility] Last Admin: 02/16/19 07:53 Dose: 500 mg Documented by: Metoprolol Tartrate (Lopressor (Beta [place])) 75 mg PO BID PENDING SALE TO [facility] Last Admin: 02/16/19 07:54 Dose: 75 mg Documented by: Mirtazapine (Remeron) 15 mg PO QHS PENDING SALE TO [facility] Last Admin: 02/15/19 22:16 Dose: 15 mg Documented by: Ondansetron HCl (Zofran Odt) 4 mg PO Q8H PRN PRN PRN Reason: NAUSEA Last Admin: 02/09/19 11:43 Dose: 4 mg Documented by: Pioglitazone HCl (Actos) 30 mg PO DAILY PENDING SALE TO [facility] Last Admin: 02/16/19 07:51 Dose: 30 mg Documented by: Senna/Docusate Sodium (Senokot-S, Ella-Colace) 2 tablet PO BID PENDING SALE TO [facility] Last Admin: 02/16/19 07:54 Dose: Not Given Documented by: Code Visit Inpatient E&M: 65628 Subs Hosp L2
[2019-02-16 16:40] LABS: Bedside Glucose 62 mg/dL (70-110)
--- NOTE | 2019-02-16 16:52 | NURSING ---
At 1632 BS 62 and patient asymptomatic and drank 4 oz juice and on recheck at this time BS 86.
[2019-02-16 16:56] LABS: Bedside Glucose 86 mg/dL (70-110)
[2019-02-16 19:09] VITALS: BP 123/55; PULSE 69; RESP 16; TEMP 36.8; O2SAT 94
[2019-02-16 20:21] LABS: Bedside Glucose 293 mg/dL (70-110)
[2019-02-16 21:40] VITALS: PULSE 69
[2019-02-16] MEDS: Atorvastatin Calcium 80 MG Tablet PO (21:40)
[2019-02-16] MEDS: Donepezil HCl 10 MG Tablet PO (21:40)
[2019-02-16] MEDS: Mirtazapine 15 MG Tablet PO (21:40)
[2019-02-16 22:30] LABS: Bedside Glucose 396 mg/dL (70-110)
[2019-02-17 03:31] LABS: Bedside Glucose 151 mg/dL (70-110)
[2019-02-17 05:05] VITALS: BP 119/68; PULSE 62; RESP 16; TEMP 37; O2SAT 92
[2019-02-17] MEDS: Levothyroxine 50 MCG Tablet PO (05:08)
[2019-02-17] MEDS: HYDROcodone Bitartrate/Apap 5/325 Tablet PO ×2 (05:08→17:47)
[2019-02-17 07:11] LABS: Bedside Glucose 253 mg/dL (70-110)
[2019-02-17] MEDS: Mirabegron 25 MG TAB.ER.24H PO (07:48)
[2019-02-17] MEDS: Isosorbide Mononitrate 20 MG Tablet PO ×2 (07:48→20:43)
[2019-02-17] MEDS: Lisinopril 20 MG Tablet PO ×2 (07:48→20:43)
[2019-02-17] MEDS: Magnesium Oxide 400 MG Tablet PO (07:48)
[2019-02-17] MEDS: Escitalopram Oxalate 10 MG Tablet 5 MG PO (07:48)
[2019-02-17] MEDS: amLODIPine 5 MG Tablet PO (07:48)
[2019-02-17 07:49] VITALS: BP 137/80; PULSE 71
[2019-02-17] MEDS: metFORMIN (XR) 500 MG Tablet PO (07:49)
[2019-02-17] MEDS: Pioglitazone Hydrochloride 30 MG Tablet PO (07:49)
[2019-02-17] MEDS: Metoprolol Tartrate 25 MG Tablet 75 MG PO ×2 (07:49→20:43)
[2019-02-17] MEDS: Aspirin E.C. 81 MG Tablet PO (07:49)
[2019-02-17] MEDS: APIXABAN 2.5 MG TABLET PO ×2 (07:49→20:46)
[2019-02-17] MEDS: Insulin Lispro 100 UNIT/ML INSULN.PEN SC ×3 (07:50→20:45)
[2019-02-17] MEDS: Insulin Lispro 100 UNIT/ML INSULN.PEN 8 UNIT SC ×3 (07:50→17:47)
--- NOTE | 2019-02-17 09:07 | PCM.PN.NEU ---
Subjective: Team meeting held today. Per PT, SBA with transfers and ambulates on and off unit with walker, gait steady. SBA with stairs. Per OT, min assist with bathing to right foot, lower body drsg assistance with right shoe and sock. rest of ADLS and toileting at SBA. Per SW, discharged home on 02/19/19 with walker and home PT, OT, and nurse. Daughter is aware that patient is having difficult with glucose monitoring, insulin/medication education and administration. Per daughter, she is going to follow previous home medication for diabetes that is being managed by drafter geophysical Lilo Price. Daughter aware of updating Dr. Price for further recommendations. Spoke with Danielle at Dr. Price's office and faxed information for Dr. Price to review, for recommendations at discharge. Per Danielle, will call back with update by this afternoon. - Physical Exam General: Alert, Oriented x3 - can be forgetful, Cooperative HEENT: Atraumatic, PERRLA Oral: Moist Mucosa Neck: Supple, No JVD Lungs: Clear to auscultation, Normal air movement Cardiovascular: Regular rate, Regular Rhythm Abdomen: Bowel Sounds Present, Soft, Non Tender Extremities: No clubbing, No cyanosis, No edema Skin: Incision - right hip healing, with no redness or drng Neurological: Cranial nerves II-XII grossly intact, Deep Tendon Reflexes 2+/4 and Symmetrical, Motor Exam 5/5 strength throughout Psych/Mental Status: Normal Affect, Appropriate, - - can be forgetful Vital Signs Temp Pulse Resp BP Pulse Ox 98.6 F 71 16 137/80 H 92 02/17/19 05:05 02/17/19 07:49 02/17/19 05:05 02/17/19 07:49 02/17/19 05:05 Oxygen Delivery Method Room Air Weight: 70.9 kg Body Mass Index (BMI) 27.5 Finger Stick Blood Glucose 190 Intake and Output for Last 24 Hours 02/15/19 02/16/19 02/17/19 23:59 23:59 23:59 Intake Total 160 / 160 Balance 160 / 160 POC Glucose 02/17/19 02/17/19 02/16/19 07:03 03:19 21:39 POC Glucose 253 H 151 H 396 H 02/16/19 02/16/19 02/16/19 19:35 16:50 16:32 POC Glucose 293 H 86 62 L 02/16/19 11:31 POC Glucose 263 H Medical Necessity - Tobacco Use Smoking Status: Never smoker Tobacco Use: Non-smoker Assessment/Plan All Active Problems (Last Reviewed 02/04/19 @ 11:29 by Kyler Maldonado MD) Intertrochanteric fracture of right femur (Acute) A 68-year-old female who lives at home with her son and 2 teenage grandchildren who slipped on the floor in the kitchen and fell resulting in a fracture of her right femur on 01/31/2019. The following day she had open reduction and internal fixation performed. She says her postoperative course was uneventful. She lives at home, is independent, continues to drive and the goal of rehab is zoroastrianism of her prior level of functional independence. 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 She denies any GI or complaints. She lives in a one-story house but she does need to access the basement in order to do laundry. Her only complaint now is mild to moderate right hip pain but she says this is improving. Per hospital discharge summary: Presented to the emergency room because of right hip pain after she slipped at home and she was found to have acute traumatic nondisplaced right intertrochanteric hip fracture. There was no prodromal symptoms such as chest pain, shortness of breath, dizziness, syncope or presyncope. She underwent surgical fixation of the fracture with cephalo-medullary nail fixation. Her postoperative course was uneventful without significant postoperative complications except dropping hemoglobin without need for blood transfusion. She did have isolated episode of low-grade fever. Chest x-ray performed that showed no acute infiltrate. Urinalysis showed no evidence of acute cystitis. Patient denies any symptoms assistive of infection. Postoperatively, hemoglobin was 9.9 g/dL without evidence of active bleeding and it is attributed to blood loss during surgery and hemodilution. Patient has a history of CAD status post stents around 8 to 9 years ago and she was on aspirin and Plavix. After her surgery, she was started on Eliquis 2.5 mg p.o. twice daily. I discussed the case with Dr. Inman who agreed to stop Plavix for now, continue aspirin and Eliquis for 3 weeks and then patient may resume her Plavix back. Patient discharged to inpatient rehabilitation unit in a stable medical condition, discharged on aspirin and Eliquis, discharged on [place] PRN for pain, continued on her previous home medication without any changes, recommended follow-up with PCP in 1 to 2 weeks, follow-up with orthopedic surgery in 4 weeks. Plan PT for mobility OT for ADLs Analgesics as needed Bowel protocol Fall Precautions Right intertrochanteric femur FX post ORIF 02/15/19 aldo was D/C. HTN on zertril and lopressor DM on glucophage, actos, Humalog and Humalog S.C, Lantus, accuchecks AC&HS and @0300 02/01/2019 HgbA1c 9.7 % Patient education, family training/education on 02/17/19 -hospitalist managing Awaiting return call from Dr. Price Director Of Student Financial Aid for further recommendations d/t current regiment will not be followed at home. HLD on lipitor Mild Dementia on aricept Depression on lexapro and remeron Hypothyroidism on Synthroid and cytomel CAD post stents 2008 and 2009 On ASA, lipitor, zestril , lopressor and monoket. plavix on hold d/t on Eliquis x3 weeks last dose on 02/24/19 DVT prophylaxis on eliquis/knee high jose [place] Medical management per hospitalist-consult F/U with PCP, Director Of Student Financial Aid, and Orthopedics
--- NOTE | 2019-02-17 10:06 | NURSING ---
Daughter Delfina was educated on blood glucose testing and insulin usage. discharge Insulin recommendations were discussed with Delfina and the patient. Delfina stated that they started working with an surgical sales representative (Dr. Price) about 6 months ago and that they will go back to the insulin type and dose that the pt was on prior to being admitted to the hospital.
--- NOTE | 2019-02-17 11:43 | CASEMGMT ---
Social Work IDT met with patient and other daughter, Arminda, for Team Meeting. Discussed pt progressing well with therapy and close to prior independence. Nursing working with pt and dtr for insulin training. Pt agreeable to DC 02/19 with [facility] PT/OT/SN then transition to outpatient therapy. Provided dtr the resources again for pill dispenser and home delivered meals[place] [facility] Will deliver to room on the following date. Plan: DC home 02/19 with [facility] PT/OT/SN then transition to outpatient. [employer] for FWW.
[2019-02-17 12:01] LABS: Bedside Glucose 250 mg/dL (70-110)
[2019-02-17 17:16] LABS: Bedside Glucose 141 mg/dL (70-110)
[2019-02-17 19:59] VITALS: BP 123/72; PULSE 80; RESP 16; TEMP 37.2; O2SAT 96
[2019-02-17 20:43] VITALS: BP 123/72; PULSE 80
[2019-02-17] MEDS: Mirtazapine 15 MG Tablet PO (20:43)
[2019-02-17] MEDS: Atorvastatin Calcium 80 MG Tablet PO (20:44)
[2019-02-17] MEDS: Donepezil HCl 10 MG Tablet PO (20:46)
[2019-02-17 22:51] LABS: Bedside Glucose 289 mg/dL (70-110)
[2019-02-18 03:16] LABS: Bedside Glucose 313 mg/dL (70-110)
[2019-02-18] MEDS: HYDROcodone Bitartrate/Apap 5/325 Tablet PO ×2 (06:19→11:09)
[2019-02-18] MEDS: Levothyroxine 50 MCG Tablet PO (06:20)
[2019-02-18 07:05] LABS: Bedside Glucose 383 mg/dL (70-110)
[2019-02-18] MEDS: Pioglitazone Hydrochloride 30 MG Tablet PO (07:39)
[2019-02-18] MEDS: Mirabegron 25 MG TAB.ER.24H PO (07:39)
[2019-02-18] MEDS: Isosorbide Mononitrate 20 MG Tablet PO ×2 (07:39→21:21)
[2019-02-18] MEDS: amLODIPine 5 MG Tablet PO (07:40)
[2019-02-18] MEDS: metFORMIN (XR) 500 MG Tablet PO (07:40)
[2019-02-18] MEDS: Aspirin E.C. 81 MG Tablet PO (07:40)
[2019-02-18] MEDS: Escitalopram Oxalate 10 MG Tablet 5 MG PO (07:40)
[2019-02-18] MEDS: APIXABAN 2.5 MG TABLET PO ×2 (07:40→21:20)
[2019-02-18 07:42] VITALS: PULSE 78
[2019-02-18] MEDS: Lisinopril 20 MG Tablet PO ×2 (07:42→21:21)
[2019-02-18] MEDS: Magnesium Oxide 400 MG Tablet PO (07:42)
[2019-02-18] MEDS: Metoprolol Tartrate 25 MG Tablet 75 MG PO ×2 (07:42→21:20)
[2019-02-18] MEDS: Insulin Lispro 100 UNIT/ML INSULN.PEN SC ×4 (07:43→22:05)
[2019-02-18] MEDS: Insulin Lispro 100 UNIT/ML INSULN.PEN 8 UNIT SC ×2 (07:45→12:39)
[2019-02-18 07:53] VITALS: BP 149/72; PULSE 83; RESP 16; TEMP 36.7; O2SAT 95
[2019-02-18 11:16] LABS: Bedside Glucose 322 mg/dL (70-110)
[2019-02-18 17:21] LABS: Bedside Glucose 198 mg/dL (70-110)
--- NOTE | 2019-02-18 17:26 | PCM.PN.HOSP ---
Subjective: Patient is scheduled for discharge tomorrow. Has mild pain/soreness on the right hip surgical site. [place] have already been removed. Surgical incision wound is healing good. Vitals/I&O's: Vital Signs Temp Pulse Resp BP Pulse Ox 98.0 F 83 16 149/72 H 95 02/18/19 07:53 02/18/19 07:53 02/18/19 07:53 02/18/19 07:53 02/18/19 07:53 Oxygen Delivery Method Room Air Weight: 156 lb 4.924 oz Body Mass Index (BMI) 27.5 Finger Stick Blood Glucose 190 Intake and Output for Last 24 Hours 02/16/19 02/17/19 02/18/19 23:59 23:59 23:59 Intake Total 240 / 240 240 / 240 Balance 240 / 240 240 / 240 General: Alert, Oriented x3, Cooperative HEENT: Atraumatic, PERRLA, EOMI, Normocephalic Neck: Supple, No JVD, Negative Carotid Bruits Lungs: Clear to auscultation, Normal air movement Cardiovascular: Regular rate, No murmurs Abdomen: Bowel Sounds Present, Soft, Non Tender, Non-Distended, No Hepato-splenomegaly Extremities: No edema, Capillary Refill Less than 3 Seconds Skin: No rashes, No breakdown Musculoskeletal: No Tenderness to Palpation of Joints or Extremities, Arthritic Changes, - - Right hip surgical scar healthy. Neurological: Cranial nerves II-XII grossly intact Psych/Mental Status: Normal Affect, Appropriate Laboratory Results 02/17/19 20:42: POC Glucose 289 H 02/18/19 03:08: POC Glucose 313 H 02/18/19 06:26: POC Glucose 383 H 02/18/19 11:02: POC Glucose 322 H 02/18/19 17:12: POC Glucose 198 H Current Medications Acetaminophen (Tylenol) 650 mg PO Q6H PRN PRN PRN Reason: Mild Pain (0-3/10)/Headache Last Admin: 02/13/19 22:06 Dose: 650 mg Documented by: Hydrocodone Bitart/Acetaminophen ([place] 5mg-325mg) 1 - 2 tablet PO Q4H PRN PRN PRN Reason: SEVERE PAIN (6-10/10) Last Admin: 02/18/19 11:09 Dose: 1 tablet Documented by: Amlodipine Besylate (Norvasc) 5 mg PO DAILY [facility] Last Admin: 02/18/19 07:40 Dose: 5 mg Documented by: Apixaban (Eliquis) 2.5 mg PO BID [facility] Stop: 02/24/19 10:01 Last Admin: 02/18/19 07:40 Dose: 2.5 mg Documented by: Aspirin (Ecotrin) 81 mg PO DAILY@0800 [facility] Last Admin: 02/18/19 07:40 Dose: 81 mg Documented by: Atorvastatin Calcium (Lipitor) 80 mg PO QHS [facility] Last Admin: 02/17/19 20:44 Dose: 80 mg Documented by: Bisacodyl (Dulcolax) 10 mg RECTAL .PRN X 1 PRN PRN Reason: Constipation Cholecalciferol (Vitamin D) 500 unit PO DAILY [facility] Last Admin: 02/18/19 07:40 Dose: 500 unit Documented by: Dextrose (D50w Syringe) 0 gm IV X1 PRN; Protocol PRN Reason: Hypoglycemia Donepezil HCl (Aricept) 10 mg PO QHS [facility] Last Admin: 02/17/19 20:46 Dose: 10 mg Documented by: Escitalopram Oxalate (Lexapro) 5 mg PO DAILY [facility] Last Admin: 02/18/19 07:40 Dose: 5 mg Documented by: Glucagon () 1 mg IM .X1 PRN PRN Reason: Hypoglycemia Insulin Glargine (Lantus (Bkc)) 5 units SC BID [facility] Last Admin: 02/18/19 11:04 Dose: 5 u Documented by: Insulin Human Lispro (Humalog Kwikpen (Bkc)) 0 unit SC ACHS [facility]; Protocol Last Admin: 02/18/19 11:04 Dose: 6 u Documented by: Insulin Human Lispro (Humalog Kwikpen (Bkc)) 8 unit SC BREAKFAST [facility] Last Admin: 02/18/19 07:45 Dose: 8 u Documented by: Insulin Human Lispro (Humalog Kwikpen (Bkc)) 8 unit SC LUNCH [facility] Last Admin: 02/18/19 12:39 Dose: 8 u Documented by: Insulin Human Lispro (Humalog Kwikpen (Bkc)) 8 unit SC DINNER [facility] Last Admin: 02/17/19 17:47 Dose: 8 units Documented by: Isosorbide Mononitrate (Monoket) 20 mg PO BID [facility] Last Admin: 02/18/19 07:39 Dose: 20 mg Documented by: Lactobacillus Acidophilus (Acidophilus) 1 tablet PO DAILY [facility] Last Admin: 02/18/19 07:40 Dose: 1 tablet Documented by: Levothyroxine Sodium (Synthroid) 50 mcg PO DAILY@0600 [facility] Last Admin: 02/18/19 06:20 Dose: 50 mcg Documented by: Liothyronine Sodium (Cytomel) 25 mcg PO DAILY@0600 [facility] Last Admin: 02/18/19 06:20 Dose: 25 mcg Documented by: Lisinopril (Zestril) 20 mg PO BID [facility] Last Admin: 02/18/19 07:42 Dose: 20 mg Documented by: Magnesium Hydroxide (Milk Of Magnesia) 30 ml PO .PRN X 1 PRN PRN Reason: Constipation Magnesium Oxide (Mag-Ox 400) 400 mg PO DAILY [facility] Last Admin: 02/18/19 07:42 Dose: 400 mg Documented by: Metformin HCl (Glucophage Xr) 500 mg PO DAILY@0800 [facility] Last Admin: 02/18/19 07:40 Dose: 500 mg Documented by: Metoprolol Tartrate (Lopressor (Beta [place])) 75 mg PO BID [facility] Last Admin: 02/18/19 07:42 Dose: 75 mg Documented by: Mirtazapine (Remeron) 15 mg PO QHS [facility] Last Admin: 02/17/19 20:43 Dose: 15 mg Documented by: Ondansetron HCl (Zofran Odt) 4 mg PO Q8H PRN PRN PRN Reason: NAUSEA Last Admin: 02/09/19 11:43 Dose: 4 mg Documented by: Pioglitazone HCl (Actos) 30 mg PO DAILY [facility] Last Admin: 02/18/19 07:39 Dose: 30 mg Documented by: Senna/Docusate Sodium (Senokot-S, Ella-Colace) 2 tablet PO BID [facility] Last Admin: 02/18/19 07:45 Dose: Not Given Documented by: Medical Necessity - Tobacco Use Smoking Status: Never smoker Tobacco Use: Non-smoker Assessment/Plan All Active Problems (Last Reviewed 02/04/19 @ 11:29 by Kyler Maldonado MD) Intertrochanteric fracture of right femur (Acute) The patient is a 68-year-old female with a past medical history of uncontrolled diabetes mellitus type 2 with a recent hemoglobin A1c of 9.7, hypertension, depression, hyperlipidemia, coronary artery disease was admitted to acute rehab after she had [place] medullary nail for right intertrochanteric fracture. She had fracture secondary to fall. She is recently diagnosed osteoporosis by water resources technical officer. Assessment and plan: 1. Acute traumatic nondisplaced right intertrochanteric hip fracture, status post cephalo-medullary nail fixation on 01/31/2019. Pain is adequately controlled with [place]. [place] were removed on 02/15. Currently on PT and OT and doing well. 2. Postoperative anemia secondary to blood loss and hemodilution. Hemoglobin is stable. Last H&H 9.01/20. 3. Labile diabetes mellitus type 2: Blood sugar fluctuates, in 500s on 02/13 and 02/14. Currently running low 62 and 86. Blood sugars are in 300. Humalog insulin adjusted accordingly. 4. Coronary artery disease with history of PCI 5. Hypertension 6. Hyperlipidemia 7. dementia- on donepezil 8. osteoporosis: On vitamin and calcium supplement. Continue PT and OT. 9. Depression-on Escitalopram 10. Hypothyroidism DVT prophylaxis: On Eliquis 2.5 mg twice daily Active Medications Acetaminophen (Tylenol) 650 mg PO Q6H PRN PRN PRN Reason: Mild Pain (0-3/10)/Headache Last Admin: 02/13/19 22:06 Dose: 650 mg Documented by: Hydrocodone Bitart/Acetaminophen ([place] 5mg-325mg) 1 - 2 tablet PO Q4H PRN PRN PRN Reason: SEVERE PAIN (6-10/10) Last Admin: 02/18/19 11:09 Dose: 1 tablet Documented by: Amlodipine Besylate (Norvasc) 5 mg PO DAILY [facility] Last Admin: 02/18/19 07:40 Dose: 5 mg Documented by: Apixaban (Eliquis) 2.5 mg PO BID [facility] Stop: 02/24/19 10:01 Last Admin: 02/18/19 07:40 Dose: 2.5 mg Documented by: Aspirin (Ecotrin) 81 mg PO DAILY@0800 [facility] Last Admin: 02/18/19 07:40 Dose: 81 mg Documented by: Atorvastatin Calcium (Lipitor) 80 mg PO QHS [facility] Last Admin: 02/17/19 20:44 Dose: 80 mg Documented by: Bisacodyl (Dulcolax) 10 mg RECTAL .PRN X 1 PRN PRN Reason: Constipation Cholecalciferol (Vitamin D) 500 unit PO DAILY [facility] Last Admin: 02/18/19 07:40 Dose: 500 unit Documented by: Dextrose (D50w Syringe) 0 gm IV X1 PRN; Protocol PRN Reason: Hypoglycemia Donepezil HCl (Aricept) 10 mg PO QHS [facility] Last Admin: 02/17/19 20:46 Dose: 10 mg Documented by: Escitalopram Oxalate (Lexapro) 5 mg PO DAILY [facility] Last Admin: 02/18/19 07:40 Dose: 5 mg Documented by: Glucagon () 1 mg IM .X1 PRN PRN Reason: Hypoglycemia Insulin Glargine (Lantus (Bkc)) 5 units SC BID [facility] Last Admin: 02/18/19 11:04 Dose: 5 u Documented by: Insulin Human Lispro (Humalog Kwikpen (Bkc)) 0 unit SC ACHS [facility]; Protocol Last Admin: 02/18/19 11:04 Dose: 6 u Documented by: Insulin Human Lispro (Humalog Kwikpen (Bkc)) 8 unit SC BREAKFAST [facility] Last Admin: 02/18/19 07:45 Dose: 8 u Documented by: Insulin Human Lispro (Humalog Kwikpen (Bkc)) 8 unit SC LUNCH [facility] Last Admin: 02/18/19 12:39 Dose: 8 u Documented by: Insulin Human Lispro (Humalog Kwikpen (Bkc)) 8 unit SC DINNER [facility] Last Admin: 02/17/19 17:47 Dose: 8 units Documented by: Isosorbide Mononitrate (Monoket) 20 mg PO BID [facility] Last Admin: 02/18/19 07:39 Dose: 20 mg Documented by: Lactobacillus Acidophilus (Acidophilus) 1 tablet PO DAILY [facility] Last Admin: 02/18/19 07:40 Dose: 1 tablet Documented by: Levothyroxine Sodium (Synthroid) 50 mcg PO DAILY@0600 [facility] Last Admin: 02/18/19 06:20 Dose: 50 mcg Documented by: Liothyronine Sodium (Cytomel) 25 mcg PO DAILY@0600 [facility] Last Admin: 02/18/19 06:20 Dose: 25 mcg Documented by: Lisinopril (Zestril) 20 mg PO BID [facility] Last Admin: 02/18/19 07:42 Dose: 20 mg Documented by: Magnesium Hydroxide (Milk Of Magnesia) 30 ml PO .PRN X 1 PRN PRN Reason: Constipation Magnesium Oxide (Mag-Ox 400) 400 mg PO DAILY [facility] Last Admin: 02/18/19 07:42 Dose: 400 mg Documented by: Metformin HCl (Glucophage Xr) 500 mg PO DAILY@0800 [facility] Last Admin: 02/18/19 07:40 Dose: 500 mg Documented by: Metoprolol Tartrate (Lopressor (Beta [place])) 75 mg PO BID [facility] Last Admin: 02/18/19 07:42 Dose: 75 mg Documented by: Mirtazapine (Remeron) 15 mg PO QHS [facility] Last Admin: 02/17/19 20:43 Dose: 15 mg Documented by: Ondansetron HCl (Zofran Odt) 4 mg PO Q8H PRN PRN PRN Reason: NAUSEA Last Admin: 02/09/19 11:43 Dose: 4 mg Documented by: Pioglitazone HCl (Actos) 30 mg PO DAILY [facility] Last Admin: 02/18/19 07:39 Dose: 30 mg Documented by: Senna/Docusate Sodium (Senokot-S, Ella-Colace) 2 tablet PO BID [facility] Last Admin: 02/18/19 07:45 Dose: Not Given Documented by: Code Visit Inpatient E&M: 29292 Subs Hosp L2
--- NOTE | 2019-02-18 17:30 | NURSING ---
Patient given education on sliding scale insulin order/routine insulin orders and demonstration on how to use insulin pen but difficult for patient to comprehend. Will monitor and continue education with patient.
--- NOTE | 2019-02-18 17:30 | PCM.DC ---
- Discharge Diagnoses Reason(s) for Visit for Discharge Instructions: Right intertrochanteric femur FX post ORIF You will use the following diet at home:: Calorie/Carbohydrate Controlled (specify 1200, 1400, etc) - 1800 Your food should be the consistency of: Regular Your liquids should be the consistency of: Regular/Thin Discharge Activity: Return to Normal Activity, May Not Drive, May Shower, Use Walker Weight Bearing Status: Weight bearing as tolerated Call your doctor if your incision/area has: Continuous Slow Oozing, Sudden Increased Bleeding, Increased Pain/ Swelling, Increased Redness, Foul Smelling Discharge, Swelling at the incision site Call your doctor if you observe: Fever of 101 or Higher, Coldness, Increased Pain, Numbness or Tingling, Change in Color, Inability to urinate, Inability to have a bowel movement, Shortness of breath, Dizziness, Fainting spells, Swelling in the ankles, Chest pain, Prolonged hiccoughing, Increased palpitations (irregular heartbeat), Calf discomfort, Uncontrolled pain Cleanse incision/area with: Soap & Water Instructions: Diabetes: The Benefits of Exercise, Diabetes: Understanding Carbohydrates, Fats, and Protein, Diabetes: Activity Tips, Diabetes: Caring for Your Body Additional Instructions: Last dose of eliquis is the morning on 02/24/19. Monitor glucose levels before meals and at bedtime. Follow up with Dr Price Allergies/Adverse Reactions: Allergies fentanyl Allergy (Verified 01/31/19 13:14) Low blood pressure diazepam [From Valium] Adverse Reaction (Verified 01/31/19 13:14) Other Medications to take at Discharge Acetaminophen [Tylenol Tablet] 650 mg PO Q6H PRN PRN tab 02/18/19 Amlodipine [Norvasc] 5 mg PO DAILY tab 02/18/19 Apixaban [Eliquis] 2.5 mg PO BID #9 tab 02/18/19 Aspirin E.C. [Ecotrin] 81 mg PO DAILY@0800 tab 02/18/19 Atorvastatin Calcium [Lipitor] 80 mg PO QHS tab 02/18/19 Cholecalciferol (VIT D3) [Vitamin D3] 500 unit PO DAILY tab 02/18/19 Donepezil HCl [Aricept] 10 mg PO QHS tab 02/18/19 Escitalopram Oxalate [Lexapro] 5 mg PO DAILY tab 02/18/19 Hydrocodone Bitart/Apap 5-325 [[place] 5/325] 1 - 2 tab PO Q8H PRN PRN 5 Days #30 tab 02/18/19 Insulin Glargine [Lantus SoloStar Pen] 5 units SUBCUT BID #1 pen 02/18/19 Insulin Lispro [Humalog KwikPen] 8 unit SUBCUT BREAKFAST #0 insuln.pen 02/18/19 Insulin Lispro [Humalog KwikPen] 8 unit SUBCUT DINNER #1 insuln.pen 02/18/19 Insulin Lispro [Humalog KwikPen] 8 unit SUBCUT LUNCH #0 insuln.pen 02/18/19 Insulin Lispro [Humalog KwikPen] See Protocol SUBCUT ACHS #1 insuln.pen 02/18/19 Isosorbide Mononitrate [Monoket] 20 mg PO BID tab 02/18/19 Lactobacillus Acidophilus [Acidophilus] 1 tab PO DAILY tab 02/18/19 Levothyroxine [Synthroid] 50 mcg PO DAILY@0600 tab 02/18/19 Liothyronine Sodium [Cytomel] 25 mcg PO DAILY@0600 tab 02/18/19 Lisinopril [Zestril] 20 mg PO BID tab 02/18/19 Magnesium Oxide [Mag-Ox 400] 400 mg PO DAILY tab 02/18/19 Metoprolol Tartrate [Lopressor (beta rona)] 75 mg PO BID tab 02/18/19 Mirabegron [Myrbetriq] 25 mg PO Q24 tab.er.24h 02/18/19 Mirtazapine [Remeron] 15 mg PO QHS tab 02/18/19 Pioglitazone [Actos] 30 mg PO DAILY tab 02/18/19 metFORMIN (XR) [Glucophage Xr] 500 mg PO DAILY@0800 #30 tab 02/18/19 The following prescriptions were given: Apixaban [Eliquis] 2.5 mg PO BID #9 tab Transmission Status: Received by [facility] metFORMIN (XR) [Glucophage Xr] 500 mg PO DAILY@0800 #30 tab Transmission Status: Received by [facility] Insulin Lispro [Humalog KwikPen] 8 unit SUBCUT DINNER #1 insuln.pen Transmission Status: Received by [facility] Insulin Lispro [Humalog KwikPen] See Protocol SUBCUT ACHS #1 insuln.pen Transmission Status: Received by [facility] Insulin Glargine [Lantus SoloStar Pen] 5 units SUBCUT BID #1 pen Transmission Status: Received by [facility] Hydrocodone Bitart/Apap 5-325 [[place] 5/325] 1 - 2 tab PO Q8H PRN PRN 5 Days #30 tab PRN Reason: Severe Pain (-06/02) Transmission Status: Received by [facility] Primary Care Physician: Johnathon Brown MD [Primary Care Provider] - Test Results: Test results from this visit will be discussed in further detail at your follow-up appointment, if applicable. Please Follow Up With: Johnathon Brown MD Please Follow Up With: Sammy Barnard DO Please Follow Up With: dinkey operator When: daughter to make appt Proposed Discharge Date: 02/19/19
--- NOTE | 2019-02-18 17:38 | DS.PCM_ITS ---
Rehab Discharge Summary DATE OF ADMISSION: 02/03/19 DATE OF DISCHARGE: 02/19/19 - Rehab Diagnosis Debility secondary to Right intertrochanteric femur FX post ORIF - Physical Exam Vital Signs Temp Pulse Resp BP Pulse Ox 98.0 F 83 16 149/72 H 95 02/18/19 07:53 02/18/19 07:53 02/18/19 07:53 02/18/19 07:53 02/18/19 07:53 Oxygen Delivery Method Room Air Weight: 70.9 kg Body Mass Index (BMI) 27.5 Finger Stick Blood Glucose 190 Intake and Output for Last 24 Hours 02/16/19 02/17/19 02/18/19 23:59 23:59 23:59 Intake Total 240 / 240 240 / 240 Balance 240 / 240 240 / 240 POC Glucose 02/18/19 02/18/19 02/18/19 17:12 11:02 06:26 POC Glucose 198 H 322 H 383 H 02/18/19 02/17/19 03:08 20:42 POC Glucose 313 H 289 H Discharge Diet: 1800 Calorie Control Diet Discharge Activity: Return to Normal Activity, May Not Drive, May Shower, Use Walker Weight Bearing Status: Weight bearing as tolerated Call your doctor if your incision/area has: Continuous Slow Oozing, Sudden Increased Bleeding, Increased Pain/ Swelling, Increased Redness, Foul Smelling Discharge, Swelling at the incision site Call your doctor if you observe: Fever of 101 or Higher, Coldness, Increased Pain, Numbness or Tingling, Change in Color, Inability to urinate, Inability to have a bowel movement, Shortness of breath, Dizziness, Fainting spells, Swelling in the ankles, Chest pain, Prolonged hiccoughing, Increased palpitations (irregular heartbeat), Calf discomfort, Uncontrolled pain Cleanse incision/area with: Soap & Water Home Medications: Medications to take at Discharge Acetaminophen [Tylenol Tablet] 650 mg PO Q6H PRN PRN tab 02/18/19 Amlodipine [Norvasc] 5 mg PO DAILY tab 02/18/19 Apixaban [Eliquis] 2.5 mg PO BID #9 tab 02/18/19 Aspirin E.C. [Ecotrin] 81 mg PO DAILY@0800 tab 02/18/19 Atorvastatin Calcium [Lipitor] 80 mg PO QHS tab 02/18/19 Cholecalciferol (VIT D3) [Vitamin D3] 500 unit PO DAILY tab 02/18/19 Donepezil HCl [Aricept] 10 mg PO QHS tab 02/18/19 Escitalopram Oxalate [Lexapro] 5 mg PO DAILY tab 02/18/19 Hydrocodone Bitart/Apap 5-325 [Tiro 5/325] 1 - 2 tab PO Q8H PRN PRN 5 Days #30 tab 02/18/19 Insulin Glargine [Lantus SoloStar Pen] 5 units SUBCUT BID #1 pen 02/18/19 Insulin Lispro [Humalog KwikPen] 8 unit SUBCUT BREAKFAST #0 insuln.pen 02/18/19 Insulin Lispro [Humalog KwikPen] 8 unit SUBCUT DINNER #1 insuln.pen 02/18/19 Insulin Lispro [Humalog KwikPen] 8 unit SUBCUT LUNCH #0 insuln.pen 02/18/19 Insulin Lispro [Humalog KwikPen] See Protocol SUBCUT ACHS #1 insuln.pen 02/18/19 Isosorbide Mononitrate [Monoket] 20 mg PO BID tab 02/18/19 Lactobacillus Acidophilus [Acidophilus] 1 tab PO DAILY tab 02/18/19 Levothyroxine [Synthroid] 50 mcg PO DAILY@0600 tab 02/18/19 Liothyronine Sodium [Cytomel] 25 mcg PO DAILY@0600 tab 02/18/19 Lisinopril [Zestril] 20 mg PO BID tab 02/18/19 Magnesium Oxide [Mag-Ox 400] 400 mg PO DAILY tab 02/18/19 Metoprolol Tartrate [Lopressor (beta rona)] 75 mg PO BID tab 02/18/19 Mirabegron [Myrbetriq] 25 mg PO Q24 tab.er.24h 02/18/19 Mirtazapine [Remeron] 15 mg PO QHS tab 02/18/19 Pioglitazone [Actos] 30 mg PO DAILY tab 02/18/19 metFORMIN (XR) [Glucophage Xr] 500 mg PO DAILY@0800 #30 tab 02/18/19 Following Prescrptions Were Given to Patient: Apixaban [Eliquis] 2.5 mg PO BID #9 tab Transmission Status: Received by [facility] metFORMIN (XR) [Glucophage Xr] 500 mg PO DAILY@0800 #30 tab Transmission Status: Received by [facility] Insulin Lispro [Humalog KwikPen] 8 unit SUBCUT DINNER #1 insuln.pen Transmission Status: Received by [facility] Insulin Lispro [Humalog KwikPen] See Protocol SUBCUT ACHS #1 insuln.pen Transmission Status: Received by [facility] Insulin Glargine [Lantus SoloStar Pen] 5 units SUBCUT BID #1 pen Transmission Status: Received by [facility] Hydrocodone Bitart/Apap 5-325 [Tiro 5/325] 1 - 2 tab PO Q8H PRN PRN 5 Days #30 tab PRN Reason: Severe Pain () Transmission Status: Received by [facility] Primary Care Physician: Johnathon Brown MD [Primary Care Provider] - Please Follow Up With: Johnathon Brown MD Please Follow Up With: Sammy Barnard DO Please Follow Up With: psychiatric security nurse When: daughter to make appt Patient Instructions: Diabetes: Caring for Your Body, Diabetes: The Benefits of Exercise, Diabetes: Activity Tips, Diabetes: Understanding Carbohydrates, Fats, and Protein Additional Instructions: Monitor glucose levels before meals and at bedtime. Schedule follow up appt with Dr. Harold. Simon last dose is the morning on 02/24/19 Disposition: Home with Home Health Patient Condition:: Stable Rehab Course A 68-year-old female who lives at home with her son and 2 teenage grandchildren who slipped on the floor in the kitchen and fell resulting in a fracture of her right femur on 01/31/2019. The following day she had open reduction and internal fixation performed. She says her postoperative course was uneventful. She lives at home, is independent, continues to drive and the goal of rehab is restorationist of her prior level of functional independence. 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 She denies any GI or complaints. She lives in a one-story house but she does need to access the basement in order to do laundry. Her only complaint now is mild to moderate right hip pain but she says this is improving. Per hospital discharge summary: Presented to the emergency room because of right hip pain after she slipped at home and she was found to have acute traumatic nondisplaced right intertr ochanteric hip fracture. There was no prodromal symptoms such as chest pain, shortness of breath, dizziness, syncope or presyncope. She underwent surgical fixation of the fracture with cephalo-medullary nail fixation. Her postoperative course was uneventful without significant postoperative complications except dropping hemoglobin without need for blood transfusion. She did have isolated episode of low-grade fever. Chest x-ray performed that showed no acute infiltrate. Urinalysis showed no evidence of acute cystitis. Patient denies any symptoms assistive of infection. Postoperatively, hemoglobin was 9.9 g/dL without evidence of active bleeding and it is attributed to blood loss during surgery and hemodilution. Patient has a history of CAD status post stents around 8 to 9 years ago and she was on aspirin and Plavix. After her surgery, she was started on Eliquis 2.5 mg p.o. twice daily. I discussed the case with Dr. Inman who agreed to stop Plavix for now, continue aspirin and Eliquis for 3 weeks and then patient may resume her Plavix back. Patient discharged to inpatient rehabilitation unit in a stable medical condition, discharged on aspirin and Eliquis, discharged on Tiro PRN for pain, continued on her previous home medication without any changes, recommended follow-up with PCP in 1 to 2 weeks, follow-up with orthopedic surgery in 4 weeks. During IP RU course right hip incision healing without s/sx of infections and aldo were d/c on 02/15/19. 02/01/2019 HgbA1c 9.7 %, changes to insulin during stay d/t elevated glucose levels. On 02/13/19 highest glucose level 515, the past 24 hours ranging from 141-383. On 02/17/19, during team meeting, daughter was aware that patient is having difficult with glucose monitoring, insulin/medication education and administration. Per daughter, she is going to follow previous home medication for diabetes that is being managed by psychiatric security nurse Lilo Price. Daughter aware of updating Dr. Price for further recommendations. Spoke with Danielle at Dr. Price's office and faxed information for Dr. Price to review, for recommendations at discharge, no return call that afternoon. I spoke with Dr. Price's nurse on 02/18/19, Dr. Price did review the information. I asked the nurse to fax what Dr. Price is recommending to update discharge orders for home. No update was received. Patient will be discharged home with medications and insulin regiment that was prescribed at the [facility] for diabetes management. Patient has gained increased in strength and mobility and will be discharged home on 02/18/19 with home PT/OT/Nursing. Patient will be discharged home on Eliquis with last dose in the morning on 02/24/19 for DVT prophylaxis. Patient to f/u with PCP, Compositor Apprentice and Orthopedics. Meaningful Use Info Meaningful Use Diagnoses (Choose all that apply): None applicable
[2019-02-18] MEDS: Insulin Lispro 100 UNIT/ML INSULN.PEN 10 UNIT SC (18:13)
[2019-02-18 20:48] VITALS: BP 158/75; PULSE 77; RESP 16; TEMP 36.7; O2SAT 97
[2019-02-18 21:20] VITALS: BP 158/75; PULSE 77
[2019-02-18] MEDS: Atorvastatin Calcium 80 MG Tablet PO (21:20)
[2019-02-18] MEDS: Donepezil HCl 10 MG Tablet PO (21:20)
[2019-02-18] MEDS: Mirtazapine 15 MG Tablet PO (21:21)
[2019-02-18 22:01] LABS: Bedside Glucose 185 mg/dL (70-110)
[2019-02-19 05:53] VITALS: BP 117/71; PULSE 81; RESP 15; TEMP 36.8; O2SAT 97
[2019-02-19] MEDS: Levothyroxine 50 MCG Tablet PO (05:56)
--- NOTE | 2019-02-19 07:34 | NURSING ---
reviewed blood sugars and sliding scale with patient. pt denies any questions or concerns regarding insulin administration and reported she will continue on her home regimen as usual.
[2019-02-19 07:50] LABS: Bedside Glucose 386 mg/dL (70-110)
[2019-02-19] MEDS: Insulin Lispro 100 UNIT/ML INSULN.PEN 15 UNIT SC (08:16)
[2019-02-19] MEDS: Insulin Lispro 100 UNIT/ML INSULN.PEN SC (08:16)
[2019-02-19 08:17] VITALS: PULSE 86
[2019-02-19] MEDS: amLODIPine 5 MG Tablet PO (08:17)
[2019-02-19] MEDS: Isosorbide Mononitrate 20 MG Tablet PO (08:17)
[2019-02-19] MEDS: Metoprolol Tartrate 25 MG Tablet 75 MG PO (08:17)
[2019-02-19] MEDS: Mirabegron 25 MG TAB.ER.24H PO (08:17)
[2019-02-19] MEDS: Magnesium Oxide 400 MG Tablet PO (08:17)
[2019-02-19] MEDS: Lisinopril 20 MG Tablet PO (08:17)
[2019-02-19] MEDS: Escitalopram Oxalate 10 MG Tablet 5 MG PO (08:18)
[2019-02-19] MEDS: metFORMIN (XR) 500 MG Tablet PO (08:18)
[2019-02-19] MEDS: Aspirin E.C. 81 MG Tablet PO (08:18)
[2019-02-19] MEDS: Pioglitazone Hydrochloride 30 MG Tablet PO ×2 (08:18→08:19)
[2019-02-19] MEDS: APIXABAN 2.5 MG TABLET PO (08:19)
[2019-02-19 09:38] VITALS: BP 115/58; PULSE 86; RESP 16; TEMP 37; O2SAT 96
[2019-02-19] MEDS: HYDROcodone Bitartrate/Apap 5/325 Tablet PO (10:44)
[2019-02-19 10:50] VITALS: BP 115/58; PULSE 86; RESP 16; TEMP 37; O2SAT 96
--- NOTE | 2019-02-19 10:50 | NURSING ---
discharged home with daughter. Discharge instruction, medication and insulin instructions discussed with pt and daughter Arminda. voiced understand. Denies questions or concerns.
--- NOTE | 2019-02-19 11:05 | PCM.PN.NEU ---
Subjective: No issues overnight. Care discussed with the nursing staff. Patient to be discharged today 02/19/2019. - Physical Exam General: Alert HEENT: Normocephalic Neck: Supple Lungs: Normal air movement Cardiovascular: Normal S1, Normal S2 Abdomen: Bowel Sounds Present Extremities: No cyanosis Neurological: Cranial nerves II-XII grossly intact, Deep Tendon Reflexes 2+/4 and Symmetrical, Neuro grossly intact, Motor Exam 5/5 strength throughout, Muscle tone normal, Sensory exam intact to light touch and pain, Coordination normal Psych/Mental Status: Normal Affect Vital Signs Temp Pulse Resp BP Pulse Ox 98.6 F 86 16 115/58 L 96 02/19/19 09:38 02/19/19 09:38 02/19/19 09:38 02/19/19 09:38 02/19/19 09:38 Oxygen Delivery Method Room Air Weight: 70.9 kg Body Mass Index (BMI) 27.5 Finger Stick Blood Glucose 190 Intake and Output for Last 24 Hours 02/17/19 02/18/19 02/19/19 23:59 23:59 23:59 Intake Total 240 / 240 240 / 240 240 / 240 Balance 240 / 240 240 / 240 240 / 240 POC Glucose 02/19/19 02/18/19 02/18/19 07:45 21:55 17:12 POC Glucose 386 H 185 H 198 H 02/18/19 11:02 POC Glucose 322 H Medical Necessity - Tobacco Use Smoking Status: Never smoker Tobacco Use: Non-smoker Assessment/Plan All Active Problems (Last Reviewed 02/04/19 @ 11:29 by Kyler Maldonado MD) Intertrochanteric fracture of right femur (Acute) A 68-year-old female who lives at home with her son and 2 teenage grandchildren who slipped on the floor in the kitchen and fell resulting in a fracture of her right femur on 01/31/2019. The following day she had open reduction and internal fixation performed. She says her postoperative course was uneventful. She lives at home, is independent, continues to drive and the goal of rehab is rastafari of her prior level of functional independence. 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 She denies any GI or complaints. She lives in a one-story house but she does need to access the basement in order to do laundry. Her only complaint now is mild to moderate right hip pain but she says this is improving. Per hospital discharge summary: Presented to the emergency room because of right hip pain after she slipped at home and she was found to have acute traumatic nondisplaced right intertrochanteric hip fracture. There was no prodromal symptoms such as chest pain, shortness of breath, dizziness, syncope or presyncope. She underwent surgical fixation of the fracture with cephalo-medullary nail fixation. Her postoperative course was uneventful without significant postoperative complications except dropping hemoglobin without need for blood transfusion. She did have isolated episode of low-grade fever. Chest x-ray performed that showed no acute infiltrate. Urinalysis showed no evidence of acute cystitis. Patient denies any symptoms assistive of infection. Postoperatively, hemoglobin was 9.9 g/dL without evidence of active bleeding and it is attributed to blood loss during surgery and hemodilution. Patient has a history of CAD status post stents around 8 to 9 years ago and she was on aspirin and Plavix. After her surgery, she was started on Eliquis 2.5 mg p.o. twice daily. I discussed the case with Dr. Inman who agreed to stop Plavix for now, continue aspirin and Eliquis for 3 weeks and then patient may resume her Plavix back. Patient discharged to inpatient rehabilitation unit in a stable medical condition, discharged on aspirin and Eliquis, discharged on [place] PRN for pain, continued on her previous home medication without any changes, recommended follow-up with PCP in 1 to 2 weeks, follow-up with orthopedic surgery in 4 weeks. Plan PT for mobility OT for ADLs Analgesics as needed Bowel protocol Fall Precautions Right intertrochanteric femur FX post ORIF 02/15/19 aldo was D/C-further management per orthopedics HTN on zertril and lopressor DM on glucophage, actos, Humalog and Humalog S.C, Lantus, accuchecks AC&HS and @0300 02/01/2019 HgbA1c 9.7 % Patient education, family training/education on 02/17/19 -hospitalist managing Awaiting return call from Dr. Price Botany Professor for further recommendations d/t current regiment will not be followed at home. HLD on lipitor Mild Dementia on aricept Depression on lexapro and remeron Hypothyroidism on Synthroid and cytomel CAD post stents 2008 and 2009 On ASA, lipitor, zestril , lopressor and monoket. plavix on hold d/t on Eliquis x3 weeks last dose on 02/24/19 DVT prophylaxis on eliquis/knee high j[facility] [place] Medical management per hospitalist-consult F/U with PCP, Botany Professor, and Orthopedics
== END 2019-02-19 10:50 | disposition home health service (06) | DRG 561 ==
PROVIDERS: Hospitalist; Admitting Provider Psychiatry & Neurology Neurology; Family Provider Family Medicine; PCP Family Medicine; Referring Provider Psychiatry & Neurology Neurology; Visit Provider Internal Medicine
DX: S72.144D Nondisplaced intertrochanteric fracture of right femur, subsequent encounter for closed fracture with routine healing (principal); W01.0XXD Fall on same level from slipping, tripping and stumbling without subsequent striking against object, subsequent encounter; I10 Essential (primary) hypertension; F03.90 Unspecified dementia, unspecified severity, without behavioral disturbance, psychotic disturbance, mood disturbance, and anxiety; E78.5 Hyperlipidemia, unspecified; I25.10 Atherosclerotic heart disease of native coronary artery without angina pectoris; I25.2 Old myocardial infarction; E03.9 Hypothyroidism, unspecified; F32.9 Major depressive disorder, single episode, unspecified; M81.0 Age-related osteoporosis without current pathological fracture; E11.9 Type 2 diabetes mellitus without complications; Z95.5 Presence of coronary angioplasty implant and graft
CPT/HCPCS: 36415; 80048; 82947; 82962; 85025; 85027; 97110; 97116; 97162; 97166; 97530; 97535; 97802

== ENCOUNTER → 2019-02-28 11:16 | Outpatient (CLI) | payer MEDICARE, OTHER, SELFPAY ==
[2019-02-28 11:17] VITALS: BMI 27.5
--- NOTE | 2019-02-28 11:19 | RAD_ITS ---
STUDY: X-RAY - PELVIS AND RIGHT HIP REASON FOR EXAM: Female, 68 years old. Postop TECHNIQUE: 3 views of the pelvis and hip. COMPARISON: January 31, 2019 FINDINGS: There is a non-specific bowel gas pattern. Normal visualized soft tissue structures. Normal bilateral iliac wings, sacroiliac joints and visualized sacrum. Normal bilateral superior and inferior pubic rami. Normal pubic symphysis. Normal bilateral ischial tuberosities. Postop changes status post open reduction internal fixation of intertrochanteric fracture of the right hip. There is increased separation of the fracture fragments relative to that seen preoperatively possibly due to recurrent trauma RAD/HIP, UNI W/ Pelvis 2-3 Views IMPRESSION: Status post ORIF intertrochanteric fracture of the right hip with slightly increased separation of fracture fragments since prior exam Electronically Signed: Taiwo Neely MD at 17:05 EDT , Service support ,
== END ==
PROVIDERS: Family Provider Family Medicine; PCP Family Medicine; Referring Provider Orthopaedic Surgery; Visit Provider Orthopaedic Surgery
DX: M25.551 Pain in right hip (principal)
CPT/HCPCS: 73502

== ENCOUNTER 2019-03-24 13:05 | Emergency (ER) | payer MEDICARE, OTHER, SELFPAY ==
[2019-03-10 08:40] VITALS: BMI 26.2
[2019-03-24 13:06] VITALS: BP 96/61; PULSE 56; RESP 18; TEMP 36.1; O2SAT 98; BMI 25.7
[2019-03-24 13:20] LABS: Bedside Glucose 67 mg/dL (70-110)
[2019-03-24 13:25] VITALS: BP 93/55; PULSE 59; RESP 15; O2SAT 96
--- NOTE | 2019-03-24 13:41 | ED.DCSUM_ITS ---
- ER Visit Summary Date of Service: 03/24/19 Chief Complaint: Hypoglycemia History of Present Illness: The patient is a 68 F of. Was visiting someone in the hospital with a when her blood sugar dropped. They gave her oral glucose she came back around and her blood sugar rechecked was 74. Complaints. She has had episodes of hypoglycemia before. She denies being recently ill. She was sitting in a chair when this occurred and had no trauma. Patient ate breakfast this morning took her insulin but never had lunch. Physical Examination: Older female no acute distress. at bedside. Vital signs are stable and afebrile. Initial blood pressure is 160/61 and will be reevaluated no distress. HEENT unremarkable. Neck nontender. Lungs clear to auscultation bilaterally. Heart regular rhythm no murmur. Abdomen is soft and nontender. Remedies moves all 4. Calves nontender no edema. Neurologically she is awake and alert with no focal motor deficits. Test Results: We will recheck Bgt PT at 2:00 if she is doing well and her pressure is improved she will be discharged home. Emergency Department Course and Treatment: The patient and reassess. Treatment Plan: Watch blood sugars closely. Disposition: Discharge Impression: Acute hypoglycemia History of diabetes This note was generated with NoWait dictation software. It may contain incorrect words, spelling, and punctuation that were not noted in review of the chart prior to signing ED Disposition - Plan for ED Patient: Referrals: Johnathon Brown MD [Primary Care Provider] -
--- NOTE | 2019-03-24 13:47 | ED.DEP ---
ED Disposition - Plan for ED Patient: Disposition: Home or Assisted Living Instructions: Diabetic Insulin Reaction Referrals: Johnathon Brown MD [Primary Care Provider] - As Needed Additional Instructions: Eat well today. Check blood sugars frequently. Definitely check your blood sugar prior to going to bed tonight.
[2019-03-24 14:36] LABS: Bedside Glucose 52 mg/dL (70-110)
[2019-03-24 15:20] LABS: Bedside Glucose 83 mg/dL (70-110)
[2019-03-24 15:21] VITALS: BP 109/67; PULSE 64; RESP 16; O2SAT 98
[2019-03-25 09:36] LABS: Bedside Glucose 74 mg/dL (70-110)
== END 2019-03-24 15:23 | disposition home or self-care (01) ==
LOC: ED 14:04
PROVIDERS: Emergency Provider Emergency Medicine; Family Provider Family Medicine; PCP Family Medicine
DX: E11.649 Type 2 diabetes mellitus with hypoglycemia without coma (principal); I25.10 Atherosclerotic heart disease of native coronary artery without angina pectoris; I25.2 Old myocardial infarction; I10 Essential (primary) hypertension; Z95.5 Presence of coronary angioplasty implant and graft; Z79.4 Long term (current) use of insulin; Z79.84 Long term (current) use of oral hypoglycemic drugs; Z79.82 Long term (current) use of aspirin; Z79.899 Other long term (current) drug therapy
CPT/HCPCS: 82962; 99282

== ENCOUNTER 2019-04-05 09:30 | Outpatient (RCR) | payer MEDICARE, OTHER, SELFPAY ==
[2019-03-04 10:24] VITALS: BMI 27.5
[2019-03-10 08:40] VITALS: BMI 26.2
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
--- NOTE | 2019-04-05 11:33 | HP.PTDCSUM ---
HP - PT D/C Summary It has been my pleasure to treat KAYLEIGH ROBERTS under orders from Sammy Barnard DO, for the diagnosis of S/P RIGHT HIP NAIL for a total of 7 visit(s). Discharge Date: 04/05/19 Please see the following information for a summary of their discharge status. - Subjective Subjective: PATIENT REPORTS SHE HAS BEEN SICK TO HER STOMACH BUT NOT SURE WHY. MISSED TWO ELADIO'TS DOING A FEW EX'S AT HOME HERE AND THERE. - Pain Right Hip Pain Intensity (Out of 10): 2 - Overall Improvement % Improvement: 95 - Objective Objective/Function: EASED PATIENT BACK INTO EX TODAY SINCE SHE HAS BEEN SICK AND SHE DID VERY WELL EVEN MAINTAINING 90 TO 95 SPM ON THE NUSTEP. AT END OF SESSION PATIENT REPORTING SHE REALLY DOES NOT WANT TO MAKE UP MISSED ELADIO'TS AND WANTS TO BE DISCHARGED. THIS PT RECOMMENDED FURTHER THERAPY THOUGH. THIS PT RECOMMENDS CONTINUED USE OF CANE AT THIS TIME FOR SAFETY - Goals Goal 1:: INDEP AND SAFE GAIT ON ALL SURFACES WITH LEAST ASSISTIVE DEVICE Goal Progress: Progressing Goal 2:: IMPROVE RIGHT LE FUNCTIONAL ROM TO IMPROVE ADL'S Goal Progress: Progressing Goal 3:: IMPROVE RIGHT LE FUNCTIONAL STRENGTH TO EAS ADL'S Goal Progress: Progressing Goal 4:: INDEP HEP FOR CONTINUED IMPROVEMENT ONCE FORMAL PHYSICAL THERPAY CONCLUDES Goal Progress: Progressing - Plan Plan: WILL GO AHEAD AND DISCHARGE TODAY BUT ENCOURAGED PATIENT TO FOLLOW UP WITH SURGEON AND COME BACK TO THERAPY IF NEEDED. PATIENT AGREEABLE - D/C Information If there are questions or concerns regarding this patient's physical therapy, please feel free to call me at [phone]. Thank you for the referral of this patient. Sincerely, Calista Venegas, PT, Cert MDT
== END 2019-04-05 19:00 | disposition home or self-care (01) ==
LOC: PT 09:30
PROVIDERS: Family Provider Family Medicine; PCP Family Medicine; Referring Provider Orthopaedic Surgery; Visit Provider Orthopaedic Surgery
DX: Z98.890 Other specified postprocedural states (principal)
CPT/HCPCS: 97110; 97162; 97530

== ENCOUNTER 2019-04-09 22:16 | Inpatient (IN) | payer MEDICARE, OTHER, SELFPAY ==
[2019-04-09 22:17] VITALS: BP 114/62; PULSE 61; RESP 15; TEMP 36.6; O2SAT 97; BMI 26.9
--- NOTE | 2019-04-09 23:29 | EKG12_ITS ---
Test Reason : SYNCOPE Blood Pressure : / mmHG Vent. Rate : 053 BPM Atrial Rate : 053 BPM P-R Int : 152 ms QRS Dur : 084 ms QT Int : 492 ms P-R-T Axes : 056 038 045 degrees QTc Int : 461 ms Sinus bradycardia Possible Left atrial enlargement Borderline ECG Confirmed by BAUTISTA VELASCO, KARTIK ([id number]), editorial assistant VADIM CARDENAS ([id number]) on 04/12/2019 1:24:56 PM Referred By: Atiya Casey Confirmed By:KARTIK BAUM MD
--- NOTE | 2019-04-09 23:29 | RAD_ITS ---
STUDY: X-RAY - RIGHT ANKLE REASON FOR EXAM: Female, 68 years old. Patient fell. Pain. TECHNIQUE: 3 view(s) of the ankle. COMPARISON: None. FINDINGS: Acute fracture through the distal shaft of the fibula with minimal, 1 to 2 mm, lateral displacement of the more distal portion. Acute nondisplaced fracture through the base of the medial malleolus, extending into the lateral articular surface of the distal tibia. Mild soft tissue swelling adjacent to these fractures. 7 mm osteochondral lesion medial talar dome. No other fracture is evident. Alignment otherwise anatomic. Mild bony demineralization. Small plantar calcaneal spur. Calcific atherosclerosis. RAD/Ankle min 3 Views IMPRESSION: Acute fractures of the distal shaft of the fibula and medial malleolus. 7 mm osteochondral lesion medial talar dome. This could also represent an acute impaction fracture of the talar dome although a chronic underlying osteochondral lesion would also appear this way. Comparison with priors would be helpful. MRI would most definitively age this finding if clinically necessary. Electronically Signed: Kevin Syed, at 0:50 EDT Tel , Service support ,
--- NOTE | 2019-04-09 23:31 | ED.VIS.GEN ---
History of Present Illness Chief Complaint: Syncope Informant: Patient, Family Onset: Today - JPTA Context: Gradual Onset Quality: passed out Associated Symptoms: prodromal lightheadedness for about 1-2 min Narrative: No recent illnesses. Patient had her right hip fixed after a fracture several months ago and has been recovering well with minimal discomfort, only when she walks. Today she was feeling lightheaded so she went to sit on a stool in the kitchen, she then proceeded to pass out, this was witnessed by 1 of her daughters who is present. It appeared that she passed out prior to falling off of the stool, which she did very slowly to the floor, landing with her right lower extremity flexed beneath her. She woke up briefly and then lost consciousness again. She now is at her baseline mental status and feels okay. Her daughter checked her blood sugar immediately afterwards, it was 338. She has had 1 of these episodes in the past when she was hypoglycemic. No recent illnesses. She denies any headache, either before or after the event. No neck or back pain. She is on aspirin and Plavix and has a history of cardiac stent x2. Daughter does not think she hit her head when she fell but she is not 100% sure. She has been well hydrated today. - Past Medical History (1) Type 2 diabetes mellitus Status: Chronic (2) Atherosclerotic heart disease of [place] coronary artery without angina pectoris Status: Chronic Comment: [id number] LAD 02/13/2009; PCI-JERROD to OM1 and D2 10/12/2009 (3) Essential (primary) hypertension Status: Chronic (4) HLD (hyperlipidemia) Status: Chronic (5) History of coronary artery stent placement Status: Chronic Comment: [id number] LAD 02/13/2009; PCI-JERROD to OM1 and D2 10/12/2009 Past Medical History - Allergies and Home Meds Allergies/Adverse Reactions: Allergies fentanyl Allergy (Verified 04/09/19 22:24) Low blood pressure diazepam [From Valium] Adverse Reaction (Verified 04/09/19 22:24) Other Primary Care Physician: Johnathon Brown MD [Primary Care Provider] - Surgical History: angioplasty Smoking Status: Never smoker Drugs: None - Family History Maternal Family History: Family History (Last Reviewed 03/10/19 @ 10:01 by Castro Kearney MD) Father CAD (coronary artery disease) CVA (cerebral vascular accident) Brother CVA (cerebral vascular accident) Sister Breast cancer Son Diabetes Family History: Reports: No pertinent history Paternal Family History: Family History (Last Reviewed 03/10/19 @ 10:01 by Castro Kearney MD) Father CAD (coronary artery disease) CVA (cerebral vascular accident) Brother CVA (cerebral vascular accident) Sister Breast cancer Son Diabetes Family History: Reports: Heart Disease, Stroke Sibling Family History: Family History (Last Reviewed 03/10/19 @ 10:01 by Castro Kearney MD) Father CAD (coronary artery disease) CVA (cerebral vascular accident) Brother CVA (cerebral vascular accident) Sister Breast cancer Son Diabetes Family History: Reports: Cancer - breast Offspring Family History: Family History (Last Reviewed 03/10/19 @ 10:01 by Castro Kearney MD) Father CAD (coronary artery disease) CVA (cerebral vascular accident) Brother CVA (cerebral vascular accident) Sister Breast cancer Son Diabetes Family History: Reports: Diabetes Review of Systems General: Reports: Malaise. Denies: Chills, Fever, Sweats Eyes: Denies: Visual changes - bilaterally, Diplopia ENT: Denies: Rhinorrhea, Sore throat Cardiovascular: Denies: Chest pain, Palpitations Respiratory: Denies: Dyspnea, Cough, Dyspnea on exertion Gastrointestinal: Denies: Abdominal pain, Nausea, Vomiting, Diarrhea, Melena, Hematochezia Genitourinary: Denies: Dysuria, Hematuria, Frequency Musculoskeletal: Reports: Extremity Pain - R ankle. Denies: Neck pain, Back pain, Swelling Skin: Denies: Rash, Wounds Neurological: Denies: Headache, Weakness, Numbness Physical Exam Vital Signs/Narrative: Vital Signs Temp Pulse Resp BP Pulse Ox 04/09/19 22:17 97.8 F 61 15 114/62 97 Inital Vital Signs reviewed: Yes General: Well nourished, Well developed, No Acute Distress Head: Normocephalic, Atraumatic. Negative for: Tenderness Eyes: Perrl, EOMI. Negative for: Pale conjunctiva, Scleral icterus ENT: Moist mucous membranes, No rhinorrhea, TM's clear - w/o HT, - - no gonzales sign or periorbital ecchymoses.. Negative for: Nasal congestion, Sinus tenderness Neck: Supple, Nontender, - - FROM without pain or neuro sx Cardiovascular: Regular rate, Regular rhythm, No murmurs, Normal S1, Normal S2 Respiratory: No distress, CTA bilaterally, Chest nontender Abdomen: Soft, Nontender, Nondistended, Normal bowel sounds Back: Nontender, Normal Inspection. Negative for: Spinal tenderness Extremities: No edema - right lateral malleolus/distal fibula; nontender medial mall and foot including base of 5th MT. nontender knee w/ FROM there and at the hip without pain. painless FROM throughout all other 3 extremities., Tenderness - right lateral malleolus/distal fibula Skin: Normal color, No rash, No Trauma Neurological: Alert, Oriented x3, Cranial nerves II-XII grossly intact, Normal Strength, Normal Sensation Psychological: Normal affect, Normal Mood Diagnostic/Tx/Re-eval Impressions Ankle X-Ray 04/09/19 23:29 IMPRESSION: Acute fractures of the distal shaft of the fibula and medial malleolus. 7 mm osteochondral lesion medial talar dome. This could also represent an acute impaction fracture of the talar dome although a chronic underlying osteochondral lesion would also appear this way. Comparison with priors would be helpful. MRI would most definitively age this finding if clinically necessary. Electronically Signed: Kevin Syed, at 0:50 EDT Tel , Service support , Brain CT 04/10/19 23:50 IMPRESSION: No acute intracranial pathology. Chronic changes similar prior study Individualized dose optimization techniques were used for this CT. at 0041 Reported and signed by: Casandra Prescott DO Electronically Signed: Casandra Prescott DO at 0:40 EDT Tel , Service support , 04/09/19 23:29 Ankle min 3 Views [RAD] Stat 04/10/19 23:50 Brain/Head without Contrast [CT] Stat Laboratory Results 04/09/19 04/09/19 04/10/19 00:00 00:00 00:12 WBC 10.8 RBC 4.43 Hgb 12.6 Hct 39.7 MCV 89.6 MCH 28.4 MCHC 31.7 L RDW Std Deviation 49.8 H RDW Coeff of Shikha 15.1 H Plt Count 259 MPV 9.6 Immature Gran % (Auto) 0.400 Neut % (Auto) 75.3 H Lymph % (Auto) 16.4 L [place] % (Auto) 6.8 Eos % (Auto) 0.8 Baso % (Auto) 0.3 Absolute Neuts (auto) 8.1 H Absolute Lymphs (auto) 1.77 Nucleated RBC % 0 Sodium 138 Potassium 4.0 Chloride 104 Carbon Dioxide 28.0 Anion Gap 6 BUN 25 H Creatinine 0.98 Estim Creat Clear Calc 44.19 Est GFR (MDRD) Af Amer 72 Est GFR (MDRD) Non-Af 60 BUN/Creatinine Ratio 25.6 H Glucose 330 H Calcium 9.4 Troponin I < 0.015 Urine Color Urine Clarity Urine pH Ur Specific [place] Urine Protein Urine Glucose (UA) Urine Ketones Urine Occult Blood Urine Nitrite Urine Bilirubin Urine Urobilinogen Ur Leukocyte Esterase Urine RBC Urine WBC Ur Squamous Epith Cells Urine Bacteria Urine Mucus POC Glucose 335 H 04/10/19 00:50 WBC RBC Hgb Hct MCV MCH MCHC RDW Std Deviation RDW Coeff of Shikha Plt Count MPV Immature Gran % (Auto) Neut % (Auto) Lymph % (Auto) [place] % (Auto) Eos % (Auto) Baso % (Auto) Absolute Neuts (auto) Absolute Lymphs (auto) Nucleated RBC % Sodium Potassium Chloride Carbon Dioxide Anion Gap BUN Creatinine Estim Creat Clear Calc Est GFR (MDRD) Af Amer Est GFR (MDRD) Non-Af BUN/Creatinine Ratio Glucose Calcium Troponin I Urine Color Yellow Urine Clarity Clear Urine pH 6.0 Ur Specific [place] 1.015 Urine Protein 15 H Urine Glucose (UA) Normal Urine Ketones 5 H Urine Occult Blood Negative Urine Nitrite Negative Urine Bilirubin Negative Urine Urobilinogen Normal Ur Leukocyte Esterase 100 H Urine RBC 0-5 SEEN Urine WBC 5-10 SEEN Ur Squamous Epith Cells 25-50 SEEN Urine Bacteria 0 SEEN Urine Mucus 0 SEEN POC Glucose - Rhythm Strip Rhythm Strip: Sinus Rhythm Rate: 53 Ectopy: None - EKG Initial EKG Interpretation: No Acute Injury Pattern, Sinus Bradycardia - Medical Decision Making Work-up is fairly unremarkable but given her history of heart disease and unexplained syncope, will admit to observation. X-rays of her right ankle show a fracture as well as some findings in the talar dome that may represent some type of chronic bony lesion or fracture. She may need further imaging of this. She is splinted and orthopedics is notified. Procedures - Lower Extremity Splints Lower Extremity Splint: Orthoglass, - - Short leg posterior splint with sugar tong. Neurovascularly intact distally after placement. Splint Fabrication: Fabricated Location: Right ED Disposition - Plan for ED Patient: Disposition: Acute Care Hospital [facility] Diagnosis: Syncope, Closed bimalleolar fracture of right ankle Referrals: Johnathon Brown MD [Primary Care Provider] -
[2019-04-10] VITALS (13 sets, daily range): BP systolic 117–158; BP diastolic 57–109; PULSE 55–76; RESP 16–18; TEMP 36.6–37.1; O2SAT 95–98; BMI 26.4
[2019-04-10 00:15] LABS: Absolute Lymphocyte Count 1.77 X10^3/uL (0.83-4.51); Absolute Neutrophil Count 8.1 X10^3/uL (2.0-7.7); Basophil# 0.03 X10^3/uL; Basophil% 0.3 % (0-1); Eosinophil# 0.09 X10^3/uL; Eosinophils% 0.8 % (0-5); Hematocrit 39.7 % (37-47); Hemoglobin 12.6 g/dL (12.0-15.0); Lymphocyte # 1.77 X10^3/ul (4.0); Lymphocyte % 16.4 % (19-41); Mean Corp Hgb Conc 31.7 g/dL (32-36); Mean Corpuscular Hgb 28.4 pg (27.0-32.0); Mean Corpuscular Volume 89.6 fL (81-99); Mean Platelet Vol. 9.6 fl (6.2-12.0); Monocyte# 0.73 X10^3/uL; Monocyte% 6.8 % (0-10); NRBC Flagged by Analyzer 0 % (0-5); Neutrophil % 75.3 % (47-70); Platelet Count 259 K/mm3 (150-450); RBC Distribution Width CV 15.1 % (11.6-14.6); RBC Distribution Width SD 49.8 fl (35.1-43.9); Red Blood Count 4.43 M/mm3 (4.2-5.4); White Blood Count 10.8 K/mm3 (4.4-11.0)
[2019-04-10] MEDS: Acetaminophen 500 MG Tablet 1000 MG PO ×2 (00:15→07:01)
[2019-04-10 00:26] LABS: Bedside Glucose 335 mg/dL (70-110)
[2019-04-10 00:32] LABS: Anion Gap 6 (5-15); BUN 25 mg/dL (7-18); BUN/Creat Ratio 25.6 RATIO (10-20); Calcium,Total 9.4 mg/dL (8.5-10.1); Chloride 104 mmol/L (98-107); Creatinine, Serum 0.98 mg/dL (0.55-1.02); EST Glomerular Filtration Rate 60 mL/min (>60); Est Glom Filt Rate - Afr Amer 72 mL/min (>60); Estimated Creatinine Clearance 44.19 ml/min; Glucose 330 mg/dL (74-106); Sodium Level 138 mmol/L (136-145)
[2019-04-10 01:10] LABS: Bacteria 0 SEEN /hpf (None Seen); Color, Urine Yellow (Yellow); Glucose, Dipstick Normal (Normal); Ketone-Dipstick 5 mg/dl (Negative); Leukocyte Esterase-Dipstick 100 /ul (Negative); Mucous, Urine 0 SEEN /hpf (<or=2+); Nitrite-Dipstick Negative (Negative); Occult Blood-Urine Negative /ul (Negative); Protein-Dipstick 15 mg/dl (Negative); Specific Gravity, Urine 1.015 (1.002-1.030); Urine Bilirubin Dipstick Negative (Negative); Urine Clarity Clear (Clear); Urine Urobilinogen Normal (Normal)
[2019-04-10 01:19] LABS: Red Blood Cells-Urine 0-5 SEEN /hpf (0-5); Squamous Epithelial Cells - UA 25-50 SEEN /hpf (5-10); White Blood Cells 5-10 SEEN /hpf (0-5)
--- NOTE | 2019-04-10 01:58 | HP.PCM_ITS ---
History of Present Illness Date of Admission: 04/10/19 Chief Complaint: syncope The patient is a 68 year old F with an extensive past medical history as listed. She was admitted through the ED on 04/10/2019 with a complaint of mechanical fall and syncope. Patient was sitting on the stool and according to her daughter she blacked out and fell. They noticed that she was having tonic- clonic movements of her upper extremities. She remained unconscious for about 15 seconds and gradually came around but still had some residual lethargy. She denied any prodromal lightheadedness or dizziness but says she just did not feel well. She had been eating and drinking well and denied any chest pain, palpitations, abdominal pain, diarrhea or vomiting. Review of systems otherwise negative. Patient was recently admitted and discharged about a month ago after she fell at home and broke her right hip and subsequently had surgery. Review of systems otherwise negative. Her daughter checked her blood sugar immediately afterwards and was 338. Daughter stated that patient has had similar syncopal episodes in the past but it well due to hypoglycemia as when her sugar was checked, it was noted to be low. EKG in the ED on admission showed sinus bradycardia with heart rate of 53. Patient noted that she had never had any bradycardia in the past and during review, heart rate per telemetry was within normal limits. Vitals were otherwise stable and chemistry was unremarkable. CBC was also unremarkable. CT of the brain was negative for any acute intracranial pathology and ankle x-ray showed acute fractures of the distal shaft of the fibula and medial malleolus. She has been admitted to be managed for syncopal episode and mechanical fall as well as acute fracture of the distal shaft of fibula and medial malleolus. [] Past Medical History Past Medical History (Chronic Problems): Chronic Problems (Last Reviewed 03/10/19 @ 10:01 by Castro Kearney MD) Type 2 diabetes mellitus (Chronic) Essential (primary) hypertension (Chronic) HLD (hyperlipidemia) (Chronic) Atherosclerotic heart disease of [place] coronary artery without angina pectoris (Chronic) [id number] LAD 02/13/2009; PCI-JERROD to OM1 and D2 10/12/2009 History of coronary artery stent placement (Chronic 10/12/09) [id number] LAD 02/13/2009; PCI-JERROD to OM1 and D2 10/12/2009 Medical History: Medical History (Last Reviewed 03/10/19 @ 10:01 by Castro Kearney MD) Essential (primary) hypertension (Chronic) I10 HLD (hyperlipidemia) (Chronic) E78.5 Atherosclerotic heart disease of [place] coronary artery without angina pectoris (Chronic) I25.10 [id number] LAD 02/13/2009; PCI-JERROD to OM1 and D2 10/12/2009 Controlled type 1 diabetes mellitus without complication E10.9 Dementia F03.90 Intertrochanteric fracture of right femur S72.141A History of non-ST elevation myocardial infarction (NSTEMI) Onset Date: 01/2009 I25.2 Fatigue (Inactive) R53.83 Other chest pain (Inactive) R07.89 Subdural hematoma Onset Date: 07/2017 S06.5X9A Allergies fentanyl Allergy (Verified 04/09/19 22:24) Low blood pressure diazepam [From Valium] Adverse Reaction (Verified 04/09/19 22:24) Other Home Medications: Ambulatory Orders Medication Instructions Recorded Acetaminophen [Tylenol Tablet] 650 mg PO Q6H PRN PRN tab 02/18/19 Donepezil HCl [Aricept] 10 mg PO QHS tab 02/18/19 Escitalopram Oxalate [Lexapro] 5 mg PO DAILY tab 02/18/19 Levothyroxine [Synthroid] 50 mcg PO DAILY@0600 tab 02/18/19 Liothyronine Sodium [Cytomel] 25 mcg PO DAILY@0600 tab 02/18/19 Magnesium Oxide [Mag-Ox 400] 400 mg PO DAILY tab 02/18/19 Metoprolol Tartrate [Lopressor 75 mg PO BID tab 02/18/19 (beta rona)] Mirabegron [Myrbetriq] 25 mg PO Q24 tab.er.24h 02/18/19 Pioglitazone [Actos] 30 mg PO DAILY tab 02/18/19 metFORMIN (XR) [Glucophage Xr] 500 mg PO DAILY@0800 #30 tab 02/18/19 Amlodipine [Norvasc] 10 mg PO DAILY 03/24/19 Aspirin E.C. [Ecotrin] 81 mg PO DAILY 03/24/19 Atorvastatin Calcium 80 mg PO QHS 03/24/19 Clopidogrel Bisulfate [Clopidogrel] 75 mg PO DAILY 03/24/19 Ferrous Sulfate 325 mg PO DAILY 03/24/19 Insulin Aspart Prot/Insuln Asp 30 unit SC DAILY 03/24/19 [Novolog Mix 70-30 Vial] Insulin Human 70/30 [Novolog Mix 28 units SUBCUT DAILY 03/24/19 70-30 Flexpen Syrn] Levocetirizine Dihydrochloride 5 mg PO DAILY 03/24/19 [24Hr Allergy Relief] Liothyronine Sodium [Cytomel] 25 mcg PO DAILY 03/24/19 Mirtazapine [Remeron] 7.5 mg PO QHS 03/24/19 Surgical History: Surgical History (Last Reviewed 03/10/19 @ 10:01 by Castro Kearney MD) History of coronary artery stent placement (Chronic) Onset Date: 10/12/09 Z95.5 [id number] LAD 02/13/2009; PCI-JERROD to OM1 and D2 10/12/2009 History of hip surgery Onset Date: 02/01/19 Z98.890 cephalo-medullary fixation right hip on 02/01/19 Surgical History: angioplasty Psychiatric History: No pertinent psych hx 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 Smoking Status: Never smoker Drugs: None - *Family History Maternal Family History: Family History (Last Reviewed 03/10/19 @ 10:01 by Castro Kearney MD) Father CAD (coronary artery disease) CVA (cerebral vascular accident) Brother CVA (cerebral vascular accident) Sister Breast cancer Son Diabetes History Items: No pertinent history Paternal Family History: Family History (Last Reviewed 03/10/19 @ 10:01 by Castro Kearney MD) Father CAD (coronary artery disease) CVA (cerebral vascular accident) Brother CVA (cerebral vascular accident) Sister Breast cancer Son Diabetes History Items: Heart Disease, Stroke Sibling Family History: Family History (Last Reviewed 03/10/19 @ 10:01 by Castro Kearney MD) Father CAD (coronary artery disease) CVA (cerebral vascular accident) Brother CVA (cerebral vascular accident) Sister Breast cancer Son Diabetes History Items: Cancer - breast Offspring Family History: Family History (Last Reviewed 03/10/19 @ 10:01 by Castro Kearney MD) Father CAD (coronary artery disease) CVA (cerebral vascular accident) Brother CVA (cerebral vascular accident) Sister Breast cancer Son Diabetes History Items: Diabetes Review of Systems Constitutional: Denies: Chills, Fever, Malaise, Weakness, Weight Change, Fatigue Eyes: Denies: Blurred vision, Double vision, Vision Change HEENT: Denies: Head Aches, Sinus Congestion, Sinus Drainage Cardiovascular: Reports: Light Headedness, Syncope. Denies: Chest Pain, Palpitations Respiratory: Denies: Cough, Shortness of Breath, Shortness of breath at rest, Shortness of breath upon exertion, Sputum production Gastrointestinal: Denies: Abdominal Pain, Nausea, Vomiting Genitourinary: Denies: Dysuria Musculoskeletal: Reports: Foot Pain, Joint Pain - right ankle pain. Denies: Joint Tenderness Skin: Denies: Rash, Wounds Neurological: Denies: Blurred vision, Double vision, Change in Speech, Focal weakness, Headaches, Numbness, Tingling, Tremor, Seizures Psychiatric: Denies: Anxiety, Depression, Homicidal Ideations, Suicidal Ideatio ns Hematologic/ Lymphatic: Denies: Easy Bruising, Easy Bleeding VTE Information - Inpt Only VTE Present on Admission: No VTE Pharm Prophylaxis ordered?: Yes Patient Problems: Active and Suspected Problems (Last Reviewed 03/10/19 @ 10:01 by Castro Kearney MD) Syncope (Acute) Closed bimalleolar fracture of right ankle (Acute) - Physical Exam General: Alert, Oriented x3, Cooperative, No apparent distress HEENT: Atraumatic, PERRLA, EOMI, Normocephalic Oral: Dry Mucosa Neck: Supple, No JVD, Negative Carotid Bruits Lungs: Clear to auscultation, Normal air movement, No rhonchi, No wheeze, No rales Cardiovascular: Regular rate, Regular Rhythm, Normal S1, Normal S2, No murmurs Abdomen: Bowel Sounds Present, Soft, Non Tender, Non-Distended, No Hepato- splenomegaly Extremities: No clubbing, No cyanosis, No edema, Capillary Refill Less than 3 Seconds Skin: No rashes, No breakdown Musculoskeletal: - - tenderness on palpation of right ankle due to ankle fracture. Neurological: Cranial nerves II-XII grossly intact, Neuro grossly intact Psych/Mental Status: Normal Affect, Appropriate, Alert and oriented to time, place, person, mood and affect Vital Signs Temp Pulse Resp BP Pulse Ox 97.8 F 58 L 15 141/66 H 97 04/09/19 22:17 04/10/19 01:43 04/09/19:17 04/10/19 01:43 04/09/19 22:17 Oxygen Delivery Method Room Air Weight: 152 lb Body Mass Index (BMI) 26.9 Finger Stick Blood Glucose 335 Laboratory Tests Past 24 Hrs 04/09/19 04/09/19 04/10/19 00:00 00:00 00:50 WBC 10.8 RBC 4.43 Hgb 12.6 Hct 39.7 MCV 89.6 MCH 28.4 MCHC 31.7 L RDW Std Deviation 49.8 H RDW Coeff of Shikha 15.1 H Plt Count 259 MPV 9.6 Immature Gran % (Auto) 0.400 Neut % (Auto) 75.3 H Lymph % (Auto) 16.4 L [place] % (Auto) 6.8 Eos % (Auto) 0.8 Baso % (Auto) 0.3 Absolute Neuts (auto) 8.1 H Absolute Lymphs (auto) 1.77 Nucleated RBC % 0 Sodium 138 Potassium 4.0 Chloride 104 Carbon Dioxide 28.0 Anion Gap 6 BUN 25 H Creatinine 0.98 Estim Creat Clear Calc 44.19 Est GFR (MDRD) Af Amer 72 Est GFR (MDRD) Non-Af 60 BUN/Creatinine Ratio 25.6 H Glucose 330 H Calcium 9.4 Troponin I < 0.015 Urine Color Yellow Urine Clarity Clear Urine pH 6.0 Ur Specific [place] 1.015 Urine Protein 15 H Urine Glucose (UA) Normal Urine Ketones 5 H Urine Occult Blood Negative Urine Nitrite Negative Urine Bilirubin Negative Urine Urobilinogen Normal Ur Leukocyte Esterase 100 H Urine RBC 0-5 SEEN Urine WBC 5-10 SEEN Ur Squamous Epith Cells 25-50 SEEN Urine Bacteria 0 SEEN Urine Mucus 0 SEEN POC Glucose 04/10/19 00:12 POC Glucose 335 H Diagnostic Data Ankle X-Ray 04/09/19 23:29 IMPRESSION: Acute fractures of the distal shaft of the fibula and medial malleolus. 7 mm osteochondral lesion medial talar dome. This could also represent an acute impaction fracture of the talar dome although a chronic underlying osteochondral lesion would also appear this way. Comparison with priors would be helpful. MRI would most definitively age this finding if clinically necessary. Electronically Signed: Kevin Syed, at 0:50 EDT Tel , Service support , Brain CT 04/10/19 23:50 IMPRESSION: No acute intracranial pathology. Chronic changes similar prior study Individualized dose optimization techniques were used for this CT. at 0041 Reported and signed by: Casandra Prescott DO Electronically Signed: Casandra Prescott DO at 0:40 EDT Tel , Service support , Assessment/Plan All Active Problems (Last Reviewed 03/10/19 @ 10:01 by Castro Kearney MD) Syncope (Acute) Closed bimalleolar fracture of right ankle (Acute) 68-year-old female admitted with a complaint of syncope 1. Syncope * cause of syncope could be cardiac vs neurological; patient noted to be bradycardic per EKG on admission, though during review, HR was normal. Also noted by daughters to be having seizure like movements of UEs during syncopal episode * admit to PCU with telemetry * CT brain showed no acute intracranial pathology * fall precautions * MRI of brain; EEG * consult neurology; to see on Thursday as no neurology coverage on weekend * check orthostatics * hydrate gently with IVF * 2. Acute right fibula and medial malleolus fracture * due to mechanical fall * consult orthopedic surgery * IV morphine prn and tylenol for pain * PT/OT consult * 3. Debility due to mechanical fall * PT/OT consult * fall precautions * 4. Diabetes mellitus type 1: On insulin 70/30 28 units daily as well as metformin and pioglitazone. Insulin sliding scale. Accuchecks ACHS 5. Essential primary hypertension: On amlodipine and metoprolol 6. Hyperlipidemia: on statin 7. Recent history of right intertrochanteric fracture left femur: Status post surgery. Stable. 8. CAD status post stents: on aspirin, plavix and statin as well as metoprolol. 9. Hypothyroidism: On Synthroid. 10. Dementia: On Aricept. Prophylaxis: SCDs Code Visit Inpatient E&M: 11574 Init Hosp L3
[2019-04-10] MEDS: 0.9% Normal Saline 1,000 ML 100 ML IV ×2 (03:26→12:45)
[2019-04-10 06:11] LABS: Absolute Lymphocyte Count 2.06 X10^3/uL (0.83-4.51); Absolute Neutrophil Count 6.1 X10^3/uL (2.0-7.7); Basophil# 0.02 X10^3/uL; Basophil% 0.2 % (0-1); Eosinophil# 0.11 X10^3/uL; Eosinophils% 1.2 % (0-5); Lymphocyte # 2.06 X10^3/ul (4.0); Lymphocyte % 22.9 % (19-41); Mean Corp Hgb Conc 32.4 g/dL (32-36); Mean Corpuscular Hgb 28.7 pg (27.0-32.0); Mean Corpuscular Volume 88.8 fL (81-99); Mean Platelet Vol. 9.9 fl (6.2-12.0); Monocyte# 0.73 X10^3/uL; Monocyte% 8.1 % (0-10); NRBC Flagged by Analyzer 0 % (0-5); Neutrophil # 6.06 X10^3/uL (2.7-7.7); Neutrophil % 67.3 % (47-70); Platelet Count 222 K/mm3 (150-450); RBC Distribution Width SD 47.8 fl (35.1-43.9); Red Blood Count 3.83 M/mm3 (4.2-5.4)
[2019-04-10 06:25] LABS: Anion Gap 7 (5-15); BUN 22 mg/dL (7-18); BUN/Creat Ratio 30.4 RATIO (10-20); Calcium,Total 8.9 mg/dL (8.5-10.1); Chloride 109 mmol/L (98-107); Creatinine, Serum 0.72 mg/dL (0.55-1.02); EST Glomerular Filtration Rate 85 mL/min (>60); Est Glom Filt Rate - Afr Amer 102 mL/min (>60); Glucose 216 mg/dL (74-106); Potassium 3.8 mmol/L (3.5-5.1); Sodium Level 141 mmol/L (136-145)
[2019-04-10] MEDS: Levothyroxine 75 MCG Tablet PO (06:25)
[2019-04-10] MEDS: metFORMIN (XR) 500 MG Tablet PO (08:52)
[2019-04-10] MEDS: Ferrous Sulfate 325 MG Tablet PO (08:52)
[2019-04-10] MEDS: Insulin Human 75/25 Kwickpen 28 UNIT SC (08:53)
[2019-04-10] MEDS: Glucerna Shake 120 ML LIQUID PO ×3 (08:53→17:07)
[2019-04-10] MEDS: Clopidogrel Bisulfate 75 MG Tablet PO (10:22)
[2019-04-10] MEDS: Lisinopril 20 MG Tablet PO ×2 (10:22→21:12)
[2019-04-10] MEDS: amLODIPine 5 MG Tablet PO (10:23)
[2019-04-10] MEDS: Isosorbide Mononitrate 20 MG Tablet PO ×2 (10:23→21:12)
[2019-04-10] MEDS: Magnesium Oxide 400 MG Tablet PO (10:23)
[2019-04-10] MEDS: Metoprolol Tartrate 25 MG Tablet 75 MG PO ×2 (10:24→21:11)
[2019-04-10] MEDS: Pioglitazone Hydrochloride 30 MG Tablet PO (10:24)
[2019-04-10] MEDS: Aspirin E.C. 81 MG Tablet PO (10:24)
--- NOTE | 2019-04-10 11:33 | PCM.PN.BLA ---
Progress Note Patient is a 68-year-old lady admitted following a syncopal episode. Imaging studies obtained as part of her work-up demonstrated acute right fibula and medial malleolar fracture. Urinalysis was also consistent with acute cystitis admitted to monitored bed where patient is currently being managed Patient has been seen and examined. Her initial assessment including history and physical, diagnostic work-up, management orders reviewed. Will follow.
[2019-04-10] MEDS: Insulin Lispro 100 UNIT/ML INSULN.PEN SC ×2 (11:50→17:03)
[2019-04-10 12:01] LABS: Bedside Glucose 319 mg/dL (70-110)
[2019-04-10] MEDS: Insulin Human 75/25 Kwickpen 18 UNIT SC (17:03)
[2019-04-10 17:21] LABS: Bedside Glucose 190 mg/dL (70-110)
[2019-04-10] MEDS: Mirtazapine 30 MG Tablet PO (21:11)
[2019-04-10] MEDS: Donepezil HCl 10 MG Tablet PO (21:11)
[2019-04-10] MEDS: Atorvastatin Calcium 80 MG Tablet PO (21:11)
[2019-04-10 22:26] LABS: Bedside Glucose 149 mg/dL (70-110)
--- NOTE | 2019-04-10 23:50 | CT_ITS ---
HISTORY:SYNCOPE,FALLHX:DIABETES,HTN,SUBDURAL HEMATOMA SYNCOPE,FALLHX:DIABETES,HTN,SUBDURAL HEMATOMA TECHNIQUE: Multiple axial images were obtained of the brain without intravenous contrast. A radiation dose optimization technique was used for this scan. IV Contrast dosage and agent: None. COMPARISON: October 02, 2017 FINDINGS: # of images incl. paperwork: 229 INFARCT: Chronic lacunar infarction involving the left basal ganglia that was present on the prior study HEMORRHAGE: None PARENCHYMAL ATTENUATION:Periventricular white matter low density compatible with chronic small vessel ischemic change similar prior study. MASS: None MIDLINE SHIFT: None BASAL CISTERNS: Patent VENTRICLES: Normal in size and configuration for age PARANASAL SINUSES:Clear MASTOID AIR CELLS: Clear ORBITS:No acute pathology CALVARIUM: No acute pathology OTHER TISSUES: No acute pathology ASPECTS Score for Acute Strokes: 10 CT/Brain/Head without Contrast IMPRESSION: No acute intracranial pathology. Chronic changes similar prior study Individualized dose optimization techniques were used for this CT. at 0041 Reported and signed by: Casandra Prescott DO Electronically Signed: Casandra Prescott DO at 0:40 EDT Tel , Service support ,
[2019-04-11] VITALS (12 sets, daily range): BP systolic 112–136; BP diastolic 53–62; PULSE 61–74; RESP 14–18; TEMP 36.5–37.1; O2SAT 95–98
[2019-04-11] MEDS: Levothyroxine 75 MCG Tablet PO (04:55)
[2019-04-11 06:27] LABS: Absolute Lymphocyte Count 2.08 X10^3/uL (0.83-4.51); Absolute Neutrophil Count 5.4 X10^3/uL (2.0-7.7); Basophil# 0.02 X10^3/uL; Basophil% 0.2 % (0-1); Eosinophil# 0.05 X10^3/uL; Eosinophils% 0.6 % (0-5); Hematocrit 38.5 % (37-47); Hemoglobin 12.2 g/dL (12.0-15.0); Lymphocyte # 2.08 X10^3/ul (4.0); Lymphocyte % 25.5 % (19-41); Mean Corp Hgb Conc 31.7 g/dL (32-36); Mean Corpuscular Hgb 28.4 pg (27.0-32.0); Mean Corpuscular Volume 89.5 fL (81-99); Mean Platelet Vol. 9.7 fl (6.2-12.0); Monocyte# 0.54 X10^3/uL; Monocyte% 6.6 % (0-10); NRBC Flagged by Analyzer 0 % (0-5); Neutrophil # 5.44 X10^3/uL (2.7-7.7); Neutrophil % 66.9 % (47-70); Platelet Count 251 K/mm3 (150-450); RBC Distribution Width CV 15.3 % (11.6-14.6); RBC Distribution Width SD 50.3 fl (35.1-43.9); White Blood Count 8.2 K/mm3 (4.4-11.0)
[2019-04-11 06:32] LABS: Anion Gap 6 (5-15); BUN 14 mg/dL (7-18); BUN/Creat Ratio 18.9 RATIO (10-20); Calcium,Total 8.6 mg/dL (8.5-10.1); Chloride 109 mmol/L (98-107); Creatinine, Serum 0.74 mg/dL (0.55-1.02); EST Glomerular Filtration Rate 82 mL/min (>60); Est Glom Filt Rate - Afr Amer 100 mL/min (>60); Glucose 310 mg/dL (74-106); Magnesium 1.9 mg/dL (1.6-2.6); Potassium 4.3 mmol/L (3.5-5.1); Sodium Level 139 mmol/L (136-145)
[2019-04-11] MEDS: Insulin Lispro 100 UNIT/ML INSULN.PEN SC ×3 (08:18→16:06)
[2019-04-11] MEDS: Insulin Human 75/25 Kwickpen 28 UNIT SC (08:19)
[2019-04-11] MEDS: Ferrous Sulfate 325 MG Tablet PO (08:21)
[2019-04-11] MEDS: metFORMIN (XR) 500 MG Tablet PO (08:21)
[2019-04-11] MEDS: Glucerna Shake 120 ML LIQUID PO ×2 (08:21→10:57)
[2019-04-11] MEDS: Aspirin E.C. 81 MG Tablet PO (08:22)
[2019-04-11] MEDS: Pioglitazone Hydrochloride 30 MG Tablet PO (08:22)
[2019-04-11] MEDS: Magnesium Oxide 400 MG Tablet PO (08:22)
[2019-04-11] MEDS: Isosorbide Mononitrate 20 MG Tablet PO ×2 (08:23→21:28)
[2019-04-11] MEDS: amLODIPine 5 MG Tablet PO (08:23)
[2019-04-11] MEDS: Acetaminophen 500 MG Tablet 1000 MG PO (08:23)
[2019-04-11] MEDS: Clopidogrel Bisulfate 75 MG Tablet PO (08:23)
[2019-04-11] MEDS: Lisinopril 20 MG Tablet PO ×2 (08:24→21:28)
[2019-04-11] MEDS: Metoprolol Tartrate 25 MG Tablet 75 MG PO ×2 (08:25→21:28)
[2019-04-11 08:35] LABS: Bedside Glucose 297 mg/dL (70-110)
--- NOTE | 2019-04-11 11:02 | CASEMGMT ---
RN CM Assessment Presentation: Syncope. Mechanical Fall with acute fx distal shaft fibula and medial malleolus. Intro role of CM and purpose of RN CM assessment to patient. She is awake, alert and able to participate in assessment. Demographics, PCP and Pharmacy verified. Per pt she was in [place] in January (02/03-02/19/19) post hip fx, then had Home Health through [facility]. RN CM discussed possible need for HHS or SNF on dc. Pt is agreeable if recommended. PT/OT working with pt. Call to request their recommendation re: home vs snf level of care. Pt states she plans to return home with daughter Arminda who lives in one story home with no stairs for pt to navigate. Pt will have master bedroom with attached bath. Per nursing, however, Arminda mentioned SNF for dc plan. PCP: Dr. Johnathon Brown Specialists: Neuro and ortho consults ordered Preferred Pharmacy: [facility] Insurance: [facility] Prescription Benefit: yes LNOK: Daughters Lianet Jon and Arminda Delcid Living Arrangements: Lives in one story home with 6-7 steps into home. Pt states prior to injury, she was independent and ambulatory. Lives with son. Transportation: Family can assist with transportation DME: walker, cane MADISON Consult: Possible SNF placement. Case discussed with MADISON [facility]/SNF/RU: [facility] past. [facility] RU past Patient DC goals: pt would like to return home, but is agreeable to options recommended by PT/OT -D/C PLAN: undetermined. Will follow with pt and therapies to assist with dc planning. Awaiting PT assessment for today Teddy ROBERTSONN RN ACM
--- NOTE | 2019-04-11 11:02 | CASEMGMT ---
RN CM Assessment Presentation: Syncope. Mechanical Fall with acute fx distal shaft fibula and medial malleolus. Intro role of CM and purpose of RN CM assessment to patient. She is awake, alert and able to participate in assessment. Demographics, PCP and Pharmacy verified. Per pt she was in [place] in January (02/03-02/19/19) post hip fx, then had Home Health through [facility]. RN CM discussed possible need for HHS or SNF on dc. Pt is agreeable if recommended. PT/OT working with pt. Call to request their recommendation re: home vs snf level of care. PCP: Dr. Johnathon Brown Specialists: Neuro and ortho consults ordered Preferred Pharmacy: [facility] Insurance: [facility] Prescription Benefit: yes LNOK: Daughters Lianet Jon and Arminda Delcid Living Arrangements: Lives in one story home with 6-7 steps into home. Pt states prior to injury, she was independent and ambulatory. Lives with son. Transportation: Family can assist with transportation DME: walker, cane HHC/SNF/RU: [facility] past. [facility] past Patient DC goals: pt would like to return home, but is agreeable to options recommended by PT/OT -D/C PLAN: undetermined. Will follow with pt and therapies to assist with dc planning. Teddy HAZEL RN ACM
[2019-04-11 11:06] LABS: Bedside Glucose 308 mg/dL (70-110)
--- NOTE | 2019-04-11 11:41 | CON.PCM_ITS ---
Problem List (1) Closed bimalleolar fracture of right ankle Status: Acute Qualifiers: Encounter type: initial encounter Qualified Code(s): S82.841A - Displaced bimalleolar fracture of right lower leg, initial encounter for closed fracture Comment: Patient has non-displaced medial malleolus fracture and minimally displaced lateral distal fibula fracture. - Consult Date of Consult: 04/11/19 Patient is currently resting in chair with leg elevated and immobilized in sugar tong/ankle stirrup splint. She has very mild amt of swelling on the dorsum of the foot / toes. Patient has intact sensation to light touch of the foot/toes and good distal pulses. She has intact motion of the toes as well. At this time we discuss the X-rays which show bimalleolar fracture of the right ankle with minimal displacement of the fibular component. We discussed conservative management with cast immobilization of the ankle. With mild swelling, we should be able to apply this cast tomorrow in the hospital at the same time could be if a change in swelling. She needs to continue to keep this elevated today and could apply ice to the ankle for 20 minutes ever 1-2 hours. She will also need to be [id number] with this fracture and thus will need to continue with PT/OT to make sure she is comfortable using assistive device for mobility. She will follow-up weekly for the first two weeks to include radio graphs to make sure there is no movement in position of the fractures. - Reason for Consult Right ankle fracture (bi-malleolar fracture)
--- NOTE | 2019-04-11 13:01 | PCM.PROGNOTE ---
Patient Problems: Active and Suspected Problems (Last Reviewed 03/10/19 @ 10:01 by Castro Kearney MD) Syncope (Acute) Closed bimalleolar fracture of right ankle (Acute) Patient has non-displaced medial malleolus fracture and minimally displaced lateral distal fibula fracture. Subjective: The patient is a 68-year-old female with a history of type 2 diabetes mellitus, hypertension, hypothyroidism, hyperlipidemia, dementia, depression, CAD, PCI with JERROD to the proximal LAD in 2008 and PCI/JERROD to OM1 and diagonal 2 on 10/12/2009 who presented to the emergency department at [facility] on 04/10/2019 complaining of syncope resulting in a fall. She was sitting on the toilet and blacked out. Her daughter noticed that she was having tonic-clonic movements of her upper extremities. She fell at home and broke her hip approximately 1 month ago and had repair. EKG in the emergency room showed sinus bradycardia with a heart rate of 53. Lab was remarkable for an elevated BUN to 25 with a creatinine of 0.98. Random blood sugar was 330. Troponin was less than 0.015. UA had 5-10 white blood cells per high-power field with 25-50 squamous epithelial cells. X-ray showed an acute fracture through the distal shaft of the fibula with minimal lateral displacement and an acute nondisplaced fracture through the base of the medial malleolus extending into the lateral articular surface of the distal tibia. CT brain showed no acute intracranial pathology. She was admitted to a monitored bed on PCU. Telemetry has shown normal sinus rhythm with occasional unifocal PVCs. No couplets, no triplets, no sustained or nonsustained ventricular tachycardia. Blood sugars are not adequately controlled. Blood sugar since admission have ranged from 1 49-335. Vital signs are stable She is afebrile Pulse ox is 95 to 98% on room air. All lab was personally reviewed. CBC is unremarkable. BMP today shows BUN of 14 and a creatinine 0.74. Blood sugar was 310. Mag is normal at 1.6. She tells me that when she awoke after falling to the floor she knew where she was and recognized her daughter. She denies biting her tongue, fecal incontinence or urinary incontinence. She denies any history of seizures. I reviewed the ortho note......must wait until the swelling is down to apply a cast.....no plan for surgery at this time. will treat conservatively. She states her pain is adequately controlled. Admits to not sticking to her diet.....blood sugars are often in the 300's. She takes insulin twice and day and has no sliding scale insulin. Hemoglobin A1c is 9.1. Objective: PHYSICAL EXAM: GENERAL: alert, oriented X 3, Cooperative, NAD ORAL: moist mucosa, no mucosal lesions NECK: No JVD, supple, trachea midline LUNGS: CTA, symmetric chest expansion HEART: RRR, Normal S1 and S2, no rub, no gallop, no murmur ABDOMEN: soft, NT, ND, BS present, no guarding with palpation EXTREMITIES: no edema, no cyanosis, no calf tenderness, she has tenderness to palpation of the R ankle SKIN: No rashes, no breakdown, she has vitiligo NEUROLOGIC: no focal neurologic deficits PSYCH: appropriate, normal affect, pleasant Telemetry shows normal sinus rhythm with rare PVC. - Physical Exam Vital Signs Temp Pulse Resp BP Pulse Ox 98.1 F 61 16 136/53 H 95 04/11/19 08:28 04/11/19 11:07 04/11/19 08:28 04/11/19 08:28 04/11/19 08:28 Oxygen Delivery Method Room Air Weight: 149 lb 4.047 oz Body Mass Index (BMI) 26.4 Finger Stick Blood Glucose 335 Intake and Output for Last 24 Hours 04/09/19 04/10/19 04/11/19 23:59 23:59 23:59 Intake Total 1939 / 2502 613 / 613 Output Total 650 / 650 Balance 1289 / 1852 613 / 613 Microbiology Past 72 Hours 04/10/19 00:50 Urine Culture - Final Urine, Clean Catch Mixed Gram Positive Organisms Laboratory Tests Past 24 Hrs 04/11/19 04/11/19 05:50 05:50 WBC 8.2 RBC 4.30 Hgb 12.2 Hct 38.5 MCV 89.5 MCH 28.4 MCHC 31.7 L RDW Std Deviation 50.3 H RDW Coeff of Shikha 15.3 H Plt Count 251 MPV 9.7 Immature Gran % (Auto) 0.200 Neut % (Auto) 66.9 Lymph % (Auto) 25.5 Dawes % (Auto) 6.6 Eos % (Auto) 0.6 Baso % (Auto) 0.2 Absolute Neuts (auto) 5.4 Absolute Lymphs (auto) 2.08 Nucleated RBC % 0 Sodium 139 Potassium 4.3 Chloride 109 H Carbon Dioxide 24.0 Anion Gap 6 BUN 14 Creatinine 0.74 Estim Creat Clear Calc 43.30 Est GFR (MDRD) Af Amer 100 Est GFR (MDRD) Non-Af 82 BUN/Creatinine Ratio 18.9 Glucose 310 H Calcium 8.6 Magnesium 1.9 POC Glucose 04/11/19 04/11/19 04/10/19 10:55 08:16 21:06 POC Glucose 308 H 297 H 149 H 04/10/19 17:00 POC Glucose 190 H Medical Necessity - Tobacco Use Smoking Status: Unknown if ever smoked Assessment/Plan All Active Problems (Last Reviewed 03/10/19 @ 10:01 by Castro Kearney MD) Syncope (Acute) Closed bimalleolar fracture of right ankle (Acute) Impressions 1. Syncope- Suspect this may be orthostatic in nature.... Since the blood sugars are uncontrolled and she likely has polyuria. The BUN/creatinine ratio at admission was 25.6. She had a head sensation prior to passing out and awakening on the floor. Doubt seizure. 2. Fall resulting in fracture of the right tib-fib at the ankle. Has been seen by orthopedics and they recommend conservative treatment. Will cast when the swelling has improved. 3. Diabetes mellitus type 2-uncontrolled. Noncompliant with diet. 4. Hypertension 6. Hyperlipidemia 7. Recent history of right intertrochanteric fracture of the left femur-status post surgical repair 8. Coronary artery disease with history of PTCA/stents-on aspirin Plavix and statin as well as a beta-rona 9. Hypothyroidism 10. Dementia-on Aricept 11. Lab consistent with dehydration at admission and the patient also had dry mucous membranes per the admitting hospitalist 12. Vitiligo Fasting blood sugar is over 300 today but the at bedtime sugar last evening was 149. We will check a 3 AM blood sugar to make sure she is not getting hypoglycemic at night Increase the sliding scale insulin to high coverage Increase the a.m. 75/25 to 40 units every morning SNF at discharge Change the sliding scale insulin coverage to 3 times daily AC Pt does not seem motivated to change her diet to improve BS control Code Visit Inpatient E&M: 94833 Subs Hosp L2
[2019-04-11 14:08] LABS: AST(SGOT) 15 U/L (15-37); Alanine Aminotransfer ALT/SGPT 21 U/L (13-56); Alkaline Phosphatase 167 U/L (45-117); Bilirubin, Direct 0.13 mg/dL (0.00-0.30); Globulin 3.9 g/dL (2.2-4.2); Hemoglobin A1c 9.1 % (4.2-6.3); Phosphorus 3.4 mg/dL (2.5-4.9); Protein, Total 6.9 g/dL (6.4-8.2)
[2019-04-11] MEDS: Insulin Human 75/25 Kwickpen 18 UNIT SC (16:07)
[2019-04-11 16:16] LABS: Bedside Glucose 311 mg/dL (70-110)
[2019-04-11] MEDS: Atorvastatin Calcium 80 MG Tablet PO (21:28)
[2019-04-11] MEDS: Mirtazapine 30 MG Tablet PO (21:28)
[2019-04-11] MEDS: Donepezil HCl 10 MG Tablet PO (21:28)
[2019-04-11 22:16] LABS: Bedside Glucose 217 mg/dL (70-110)
[2019-04-12] VITALS (13 sets, daily range): BP systolic 102–172; BP diastolic 54–94; PULSE 59–82; RESP 16–18; TEMP 36.5–36.8; O2SAT 94–98
[2019-04-12 04:36] LABS: Bedside Glucose 148 mg/dL (70-110)
[2019-04-12] MEDS: Levothyroxine 75 MCG Tablet PO (05:37)
[2019-04-12] MEDS: Insulin Lispro 100 UNIT/ML INSULN.PEN SC ×2 (07:31→10:41)
[2019-04-12] MEDS: Ferrous Sulfate 325 MG Tablet PO (07:32)
[2019-04-12] MEDS: Acetaminophen 500 MG Tablet 1000 MG PO (07:32)
[2019-04-12] MEDS: Insulin Human 75/25 Kwickpen 40 UNIT SC (07:32)
[2019-04-12] MEDS: metFORMIN (XR) 500 MG Tablet PO (07:32)
[2019-04-12 07:46] LABS: Bedside Glucose 236 mg/dL (70-110)
[2019-04-12] MEDS: amLODIPine 5 MG Tablet PO (09:50)
[2019-04-12] MEDS: Clopidogrel Bisulfate 75 MG Tablet PO (09:50)
[2019-04-12] MEDS: Lisinopril 20 MG Tablet PO ×2 (09:50→22:15)
[2019-04-12] MEDS: Pioglitazone Hydrochloride 30 MG Tablet PO (09:50)
[2019-04-12] MEDS: Metoprolol Tartrate 25 MG Tablet 75 MG PO ×2 (09:50→22:15)
[2019-04-12] MEDS: Aspirin E.C. 81 MG Tablet PO (09:50)
[2019-04-12] MEDS: 0.9% NaCl Peripheral Flush Adult/Peds IV (09:51)
[2019-04-12] MEDS: Magnesium Oxide 400 MG Tablet PO (09:51)
[2019-04-12] MEDS: Isosorbide Mononitrate 20 MG Tablet PO ×2 (09:51→22:15)
--- NOTE | 2019-04-12 09:55 | CASEMGMT ---
SW met with patient, introduced self and role at [facility]. SW spoke with patient about going to a [facility] short [facility] for rehab. SW gave patient a list and told her to talk with her family. SW told her if they decide on SNF they would need to choose 2-3 facilities and SW can check on availability. Plan: Possible SNF pending patient talking with family. Anni ALEMAN MSW
--- NOTE | 2019-04-12 10:30 | CASEMGMT ---
MADISON called patient's daughter, Arminda as patient's RN said patient has Dementia and won't talk with her family about SNF. Arminda said she was hoping patient could go to the Rehab Unit at [facility] as she has been there in the past. MADISON explained that there are qualifying diagnoses and patient does not have one, but sometimes they can accept other patients. MADISON told her SW will have to check with the Rehab Unit. She said if that does not work out they will look at the SNF list. MADISON called Zelda in the Rehab Unit and she said a bed opened up in TCU and patient could have that bed. MADISON will check with patient's daughter to see if she is okay with TCU instead of the Rehab Unit. Plan: Possibly TCU if patient and her family are in agreement. Anni ALEMAN MSW
[2019-04-12] MEDS: Glucerna Shake 120 ML LIQUID PO (10:47)
[2019-04-12 10:50] LABS: Bedside Glucose 300 mg/dL (70-110)
--- NOTE | 2019-04-12 12:17 | RAD_ITS ---
STUDY: X-RAY - RIGHT ANKLE REASON FOR EXAM: Cast placement. TECHNIQUE: 3 view(s) of the ankle. COMPARISON: Radiographs 04/09/2019. FINDINGS: There are nondisplaced fractures of the distal fibula and medial malleolus. There is an osteochondral lesion of the medial talar dome. Normal ankle mortise. There is a small plantar calcaneal enthesophyte. Otherwise, unremarkable visualized talus and calcaneus. The visualized subtalar, talonavicular, calcaneocuboid and tarsal articulations are normal. There is soft tissue swelling overlying the lateral ankle. There is an overlying in cast. RAD/Ankle min 3 Views IMPRESSION: Nondisplaced distal fibular and medial malleolar fractures. Osteochondral lesion of the medial talar dome. Electronically Signed: Vidal Lubin MD at 13:25 EDT Tel , Service support ,
--- NOTE | 2019-04-12 12:35 | CASEMGMT ---
MADISON spoke with patient and her daughter regarding discharge plan. SW let them know TCU has a bed that has opened up if they would like to go there instead of the rehab unit. Patient's daughter feels this would be a good idea. However, patient is reluctant as she wants to go home. Patient is thinking about it and SW will check back with her. Plan: [facility] TCU as long as patient agrees. Anni WISE
--- NOTE | 2019-04-12 15:14 | NURSING ---
this RN assuming care at this time
--- NOTE | 2019-04-12 15:19 | CASEMGMT ---
Patient asked to talk with MADISON. SW spoke with patient and she said she would like to reserve the bed in TCU. SW told her this is done and thanked her for letting MADISON know. Plan: d/c to [facility] TCU tomorrow Anni WISE
--- NOTE | 2019-04-12 15:23 | NURSING ---
Verbal report to LASHANDA Carrillo
[2019-04-12 16:16] LABS: Bedside Glucose 113 mg/dL (70-110)
[2019-04-12] MEDS: Insulin Human 75/25 Kwickpen 18 UNIT SC (17:13)
--- NOTE | 2019-04-12 19:52 | PCM.PROGNOTE ---
Patient Problems: Active and Suspected Problems (Last Reviewed 03/10/19 @ 10:01 by Castro Kearney MD) Syncope (Acute) Closed bimalleolar fracture of right ankle (Acute) Patient has non-displaced medial malleolus fracture and minimally displaced lateral distal fibula fracture. Subjective: All events of the past 24 hours been reviewed. A cast was applied by Dr. Meyer today. Patient is afebrile with stable vital signs. She is 97% saturated on room air. The blood sugar record was reviewed. Her blood sugars are erratic. she denies pain, shortness of breath, lightheadedness, palpitations, diarrhea, nausea or vomiting. She only has morphine sulfate ordered for pain and she has not required any. Objective: GENERAL: alert, oriented X 3, Cooperative, NAD ORAL: moist mucosa, no mucosal lesions NECK: No JVD, supple, trachea midline LUNGS: CTA, symmetric chest expansion HEART: RRR, Normal S1 and S2, no rub, no gallop, no murmur ABDOMEN: soft, NT, ND, BS present, no guarding with palpation EXTREMITIES: no edema, no cyanosis, no calf tenderness, she has tenderness to palpation of the R ankle SKIN: No rashes, no breakdown, she has vitiligo NEUROLOGIC: no focal neurologic deficits PSYCH: appropriate, normal affect, pleasant - Physical Exam Vital Signs Temp Pulse Resp BP Pulse Ox 98.3 F 71 18 102/67 97 04/12/19 15:20 04/12/19 19:20 04/12/19 15:20 04/12/19 15:20 04/12/19 15:20 Oxygen Delivery Method Room Air Weight: 149 lb 4.047 oz Body Mass Index (BMI) 26.4 Finger Stick Blood Glucose 335 Orthostatic Vital Signs Start: 04/12/19 05:20 Freq: q24h Status: Active Protocol: Activity Type Activity Date Activity User E-Sign Co-Sign Detail Recorded Client Recorded Date Recorded By Document 04/12/19 05:25 [id number] 04/12/19 05:31 [id number] 04/12/19 05:25 Orthostatic Vitals Standing -Blood Pressure (90/60-120/80 mm Hg) 170/66 H -Extremity Use Left Arm -Pulse Rate (60-100 beats/min) 82 Sitting -Blood Pressure (90/60-120/80 mm Hg) 172/79 H -Extremity Use Left Arm -Pulse Rate (60-100 beats/min) 80 Lying -Blood Pressure (90/60-120/80 mm Hg) 133/94 H -Extremity Use Left Arm -Pulse Rate (60-100 beats/min) 61 Intake and Output for Last 24 Hours 04/10/19 04/11/19 04/12/19 23:59 23:59 23:59 Intake Total 1939 / 2502 1333 / 1333 1130 / 1130 Output Total 650 / 650 2 / 2 Balance 1289 / 1852 1331 / 1331 1130 / 1130 Microbiology Past 72 Hours 04/10/19 00:50 Urine Culture - Final Urine, Clean Catch Mixed Gram Positive Organisms POC Glucose 04/12/19 04/12/19 04/12/19 16:11 10:40 07:30 POC Glucose 113 H 300 H 236 H 04/12/19 04/11/19 02:51 21:25 POC Glucose 148 H 217 H Medical Necessity - Tobacco Use Smoking Status: Unknown if ever smoked Assessment/Plan All Active Problems (Last Reviewed 03/10/19 @ 10:01 by Castro Kearney MD) Syncope (Acute) Closed bimalleolar fracture of right ankle (Acute) Impressions 1. Syncope- Suspect this may be orthostatic in nature.... Since the blood sugars are uncontrolled and she likely has polyuria. The BUN/creatinine ratio at admission was 25.6. She had a head sensation prior to passing out and awakening on the floor. Doubt seizure. 2. Fall resulting in fracture of the right tib-fib at the ankle. Has been seen by orthopedics and they recommend conservative treatment. Will cast when the swelling has improved. 3. Diabetes mellitus type 2-uncontrolled. Noncompliant with diet. 4. Hypertension 6. Hyperlipidemia 7. Recent history of right intertrochanteric fracture of the left femur-status post surgical repair 8. Coronary artery disease with history of PTCA/stents-on aspirin Plavix and statin as well as a beta-rona 9. Hypothyroidism 10. Dementia-on Aricept 11. Lab consistent with dehydration at admission and the patient also had dry mucous membranes per the admitting hospitalist 12. Vitiligo Adjust the insulin to achieve better blood sugar control. Plan on TCU at discharge for further PT. Probable discharge tomorrow Discontinue the morphine sulfate and start OxyIR 5 mg every 4 hours as needed pain. Continue Tylenol as needed. Code Visit Inpatient E&M: 58807 Subs Hosp L1
[2019-04-12] MEDS: Insulin Human 75/25 Kwickpen 4 UNIT SC (22:14)
[2019-04-12] MEDS: Atorvastatin Calcium 80 MG Tablet PO (22:15)
[2019-04-12] MEDS: Mirtazapine 30 MG Tablet PO (22:15)
[2019-04-12] MEDS: Donepezil HCl 10 MG Tablet PO (22:15)
[2019-04-12 22:46] LABS: Bedside Glucose 220 mg/dL (70-110)
[2019-04-13 03:08] VITALS: PULSE 56
[2019-04-13 03:21] VITALS: BP 136/69; PULSE 61; RESP 18; TEMP 36.8; O2SAT 95
[2019-04-13 03:55] LABS: Bedside Glucose 122 mg/dL (70-110)
[2019-04-13] MEDS: Levothyroxine 75 MCG Tablet PO (06:56)
[2019-04-13 07:00] VITALS: PULSE 73
[2019-04-13] MEDS: Insulin Human 75/25 Kwickpen 48 UNIT SC (09:04)
[2019-04-13] MEDS: Pioglitazone Hydrochloride 30 MG Tablet PO (09:05)
[2019-04-13] MEDS: Aspirin E.C. 81 MG Tablet PO (09:05)
[2019-04-13] MEDS: Clopidogrel Bisulfate 75 MG Tablet PO (09:06)
[2019-04-13] MEDS: Lisinopril 20 MG Tablet PO (09:06)
[2019-04-13] MEDS: Magnesium Oxide 400 MG Tablet PO (09:09)
[2019-04-13] MEDS: amLODIPine 5 MG Tablet PO (09:09)
[2019-04-13 09:10] VITALS: BP 128/67; PULSE 70; RESP 18; TEMP 36.4; O2SAT 95
[2019-04-13] MEDS: Metoprolol Tartrate 25 MG Tablet 75 MG PO (09:10)
[2019-04-13] MEDS: Ferrous Sulfate 325 MG Tablet PO (09:10)
[2019-04-13] MEDS: Isosorbide Mononitrate 20 MG Tablet PO (09:11)
[2019-04-13] MEDS: metFORMIN (XR) 500 MG Tablet PO (09:11)
[2019-04-13] MEDS: Glucerna Shake 120 ML LIQUID PO ×2 (09:19→12:05)
[2019-04-13 09:35] LABS: Bedside Glucose 256 mg/dL (70-110)
[2019-04-13 11:47] VITALS: PULSE 64
[2019-04-13 11:51] LABS: Bedside Glucose 270 mg/dL (70-110)
[2019-04-13] MEDS: Insulin Lispro 100 UNIT/ML INSULN.PEN SC (12:05)
--- NOTE | 2019-04-13 14:07 | PCM.TXEXTCAR ---
- Diet 04/10/19 03:03 Diet: Calorie Controlled, cardiac Food consistency:: Regular Liquid Consistency:: Regular/Thin Is pt able to select menu?: Yes How many daily calories?: 1600 calorie - Routine Orders/Code Status Enema Type: Fleetz Enema Frequency: Daily PRN Suppository Type: Dulcolax 10mg Suppository Frequency: Daily PRN O2 Liters per Minute: 1-2 O2 Frequency: PRN Keep PO Greater than or Equal to (%): 90 - Therapies Weight Bearing: Non weight bearing Extremity Affected:: Right Lower Physical Therapy: Eval and Treat Occupational Therapy: Eval and Treat - Problem/Diagnosis (1) Closed bimalleolar fracture of right ankle Status: Acute Comment: Patient has non-displaced medial malleolus fracture and minimally displaced lateral distal fibula fracture. Current Visit: Yes (2) Syncope Status: Acute Comment: suspect due to orthostatic hypotension Current Visit: Yes (3) Atherosclerotic heart disease of [place] coronary artery without angina pectoris Status: Chronic Comment: [id number] LAD 02/13/2009; PCI-JERROD to OM1 and D2 10/12/2009 Current Visit: No (4) Essential (primary) hypertension Status: Chronic Current Visit: No (5) HLD (hyperlipidemia) Status: Chronic Current Visit: No (6) History of coronary artery stent placement Status: Chronic Comment: [id number] LAD 02/13/2009; PCI-JERROD to OM1 and D2 10/12/2009 Current Visit: No (7) Type 2 diabetes mellitus Status: Chronic Comment: uncontrolled Current Visit: No (8) Vitiligo Status: Chronic Current Visit: Yes (9) Hip fracture, left Status: Chronic Comment: January [address] Barnard Current Visit: Yes (10) Dementia Status: Chronic Comment: on Aricept Current Visit: Yes (11) Dehydration Status: Acute Current Visit: Yes - Allergies/Procedures Done in Hospital Allergies/Adverse Reactions: Allergies fentanyl Allergy (Verified 04/09/19 22:24) Low blood pressure diazepam [From Valium] Adverse Reaction (Verified 04/09/19 22:24) Other Procedures: - - Cast to the distal RLE on 04/12/[address] Meyer - Type of Care/Length of Stay Estimated LOS: Convalescent Care Less Than 30 days Type of Care Needed: Skilled Rehab Potential: Good Prognosis: Good - Additional Orders/Day of Discharge Additional Orders: accuchecks AC and HS H&P will serve as current which was dated: 04/10/19 Day of Discharge: 04/13/19 - Dietary and Speech Recommendations Dietitian Recommendations/Changes: Rec diet change to 1600 yuliya Cardiac. 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
--- NOTE | 2019-04-13 14:17 | PCM.DC.SUM ---
Discharge Date and Diagnosis - Problem List Patient Problems: Active and Suspected Problems (Last Reviewed 03/10/19 @ 10:01 by Castro Kearney MD) Syncope (Acute) suspect due to orthostatic hypotension Closed bimalleolar fracture of right ankle (Acute) Patient has non-displaced medial malleolus fracture and minimally displaced lateral distal fibula fracture. Dehydration (Acute) Date of Admission: 04/10/19 Date of Discharge: 04/13/19 - Primary Discharge Diagnosis Active and Suspected Problems (Last Reviewed 03/10/19 @ 10:01 by Castro Kearney MD) Syncope (Acute) suspect due to orthostatic hypotension Closed bimalleolar fracture of right ankle (Acute) Patient has non-displaced medial malleolus fracture and minimally displaced lateral distal fibula fracture. Dehydration (Acute) - Secondary Discharge Diagnosis Chronic Problems (Last Reviewed 03/10/19 @ 10:01 by Castro Kearney MD) Type 2 diabetes mellitus (Chronic) uncontrolled - HGBA1C in March 2019 is 9.1 Vitiligo (Chronic) Hip fracture, left (Chronic) January [address] Barnard Dementia (Chronic) on Aricept Essential (primary) hypertension (Chronic) HLD (hyperlipidemia) (Chronic) Atherosclerotic heart disease of [place] coronary artery without angina pectoris (Chronic) [id number] LAD 02/13/2009; PCI-JERROD to OM1 and D2 10/12/2009 History of coronary artery stent placement (Chronic 10/12/09) [id number] LAD 02/13/2009; PCI-JERROD to OM1 and D2 10/12/2009 Hospital Course and Treatment Imaging Results: Clinical Impression(s) from Imaging Studies Ankle X-Ray 04/09/19 23:29 IMPRESSION: Acute fractures of the distal shaft of the fibula and medial malleolus. 7 mm osteochondral lesion medial talar dome. This could also represent an acute impaction fracture of the talar dome although a chronic underlying osteochondral lesion would also appear this way. Comparison with priors would be helpful. MRI would most definitively age this finding if clinically necessary. Electronically Signed: Kevin Syed, at 0:50 EDT Tel , Service support , Brain CT 04/10/19 23:50 IMPRESSION: No acute intracranial pathology. Chronic changes similar prior study Individualized dose optimization techniques were used for this CT. at 0041 Reported and signed by: Casandra Prescott DO Electronically Signed: Casandra Prescott DO at 0:40 EDT Tel , Service support , Ankle X-Ray 04/12/19 12:17 IMPRESSION: Nondisplaced distal fibular and medial malleolar fractures. Osteochondral lesion of the medial talar dome. Electronically Signed: Vidal Lubin MD at 13:25 EDT Tel , Service support , Laboratory Results - last 24 hr 04/12/19 04/12/19 04/13/19 16:11 22:13 03:42 POC Glucose 113 H 220 H 122 H 04/13/19 04/13/19 09:03 11:40 POC Glucose 256 H 270 H Microbiology 04/10/19 00:50 Urine, Clean Catch Urine Culture - Final Mixed Gram Positive Organisms Dr. Marcia Meyer-orthopedics Summary of Care Provided: The patient is a 68-year-old female with a history of type 2 diabetes mellitus, hypertension, hypothyroidism, hyperlipidemia, dementia, depression, CAD, PCI with JERROD to the proximal LAD in 2008 and PCI/JERROD to OM1 and diagonal 2 on 10/12/2009 who presented to the emergency department at [facility] on 04/10/2019 complaining of feeling lightheaded and then passing out and falling to the floor. Her daughter noticed that she was having tonic-clonic movements of her upper extremities. She fell at home and broke her hip in January of 2019 and had ORIF by Dr. Scott. EKG in the emergency room showed sinus bradycardia with a heart rate of 53(she is on a beta rona). Lab was remarkable for an elevated BUN to 25 with a creatinine of 0.98 and a BUN/creatinine ratio of 26. Random blood sugar was 330. Troponin was less than 0.015. UA had 5-10 white blood cells per high-power field with 25-50 squamous epithelial cells. X-ray showed an acute fracture through the distal shaft of the fibula with minimal lateral displacement and an acute nondisplaced fracture through the base of the medial malleolus extending into the lateral articular surface of the distal tibia. CT brain showed no acute intracranial pathology. She was admitted to a monitored bed on PCU. was consulted. Conservative management was recommended and a cast was applied to the RLE on 04/[address] Meyer after the swelling had sufficiently decreased. HGBA1 C was 9.1 and the blood sugars were often in the 300's. She was seen in consult by the manager of allied health services who recommended a 1600 calorie cardiac diet. The insulin was adjusted daily to get better BS control. She has a fair amount of insulin resistance, increasing the dose does not lead to the expected drop in the blood sugars. She was started on Actos in addition to Metformin XR 500 mg daily and the insulin. BS's were improving at the time of DC but, will need further adjustments in TCU. She was transferred to TCU on 04/13/19 for further PT prior to returning home. She will follow up with Dr. Johnathon Brown after discharge from TCU. She will also need to follow up with Dr. Meyer in the next couple weeks. GENERAL: alert, oriented X 3, Cooperative, NAD, can not answer questions about her medications but is able to follow commands and she is always pleasant ORAL: moist mucosa, no mucosal lesions NECK: No JVD, supple, trachea midline LUNGS: CTA, symmetric chest expansion HEART: RRR, Normal S1 and S2, no rub, no gallop, no murmur ABDOMEN: soft, NT, ND, BS present, no guarding with palpation EXTREMITIES: no edema, no cyanosis, no calf tenderness, the cast is in place on the RLE SKIN: No rashes, no breakdown, she has vitiligo NEUROLOGIC: no focal neurologic deficits PSYCH: appropriate, normal affect, pleasant This note was generated with Si TVation software. It may contain incorrect words, spelling, and punctuation that were not noted in checking the note before signing. Patient Problems: Active and Suspected Problems (Last Reviewed 03/10/19 @ 10:01 by Castro Kearney MD) Syncope (Acute) suspect due to orthostatic hypotension Closed bimalleolar fracture of right ankle (Acute) Patient has non-displaced medial malleolus fracture and minimally displaced lateral distal fibula fracture. Dehydration (Acute) - Physical Exam Vital Signs Temp Pulse Resp BP Pulse Ox 97.6 F L 64 18 128/67 H 95 04/13/19 09:10 04/13/19 11:47 04/13/19 09:10 04/13/19 09:10 04/13/19 09:10 Oxygen Delivery Method Room Air Weight: 149 lb 4.047 oz Body Mass Index (BMI) 26.4 Finger Stick Blood Glucose 335 Orthostatic Vital Signs Start: 04/12/19 05:20 Freq: q24h Status: Active Protocol: Activity Type Activity Date Activity User E-Sign Co-Sign Detail Recorded Client Recorded Date Recorded By Document 04/12/19 05:25 [id number] 04/12/19 05:31 [id number] 04/12/19 05:25 Orthostatic Vitals Standing -Blood Pressure (90/60-120/80 mm Hg) 170/66 H -Extremity Use Left Arm -Pulse Rate (60-100 beats/min) 82 Sitting -Blood Pressure (90/60-120/80 mm Hg) 172/79 H -Extremity Use Left Arm -Pulse Rate (60-100 beats/min) 80 Lying -Blood Pressure (90/60-120/80 mm Hg) 133/94 H -Extremity Use Left Arm -Pulse Rate (60-100 beats/min) 61 Intake and Output for Last 24 Hours 04/11/19 04/12/19 04/13/19 23:59 23:59 23:59 Intake Total 1333 / 1333 1130 / 1130 120 / 120 Output Total 2 / 2 Balance 1331 / 1331 1130 / 1130 120 / 120 Microbiology Past 72 Hours 04/10/19 00:50 Urine Culture - Final Urine, Clean Catch Mixed Gram Positive Organisms POC Glucose 04/13/19 04/13/19 04/13/19 11:40 09:03 03:42 POC Glucose 270 H 256 H 122 H 04/12/19 04/12/19 22:13 16:11 POC Glucose 220 H 113 H Home Medications: Medications to take at Discharge Donepezil HCl [Aricept] 10 mg PO QHS tab 02/18/19 Magnesium Oxide [Mag-Ox 400] 400 mg PO DAILY tab 02/18/19 Metoprolol Tartrate [Lopressor (beta rona)] 75 mg PO BID tab 02/18/19 Pioglitazone [Actos] 30 mg PO DAILY tab 02/18/19 metFORMIN (XR) [Glucophage Xr] 500 mg PO DAILY@0800 #30 tab 02/18/19 Amlodipine [Norvasc] 2.5 mg PO DAILY 03/24/19 Aspirin E.C. [Ecotrin] 81 mg PO DAILY 03/24/19 Atorvastatin Calcium 80 mg PO QHS 03/24/19 Clopidogrel Bisulfate [Clopidogrel] 75 mg PO DAILY 03/24/19 Ferrous Sulfate 325 mg PO DAILY 03/24/19 Mirtazapine [Remeron] 30 mg PO QHS 03/24/19 Acetaminophen [Tylenol Extra Strength] 1,000 mg PO DAILY 04/10/19 Benazepril HCl 20 mg PO BID 04/10/19 Biotin 1,000 mg PO DAILY 04/10/19 Cholecalciferol (Vitamin D3) [Vitamin D3] 1,000 unit PO DAILY 04/10/19 Isosorbide Mononitrate 20 mg PO BID 04/10/19 L.acidoph,Paracasei, B.lactis [Probiotic] 1 tab PO DAILY 04/10/19 Levothyroxine [Synthroid] 75 mcg PO DAILY@0600 04/10/19 Ubidecarenone [Coq-10] 100 mg PO DAILY 04/10/19 Insulin Human 75/25 [Humalog Mix 75-25 Kwikpen] 30 unit SUBCUT DINNER insuln.pen 04/13/19 Insulin Human 75/25 [Humalog Mix 75-25 Kwikpen] 52 unit SUBCUT BREAKFAST insuln.pen 04/13/19 Primary Care Physician: Johnathon Brown MD [Primary Care Provider] - Please follow up with your Primary Care Physician in: Following discharge from transitional care Please Follow Up With: Marcia Meyer DO When: call the office for an appt Minutes spent on discharge:: 35 Patient Condition:: Stable Medical Necessity - Tobacco Use Smoking Status: Never smoker Tobacco Use: Non-smoker Meaningful Use Info Meaningful Use Diagnoses (Choose all that apply): None applicable Code Visit Inpatient E&M: 17397 Disch Hosp
--- NOTE | 2019-04-13 14:31 | CASEMGMT ---
Patient is ready for discharge to [facility] T[facility]. Physician completed orders. SW let patient know she will be going to TCU today. SW asked if she would like SW to call her daughter. She said her daughter wants to know when she is going over. SW told her the RN will call report and let her know when she can go over. SW will notify RN d/c paperwork is complete. Plan: [facility] TCU under skilled level of care. Anni ALEMAN MSW
--- NOTE | 2019-04-13 14:54 | OP.PCM_ITS ---
Report of Operation Date of Procedure: 04/12/19 Pre-Operative Diagnosis: nondisplaced bimalleolar fracture Post-Operative Diagnosis: same Surgery/Procedure Performed:: close reduction short leg cast applicaion right leg senior director of strategy: Williams Hays Description of Procedure: At bedside patient was closed reduced and short leg cast was applied to her right bimalleolar fracture. Next Post reduction x-rays show again all anatomic alignment of her bimalleolar fracture next Discussed with daughter and patient at length as patient is a diabetic has peripheral neuropathy and due to her age she is at high risk for infection complications from an ankle or open reduction internal fixation. She is better treated with a short leg cast non-walking for the next 6 to 8 weeks or until healing is noted. Follow-up in our office in 1 week with repeat x-rays or sooner if issues or questions arise
[2019-04-13 15:33] VITALS: BP 113/64; PULSE 69; RESP 18; TEMP 37.2; O2SAT 96
== END 2019-04-13 16:07 | disposition skilled nursing facility (03) | DRG 312 ==
LOC: ED 04-10 01:59 → PCU 04-10 02:07
PROVIDERS: Internal Medicine; Admitting Provider Student in an Organized Health Care Education/Training Program; Emergency Provider Emergency Medicine; Family Provider Family Medicine; PCP Family Medicine; Referring Provider Student in an Organized Health Care Education/Training Program; Visit Provider Internal Medicine
DX: I95.1 Orthostatic hypotension (principal); R00.1 Bradycardia, unspecified; I25.10 Atherosclerotic heart disease of native coronary artery without angina pectoris; I10 Essential (primary) hypertension; E78.5 Hyperlipidemia, unspecified; E03.9 Hypothyroidism, unspecified; F03.90 Unspecified dementia, unspecified severity, without behavioral disturbance, psychotic disturbance, mood disturbance, and anxiety; S82.61XA Displaced fracture of lateral malleolus of right fibula, initial encounter for closed fracture; S82.54XA Nondisplaced fracture of medial malleolus of right tibia, initial encounter for closed fracture; W08.XXXA Fall from other furniture, initial encounter; Y92.010 Kitchen of single-family (private) house as the place of occurrence of the external cause; E11.65 Type 2 diabetes mellitus with hyperglycemia; E86.0 Dehydration; L80 Vitiligo; Z79.4 Long term (current) use of insulin; Z79.82 Long term (current) use of aspirin; Z79.02 Long term (current) use of antithrombotics/antiplatelets; Z95.5 Presence of coronary angioplasty implant and graft
CPT/HCPCS: 36415; 70450; 73610; 80048; 80076; 81001; 82962; 83036; 83735; 84100; 84484; 85025; 87086; 87088; 93005; 97162; 97165; 97530; 97535; 97802; 99285; 99406; J7030; A4216

== ENCOUNTER 2019-04-13 16:19 | Inpatient (IN) | payer MEDICARE, OTHER, SELFPAY ==
[2019-04-10 02:56] VITALS: BMI 26.4
[2019-04-13 16:40] VITALS: BP 124/65; PULSE 69; RESP 18; TEMP 36.4; O2SAT 98
[2019-04-13 17:22] VITALS: BMI 26.7
[2019-04-13 17:30] VITALS: BMI 26.8
[2019-04-13 18:20] LABS: Bedside Glucose 66 mg/dL (70-110)
--- NOTE | 2019-04-13 18:34 | NURSING ---
Patient admitted to room 15 from PCU via bed, oriented to room and call light system explained.
[2019-04-13 18:45] VITALS: O2SAT 98
[2019-04-13 19:46] LABS: Bedside Glucose 255 mg/dL (70-110)
[2019-04-13 21:16] LABS: Bedside Glucose 352 mg/dL (70-110)
--- NOTE | 2019-04-13 22:12 | PCM.HP.STD ---
Problem List (1) Debility Status: Acute (2) Fall Status: Acute (3) Hypertension Status: Chronic (4) Alzheimers disease Status: Chronic (5) Hypothyroidism Status: Chronic (6) Hypomagnesemia Status: Chronic (7) Overactive bladder Status: Chronic (8) Iron deficiency anemia Status: Chronic (9) Allergic rhinitis Status: Chronic (10) Depression Status: Chronic (11) Type 2 diabetes mellitus Status: Chronic Comment: uncontrolled (12) Syncope Status: Acute Comment: suspect due to orthostatic hypotension (13) Closed bimalleolar fracture of right ankle Status: Acute Qualifiers: Comment: Patient has non-displaced medial malleolus fracture and minimally displaced lateral distal fibula fracture. (14) HLD (hyperlipidemia) Status: Chronic Qualifiers: History of Present Illness Date of Admission: 04/13/19 Chief Complaint: Here for rehabilitation, strengthening, prior to discharge home with family. The patient is a 68 year old Female with below past medical history presented to [facility] Emergency Department 04/09/2019 with syncope. 04/09/2019 EKG sinus bradycardia, possible left atrial enlargement, borderline EKG. 04/10/2019 CT brain negative, chronic involutional changes. Gradual, lightheaded x 1 to 2 minutes, then passed out. Recent right hip fracture repair. Fell off stool, landed on right lower extremity flexed beneath her. X-ray right ankle showed acute fracture distal shaft of fibular, medial malleolus. Splinted in ED. 04/10/2019 Admit to Hospital. MRI brain, EEG for syncope. Check orthostatics, gentle IV fluids. Consult orthopedics, pain control, for right ankle fracture. 04/11/2019 Williams Hays recommended cast immobilization right ankle. 04/12/2019 Dr. Meyer performed closed reduction short leg cast application right leg. Insulin adjusted for better control of sugars. 04/13/2019 Admit to TCU with debility, here for rehabilitation, strengthening, prior to discharge home with family. Past Medical History Past Medical History (Chronic Problems): Chronic Problems (Last Reviewed 03/10/19 @ 10:01 by Castro Kearney MD) Type 2 diabetes mellitus (Chronic) uncontrolled Vitiligo (Chronic) Hip fracture, left (Chronic) January [address] Barnard Dementia (Chronic) on Aricept Hypertension (Chronic) Alzheimers disease (Chronic) Hypothyroidism (Chronic) Hypomagnesemia (Chronic) Overactive bladder (Chronic) Iron deficiency anemia (Chronic) Allergic rhinitis (Chronic) Depression (Chronic) Essential (primary) hypertension (Chronic) HLD (hyperlipidemia) (Chronic) Atherosclerotic heart disease of [place] coronary artery without angina pectoris (Chronic) [id number] LAD 02/13/2009; PCI-JERROD to OM1 and D2 10/12/2009 History of coronary artery stent placement (Chronic 10/12/09) [id number] LAD 02/13/2009; PCI-JERROD to OM1 and D2 10/12/2009 Medical History: Medical History (Last Reviewed 03/10/19 @ 10:01 by Castro Kearney MD) Essential (primary) hypertension (Chronic) I10 HLD (hyperlipidemia) (Chronic) E78.5 Atherosclerotic heart disease of [place] coronary artery without angina pectoris (Chronic) I25.10 [id number]-Tcox LAD 02/13/2009; PCI-JERROD to OM1 and D2 10/12/2009 Controlled type 1 diabetes mellitus without complication E10.9 Dementia F03.90 Intertrochanteric fracture of right femur S72.141A History of non-ST elevation myocardial infarction (NSTEMI) Onset Date: 01/2009 I25.2 Fatigue (Inactive) R53.83 Other chest pain (Inactive) R07.89 Subdural hematoma Onset Date: 07/2017 S06.5X9A Allergies fentanyl Allergy (Verified 04/09/19 22:24) Low blood pressure diazepam [From Valium] Adverse Reaction (Verified 04/09/19 22:24) Other Home Medications: Ambulatory Orders Medication Instructions Recorded Amlodipine [Norvasc] 2.5 mg PO DAILY 03/24/19 Aspirin E.C. [Ecotrin] 81 mg PO DAILY 03/24/19 Atorvastatin Calcium 80 mg PO QHS 03/24/19 Clopidogrel Bisulfate [Clopidogrel] 75 mg PO DAILY 03/24/19 Ferrous Sulfate 325 mg PO DAILY 03/24/19 Mirtazapine [Remeron] 30 mg PO QHS 03/24/19 Acetaminophen [Tylenol Extra 1,000 mg PO DAILY 04/10/19 Strength] Benazepril HCl 20 mg PO BID 04/10/19 Biotin 1,000 mg PO DAILY 04/10/19 Cholecalciferol (Vitamin D3) 1,000 unit PO DAILY 04/10/19 [Vitamin D3] Isosorbide Mononitrate 20 mg PO BID 04/10/19 L.acidoph,Paracasei, B.lactis 1 tab PO DAILY 04/10/19 [Probiotic] Levothyroxine [Synthroid] 75 mcg PO DAILY@0600 04/10/19 Ubidecarenone [Coq-10] 100 mg PO DAILY 04/10/19 Donepezil HCl [Aricept] 10 mg PO QHS 04/13/19 Insulin Human 75/25 [Humalog Mix 30 unit SUBCUT DINNER 04/13/19 75-25 Kwikpen] Insulin Human 75/25 [Humalog Mix 52 unit SUBCUT BREAKFAST 04/13/19 75-25 Kwikpen] Magnesium Oxide [Mag-Ox 400] 400 mg PO DAILY 04/13/19 Metoprolol Tartrate [Lopressor 75 mg PO BID 04/13/19 (beta rona)] Pioglitazone [Actos] 30 mg PO DAILY 04/13/19 metFORMIN (XR) [Glucophage Xr] 500 mg PO DAILY@0800 04/13/19 Surgical History: Surgical History (Last Reviewed 03/10/19 @ 10:01 by Castro Kearney MD) History of coronary artery stent placement (Chronic) Onset Date: 10/12/09 Z95.5 IFF-[id number]-Adol LAD 02/13/2009; PCI-JERROD to OM1 and D2 10/12/2009 History of hip surgery Onset Date: 02/01/19 Z98.890 cephalo-medullary fixation right hip on 02/01/19 Surgical History: angioplasty - x 2., - - Right hip nail fixation. Psychiatric History: Depression RESEARCH STATISTICIAN History: No pertinent RESEARCH STATISTICIAN history Lives: With Family Smoking Status: Never smoker Tobacco Use: Non-smoker Alcohol: None - *Family History Maternal Family History: Family History (Last Reviewed 03/10/19 @ 10:01 by Castro Kearney MD) Father CAD (coronary artery disease) CVA (cerebral vascular accident) Brother CVA (cerebral vascular accident) Sister Breast cancer Son Diabetes History Items: No pertinent history Paternal Family History: Family History (Last Reviewed 03/10/19 @ 10:01 by Castro Kearney MD) Father CAD (coronary artery disease) CVA (cerebral vascular accident) Brother CVA (cerebral vascular accident) Sister Breast cancer Son Diabetes History Items: Heart Disease, Stroke Sibling Family History: Family History (Last Reviewed 03/10/19 @ 10:01 by Castro Kearney MD) Father CAD (coronary artery disease) CVA (cerebral vascular accident) Brother CVA (cerebral vascular accident) Sister Breast cancer Son Diabetes History Items: Cancer - breast Offspring Family History: Family History (Last Reviewed 03/10/19 @ 10:01 by Castro Kearney MD) Father CAD (coronary artery disease) CVA (cerebral vascular accident) Brother CVA (cerebral vascular accident) Sister Breast cancer Son Diabetes History Items: Diabetes Review of Systems Constitutional: Denies: Chills, Fever, Weight Change HEENT: Denies: Head Aches, Sinus Congestion, Sinus Drainage Cardiovascular: Denies: Chest Pain, Palpitations Respiratory: Denies: Cough, Shortness of breath at rest, Sputum production Gastrointestinal: Denies: Abdominal Pain, Nausea, Vomiting Genitourinary: Denies: Dysuria Musculoskeletal: Denies: Joint Pain, Joint Tenderness Skin: Denies: Rash, Wounds Neurological: Denies: Numbness, Tingling, Focal weakness Psychiatric: Denies: Anxiety, Depression, Homicidal Ideations, Suicidal Ideations Hematologic/ Lymphatic: Denies: Easy Bruising, Easy Bleeding VTE Information - Inpt Only VTE Present on Admission: No VTE Mechan Device Prophylaxis: Knee High KYLE Hose VTE Pharm Prophylaxis ordered?: Yes Patient Problems: Active and Suspected Problems (Last Reviewed 03/10/19 @ 10:01 by Castro Kearney MD) Debility (Acute) Fall (Acute) - Physical Exam General: Alert, Oriented x3, Cooperative HEENT: Atraumatic, PERRLA, EOMI, Normocephalic Neck: Supple, No JVD, Negative Carotid Bruits Lungs: Clear to auscultation, Normal air movement Cardiovascular: Regular rate, No murmurs Abdomen: Bowel Sounds Present, Soft, Non Tender Extremities: No edema, Capillary Refill Less than 3 Seconds, - - Right short leg cast. Skin: No rashes, No breakdown Musculoskeletal: No Tenderness to Palpation of Joints or Extremities Neurological: Cranial nerves II-XII grossly intact Psych/Mental Status: Normal Affect, Appropriate Vital Signs Temp Pulse Resp BP Pulse Ox 97.5 F L 69 18 124/65 H 98 04/13/19 16:40 08/21/19 16:40 04/13/19 16:40 04/13/19 16:40 04/13/19 16:40 Oxygen Delivery Method Room Air Weight: 68.5 kg Body Mass Index (BMI) 26.7 Finger Stick Blood Glucose 335 Intake and Output for Last 24 Hours 04/11/19 04/12/19 04/13/19 23:59 23:59 23:59 Intake Total 240 / 240 Balance 240 / 240 POC Glucose 04/13/19 04/13/19 04/13/19 21:08 19:41 18:14 POC Glucose 352 H 255 H 66 L Assessment/Plan All Active Problems (Last Reviewed 03/10/19 @ 10:01 by Castro Kearney MD) Syncope (Acute) Closed bimalleolar fracture of right ankle (Acute) Dehydration (Acute) Debility (Acute) Fall (Acute) 68 year old female with below past medical history hospitalized for syncope, right bimalleolar ankle fracture, status post closed reduction with SLC application 04/12/[address] Meyer, admitted to TCU with debility, here for rehabilitation, strengthening, prior to discharge home with family. Debility - PT/OT. Pain - Tylenol 1000MG PO Q6H PRN mild pain, Tramadol 50MG Q6H PRN moderate pain. Bowel - Miralax 17GM daily, Senna/colace 1 tablet BID, Dulcolax 10MG daily PRN. Pneumonia vaccination - Administer Prevnar 13 and/or Pneumovax 23 as necessary. DVT prophylaxis - Hold, already on dual antiplatelet therapy. Hypertension - Metoprolol 75MG BID, Lisinopril 20MG BID, Amlodipine 2.5MG daily. Coronary Artery Disease - Metoprolol 75MG BID, Lisinopril 20MG BID, Isosorbide 20MG BID, Plavix 75MG daily, Aspirin 81MG daily. Hyperlipidemia - Atorvastatin 80MG QHS. Vitamin D deficiency - D3 1000IU daily. Alzheimer's Disease - Donepezil 10MG QHS. Iron deficiency anemia - Ferrous 325MG daily. Diabetes Mellitus II - Metformin 500MG daily, Pioglitazone 30MG daily, Humalog 75/25 52 units AM, 30 units PM. GI prophylaxis - Lactobacillus 1 tablet daily. Hypothyroidism - Levothyroxine 75MCG daily. Hypomagnesemia - Magnesium Oxide 400MG daily. Depression/insomnia/appetite loss - Mirtazapine 30MG QHS, doses above 15MG have higher number of side effects without increasing efficacy, consider lowering dose to 15MG QHS.
[2019-04-13] MEDS: Donepezil HCl 10 MG Tablet PO (22:14)
[2019-04-13] MEDS: Atorvastatin Calcium 80 MG Tablet PO (22:15)
[2019-04-13] MEDS: Mirtazapine 30 MG Tablet PO (22:15)
[2019-04-13] MEDS: Insulin Lispro 100 UNIT/ML INSULN.PEN 10 UNIT SC (22:49)
[2019-04-14] MEDS: Acetaminophen 500 MG Tablet 1000 MG PO ×3 (00:05→21:59)
[2019-04-14 05:49] LABS: Basophil# 0.04 X10^3/uL; Basophil% 0.6 % (0-1); Eosinophil# 0.19 X10^3/uL; Eosinophils% 2.6 % (0-5); Hematocrit 36.7 % (37-47); Hemoglobin 11.7 g/dL (12.0-15.0); Lymphocyte % 31.9 % (19-41); Mean Corp Hgb Conc 31.9 g/dL (32-36); Mean Corpuscular Hgb 28.6 pg (27.0-32.0); Mean Corpuscular Volume 89.7 fL (81-99); Mean Platelet Vol. 9.9 fl (6.2-12.0); Monocyte# 0.71 X10^3/uL; Monocyte% 9.8 % (0-10); NRBC Flagged by Analyzer 0 % (0-5); Neutrophil # 3.97 X10^3/uL (2.7-7.7); Platelet Count 224 K/mm3 (150-450); RBC Distribution Width CV 15.2 % (11.6-14.6); RBC Distribution Width SD 49.9 fl (35.1-43.9); Red Blood Count 4.09 M/mm3 (4.2-5.4); White Blood Count 7.2 K/mm3 (4.4-11.0)
[2019-04-14 06:14] LABS: Anion Gap 8 (5-15); BUN 17 mg/dL (7-18); BUN/Creat Ratio 24.4 RATIO (10-20); Chloride 110 mmol/L (98-107); EST Glomerular Filtration Rate 88 mL/min (>60); Est Glom Filt Rate - Afr Amer 107 mL/min (>60); Glucose 160 mg/dL (74-106); Potassium 4.1 mmol/L (3.5-5.1); Sodium Level 143 mmol/L (136-145)
[2019-04-14] MEDS: amLODIPine 2.5 MG Tablet PO (06:32)
[2019-04-14] MEDS: Clopidogrel Bisulfate 75 MG Tablet PO (06:32)
[2019-04-14] MEDS: Isosorbide Mononitrate 20 MG Tablet PO ×2 (06:32→17:23)
[2019-04-14] MEDS: Magnesium Oxide 400 MG Tablet PO (06:32)
[2019-04-14] MEDS: Senna/Docusate Sodium 1 Tablet PO (06:32)
[2019-04-14] MEDS: Lisinopril 20 MG Tablet PO ×2 (06:32→17:23)
[2019-04-14] MEDS: Levothyroxine 75 MCG Tablet PO (06:32)
[2019-04-14] MEDS: Pioglitazone Hydrochloride 30 MG Tablet PO (06:32)
[2019-04-14 06:33] VITALS: BP 159/70; PULSE 89
[2019-04-14] MEDS: Metoprolol Tartrate 50 MG Tablet 75 MG PO ×2 (06:33→17:22)
[2019-04-14 06:36] LABS: Bedside Glucose 184 mg/dL (70-110)
[2019-04-14 07:10] LABS: Bedside Glucose 50 mg/dL (70-110)
[2019-04-14 07:10] LABS: Bedside Glucose 49 mg/dL (70-110)
[2019-04-14 07:30] VITALS: O2SAT 98
[2019-04-14] MEDS: metFORMIN (XR) 500 MG Tablet PO (08:03)
[2019-04-14] MEDS: Ferrous Sulfate 325 MG Tablet PO (08:03)
[2019-04-14] MEDS: Aspirin E.C. 81 MG Tablet PO (08:03)
[2019-04-14] MEDS: Insulin Human 75/25 Kwickpen 52 UNIT SC (08:05)
--- NOTE | 2019-04-14 08:09 | NURSING ---
dr huerta added mirapex d/t RLS per pt c/o, decreased mixed humalog at meals this am as well. pt updated on all. PT assisted to BSC x1 NWB to RT LE, cast intact to RLE.
[2019-04-14 10:41] LABS: Bedside Glucose 257 mg/dL (70-110)
[2019-04-14] MEDS: Tuberculin,Purif.prot.deriv. 50 TU/ML Vial 5 ML ID (10:58)
--- NOTE | 2019-04-14 11:03 | PHA.CONS_ITS ---
<Citlali Mc - Last Filed: 04/14/19 11:03> Progress Note - Pharmacy Subjective: TCU Admission Objective: Allergies fentanyl Allergy (Verified 04/09/19 22:24) Low blood pressure diazepam [From Valium] Adverse Reaction (Verified 04/09/19 22:24) Other Current Medications Generic Name Dose Route Start Last Admin Trade Name Freq PRN Reason Stop Dose Admin Acetaminophen 1,000 mg 04/13/19 22:31 04/14/19 10:58 Tylenol PO 1,000 mg Q6H PRN PRN Administration MILD PAIN (1-3/10) Amlodipine Besylate 2.5 mg 04/14/19 06:00 04/14/19 06:32 Norvasc PO 2.5 mg DAILY ANDREA Administration Aspirin 81 mg 04/14/19 08:00 04/14/19 08:03 Ecotrin PO 81 mg DAILYCM [facility] Administration Atorvastatin Calcium 80 mg 04/13/19 22:00 04/13/19 22:15 Lipitor PO 80 mg QHS [facility] Administration Bisacodyl 10 mg 04/13/19 18:31 Dulcolax PO DAILY PRN Constipation Calamine/Phenol 1 applic 04/14/19 14:00 Calmoseptine Ointment TOPICAL TID [facility] Protocol Cholecalciferol 1,000 unit 04/14/19 06:00 04/14/19 06:32 Vitamin D PO 1,000 unit DAILY [facility] Administration Clopidogrel Bisulfate 75 mg 04/14/19 06:00 04/14/19 06:32 Plavix PO 75 mg DAILY [facility] Administration Donepezil HCl 10 mg 04/13/19 22:00 04/13/19 22:14 Aricept PO 10 mg QHS [facility] Administration Ferrous Sulfate 325 mg 04/14/19 08:00 04/14/19 08:03 Ferrous Sulfate PO 325 mg DAILYCM [facility] Administration Insulin Lispro Protam/Lispro Human 30 unit 04/14/19 17:00 Humalog Mix 75-25 Kwikpen SC DINNER ANDREA Insulin Lispro Protam/Lispro Human 30 unit 04/15/19 08:00 Humalog Mix 75-25 Kwikpen SC BREAKFAST [facility] Isosorbide Mononitrate 20 mg 04/14/19 06:00 04/14/19 06:32 Monoket PO 20 mg BID [facility] Administration Lactobacillus Acidophilus 1 tablet 04/14/19 06:00 04/14/19 06:32 Acidophilus PO 1 tablet DAILY ANDREA Administration Levothyroxine Sodium 75 mcg 04/14/19 06:00 04/14/19 06:32 Synthroid PO 75 mcg DAILY@0600 ANDREA Administration Lisinopril 20 mg 04/14/19 06:00 04/14/19 06:32 Zestril PO 20 mg BID ANDREA Administration Magnesium Oxide 400 mg 04/14/19 06:00 04/14/19 06:32 Mag-Ox 400 PO 400 mg DAILY ANDREA Administration Metformin HCl 500 mg 04/14/19 08:00 04/14/19 08:03 Glucophage Xr PO 500 mg DAILY@0800 ANDREA Administration Metoprolol Tartrate 75 mg 04/14/19 06:00 04/14/19 06:33 Lopressor (Beta [place]) PO 75 mg BID [facility] Administration Mirtazapine 30 mg 04/13/19 22:00 04/13/19 22:15 Remeron PO 30 mg QHS [facility] Administration Pioglitazone HCl 30 mg 04/14/19 06:00 04/14/19 06:32 Actos PO 30 mg DAILY [facility] Administration Polyethylene Glycol 17 gm 04/14/19 06:00 04/14/19 06:38 Miralax PO Not Given DAILY [facility] Pramipexole Dihydrochloride 0.125 mg 04/14/19 22:00 Mirapex PO QHS [facility] Senna/Docusate Sodium 1 tablet 04/14/19 06:00 04/14/19 06:32 Senokot-S, Ella-Colace PO 1 tablet BID [facility] Administration Tramadol HCl 50 mg 04/13/19 22:31 Ultram PO Q6H PRN PRN MODERATE PAIN (4-5/10) Tuberculin PPD 5 tu 04/21/19 10:00 Tubersol, Aplisol, Ppd ID 04/21/19 10:01 X1 ONE Problem List (Last Reviewed 03/10/19 @ 10:01 by Castro Kearney MD) Debility (Acute) Fall (Acute) Hypertension (Chronic) Alzheimers disease (Chronic) Hypothyroidism (Chronic) Hypomagnesemia (Chronic) Overactive bladder (Chronic) Iron deficiency anemia (Chronic) Allergic rhinitis (Chronic) Depression (Chronic) Vital Signs Temp Pulse Resp BP Pulse Ox 97.5 F L 89 18 159/70 H 98 04/13/19 16:40 08/22/19 06:33 04/13/19 16:40 04/14/19 06:33 04/14/19 07:30 Oxygen Delivery Method Room Air Weight: 68.5 kg Body Mass Index (BMI) 26.7 Finger Stick Blood Glucose 335 Sodium 143 mmol/L (136-145) 04/14/19 05:15 Potassium 4.1 mmol/L (3.5-5.1) 04/14/19 05:15 Chloride 110 mmol/L (98-107) H 04/14/19 05:15 Carbon Dioxide 25.0 mmol/L (21.0-32.0) 04/14/19 05:15 8 (5-15) 04/14/19 05:15 BUN 17 mg/dL (7-18) 04/14/19 05:15 0.70 mg/dL (0.55-1.02) 04/14/19 05:15 Est GFR (MDRD) Af Amer 107 mL/min (>60) 04/14/19 05:15 Est GFR (MDRD) Non-Af 88 mL/min (>60) 04/14/19 05:15 24.4 RATIO (10-20) H 04/14/19 05:15 Glucose 160 mg/dL (74-106) H 04/14/19 05:15 Assessment/Plan: 1. Pain: Acetaminophen 1000mg PO Q8H PRN mild pain (1-3/10), tramadol 50mg PO Q6H PRN moderate pain (4-5/10). Please continue to monitor for signs/symptoms of pain. 2. Hypertension: metoprolol tartrate 75 mg PO BID, lisinopril 20mg PO BID, and amlodipine 2.5mg PO daily. Please continue to monitor renal function and blood pressure. 3. Coronary Artery Disease: metoprolol tartrate 75 mg PO BID, lisinopril 20mg PO BID, isosorbide mononitrate 20 mg PO BID, clopidogrel 75 mg PO daily, aspirin 81 mg PO daily. Please continue to monitor for symptoms of chest pain. *4. Hyperlipidemia: atorvastatin 80mg PO QHS. AST/ALT WNL and appropriate for continued use. Last lipid panel from 2017, please consider annual lipid panel as clinically necessary. 5. Alzheimer's Disease: donepezil 10mg PO QHS. Please monitor for signs of confusion and GI upset. 6. Iron Deficiency Anemia: ferrous sulfate 325mg PO dailyCM. Please continue to monitor for symptoms of weakness and decreased Hgb. 7. Diabetes Mellitus Type II: Metformin XR 500mg PO daily, pioglitazone 30mg PO daily, Humalog 75/25 30 units SC with breakfast and dinner. HbA1c elevated at 9.1%. Please continue to monitor for signs/symptoms of hypoglycemia. Renal function appropriate for continued use. 8. Hypothyroidism: levothyroxine 75mcg PO daily. TSH WNL, please continue to monitor for signs/symptoms of hypo/hyperthyroidism. 9. Restless Leg Syndrome: pramipexole 0.125mg PO QHS. New start, please monitor for orthostatic hypotension due to patient coming in with syncope. *10. General Wellness: Vitamin D 1000units PO daily, magnesium oxide 400mg PO daily, Lactobacillus 1T PO daily. Last vitamin D level 1 year ago. Please c onsider annual Vitamin D level. Magnesium level WNL. Psychotropic Medications: mirtazapine 30 mg PO QHS. See physician progress note about dose reduction. Unnecessary Medications: None Bowel Regimen: Bisacodyl 10mg PO daily PRN constipation, Miralax 17gm PO daily, Senna/docusate 1T PO BID. Patient refused Miralax dose. Please monitor for loose stool and consider Miralax PRN if pt continues to refuse doses. Date of Note:: 04/14/19 - Provider Comments Provider responsibility: Provider responsible to enter orders to implement recommendations <Sukhwinder Alvarado Chi - Last Filed: 04/14/19 21:45> Progress Note - Pharmacy Subjective: [] Objective: Allergies fentanyl Allergy (Verified 04/09/19 22:24) Low blood pressure diazepam [From Valium] Adverse Reaction (Verified 04/09/19 22:24) Other Current Medications Generic Name Dose Route Start Last Admin Trade Name Freq PRN Reason Stop Dose Admin Acetaminophen 1,000 mg 04/13/19 22:31 04/14/19 10:58 Tylenol PO 1,000 mg Q6H PRN PRN Administration MILD PAIN (1-3/10) Amlodipine Besylate 2.5 mg 04/14/19 06:00 04/14/19 06:32 Norvasc PO 2.5 mg DAILY ANDREA Administration Aspirin 81 mg 04/14/19 08:00 04/14/19 08:03 [facility] Administration Atorvastatin Calcium 80 mg 04/13/19 22:00 04/13/19 22:15 Lipitor PO 80 mg QHS [facility] Administration Bisacodyl 10 mg 04/13/19 18:31 Dulcolax PO DAILY PRN Constipation Calamine/Phenol 1 applic 04/14/19 14:00 04/14/19 14:34 Calmoseptine Ointment TOPICAL 1 applicatio TID [facility] Administration Protocol Cholecalciferol 1,000 unit 04/14/19 06:00 04/14/19 06:32 Vitamin D PO 1,000 unit DAILY [facility] Administration Clopidogrel Bisulfate 75 mg 04/14/19 06:00 04/14/19 06:32 Plavix PO 75 mg DAILY [facility] Administration Donepezil HCl 10 mg 04/13/19 22:00 04/13/19 22:14 Aricept PO 10 mg QHS [facility] Administration Ferrous Sulfate 325 mg 04/14/19 08:00 04/14/19 08:03 Ferrous Sulfate [facility] Administration Insulin Lispro Protam/Lispro Human 30 unit 04/14/19 17:00 04/14/19 17:25 Humalog Mix 75-25 Kwikpen SC 30 units DINNER [facility] Administration Insulin Lispro Protam/Lispro Human 30 unit 04/15/19 08:00 Humalog Mix 75-25 Kwikpen SC BREAKFAST [facility] Isosorbide Mononitrate 20 mg 04/14/19 06:00 04/14/19 17:23 Monoket PO 20 mg BID [facility] Administration Lactobacillus Acidophilus 1 tablet 04/14/19 06:00 04/14/19 06:32 Acidophilus PO 1 tablet DAILY [facility] Administration Levothyroxine Sodium 75 mcg 04/14/19 06:00 04/14/19 06:32 Synthroid PO 75 mcg DAILY@0600 [facility] Administration Lisinopril 20 mg 04/14/19 06:00 04/14/19 17:23 Zestril PO 20 mg BID [facility] Administration Magnesium Oxide 400 mg 04/14/19 06:00 04/14/19 06:32 Mag-Ox 400 PO 400 mg DAILY [facility] Administration Metformin HCl 500 mg 04/14/19 08:00 04/14/19 08:03 Glucophage Xr PO 500 mg DAILY@0800 ANDREA Administration Metoprolol Tartrate 75 mg 04/14/19 06:00 04/14/19 17:22 Lopressor (Beta [place]) PO 75 mg BID ANDREA Administration Mirtazapine 30 mg 04/13/19 22:00 04/13/19 22:15 Remeron PO 30 mg QHS ANDREA Administration Pioglitazone HCl 30 mg 04/14/19 06:00 04/14/19 06:32 Actos PO 30 mg DAILY ANDREA Administration Polyethylene Glycol 17 gm 04/14/19 06:00 04/14/19 06:38 Miralax PO Not Given DAILY ANDREA Pramipexole Dihydrochloride 0.125 mg 04/14/19 22:00 Mirapex PO QHS [facility] Senna/Docusate Sodium 1 tablet 04/14/19 06:00 04/14/19 17:22 Senokot-S, Ella-Colace PO Not Given BID ANDREA Tramadol HCl 50 mg 04/13/19 22:31 Ultram PO Q6H PRN PRN MODERATE PAIN (4-5/10) Tuberculin PPD 5 tu 04/21/19 10:00 Tubersol, Aplisol, Ppd ID 04/21/19 10:01 X1 ONE Problem List (Last Reviewed 03/10/19 @ 10:01 by Castro Kearney MD) Debility (Acute) Fall (Acute) Hypertension (Chronic) Alzheimers disease (Chronic) Hypothyroidism (Chronic) Hypomagnesemia (Chronic) Overactive bladder (Chronic) Iron deficiency anemia (Chronic) Allergic rhinitis (Chronic) Depression (Chronic) Vital Signs Temp Pulse Resp BP Pulse Ox 97.5 F L 93 20 H 117/59 L 96 04/14/19 15:08 04/14/19 17:22 04/14/19 15:08 04/14/19 15:08 04/14/19 15:08 Oxygen Delivery Method Room Air Weight: 68.5 kg Body Mass Index (BMI) 26.7 Finger Stick Blood Glucose 335 Sodium 143 mmol/L (136-145) 04/14/19 05:15 Potassium 4.1 mmol/L (3.5-5.1) 04/14/19 05:15 Chloride 110 mmol/L (98-107) H 04/14/19 05:15 Carbon Dioxide 25.0 mmol/L (21.0-32.0) 04/14/19 05:15 8 (5-15) 04/14/19 05:15 BUN 17 mg/dL (7-18) 04/14/19 05:15 0.70 mg/dL (0.55-1.02) 04/14/19 05:15 Est GFR (MDRD) Af Amer 107 mL/min (>60) 04/14/19 05:15 Est GFR (MDRD) Non-Af 88 mL/min (>60) 04/14/19 05:15 24.4 RATIO (10-20) H 04/14/19 05:15 Glucose 160 mg/dL (74-106) H 04/14/19 05:15 Assessment/Plan: Psychotropic Medications: Unnecessary Medications: Bowel Regimen: - Provider Comments Provider responsibility: Provider responsible to enter orders to implement recommendations Provider Comments to Recommendations by Pharmacy: Agree
[2019-04-14] MEDS: Menthol/Lanolin/Calamine/Znox 113 GM Tube 1 APPLIC TOPICAL ×2 (14:34→22:00)
[2019-04-14 15:08] VITALS: BP 117/59; PULSE 93; RESP 20; TEMP 36.4; O2SAT 96
--- NOTE | 2019-04-14 16:26 | CHAPLAIN ---
patient was out of her room; left a calling card
[2019-04-14 17:21] LABS: Bedside Glucose 327 mg/dL (70-110)
[2019-04-14 17:22] VITALS: PULSE 93
[2019-04-14] MEDS: Insulin Human 75/25 Kwickpen 30 UNIT SC (17:25)
[2019-04-14] MEDS: Pramipexole Di-HCl 0.125 MG Tablet PO (21:59)
[2019-04-14] MEDS: Atorvastatin Calcium 80 MG Tablet PO (21:59)
[2019-04-14] MEDS: Donepezil HCl 10 MG Tablet PO (21:59)
[2019-04-14] MEDS: Mirtazapine 30 MG Tablet PO (21:59)
[2019-04-14 22:05] LABS: Bedside Glucose 141 mg/dL (70-110)
[2019-04-15] MEDS: Acetaminophen 500 MG Tablet 1000 MG PO ×3 (05:59→20:47)
[2019-04-15] MEDS: amLODIPine 2.5 MG Tablet PO (05:59)
[2019-04-15 06:00] VITALS: BP 149/77; PULSE 71
[2019-04-15] MEDS: Levothyroxine 75 MCG Tablet PO (06:00)
[2019-04-15] MEDS: Clopidogrel Bisulfate 75 MG Tablet PO (06:00)
[2019-04-15] MEDS: Metoprolol Tartrate 50 MG Tablet 75 MG PO ×2 (06:00→17:26)
[2019-04-15] MEDS: Magnesium Oxide 400 MG Tablet PO (06:01)
[2019-04-15] MEDS: Pioglitazone Hydrochloride 30 MG Tablet PO (06:01)
[2019-04-15] MEDS: Lisinopril 20 MG Tablet PO ×2 (06:01→17:27)
[2019-04-15] MEDS: Isosorbide Mononitrate 20 MG Tablet PO ×2 (06:01→17:26)
[2019-04-15] MEDS: Menthol/Lanolin/Calamine/Znox 113 GM Tube 1 APPLIC TOPICAL ×2 (06:03→20:49)
[2019-04-15 06:12] LABS: Cholesterol 134 mg/dL (200); High Density Lipoprotein 51 mg/dL; Triglycerides 154 mg/dL; Very Low Density Lipoprotein 31 mg/dL (5-40)
[2019-04-15 06:21] LABS: Bedside Glucose 83 mg/dL (70-110)
[2019-04-15 06:58] VITALS: O2SAT 94
[2019-04-15] MEDS: metFORMIN (XR) 500 MG Tablet PO (08:08)
[2019-04-15] MEDS: Aspirin E.C. 81 MG Tablet PO (08:08)
[2019-04-15] MEDS: Ferrous Sulfate 325 MG Tablet PO (08:09)
--- NOTE | 2019-04-15 08:15 | NURSING ---
Dr. Alvarado here on the unit and informed him that Karlee's blood sugar is only 83 and that this nurse was not going to give insulin. Dr. Alvarado okay with this.
[2019-04-15] MEDS: traMADol 50 MG Tablet PO (09:25)
[2019-04-15 11:10] LABS: Bedside Glucose 404 mg/dL (70-110)
[2019-04-15] MEDS: Insulin Human 75/25 Kwickpen 30 UNIT SC ×2 (12:01→17:25)
--- NOTE | 2019-04-15 15:36 | CHAPLAIN ---
Type of Pastoral Visit _x__ Initial Visit ___ Follow-up Visit ___ On-call Visit ___ General Patient Visit ___ Spiritual Assessment ___ Family Conference ___ Bereavement ___ Rapid Response ___ Code Blue ___ Other (describe below) Pastoral Care Referral From _x__ Patient ___ Family ___ Nurse ___ Physician ___ Accounting Methods Analyst ___ Mercury Recoverer ___ Other (describe below) Sacrament/Intervention _x__ Active listening ___ Anointing ___ Samaritan ___ Bereavement ___ Communion _x__ Natalya exploration ___ ___ Life review _x__ Prayer ___ Reconciliation ___ Sacrament of Sick _x__ Supportive presence ___ Wedding ___ Other (describe below) Pastoral Comments
[2019-04-15 15:45] VITALS: BP 119/63; PULSE 72; RESP 20; TEMP 37.1; O2SAT 96
[2019-04-15 16:50] LABS: Bedside Glucose 189 mg/dL (70-110)
[2019-04-15 17:26] VITALS: BP 119/63; PULSE 72
[2019-04-15] MEDS: Mirtazapine 30 MG Tablet PO (20:48)
[2019-04-15] MEDS: Atorvastatin Calcium 80 MG Tablet PO (20:48)
[2019-04-15] MEDS: Pramipexole Di-HCl 0.125 MG Tablet PO (20:48)
[2019-04-15] MEDS: Donepezil HCl 10 MG Tablet PO (20:49)
[2019-04-15 21:30] LABS: Bedside Glucose 89 mg/dL (70-110)
[2019-04-16] MEDS: Lisinopril 20 MG Tablet PO ×2 (06:00→17:52)
[2019-04-16] MEDS: Clopidogrel Bisulfate 75 MG Tablet PO (06:01)
[2019-04-16] MEDS: Isosorbide Mononitrate 20 MG Tablet PO ×2 (06:01→17:48)
[2019-04-16] MEDS: Levothyroxine 75 MCG Tablet PO (06:01)
[2019-04-16] MEDS: amLODIPine 2.5 MG Tablet PO (06:01)
[2019-04-16] MEDS: Magnesium Oxide 400 MG Tablet PO (06:01)
[2019-04-16] MEDS: Menthol/Lanolin/Calamine/Znox 113 GM Tube 1 APPLIC TOPICAL ×2 (06:02→21:26)
[2019-04-16] MEDS: traMADol 50 MG Tablet PO ×2 (06:05→21:23)
[2019-04-16 06:06] VITALS: PULSE 80
[2019-04-16] MEDS: Metoprolol Tartrate 50 MG Tablet 75 MG PO ×2 (06:06→17:50)
[2019-04-16] MEDS: Pioglitazone Hydrochloride 30 MG Tablet PO (06:07)
[2019-04-16 06:26] LABS: Bedside Glucose 87 mg/dL (70-110)
[2019-04-16] MEDS: metFORMIN (XR) 500 MG Tablet PO (07:54)
[2019-04-16] MEDS: Aspirin E.C. 81 MG Tablet PO (07:55)
[2019-04-16] MEDS: Ferrous Sulfate 325 MG Tablet PO (07:55)
[2019-04-16] MEDS: Acetaminophen 500 MG Tablet 1000 MG PO ×2 (07:59→17:57)
[2019-04-16 11:06] LABS: Bedside Glucose 298 mg/dL (70-110)
[2019-04-16 14:31] LABS: Bedside Glucose 328 mg/dL (70-110)
[2019-04-16 15:27] VITALS: BP 135/63; PULSE 66; RESP 21; TEMP 36.9; O2SAT 97
[2019-04-16] MEDS: Insulin Human 75/25 Kwickpen 20 UNIT SC ×2 (15:45→17:48)
[2019-04-16 17:16] LABS: Bedside Glucose 246 mg/dL (70-110)
[2019-04-16 17:50] VITALS: BP 135/63; PULSE 66
[2019-04-16 20:51] LABS: Bedside Glucose 184 mg/dL (70-110)
[2019-04-16] MEDS: Donepezil HCl 10 MG Tablet PO (21:23)
[2019-04-16] MEDS: Mirtazapine 30 MG Tablet PO (21:23)
[2019-04-16] MEDS: Atorvastatin Calcium 80 MG Tablet PO (21:23)
[2019-04-16] MEDS: Pramipexole Di-HCl 0.125 MG Tablet PO (21:23)
[2019-04-17 05:03] VITALS: PULSE 72
[2019-04-17] MEDS: Magnesium Oxide 400 MG Tablet PO (05:03)
[2019-04-17] MEDS: Pioglitazone Hydrochloride 30 MG Tablet PO (05:03)
[2019-04-17] MEDS: Metoprolol Tartrate 50 MG Tablet 75 MG PO ×2 (05:03→17:19)
[2019-04-17] MEDS: Levothyroxine 75 MCG Tablet PO ×2 (05:04)
[2019-04-17] MEDS: amLODIPine 2.5 MG Tablet PO (05:04)
[2019-04-17] MEDS: Isosorbide Mononitrate 20 MG Tablet PO ×2 (05:04→17:18)
[2019-04-17] MEDS: Lisinopril 20 MG Tablet PO ×2 (05:04→17:18)
[2019-04-17] MEDS: Clopidogrel Bisulfate 75 MG Tablet PO (05:07)
[2019-04-17] MEDS: Menthol/Lanolin/Calamine/Znox 113 GM Tube 1 APPLIC TOPICAL ×2 (05:10→20:33)
[2019-04-17] MEDS: Ferrous Sulfate 325 MG Tablet PO (09:12)
[2019-04-17] MEDS: Insulin Human 75/25 Kwickpen 20 UNIT SC ×2 (09:12→17:19)
[2019-04-17] MEDS: metFORMIN (XR) 500 MG Tablet PO (09:12)
[2019-04-17] MEDS: Aspirin E.C. 81 MG Tablet PO (09:12)
[2019-04-17] MEDS: Acetaminophen 500 MG Tablet 1000 MG PO ×2 (09:25→20:32)
[2019-04-17 10:55] LABS: Bedside Glucose 310 mg/dL (70-110)
[2019-04-17 15:32] VITALS: BP 126/57; PULSE 64; RESP 19; TEMP 36.8; O2SAT 95
--- NOTE | 2019-04-17 15:35 | NURSING ---
New order to make senna and Miralax PRN and for Tums [id number] PRN.
[2019-04-17 17:01] LABS: Bedside Glucose 274 mg/dL (70-110)
[2019-04-17 17:19] VITALS: BP 126/57; PULSE 64
[2019-04-17] MEDS: Atorvastatin Calcium 80 MG Tablet PO (20:30)
[2019-04-17] MEDS: Pramipexole Di-HCl 0.125 MG Tablet PO (20:30)
[2019-04-17] MEDS: Mirtazapine 30 MG Tablet PO (20:30)
[2019-04-17] MEDS: Donepezil HCl 10 MG Tablet PO (20:31)
[2019-04-17 21:31] LABS: Bedside Glucose 308 mg/dL (70-110)
[2019-04-18] MEDS: Isosorbide Mononitrate 20 MG Tablet PO ×2 (05:51→17:39)
[2019-04-18] MEDS: Lisinopril 20 MG Tablet PO ×2 (05:51→17:39)
[2019-04-18] MEDS: amLODIPine 2.5 MG Tablet PO (05:51)
[2019-04-18] MEDS: Pioglitazone Hydrochloride 30 MG Tablet PO (05:51)
[2019-04-18] MEDS: Magnesium Oxide 400 MG Tablet PO (05:51)
[2019-04-18 05:52] VITALS: BP 140/68; PULSE 71
[2019-04-18] MEDS: Metoprolol Tartrate 50 MG Tablet 75 MG PO ×2 (05:52→17:39)
[2019-04-18] MEDS: Clopidogrel Bisulfate 75 MG Tablet PO (05:52)
[2019-04-18] MEDS: Menthol/Lanolin/Calamine/Znox 113 GM Tube 1 APPLIC TOPICAL ×2 (05:54→20:08)
[2019-04-18 06:21] LABS: Bedside Glucose 245 mg/dL (70-110)
[2019-04-18] MEDS: Insulin Human 75/25 Kwickpen 20 UNIT SC ×2 (08:35→17:39)
[2019-04-18] MEDS: metFORMIN (XR) 500 MG Tablet PO (08:35)
[2019-04-18] MEDS: Aspirin E.C. 81 MG Tablet PO (08:35)
[2019-04-18] MEDS: Ferrous Sulfate 325 MG Tablet PO (08:35)
[2019-04-18 11:16] LABS: Bedside Glucose 351 mg/dL (70-110)
[2019-04-18 15:08] LABS: Vitamin D 1,25-Dihydroxy 23.2 pg/mL (19.9-79.3)
[2019-04-18 15:17] VITALS: BP 127/58; PULSE 69; RESP 24; TEMP 36.3; O2SAT 99
[2019-04-18 17:06] LABS: Bedside Glucose 304 mg/dL (70-110)
[2019-04-18 17:39] VITALS: PULSE 69
--- NOTE | 2019-04-18 17:43 | NURSING ---
Addendum entered by Chantal Camp 04/18/19 18:48: xray results back, new order for imodium. dr huerta reviewed blood sugars, adjusted insulins as well. Original Note: pt c/o loose stools, requesting imodium, dr huerta updated, staff reported x1 loose stool today. new order for abd xray. pt updated and agreeable.
--- NOTE | 2019-04-18 18:15 | RAD_ITS ---
STUDY: X-RAY - ABDOMEN/PELVIS REASON FOR EXAM: Female, 68 years old. Abdominal pain TECHNIQUE: Two AP supine views of the abdomen and pelvis. COMPARISON: None. FINDINGS: Normal visualized lung bases. Multiple calcified uterine fibroids measuring up to 3 cm. There is an unremarkable bowel gas pattern. There is no demonstrated free abdominal air. The visualized liver, spleen and kidneys are grossly normal in size and morphology. Normal soft tissue structures. Remote deformity of the right proximal femur with hardware in place. RAD/Abdomen Single View (Portable) IMPRESSION: Normal bowel gas pattern. Electronically Signed: Ugo Degroot MD at 18:30 EDT Tel , Service support ,
[2019-04-18] MEDS: Donepezil HCl 10 MG Tablet PO (20:07)
[2019-04-18] MEDS: Atorvastatin Calcium 80 MG Tablet PO (20:07)
[2019-04-18] MEDS: Pramipexole Di-HCl 0.125 MG Tablet PO (20:07)
[2019-04-18] MEDS: Mirtazapine 30 MG Tablet PO (20:07)
[2019-04-18 21:21] LABS: Bedside Glucose 206 mg/dL (70-110)
[2019-04-18] MEDS: Acetaminophen 500 MG Tablet 1000 MG PO (23:26)
[2019-04-19 06:16] VITALS: BP 142/57; PULSE 63
[2019-04-19] MEDS: Isosorbide Mononitrate 20 MG Tablet PO ×2 (06:16→16:40)
[2019-04-19] MEDS: Menthol/Lanolin/Calamine/Znox 113 GM Tube 1 APPLIC TOPICAL ×2 (06:16→21:20)
[2019-04-19] MEDS: Metoprolol Tartrate 50 MG Tablet 75 MG PO ×2 (06:16→16:40)
[2019-04-19] MEDS: Pioglitazone Hydrochloride 30 MG Tablet PO (06:16)
[2019-04-19] MEDS: Levothyroxine 75 MCG Tablet PO (06:16)
[2019-04-19] MEDS: Clopidogrel Bisulfate 75 MG Tablet PO (06:16)
[2019-04-19] MEDS: Magnesium Oxide 400 MG Tablet PO (06:16)
[2019-04-19] MEDS: amLODIPine 2.5 MG Tablet PO (06:16)
[2019-04-19] MEDS: Lisinopril 20 MG Tablet PO ×2 (06:16→16:40)
[2019-04-19 06:45] LABS: Bedside Glucose 244 mg/dL (70-110)
[2019-04-19] MEDS: Aspirin E.C. 81 MG Tablet PO (08:22)
[2019-04-19] MEDS: Insulin Human 75/25 Kwickpen 35 UNIT SC ×2 (08:22→17:26)
[2019-04-19] MEDS: metFORMIN (XR) 500 MG Tablet PO (08:22)
[2019-04-19] MEDS: Ferrous Sulfate 325 MG Tablet PO (08:22)
[2019-04-19] MEDS: Loperamide 2 MG Capsule PO (08:26)
[2019-04-19 10:46] VITALS: PULSE 64
[2019-04-19 11:00] LABS: Bedside Glucose 370 mg/dL (70-110)
--- NOTE | 2019-04-19 11:21 | NURSING ---
appt cancelled w/Dr Meyer on 04/21, dr meyer or David Hays will be in to see pt on 04/20
[2019-04-19 16:00] VITALS: BP 122/78; PULSE 72; RESP 17; TEMP 36.3; O2SAT 97
[2019-04-19 16:40] VITALS: PULSE 75
[2019-04-19 16:45] LABS: Bedside Glucose 283 mg/dL (70-110)
[2019-04-19 20:56] LABS: Bedside Glucose 408 mg/dL (70-110)
[2019-04-19] MEDS: Pramipexole Di-HCl 0.125 MG Tablet PO (21:19)
[2019-04-19] MEDS: Mirtazapine 30 MG Tablet PO (21:20)
[2019-04-19] MEDS: Donepezil HCl 10 MG Tablet PO (21:20)
[2019-04-19] MEDS: Atorvastatin Calcium 80 MG Tablet PO (21:20)
--- NOTE | 2019-04-20 00:03 | NURSING ---
eyes closed. appears to be sleeping at this time. Resp even and unlabored at this time.
[2019-04-20 05:49] VITALS: BP 155/78; PULSE 78
[2019-04-20] MEDS: Metoprolol Tartrate 50 MG Tablet 75 MG PO ×2 (05:49→17:12)
[2019-04-20] MEDS: Magnesium Oxide 400 MG Tablet PO (05:50)
[2019-04-20] MEDS: amLODIPine 2.5 MG Tablet PO (05:51)
[2019-04-20] MEDS: Levothyroxine 75 MCG Tablet PO (05:51)
[2019-04-20] MEDS: Pioglitazone Hydrochloride 30 MG Tablet PO (05:51)
[2019-04-20] MEDS: Isosorbide Mononitrate 20 MG Tablet PO ×2 (05:51→17:13)
[2019-04-20] MEDS: Lisinopril 20 MG Tablet PO ×2 (05:51→17:13)
[2019-04-20] MEDS: Clopidogrel Bisulfate 75 MG Tablet PO (05:51)
[2019-04-20] MEDS: Menthol/Lanolin/Calamine/Znox 113 GM Tube 1 APPLIC TOPICAL ×2 (05:53→21:10)
[2019-04-20 06:21] LABS: Bedside Glucose 322 mg/dL (70-110)
[2019-04-20] MEDS: Ferrous Sulfate 325 MG Tablet PO (09:02)
[2019-04-20] MEDS: metFORMIN (XR) 500 MG Tablet PO (09:02)
[2019-04-20] MEDS: Aspirin E.C. 81 MG Tablet PO (09:02)
[2019-04-20] MEDS: Insulin Human 75/25 Kwickpen 40 UNIT SC ×2 (09:02→18:12)
[2019-04-20 11:16] LABS: Bedside Glucose 447 mg/dL (70-110)
[2019-04-20] MEDS: Insulin Lispro 100 UNIT/ML INSULN.PEN 15 UNIT SC (12:26)
--- NOTE | 2019-04-20 13:36 | CASEMGMT ---
Social Work IDT met with patient, daughter and friend for care plan meeting. Discussed patient's progress in therapy. Pt is SBA to CGA with transfers, bed mobility and ADLs. Pt doing 3 steps with min assist and 2 hand rails. Pt has 6 steps to enter. Friend will be building another hand rail by the entry way stairs. IDT recommending assistance with laundry and meals and pt is cannot stand without assistive device to perform those tasks. Pt has f/u appt with ortho 04/21. Will continue with therapy per physician recommendations. Will continue to follow for discharge planning. BILLIE HernándezW
[2019-04-20 15:29] VITALS: BP 114/67; PULSE 81; RESP 20; TEMP 36.4; O2SAT 98
[2019-04-20 16:51] LABS: Bedside Glucose 86 mg/dL (70-110)
[2019-04-20 17:12] VITALS: BP 114/67; PULSE 81
[2019-04-20 18:11] LABS: Bedside Glucose 110 mg/dL (70-110)
[2019-04-20] MEDS: Atorvastatin Calcium 80 MG Tablet PO (21:10)
[2019-04-20] MEDS: Mirtazapine 30 MG Tablet PO (21:10)
[2019-04-20] MEDS: Donepezil HCl 10 MG Tablet PO (21:10)
[2019-04-20] MEDS: Pramipexole Di-HCl 0.125 MG Tablet PO (21:10)
[2019-04-20 21:25] LABS: Bedside Glucose 100 mg/dL (70-110)
[2019-04-21 05:45] LABS: Absolute Lymphocyte Count 1.79 X10^3/uL (0.83-4.51); Absolute Neutrophil Count 6.6 X10^3/uL (2.0-7.7); Basophil# 0.02 X10^3/uL; Basophil% 0.2 % (0-1); Eosinophil# 0.04 X10^3/uL; Eosinophils% 0.4 % (0-5); Hematocrit 43.3 % (37-47); Hemoglobin 13.4 g/dL (12.0-15.0); Lymphocyte # 1.79 X10^3/ul (4.0); Lymphocyte % 19.6 % (19-41); Mean Corp Hgb Conc 30.9 g/dL (32-36); Mean Corpuscular Hgb 28.2 pg (27.0-32.0); Mean Platelet Vol. 8.9 fl (6.2-12.0); Monocyte# 0.59 X10^3/uL; Monocyte% 6.5 % (0-10); NRBC Flagged by Analyzer 0 % (0-5); Neutrophil # 6.64 X10^3/uL (2.7-7.7); Neutrophil % 72.9 % (47-70); Platelet Count 337 K/mm3 (150-450); RBC Distribution Width CV 14.9 % (11.6-14.6); RBC Distribution Width SD 50.1 fl (35.1-43.9); Red Blood Count 4.76 M/mm3 (4.2-5.4); White Blood Count 9.1 K/mm3 (4.4-11.0)
[2019-04-21 05:57] VITALS: BP 148/70; PULSE 85
[2019-04-21] MEDS: Levothyroxine 75 MCG Tablet PO (05:57)
[2019-04-21] MEDS: Lisinopril 20 MG Tablet PO ×2 (05:57→17:49)
[2019-04-21] MEDS: Pioglitazone Hydrochloride 30 MG Tablet PO (05:57)
[2019-04-21] MEDS: Menthol/Lanolin/Calamine/Znox 113 GM Tube 1 APPLIC TOPICAL ×2 (05:57→19:43)
[2019-04-21] MEDS: amLODIPine 2.5 MG Tablet PO (05:57)
[2019-04-21] MEDS: Clopidogrel Bisulfate 75 MG Tablet PO (05:57)
[2019-04-21] MEDS: Metoprolol Tartrate 50 MG Tablet 75 MG PO ×2 (05:57→17:48)
[2019-04-21] MEDS: Isosorbide Mononitrate 20 MG Tablet PO ×2 (05:57→17:50)
[2019-04-21] MEDS: Magnesium Oxide 400 MG Tablet PO (05:57)
[2019-04-21 06:05] LABS: Anion Gap 9 (5-15); BUN 23 mg/dL (7-18); BUN/Creat Ratio 35.9 RATIO (10-20); Calcium,Total 9.3 mg/dL (8.5-10.1); Chloride 109 mmol/L (98-107); Creatinine, Serum 0.64 mg/dL (0.55-1.02); EST Glomerular Filtration Rate 97 mL/min (>60); Est Glom Filt Rate - Afr Amer 118 mL/min (>60); Glucose 126 mg/dL (74-106); Potassium 4.3 mmol/L (3.5-5.1); Sodium Level 143 mmol/L (136-145)
[2019-04-21 06:26] LABS: Bedside Glucose 137 mg/dL (70-110)
[2019-04-21] MEDS: Aspirin E.C. 81 MG Tablet PO (10:22)
[2019-04-21] MEDS: metFORMIN (XR) 500 MG Tablet PO (10:22)
[2019-04-21] MEDS: Ferrous Sulfate 325 MG Tablet PO (10:22)
[2019-04-21] MEDS: Insulin Human 75/25 Kwickpen 40 UNIT SC (10:26)
[2019-04-21 10:36] LABS: Bedside Glucose 496 mg/dL (70-110)
--- NOTE | 2019-04-21 10:51 | NURSING ---
Addendum entered by Chantal Camp 04/21/19 13:22: FREDDY Munoz in to see pt and reviewed xrays. ok for pt to go home but f/u 1 week after DC, continue NWB. Addendum entered by Chantal Camp 04/21/19 11:02: [facility] ortho office called again, new order to get stat xray of RT ankle. Addendum entered by Chantal Camp 04/21/19 10:58: office returned call, FREDDY Momin will be up to see pt today. Original Note: notified Dr Meyer office, she was to be in 04/20. Produce Buyer states she will let them know again.
--- NOTE | 2019-04-21 11:01 | RAD_ITS ---
STUDY: X-RAY - RIGHT ANKLE REASON FOR EXAM: Female, 68 years old. Follow-up of distal fibular and tibial fractures. TECHNIQUE: 3 view(s) of the ankle. COMPARISON: Comparison is made with prior examination dated April 12, 2019. Findings: Stable appearance of the nondisplaced fractures of the distal tibial and fibular fractures. Normal tibiotalar articulation and ankle mortise. Stable lucency along the medial aspect of the dome of the talus suggestive of an osteochondral defect. The visualized subtalar, talonavicular, calcaneocuboid and tarsal articulations are normal. Soft tissue swelling. RAD/Ankle min 3 Views IMPRESSION: Stable examination. Electronically Signed: Theodore Gorman, at 13:10 EDT , Service support ,
[2019-04-21 11:06] LABS: Bedside Glucose 492 mg/dL (70-110)
[2019-04-21] MEDS: Tuberculin,Purif.prot.deriv. 50 TU/ML Vial 5 ML ID (11:10)
--- NOTE | 2019-04-21 12:41 | PN.ORTHO_ITS ---
Patient Problems: Active and Suspected Problems (Last Reviewed 03/10/19 @ 10:01 by Castro Kearney MD) Debility (Acute) Fall (Acute) Subjective: Patient states that she feels the ankle is doing well. She has very minimal discomfort at this time in the ankle. She has continued to be non-weight bearing on the right leg and has worked with PT/OT on gait with her walker. She denies any numbness or tingling and is able to use her knee normally and wiggle her toes. Objective: Patient sitting up in bed for exam Cast is clean and dry without any breakdown Skin on proximal and distal ends of the cast is intact without irritation, abrasions, or breakdown She has normal sensation of the distal toes and is able to move all the toes She has normal movement of the knee - Physical Exam General: Alert, Oriented x3, Cooperative, Well developed, Well nourished Skin: No rashes, No breakdown Neurological: Sensory exam intact to light touch and pain Psych/Mental Status: Normal Affect Vital Signs Temp Pulse Resp BP Pulse Ox 97.6 F L 85 20 H 148/70 H 98 04/20/19 15:29 04/21/19 05:57 04/20/19 15:29 04/21/19 05:57 04/20/19 15:29 Oxygen Delivery Method Room Air Weight: 147 lb 5 oz Body Mass Index (BMI) 26.7 Finger Stick Blood Glucose 335 Intake and Output for Last 24 Hours 04/19/19 04/20/19 04/21/19 23:59 23:59 23:59 Intake Total 720 / 720 960 / 960 120 / 120 Balance 720 / 720 960 / 960 120 / 120 Laboratory Tests Past 24 Hrs 04/21/19 04/21/19 05:25 05:25 WBC 9.1 RBC 4.76 Hgb 13.4 Hct 43.3 MCV 91.0 MCH 28.2 MCHC 30.9 L RDW Std Deviation 50.1 H RDW Coeff of Shikha 14.9 H Plt Count 337 MPV 8.9 Immature Gran % (Auto) 0.400 Neut % (Auto) 72.9 H Lymph % (Auto) 19.6 Gregory % (Auto) 6.5 Eos % (Auto) 0.4 Baso % (Auto) 0.2 Absolute Neuts (auto) 6.6 Absolute Lymphs (auto) 1.79 Nucleated RBC % 0 Sodium 143 Potassium 4.3 Chloride 109 H Carbon Dioxide 25.0 Anion Gap 9 BUN 23 H Creatinine 0.64 Estim Creat Clear Calc 43.30 Est GFR (MDRD) Af Amer 118 Est GFR (MDRD) Non-Af 97 BUN/Creatinine Ratio 35.9 H Glucose 126 H Calcium 9.3 POC Glucose 04/21/19 04/21/19 04/21/19 10:51 10:24 06:05 POC Glucose 492 H* 496 H* 137 H 04/20/19 04/20/19 04/20/19 21:15 18:05 16:46 POC Glucose 100 110 86 Medical Necessity - Tobacco Use Smoking Status: Never smoker Tobacco Use: Non-smoker Assessment/Plan All Active Problems (Last Reviewed 03/10/19 @ 10:01 by Castro Kearney MD) Syncope (Acute) Closed bimalleolar fracture of right ankle (Acute) Dehydration (Acute) Debility (Acute) Fall (Acute) Continued conservative treatment for right leg bimalleolar fracture. Cast is clean, dry, and intact and there is no evident skin breakdown on the distal or proximal ends of the cast. Continue to keep cast dry and notify if this gets excessively wet Radiographs were taken and discussed showing good position of the medial and lateral malleolus. We did discuss the OC lesion on the medial talar dome. She is to continue to be non-weight bearing with assistive device Patient feels that is able to safely and effectively ambulate at home and would like to go home at this time Continue to elevate the leg when able and can ice distally. Patient will follow-up in our office in 7-10 days for repeat x-rays and evaluation
[2019-04-21 16:00] VITALS: BP 105/61; PULSE 81; RESP 16; TEMP 36.8; O2SAT 98
[2019-04-21 17:06] LABS: Bedside Glucose 106 mg/dL (70-110)
[2019-04-21] MEDS: Insulin Human 75/25 Kwickpen 20 UNIT SC (17:47)
[2019-04-21 17:48] VITALS: PULSE 81
[2019-04-21] MEDS: Pramipexole Di-HCl 0.125 MG Tablet PO (19:43)
[2019-04-21] MEDS: Donepezil HCl 10 MG Tablet PO (19:43)
[2019-04-21] MEDS: Mirtazapine 30 MG Tablet PO (19:43)
[2019-04-21] MEDS: Atorvastatin Calcium 80 MG Tablet PO (19:43)
[2019-04-21] MEDS: Acetaminophen 500 MG Tablet 1000 MG PO (19:46)
[2019-04-21 21:06] LABS: Bedside Glucose 48 mg/dL (70-110)
[2019-04-21 21:30] LABS: Bedside Glucose 64 mg/dL (70-110)
[2019-04-21 21:51] LABS: Bedside Glucose 80 mg/dL (70-110)
--- NOTE | 2019-04-21 22:41 | NURSING ---
pt HS blood sugar 48. OJ and angel spence given. Recheck 64. OJ and joe nam with PB given. Recheck 80.
[2019-04-22 02:21] LABS: Bedside Glucose 84 mg/dL (70-110)
[2019-04-22] MEDS: Lisinopril 20 MG Tablet PO ×2 (05:38→17:30)
[2019-04-22] MEDS: Menthol/Lanolin/Calamine/Znox 113 GM Tube 1 APPLIC TOPICAL ×2 (05:39→20:32)
[2019-04-22] MEDS: amLODIPine 2.5 MG Tablet PO (05:39)
[2019-04-22] MEDS: Pioglitazone Hydrochloride 30 MG Tablet PO (05:39)
[2019-04-22] MEDS: Clopidogrel Bisulfate 75 MG Tablet PO (05:39)
[2019-04-22] MEDS: Levothyroxine 75 MCG Tablet PO (05:39)
[2019-04-22] MEDS: Isosorbide Mononitrate 20 MG Tablet PO ×2 (05:39→17:30)
[2019-04-22] MEDS: Magnesium Oxide 400 MG Tablet PO (05:39)
[2019-04-22 05:42] VITALS: BP 130/71; PULSE 62
[2019-04-22] MEDS: Metoprolol Tartrate 50 MG Tablet 75 MG PO ×2 (05:42→17:30)
[2019-04-22 06:26] LABS: Bedside Glucose 103 mg/dL (70-110)
[2019-04-22] MEDS: Ferrous Sulfate 325 MG Tablet PO (08:13)
[2019-04-22] MEDS: metFORMIN (XR) 500 MG Tablet PO (08:13)
[2019-04-22] MEDS: Aspirin E.C. 81 MG Tablet PO (08:13)
[2019-04-22] MEDS: Insulin Human 75/25 Kwickpen 20 UNIT SC ×2 (08:13→17:29)
--- NOTE | 2019-04-22 08:27 | PCM.DC ---
- Discharge Diagnoses Current Active Problems: Current Active and Chronic Problems (Last Reviewed 03/10/19 @ 10:01 by Castro Kearney MD) Debility (Acute) Fall (Acute) Hypertension (Chronic) Alzheimers disease (Chronic) Hypothyroidism (Chronic) Hypomagnesemia (Chronic) Overactive bladder (Chronic) Iron deficiency anemia (Chronic) Allergic rhinitis (Chronic) Depression (Chronic) You will use the following diet at home:: No restrictions, Regular Your food should be the consistency of: Regular Your liquids should be the consistency of: Regular/Thin Discharge Activity: Return to Normal Activity, Use Walker Weight Bearing Status: No weight bearing - Right lower extremity. Call your doctor if you observe: Fever of 101 or Higher, Inability to urinate, Inability to have a bowel movement, Shortness of breath, Chest pain, Uncontrolled pain Allergies/Adverse Reactions: Allergies fentanyl Allergy (Verified 04/09/19 22:24) Low blood pressure diazepam [From Valium] Adverse Reaction (Verified 04/09/19 22:24) Other Medications to take at Discharge Amlodipine [Norvasc] 2.5 mg PO DAILY 03/24/19 Aspirin E.C. [Ecotrin] 81 mg PO DAILY 03/24/19 Clopidogrel Bisulfate [Clopidogrel] 75 mg PO DAILY 03/24/19 Ferrous Sulfate 325 mg PO DAILY 03/24/19 Mirtazapine [Remeron] 30 mg PO QHS 03/24/19 Benazepril HCl 20 mg PO BID 04/10/19 Biotin 1,000 mg PO DAILY 04/10/19 Cholecalciferol (Vitamin D3) [Vitamin D3] 1,000 unit PO DAILY 04/10/19 L.acidoph,Paracasei, B.lactis [Probiotic] 1 tab PO DAILY 04/10/19 Levothyroxine [Synthroid] 75 mcg PO DAILY@0600 04/10/19 Ubidecarenone [Coq-10] 100 mg PO DAILY 04/10/19 Donepezil HCl [Aricept] 10 mg PO QHS 04/13/19 Magnesium Oxide [Mag-Ox 400] 400 mg PO DAILY 04/13/19 Metoprolol Tartrate [Lopressor (beta rona)] 75 mg PO BID 04/13/19 Pioglitazone [Actos] 30 mg PO DAILY 04/13/19 metFORMIN (XR) [Glucophage Xr] 500 mg PO DAILY@0800 04/13/19 Acetaminophen [Tylenol] 1,000 mg PO Q6H PRN PRN tab 04/22/19 Atorvastatin Calcium 80 mg PO QHS #30 tab 04/22/19 Calcium Carbonate [Tums] 500 mg PO Q4H PRN PRN tab 04/22/19 Insulin Human 75/25 [Humalog Mix 75-25 Kwikpen] 20 unit SUBCUT BREAKFAST #1 insuln.pen 04/22/19 Insulin Human 75/25 [Humalog Mix 75-25 Kwikpen] 20 unit SUBCUT DINNER #1 insuln.pen 04/22/19 Isosorbide Mononitrate 20 mg PO BID #60 tab 04/22/19 Menthol/Lanolin/Calamine/Znox [Calmoseptine Ointment] 1 applic TOPICAL 0600,2200 tube 04/22/19 Pramipexole Di-HCl [Mirapex] 0.125 mg PO QHS #30 tab 04/22/19 The following prescriptions were given: Atorvastatin Calcium 80 mg PO QHS #30 tab Transmission Status: Pending to [facility] Insulin Human 75/25 [Humalog Mix 75-25 Kwikpen] 20 unit SUBCUT BREAKFAST #1 insuln.pen Transmission Status: Pending to [facility] [place] [address] Insulin Human 75/25 [Humalog Mix 75-25 Kwikpen] 20 unit SUBCUT DINNER #1 insuln.pen Transmission Status: Pending to [facility] [place] [address] Isosorbide Mononitrate 20 mg PO BID #60 tab Transmission Status: Pending to [facility] [place] [address] Pramipexole Di-HCl [Mirapex] 0.125 mg PO QHS #30 tab Transmission Status: Pending to [address] Primary Care Physician: Johnathon Brown MD [Primary Care Provider] - Please follow up with your Primary Care Physician in: 1 week. Test Results: Test results from this visit will be discussed in further detail at your follow-up appointment, if applicable. Please Follow Up With: Dr. Meyer When: x1 week after DC from TCU Please Follow Up With: Dr. Johnathon Brown When: 1-2 weeks after discharge Proposed Discharge Date: 04/23/19
--- NOTE | 2019-04-22 08:30 | PCM.DC.SUM ---
Discharge Date and Diagnosis - Problem List Patient Problems: Active and Suspected Problems (Last Reviewed 03/10/19 @ 10:01 by Castro Kearney MD) Debility (Acute) Fall (Acute) Date of Admission: 04/13/19 Date of Discharge: 04/23/19 - Primary Discharge Diagnosis Active and Suspected Problems (Last Reviewed 03/10/19 @ 10:01 by Castro Kearney MD) Debility (Acute) Fall (Acute) - Secondary Discharge Diagnosis Chronic Problems (Last Reviewed 03/10/19 @ 10:01 by Castro Kearney MD) Type 2 diabetes mellitus (Chronic) uncontrolled Vitiligo (Chronic) Hip fracture, left (Chronic) January [address] Barnard Dementia (Chronic) on Aricept Hypertension (Chronic) Alzheimers disease (Chronic) Hypothyroidism (Chronic) Hypomagnesemia (Chronic) Overactive bladder (Chronic) Iron deficiency anemia (Chronic) Allergic rhinitis (Chronic) Depression (Chronic) Essential (primary) hypertension (Chronic) HLD (hyperlipidemia) (Chronic) Atherosclerotic heart disease of [place] coronary artery without angina pectoris (Chronic) [id number] LAD 02/13/2009; PCI-JERROD to OM1 and D2 10/12/2009 History of coronary artery stent placement (Chronic 10/12/09) [id number] LAD 02/13/2009; PCI-JERROD to OM1 and D2 10/12/2009 Hospital Course and Treatment Imaging Results: 04/13/19 18:28 Diet: Cardiac/Low Cholesterol Food consistency:: Regular Liquid Consistency:: Regular/Thin Type of Dietary Supplement:: Ensure Complete Is pt able to select menu?: No Clinical Impression(s) from Imaging Studies KUB X-Ray 04/18/19 18:15 IMPRESSION: Normal bowel gas pattern. Electronically Signed: Ugo Degroot MD at 18:30 EDT Tel , Service support , Ankle X-Ray 04/21/19 11:01 IMPRESSION: Stable examination. Electronically Signed: Theodore Gorman, at 13:10 EDT , Service support , Labs (Last 48 Hours) 04/20/19 04/20/19 04/20/19 11:10 16:46 18:05 WBC RBC Hgb Hct MCV MCH MCHC RDW Std Deviation RDW Coeff of Shikha Plt Count MPV Immature Gran % (Auto) Neut % (Auto) Lymph % (Auto) [place] % (Auto) Eos % (Auto) Baso % (Auto) Absolute Neuts (auto) Absolute Lymphs (auto) Nucleated RBC % Sodium Potassium Chloride Carbon Dioxide Anion Gap BUN Creatinine Estim Creat Clear Calc Est GFR (MDRD) Af Amer Est GFR (MDRD) Non-Af BUN/Creatinine Ratio Glucose Calcium POC Glucose 447 H 86 110 04/20/19 04/21/19 04/21/19 21:15 05:25 05:25 WBC 9.1 RBC 4.76 Hgb 13.4 Hct 43.3 MCV 91.0 MCH 28.2 MCHC 30.9 L RDW Std Deviation 50.1 H RDW Coeff of Shikha 14.9 H Plt Count 337 MPV 8.9 Immature Gran % (Auto) 0.400 Neut % (Auto) 72.9 H Lymph % (Auto) 19.6 [place] % (Auto) 6.5 Eos % (Auto) 0.4 Baso % (Auto) 0.2 Absolute Neuts (auto) 6.6 Absolute Lymphs (auto) 1.79 Nucleated RBC % 0 Sodium 143 Potassium 4.3 Chloride 109 H Carbon Dioxide 25.0 Anion Gap 9 BUN 23 H Creatinine 0.64 Estim Creat Clear Calc 43.30 Est GFR (MDRD) Af Amer 118 Est GFR (MDRD) Non-Af 97 BUN/Creatinine Ratio 35.9 H Glucose 126 H Calcium 9.3 POC Glucose 100 04/21/19 04/21/19 04/21/19 06:05 10:24 10:51 WBC RBC Hgb Hct MCV MCH MCHC RDW Std Deviation RDW Coeff of Shikha Plt Count MPV Immature Gran % (Auto) Neut % (Auto) Lymph % (Auto) [place] % (Auto) Eos % (Auto) Baso % (Auto) Absolute Neuts (auto) Absolute Lymphs (auto) Nucleated RBC % Sodium Potassium Chloride Carbon Dioxide Anion Gap BUN Creatinine Estim Creat Clear Calc Est GFR (MDRD) Af Amer Est GFR (MDRD) Non-Af BUN/Creatinine Ratio Glucose Calcium POC Glucose 137 H 496 H* 492 H* 04/21/19 04/21/19 04/21/19 16:58 20:58 21:27 WBC RBC Hgb Hct MCV MCH MCHC RDW Std Deviation RDW Coeff of Shikha Plt Count MPV Immature Gran % (Auto) Neut % (Auto) Lymph % (Auto) [place] % (Auto) Eos % (Auto) Baso % (Auto) Absolute Neuts (auto) Absolute Lymphs (auto) Nucleated RBC % Sodium Potassium Chloride Carbon Dioxide Anion Gap BUN Creatinine Estim Creat Clear Calc Est GFR (MDRD) Af Amer Est GFR (MDRD) Non-Af BUN/Creatinine Ratio Glucose Calcium POC Glucose 106 48 L 64 L 04/21/19 04/22/19 04/22/19 21:48 02:16 06:15 WBC RBC Hgb Hct MCV MCH MCHC RDW Std Deviation RDW Coeff of Shikha Plt Count MPV Immature Gran % (Auto) Neut % (Auto) Lymph % (Auto) [place] % (Auto) Eos % (Auto) Baso % (Auto) Absolute Neuts (auto) Absolute Lymphs (auto) Nucleated RBC % Sodium Potassium Chloride Carbon Dioxide Anion Gap BUN Creatinine Estim Creat Clear Calc Est GFR (MDRD) Af Amer Est GFR (MDRD) Non-Af BUN/Creatinine Ratio Glucose Calcium POC Glucose 80 84 103 Operations: None Procedures: None Summary of Care Provided: The patient is a 68 year old Female with below past medical history hospitalized for syncope, right bimalleolar ankle fracture, status post closed reduction with SLC application 04/12/[address] Meyer, admitted to TCU with debility, here for rehabilitation, strengthening, prior to discharge home with family. Discharge home with family, [facility] for PT/OT. Patient Problems: Active and Suspected Problems (Last Reviewed 03/10/19 @ 10:01 by Castro Kearney MD) Debility (Acute) Fall (Acute) - Physical Exam Vital Signs Temp Pulse Resp BP Pulse Ox 98.3 F 62 16 130/71 H 98 04/21/19 16:00 04/22/19 05:42 04/21/19 16:00 04/22/19 05:42 04/21/19 16:00 Oxygen Delivery Method Room Air Weight: 66.82 kg Body Mass Index (BMI) 26.7 Finger Stick Blood Glucose 335 Intake and Output for Last 24 Hours 04/20/19 04/21/19 04/22/19 23:59 23:59 23:59 Intake Total 960 / 960 600 / 600 Balance 960 / 960 600 / 600 POC Glucose 04/22/19 04/22/19 04/21/19 06:15 02:16 21:48 POC Glucose 103 84 80 04/21/19 04/21/19 04/21/19 21:27 20:58 16:58 POC Glucose 64 L 48 L 106 04/21/19 04/21/19 10:51 10:24 POC Glucose 492 H* 496 H* Discharge Diet: No Restrictions Discharge Activity: Return to Normal Activity, Use Walker Weight Bearing Status: No weight bearing - Right lower extremity. Call your doctor if you observe: Fever of 101 or Higher, Inability to urinate, Inability to have a bowel movement, Shortness of breath, Chest pain, Uncontrolled pain Home Medications: Medications to take at Discharge Amlodipine [Norvasc] 2.5 mg PO DAILY 03/24/19 Aspirin E.C. [Ecotrin] 81 mg PO DAILY 03/24/19 Clopidogrel Bisulfate [Clopidogrel] 75 mg PO DAILY 03/24/19 Ferrous Sulfate 325 mg PO DAILY 03/24/19 Mirtazapine [Remeron] 30 mg PO QHS 03/24/19 Benazepril HCl 20 mg PO BID 04/10/19 Biotin 1,000 mg PO DAILY 04/10/19 Cholecalciferol (Vitamin D3) [Vitamin D3] 1,000 unit PO DAILY 04/10/19 L.acidoph,Paracasei, B.lactis [Probiotic] 1 tab PO DAILY 04/10/19 Levothyroxine [Synthroid] 75 mcg PO DAILY@0600 04/10/19 Ubidecarenone [Coq-10] 100 mg PO DAILY 04/10/19 Donepezil HCl [Aricept] 10 mg PO QHS 04/13/19 Magnesium Oxide [Mag-Ox 400] 400 mg PO DAILY 04/13/19 Metoprolol Tartrate [Lopressor (beta rona)] 75 mg PO BID 04/13/19 Pioglitazone [Actos] 30 mg PO DAILY 04/13/19 metFORMIN (XR) [Glucophage Xr] 500 mg PO DAILY@0800 04/13/19 Acetaminophen [Tylenol] 1,000 mg PO Q6H PRN PRN tab 04/22/19 Atorvastatin Calcium 80 mg PO QHS #30 tab 04/22/19 Calcium Carbonate [Tums] 500 mg PO Q4H PRN PRN tab 04/22/19 Insulin Human 75/25 [Humalog Mix 75-25 Kwikpen] 20 unit SUBCUT BREAKFAST #1 insuln.pen 04/22/19 Insulin Human 75/25 [Humalog Mix 75-25 Kwikpen] 20 unit SUBCUT DINNER #1 insuln.pen 04/22/19 Isosorbide Mononitrate 20 mg PO BID #60 tab 04/22/19 Menthol/Lanolin/Calamine/Znox [Calmoseptine Ointment] 1 applic TOPICAL 0600,2200 tube 04/22/19 Pramipexole Di-HCl [Mirapex] 0.125 mg PO QHS #30 tab 04/22/19 Following Prescrptions Were Given to Patient: Atorvastatin Calcium 80 mg PO QHS #30 tab Transmission Status: Pending to [facility] Insulin Human 75/25 [Humalog Mix 75-25 Kwikpen] 20 unit SUBCUT BREAKFAST #1 insuln.pen Transmission Status: Pending to [facility] [place] [address] Insulin Human 75/25 [Humalog Mix 75-25 Kwikpen] 20 unit SUBCUT DINNER #1 insuln.pen Transmission Status: Pending to [facility] [place] [address] Isosorbide Mononitrate 20 mg PO BID #60 tab Transmission Status: Pending to [facility] [place] [address] Pramipexole Di-HCl [Mirapex] 0.125 mg PO QHS #30 tab Transmission Status: Pending to [facility] [place] [address] Primary Care Physician: Johnathon Brown MD [Primary Care Provider] - Please follow up with your Primary Care Physician in: 1 week. Please Follow Up With: Dr. Meyer When: x1 week after DC from [facility] Please Follow Up With: Dr. Johnathon Brown When: 1-2 weeks after discharge Disposition: Home with Home Health Minutes spent on discharge:: 35 Patient Condition:: Stable Medical Necessity - Tobacco Use Smoking Status: Never smoker Tobacco Use: Non-smoker Meaningful Use Info Meaningful Use Diagnoses (Choose all that apply): None applicable
--- NOTE | 2019-04-22 08:32 | HHNOTE_ITS ---
Home Health Note - Plan Overview of reason of hospitalization: The patient is a 68 year old Female with below past medical history hospitalized for syncope, right bimalleolar ankle fracture, status post closed reduction with SLC application 04/12/[address] Meyer, admitted to TCU with debility, here for rehabilitation, strengthening, prior to discharge home with family. Discharge home with family, [facility] for PT/OT. Problems: Patient was seen for (Last Reviewed 03/10/19 @ 10:01 by Castro Kearney MD) Debility (Acute) Fall (Acute) Hypertension (Chronic) Alzheimers disease (Chronic) Hypothyroidism (Chronic) Hypomagnesemia (Chronic) Overactive bladder (Chronic) Iron deficiency anemia (Chronic) Allergic rhinitis (Chronic) Depression (Chronic) Complete List of Medical Problems (Last Reviewed 03/10/19 @ 10:01 by Castro Kearney MD) Type 2 diabetes mellitus (Chronic) Syncope (Acute) Closed bimalleolar fracture of right ankle (Acute) Vitiligo (Chronic) Hip fracture, left (Chronic) Dementia (Chronic) Dehydration (Acute) Debility (Acute) Fall (Acute) Hypertension (Chronic) Alzheimers disease (Chronic) Hypothyroidism (Chronic) Hypomagnesemia (Chronic) Overactive bladder (Chronic) Iron deficiency anemia (Chronic) Allergic rhinitis (Chronic) Depression (Chronic) Essential (primary) hypertension (Chronic) HLD (hyperlipidemia) (Chronic) Atherosclerotic heart disease of [place] coronary artery without angina pectoris (Chronic) History of coronary artery stent placement (Chronic 10/12/09) - Requirements and Reasons Disciplines Needed/Ordered: Physical Therapy Reason for Disciplines: Disease Specific Monitoring/education, Medication Management/Knowledge Deficit, Gait Training, Stair Training, Fall Prevention, Home Safety/Equipment Instruction, Balance and/or Posture Training, Transfer Training Related To: Change in Medical Treatment Plan, Limited/Poor Endurance, Physical Impairments, Unsteady Gait/Balance, Fall Risk Patient is unable to leave the home: Without Aid of Supportive Devices (crutches, cane, wheelchair, walker), Without the assistance of another person, Because it is medically contraindicated Medically Contraindicated related to: Weight Bearing Status - Additional Disciplines Additional Disciplines Needed/Ordered: Occupational Therapy
--- NOTE | 2019-04-22 10:43 | CASEMGMT ---
Social Work Patient requesting to discharge home 04/23. Explained IDT not recommending discharge at this time. Pt feels she will be fine at home. [facility]erral made for PT/OT. No DME needs. Plan: DC home 04/23 with [facility] PT/OT/SN. Betty Orr, BILLIE JOYW
[2019-04-22 11:16] LABS: Bedside Glucose 275 mg/dL (70-110)
[2019-04-22 15:19] VITALS: BP 122/55; PULSE 68; RESP 18; TEMP 36.8
[2019-04-22 17:21] LABS: Bedside Glucose 126 mg/dL (70-110)
[2019-04-22 17:30] VITALS: PULSE 68
[2019-04-22] MEDS: Donepezil HCl 10 MG Tablet PO (20:28)
[2019-04-22] MEDS: Mirtazapine 30 MG Tablet PO (20:29)
[2019-04-22] MEDS: Atorvastatin Calcium 80 MG Tablet PO (20:29)
[2019-04-22] MEDS: Pramipexole Di-HCl 0.125 MG Tablet PO (20:29)
[2019-04-22 22:21] LABS: Bedside Glucose 42 mg/dL (70-110)
[2019-04-22 22:51] LABS: Bedside Glucose 31 mg/dL (70-110)
[2019-04-22] MEDS: Glucagon 1 MG/ML Syringe IM (23:12)
[2019-04-22 23:14] LABS: Glucose 52 mg/dL (74-106)
[2019-04-22 23:16] LABS: Bedside Glucose 49 mg/dL (70-110)
[2019-04-22 23:50] LABS: Bedside Glucose 105 mg/dL (70-110)
--- NOTE | 2019-04-22 23:51 | NURSING ---
Patient's blood sugar at 2211 Hs 42. Cookies and milk given. Patient's blood sugar at 2243 is 31. Patient given 240 cc ensure and 60 cc orange juice and 2 packs of cookies. Patient's blood sugar at 2311 is 49. Patient given glucagon 1 mg IM. Patient's blood sugar at [address] Alvarado aware of patient having low blood sugars past couple of days. No new orders at this time.
[2019-04-23 05:54] VITALS: BP 133/63; PULSE 76
[2019-04-23] MEDS: amLODIPine 2.5 MG Tablet PO (05:54)
[2019-04-23] MEDS: Clopidogrel Bisulfate 75 MG Tablet PO (05:54)
[2019-04-23] MEDS: Isosorbide Mononitrate 20 MG Tablet PO (05:54)
[2019-04-23] MEDS: Lisinopril 20 MG Tablet PO (05:54)
[2019-04-23] MEDS: Metoprolol Tartrate 50 MG Tablet 75 MG PO (05:54)
[2019-04-23] MEDS: Pioglitazone Hydrochloride 30 MG Tablet PO (05:54)
[2019-04-23] MEDS: Levothyroxine 75 MCG Tablet PO (05:54)
[2019-04-23] MEDS: Magnesium Oxide 400 MG Tablet PO (05:55)
[2019-04-23] MEDS: Menthol/Lanolin/Calamine/Znox 113 GM Tube 1 APPLIC TOPICAL (05:57)
[2019-04-23] MEDS: Calcium Carbonate 500 MG Tablet PO (05:59)
[2019-04-23 06:41] LABS: Bedside Glucose 307 mg/dL (70-110)
[2019-04-23 08:30] VITALS: BP 138/78; PULSE 77; RESP 16; TEMP 36.5; O2SAT 96
[2019-04-23] MEDS: metFORMIN (XR) 500 MG Tablet PO (08:35)
[2019-04-23] MEDS: Insulin Human 75/25 Kwickpen 20 UNIT SC (08:35)
[2019-04-23] MEDS: Aspirin E.C. 81 MG Tablet PO (08:35)
[2019-04-23] MEDS: Ferrous Sulfate 325 MG Tablet PO (08:35)
--- NOTE | 2019-04-26 13:23 | MDS.RN ---
Information for the mds was obtained from review of the clinical record, interview of resident, staff, and direct observation of resident's care.
== END 2019-04-23 11:00 | disposition home health service (06) | DRG 561 ==
PROVIDERS: Admitting Provider Family Medicine Geriatric Medicine; Family Provider Family Medicine; PCP Family Medicine; Referring Provider Family Medicine Geriatric Medicine; Visit Provider Family Medicine Geriatric Medicine
DX: S82.841D Displaced bimalleolar fracture of right lower leg, subsequent encounter for closed fracture with routine healing (principal); W07.XXXD Fall from chair, subsequent encounter; E78.5 Hyperlipidemia, unspecified; I10 Essential (primary) hypertension; E03.9 Hypothyroidism, unspecified; F02.80 Dementia in other diseases classified elsewhere, unspecified severity, without behavioral disturbance, psychotic disturbance, mood disturbance, and anxiety; G30.9 Alzheimer's disease, unspecified; D50.9 Iron deficiency anemia, unspecified; N32.81 Overactive bladder; F32.9 Major depressive disorder, single episode, unspecified; E11.9 Type 2 diabetes mellitus without complications; I25.10 Atherosclerotic heart disease of native coronary artery without angina pectoris; E55.9 Vitamin D deficiency, unspecified
CPT/HCPCS: 36415; 73610; 74018; 80048; 80061; 82652; 82947; 82962; 85025; 97110; 97116; 97163; 97166; 97530; 97535; 97802; J1610

== ENCOUNTER → 2019-04-29 13:41 | Outpatient (CLI) | payer MEDICARE, OTHER, SELFPAY ==
[2019-04-13 17:22] VITALS: BMI 26.7
--- NOTE | 2019-04-29 13:44 | RAD_ITS ---
STUDY: X-RAY - RIGHT ANKLE REASON FOR EXAM: Female, 68 years old. Follow-up fracture. TECHNIQUE: 3 view(s) of the ankle. COMPARISON: 04/21/2019 radiographs. FINDINGS: Casted bimalleolar fractures again demonstrated. Alignment remains near anatomic. No new fractures are evident. Underlying degenerative changes similar to prior. RAD/Ankle min 3 Views IMPRESSION: Casted bimalleolar fractures again demonstrated. Electronically Signed: Kevin Syed, at 0:19 EDT Tel , Service support ,
== END ==
PROVIDERS: Family Provider Family Medicine; PCP Family Medicine; Referring Provider Physician Assistant; Visit Provider Physician Assistant
DX: S82.891A Other fracture of right lower leg, initial encounter for closed fracture (principal)
CPT/HCPCS: 73610

== ENCOUNTER → 2019-05-27 10:08 | Outpatient (CLI) | payer MEDICARE, OTHER, SELFPAY ==
[2019-04-29 14:15] VITALS: BMI 26.7
--- NOTE | 2019-05-27 10:10 | RAD_ITS ---
STUDY: X-RAY - RIGHT ANKLE REASON FOR EXAM: Female, 68 years old. Fracture follow-up TECHNIQUE: 3 view(s) of the ankle. COMPARISON: 04/29/2019 FINDINGS: Cast material has been removed. There is diffuse osteopenia. Medial malleolus fracture with continued healing since the prior study. The distal fibular fracture is completely healed. Normal visualized talus and calcaneus. The visualized subtalar, talonavicular, calcaneocuboid and tarsal articulations are normal. The soft tissue structures are unremarkable. RAD/Ankle min 3 Views IMPRESSION: 1. Progressive healing of bimalleolar fracture. No change in alignment. Electronically Signed: Blaze Forrester MD (Brooks) at 17:12 EDT , Service support ,
== END ==
PROVIDERS: Family Provider Family Medicine; PCP Family Medicine; Referring Provider Physician Assistant; Visit Provider Physician Assistant
DX: S82.841A Displaced bimalleolar fracture of right lower leg, initial encounter for closed fracture (principal)
CPT/HCPCS: 73610

== ENCOUNTER 2019-06-24 09:30 | Outpatient (RCR) | payer MEDICARE, OTHER, SELFPAY ==
[2019-05-27 11:39] VITALS: BMI 26.7
--- NOTE | 2019-06-01 11:16 | HP.PTEVAL_ITS ---
Patient's Visit Information KAYLEIGH ROBERTS is a 68 year old F referred to Physical Therapy by FREDDY Verdin with a diagnosis of R bimalleolar fracture. Date of Evaluation: 06/01/19 Physical Therapist: Johnathon Perez, LANDRYT, OCS, CSCS - Visit Plan Frequency: 3x /Week Duration: 4-6 Weeks Plan: 3x/week for 3-4 weeks for. 1. ankle ROM, gastroc stretching and ankle mobs distarraction and DF. 2. ankle strength. 3. gait training(WBAT without boot or walker when safety and pain allows.). 4. functional progression to tolerance. - Subjective Findings: Can't remember why she is here. R foot was broken falling off of ba rstool 4-6 weeks ago. Went to ER and put in cast. Sent to ortho, been in boot for a week or two. Pt is very unclear about any details and thinks her brain is wearing out as she has a hard time remembering. Not sure if she is allowed out of boot. No pain, no neuropathy. No dizzyness. Balance is OK. Using walker with wheels ever since. Hurts if she doesn't use it. No exercises. Sleep is O K and she sleeps good. Not employed. Can't remember what she does all day. Lives with son and grandkids( in their 20s). She thinks she has steps to get into house with railing. Basic ADLS are OK. cleans and cooks OK. Is hard to do things since the ankle fracture, she cannot walk up and down the road a mile ro two or walk in [place] but has not done that. No walker needed prior to fracture. - Objective Walks with wh walker adn boot on R mod I, without boot tends to cut L step short, can use walker and take equal steps with cues but painful R ankle. Unable to walk without AD due to antalgia. STransfers are I. Steps not tested today. AROM ankle R: -3 DF, 14 inv, ev 8, PF 45: L ankle 3 DF, 20 inv, 12 ever, 55 PF. Limited passively to a couple more degrees than this by pain. strength R ankle 4- and L ankle 4/5. Knee strength 4/5 B. Sensationn to gross light touch in B LE is WFL. Tender to aplpation B malleoli. I visited [facility] pedics and they stated she can walk without boot and wh walker when safety allows as far as balance and gait pattern go. Pt is forgetfull and cannot answer many questions today confidently, unable to don boot I without assist from PT due to cogint - Goals Goal 1:: syymetrical and full R ankle ROM without pain Goal Time Frame: 4-6 Weeks Goal 2:: Walk with normal gait pattern with wh walker without boot without VC Goal Time Frame: 2-4 Weeks Goal 3:: Walk without gait deviations including steps with one rail and FGA score of 25/30 Goal Time Frame: 4-6 Weeks Goal 4:: Pt report mobility is back to premorbid levels Goal Time Frame: 4-6 Weeks Goal 5:: I approp HEP to minimize future problems Goal Time Frame: 4-6 Weeks - Rehabilitation Potential Physical Therapy Diagnosis: s/p ankle fracture with limited motion and gait. Rehabilitation Potential: Good - Anticipated Interventions Patient/Client Instruction: Educate patient on: Condition, Plan of Care For the Purpose of:: To decrease pain, To increase ROM, To improve muscle performance and motor function, To increase tolerance to activity/condition/position, To improve ability of physical actions for home/community/work/leisure, To improve gait and locomotor functions Therapeutic Exercise to Include: Strength training, Agility training, Flexibilty training, Gait and locomotor training, Passive ROM, Active ROM For the Purpose of:: To decrease pain, To increase ROM, To improve muscle performance and motor function, To increase tolerance to activity/condition/position, To improve ability of physical actions for home/community/work/leisure, To improve gait and locomotor functions Manual Therapy Techniques to Include: Mobilization, Soft tissue mobilization For the Purpose of:: To increase ROM Thank you for the opportunity to evaluate your patient. For Medicare and Medicare HMO plans, please review the plan of care and approve it. It will need to be FAXED BACK to us at [phone] for Medicare purposes. For Medicare only, by signing this I certify the plan of care. Please let me know if there are questions or concerns regarding this plan of care. Physician Signature: Date:
--- NOTE | 2019-06-24 10:29 | HP.PTREVAL_ITS ---
FREDDY Verdin, It has been my pleasure to treat KAYLEIGH ROBERTS over the last 7 visits for R bimalleolar fracture. Please see the progress note below for an update on the physical therapy plan of care! Subjective: No pain lately. Started using cane recently(sketchy on details) withotu increase in pain. No falls. Balance is OK most of time. Doing most activities at home other than walking half mile for fitness whcih she used to do prior to this. Community walking with cane is normal. Stairs at home but does not use them much , no probem. Feels like she doesn't need more therapy Objective/Function: Pt walking with cane with only slight R antalgia, enhanced antalgia and lack pof push off without cane but safe. AROM B ankles symmetrical and strength is 4/5 B. Weaker using R LE on steps but safe with UE. OVERALL IMPROVED BALANCE AND GAIT BUT STILL APPROPRIATE FOR PT TO WROK ON GAIT ADN STRENGTH/FUNCTION HOWEVER SHE DOES NOT WISH TO CONTINUE BUT WILLING TO F/U TO ENSURE PROGRESS IN 2-3 WEEKS. HAS BEEN NONCOMPLIANT WITH HEP Plan Plan: F/U 2-3 WEEKS TO ENSURE PROGRESS,(PT UNWILLING TO CONTINUE MORE FREQUENTLY). WILL WALK AND DO HEP AND CALL IF PROBLEMS. Goals Goal 1:: syymetrical and full R ankle ROM without pain Goal Time Frame: 4-6 Weeks Goal Progress: Goal Met Goal 2:: Walk with normal gait pattern with wh walker without boot without VC Goal Time Frame: 2-4 Weeks Goal Progress: Goal Met Goal 3:: Walk without gait deviations including steps with one rail and FGA score of 25/30 Goal Time Frame: 4-6 Weeks Goal Progress: Progressing Goal 4:: Pt report mobility is back to premorbid levels Goal Time Frame: 4-6 Weeks Goal Progress: 90% Goal 5:: I approp HEP to minimize future problems Goal Time Frame: 4-6 Weeks Goal Progress: non compliant, walking! Anticipated Interventions Patient/Client Instruction: Educate patient on: Condition, Plan of Care For the Purpose of:: To decrease pain, To increase ROM, To improve muscle performance and motor function, To increase tolerance to activity/conditio n/position, To improve ability of physical actions for home/community/work/leisure, To improve gait and locomotor functions Therapeutic Exercise to Include: Strength training, Agility training, Flexibilty training, Gait and locomotor training, Passive ROM, Active ROM For the Purpose of:: To decrease pain, To increase ROM, To improve muscle performance and motor function, To increase tolerance to activity/condition/position, To improve ability of physical actions for home/community/work/leisure, To improve gait and locomotor functions Manual Therapy Techniques to Include: Mobilization, Soft tissue mobilization For the Purpose of:: To increase ROM Please do not hesitate to contact me at [phone] by phone or if you have questions or concerns regarding this new plan of care! Sincerely, Johnathon Perez, DPT, OCS, CSCS
--- NOTE | 2019-09-01 15:44 | HP.PTDCNRP_ITS ---
HP - Discharge Summary (1) - Patient Information KAYLEIGH ROBERTS was seen in my office for initial evaluation on 06/01/19. The following Plan of Care was established for this patient: Initial Frequency: 3x /Week Initial Duration: 4-6 Weeks - Anticipated Interventions Patient/Client Instruction: Educate patient on: Condition, Plan of Care For the Purpose of:: To decrease pain, To increase ROM, To improve muscle perf ormance and motor function, To increase tolerance to activity/condition/position, To improve ability of physical actions for home/community/work/leisure, To improve gait and locomotor functions Therapeutic Exercise to Include: Strength training, Agility training, Flexibilty training, Gait and locomotor training, Passive ROM, Active ROM For the Purpose of:: To decrease pain, To increase ROM, To improve muscle performance and motor function, To increase tolerance to activity/condition/position, To improve ability of physical actions for home/community/work/leisure, To improve gait and locomotor functions Manual Therapy Techniques to Include: Mobilization, Soft tissue mobilization For the Purpose of:: To increase ROM This patient was last seen in our office 06/24/19. Pertinent comments regarding their Physical therapy will appear below: Pt seen for 7 visits and was 90% better. She was to f/u three weeks later to ensure continued progress but did not schedule or attend that visit. It has been over 2 months adn I will discontinue due to nonattendance. At this point I will be discontinuing this patient from physical therapy. I would be happy to see this patient again in the future if found appropriate by the physician. Thank you! Johnathon Perez, DPT, OCS, CSCS
== END 2019-06-24 19:00 | disposition home or self-care (01) ==
LOC: PT 09:30
PROVIDERS: Family Provider Family Medicine; PCP Family Medicine; Referring Provider Physician Assistant; Visit Provider Physician Assistant
DX: S82.841D Displaced bimalleolar fracture of right lower leg, subsequent encounter for closed fracture with routine healing (principal)
CPT/HCPCS: 97110; 97116; 97161; 97530

== ENCOUNTER → 2019-06-24 12:20 | Outpatient (CLI) | payer MEDICARE, OTHER, SELFPAY ==
[2019-05-27 11:39] VITALS: BMI 26.7
[2019-06-24 12:59] LABS: Hemoglobin A1c 9.6 % (4.2-6.3)
[2019-06-24 13:16] LABS: ALB/GLOB Ratio 0.8 RATIO (0.9-2.4); AST(SGOT) 19 U/L (15-37); Alanine Aminotransfer ALT/SGPT 29 U/L (13-56); Albumin, Serum 3.4 g/dL (3.2-5.0); Alkaline Phosphatase 214 U/L (45-117); Anion Gap 11 (5-15); BUN 19 mg/dL (7-18); BUN/Creat Ratio 19.4 RATIO (10-20); Chloride 104 mmol/L (98-107); Creatinine, Serum 0.98 mg/dL (0.55-1.02); EST Glomerular Filtration Rate 60 mL/min (>60); Est Glom Filt Rate - Afr Amer 72 mL/min (>60); Globulin 4.3 g/dL (2.2-4.2); Glucose 323 mg/dL (74-106); Potassium 4.5 mmol/L (3.5-5.1); Protein, Total 7.7 g/dL (6.4-8.2); Sodium Level 137 mmol/L (136-145)
== END ==
PROVIDERS: Family Provider Family Medicine; PCP Family Medicine; Referring Provider Internal Medicine Endocrinology, Diabetes & Metabolism; Visit Provider Internal Medicine Endocrinology, Diabetes & Metabolism
DX: E11.65 Type 2 diabetes mellitus with hyperglycemia (principal)
CPT/HCPCS: 36415; 80053; 83036

== ENCOUNTER → 2019-06-27 10:16 | Outpatient (CLI) | payer MEDICARE, OTHER, SELFPAY ==
[2019-06-27 10:11] VITALS: BMI 26.7
--- NOTE | 2019-06-27 10:17 | RAD_ITS ---
STUDY: X-RAY - RIGHT ANKLE REASON FOR EXAM: Female, 68 years old. Pain TECHNIQUE: 3 view(s) of the ankle. COMPARISON: 27 May 2019 FINDINGS: Examination is severely limited due to severe osteopenia/osteoporosis. Detection of subtle abnormalities is not possible. Some diagnostic information is available. The ankle is aligned. There is cortical and trabecular irregularity with mixed lucency and sclerosis in the medial malleolus, likely subacute healing fracture. There is irregularity of the fibular cortex, likely subacute fracture. Talar dome is intact. Soft tissues are unremarkable. Mineralization is heterogeneously decreased. Appearance is similar to prior. RAD/Ankle min 3 Views IMPRESSION: 1. Presumed bimalleolar healing subacute stage fractures. 2. Anatomically aligned fracture fragments and ankle. 3. Heterogeneous osteoporosis, presumably trauma related osteopenia superimposed on background of osteoporosis. Electronically Signed: Augie Laurent, at 18:53 EST Tel , Service support ,
== END ==
PROVIDERS: Family Provider Family Medicine; PCP Family Medicine; Referring Provider Physician Assistant; Visit Provider Physician Assistant
DX: S82.891A Other fracture of right lower leg, initial encounter for closed fracture (principal); X58.XXXA Exposure to other specified factors, initial encounter
CPT/HCPCS: 73610

== ENCOUNTER → 2019-09-16 11:44 | Outpatient (CLI) | payer MEDICARE, OTHER, SELFPAY ==
[2019-06-27 10:11] VITALS: BMI 26.7
[2019-09-16 12:50] LABS: Hemoglobin A1c 9.9 % (4.2-6.3)
[2019-09-16 12:58] LABS: Microalbumin,Random Urine 50.4 mg/L (NO RANGE EST.)
[2019-09-16 13:21] LABS: AST(SGOT) 20 U/L (15-37); Alanine Aminotransfer ALT/SGPT 30 U/L (13-56); Anion Gap 5 (5-15); BUN 26 mg/dL (7-18); BUN/Creat Ratio 26.4 RATIO (10-20); Calcium,Total 9.4 mg/dL (8.5-10.1); Chloride 104 mmol/L (98-107); Creatinine, Serum 0.99 mg/dL (0.55-1.02); EST Glomerular Filtration Rate 59 mL/min (>60); Est Glom Filt Rate - Afr Amer 72 mL/min (>60); Glucose 281 mg/dL (74-106); Potassium 4.8 mmol/L (3.5-5.1); Sodium Level 138 mmol/L (136-145)
== END ==
LOC: LAB 11:47
PROVIDERS: PCP Family Medicine; Referring Provider Internal Medicine Endocrinology, Diabetes & Metabolism; Visit Provider Internal Medicine Endocrinology, Diabetes & Metabolism
DX: E11.65 Type 2 diabetes mellitus with hyperglycemia (principal)
CPT/HCPCS: 36415; 80048; 82043; 82570; 83036; 84450; 84460

== ENCOUNTER 2019-11-02 15:45 | Emergency (ER) | payer MEDICARE, OTHER, SELFPAY ==
[2019-06-27 10:11] VITALS: BMI 26.7
[2019-11-02 15:46] VITALS: BP 145/75; PULSE 71; RESP 16; TEMP 36.6; O2SAT 100; BMI 27.1
--- NOTE | 2019-11-02 16:17 | ED.DCSUM_ITS ---
History of Present Illness Chief Complaint: Complaint Informant: Patient, Family Onset: Days Context: Gradual Onset Narrative: Patient with dysuria and frequency over the past day and a half or so. She does have history of dementia at baseline and family states that she seems more confused this morning. She is also diabetic and her blood sugar was higher than normal which may have contributed to her confusion. She was seen at [facility]. Urine dip there revealed 2+ leukocyte esterase, 3+ blood, 1+ ketones. Family was told that she should present to the emergency room for evaluation because there were more abnormalities than just a simple infection. Patient denies abdominal pain or back pain. She has not had fever or chills. - Past Medical History (1) Alzheimers disease Status: Chronic (2) Atherosclerotic heart disease of [place] coronary artery without angina pectoris Status: Chronic Comment: [id number] LAD 02/13/2009; PCI-JERROD to OM1 and D2 10/12/2009 (3) Dementia Status: Chronic Comment: on Aricept (4) Depression Status: Chronic (5) Essential (primary) hypertension Status: Chronic (6) HLD (hyperlipidemia) Status: Chronic (7) History of coronary artery stent placement Status: Chronic Comment: [id number] LAD 02/13/2009; PCI-JERROD to OM1 and D2 10/12/2009 (8) Hypertension Status: Chronic (9) Hypothyroidism Status: Chronic (10) Type 2 diabetes mellitus Status: Chronic Comment: uncontrolled Past Medical History - Allergies and Home Meds Allergies/Adverse Reactions: Allergies fentanyl Allergy (Verified 11/02/19 15:46) Low blood pressure diazepam [From Valium] Adverse Reaction (Verified 11/02/19 15:46) Other Primary Care Physician: Johnathon Brown MD [Primary Care Provider] - Prior records reviewed: Yes Surgical History: angioplasty - x 2., - - Right hip nail fixation. Lives: Spouse/ Significant Other Smoking Status: Never smoker - Family History Maternal Family History: Family History (Last Reviewed 03/10/19 @ 10:[address] Castro Kearney MD) Father CAD (coronary artery disease) CVA (cerebral vascular accident) Brother CVA (cerebral vascular accident) Sister Breast cancer Son Diabetes Family History: Reports: No pertinent history Paternal Family History: Family History (Last Reviewed 03/10/19 @ 10:[address] Castro Kearney MD) Father CAD (coronary artery disease) CVA (cerebral vascular accident) Brother CVA (cerebral vascular accident) Sister Breast cancer Son Diabetes Family History: Reports: Heart Disease, Stroke Sibling Family History: Family History (Last Reviewed 03/10/19 @ 10:[address] Castro Kearney MD) Father CAD (coronary artery disease) CVA (cerebral vascular accident) Brother CVA (cerebral vascular accident) Sister Breast cancer Son Diabetes Family History: Reports: Cancer - breast Offspring Family History: Family History (Last Reviewed 03/10/19 @ 10:[address] Castro Kearney MD) Father CAD (coronary artery disease) CVA (cerebral vascular accident) Brother CVA (cerebral vascular accident) Sister Breast cancer Son Diabetes Family History: Reports: Diabetes Review of Systems General: Denies: Chills, Fever Eyes: Denies: Visual changes - bilaterally ENT: Denies: Bilateral ear pain Cardiovascular: Denies: Chest pain Respiratory: Denies: Dyspnea, Cough Gastrointestinal: Denies: Abdominal pain, Nausea, Vomiting, Diarrhea Genitourinary: Reports: Dysuria, Frequency Musculoskeletal: Denies: Back pain, Extremity Pain Hematologic: Denies: Easy bruising Allergy: Denies: Uticaria Physical Exam Vital Signs/Narrative: Vital Signs Temp Pulse Resp BP Pulse Ox 11/02/19 15:46 97.8 F 71 16 145/75 H 100 Inital Vital Signs reviewed: Yes General: Well nourished, Well developed Head: Normocephalic ENT: Moist mucous membranes Neck: Supple Cardiovascular: Regular rate, Regular rhythm Respiratory: No distress, CTA bilaterally Abdomen: Soft, Nontender Back: Negative for: CVA tenderness Skin: Normal color Neurological: Alert Psychological: Normal affect Diagnostic/Tx/Re-eval Laboratory Results 11/02/19 11/02/19 11/02/19 16:21 16:29 16:34 WBC 11.0 RBC 4.45 Hgb 12.9 Hct 40.2 MCV 90.3 MCH 29.0 MCHC 32.1 RDW Std Deviation 49.7 H RDW Coeff of Shikha 15.0 H Plt Count 242 MPV 10.0 Immature Gran % (Auto) 0.400 Neut % (Auto) 63.6 Lymph % (Auto) 27.4 [place] % (Auto) 7.4 Eos % (Auto) 0.9 Baso % (Auto) 0.3 Absolute Neuts (auto) 7.0 Absolute Lymphs (auto) 3.02 Nucleated RBC % 0 Sodium Potassium Chloride Carbon Dioxide Anion Gap BUN Creatinine Estim Creat Clear Calc Est GFR (MDRD) Af Amer Est GFR (MDRD) Non-Af BUN/Creatinine Ratio Glucose Calcium Urine Color Yellow Urine Clarity Cloudy Urine pH 8.0 Ur Specific [place] 1.015 Urine Protein 500 H Urine Glucose (UA) Normal Urine Ketones 5 H Urine Occult Blood 250 H Urine Nitrite Negative Urine Bilirubin Negative Urine Urobilinogen Normal Ur Leukocyte Esterase 500 H Urine RBC > 100 SEEN Urine WBC >100 SEEN Ur Squamous Epith Cells 0-5 SEEN Urine Bacteria 1+ Urine Mucus 0 SEEN POC Glucose 33 L* 11/02/19 11/02/19 16:34 16:54 WBC RBC Hgb Hct MCV MCH MCHC RDW Std Deviation RDW Coeff of Shikha Plt Count MPV Immature Gran % (Auto) Neut % (Auto) Lymph % (Auto) [place] % (Auto) Eos % (Auto) Baso % (Auto) Absolute Neuts (auto) Absolute Lymphs (auto) Nucleated RBC % Sodium 140 Potassium 4.2 Chloride 109 H Carbon Dioxide 25.0 Anion Gap 6 BUN 32 H Creatinine 0.87 Estim Creat Clear Calc 49.77 Est GFR (MDRD) Af Amer 82 Est GFR (MDRD) Non-Af 68 BUN/Creatinine Ratio 36.7 H Glucose 36 L* Calcium 9.4 Urine Color Urine Clarity Urine pH Ur Specific [place] Urine Protein Urine Glucose (UA) Urine Ketones Urine Occult Blood Urine Nitrite Urine Bilirubin Urine Urobilinogen Ur Leukocyte Esterase Urine RBC Urine WBC Ur Squamous Epith Cells Urine Bacteria Urine Mucus POC Glucose 160 H - Medical Decision Making Patient's blood sugar was checked at bedside and found to be 33. She was given 2 glasses of orange juice and an amp of D50. Repeat blood sugar was 166. At this time patient is eating dinner and is in no acute distress. She was given a dose of IV Rocephin. Urine culture has been sent. Patient will be discharged on Macrobid. Family was advised that they would be contacted if urine culture shows that this antibiotic will not be effective. Family feels comfortable caring for the patient at home. They will check her blood sugars frequently. ED Disposition - Plan for ED Patient: Disposition: Home or Assisted Living Diagnosis: Cystitis, Hypoglycemia Instructions: Bladder Infection, Female (Adult), Diabetic Insulin Reaction Prescriptions: Nitrofurantoin Macrocrystals [Macrobid] 100 mg PO Q12 #14 cap Transmission Status: Pending to [facility] Referrals: Johnathon Brown MD [Primary Care Provider] - 1-2 Weeks
[2019-11-02 16:28] LABS: Mucous, Urine 0 SEEN /hpf (<or=2+)
[2019-11-02] MEDS: Dextrose 50%-Water 25 GM/50 ML DISP.SYRIN IV (16:36)
[2019-11-02 16:37] VITALS: BP 118/66; PULSE 64; RESP 15; TEMP 36.7; O2SAT 98
[2019-11-02 16:39] LABS: Color, Urine Yellow (Yellow); Glucose, Dipstick Normal (Normal); Ketone-Dipstick 5 mg/dl (Negative); Leukocyte Esterase-Dipstick 500 /ul (Negative); Nitrite-Dipstick Negative (Negative); Occult Blood-Urine 250 /ul (Negative); Protein-Dipstick 500 mg/dl (Negative); Specific Gravity, Urine 1.015 (1.002-1.030); Urine Bilirubin Dipstick Negative (Negative); Urine Clarity Cloudy (Clear); Urine Urobilinogen Normal (Normal)
[2019-11-02 16:40] LABS: Bedside Glucose 33 mg/dL (70-110)
[2019-11-02 16:44] LABS: Absolute Lymphocyte Count 3.02 X10^3/uL (0.83-4.51); Basophil# 0.03 X10^3/uL; Basophil% 0.3 % (0-1); Eosinophils% 0.9 % (0-5); Hematocrit 40.2 % (37-47); Hemoglobin 12.9 g/dL (12.0-15.0); Lymphocyte # 3.02 X10^3/ul (4.0); Lymphocyte % 27.4 % (19-41); Mean Corp Hgb Conc 32.1 g/dL (32-36); Mean Corpuscular Volume 90.3 fL (81-99); Monocyte# 0.82 X10^3/uL; Monocyte% 7.4 % (0-10); NRBC Flagged by Analyzer 0 % (0-5); Neutrophil # 7.01 X10^3/uL (2.7-7.7); Neutrophil % 63.6 % (47-70); Platelet Count 242 K/mm3 (150-450); RBC Distribution Width SD 49.7 fl (35.1-43.9); Red Blood Count 4.45 M/mm3 (4.2-5.4)
[2019-11-02 16:47] VITALS: BP 121/60; PULSE 73; RESP 16; TEMP 36.7; O2SAT 97
[2019-11-02] MEDS: 0.9% Normal Saline 1,000 ML 150 ML IV (16:47)
[2019-11-02] MEDS: Ceftriaxone 1 GM/50 ML BAG IV (17:01)
[2019-11-02 17:06] LABS: Anion Gap 6 (5-15); BUN 32 mg/dL (7-18); BUN/Creat Ratio 36.7 RATIO (10-20); Calcium,Total 9.4 mg/dL (8.5-10.1); Chloride 109 mmol/L (98-107); Creatinine, Serum 0.87 mg/dL (0.55-1.02); EST Glomerular Filtration Rate 68 mL/min (>60); Est Glom Filt Rate - Afr Amer 82 mL/min (>60); Estimated Creatinine Clearance 49.77 ml/min; Glucose 36 mg/dL (74-106); Potassium 4.2 mmol/L (3.5-5.1); Sodium Level 140 mmol/L (136-145)
[2019-11-02 17:10] LABS: Bacteria 1+ /hpf (None Seen); Red Blood Cells-Urine > 100 SEEN /hpf (0-5); Squamous Epithelial Cells - UA 0-5 SEEN /hpf (5-10); White Blood Cells >100 SEEN /hpf (0-5)
[2019-11-02 17:20] LABS: Bedside Glucose 160 mg/dL (70-110)
[2019-11-02 17:42] VITALS: BP 104/56; PULSE 75; RESP 15; TEMP 36.8; O2SAT 97
[2019-11-02 18:20] VITALS: BP 117/63; PULSE 67; RESP 16; O2SAT 97
== END 2019-11-02 18:22 | disposition home or self-care (01) ==
PROVIDERS: Emergency Provider Emergency Medicine; PCP Family Medicine
DX: N30.90 Cystitis, unspecified without hematuria (principal); E11.649 Type 2 diabetes mellitus with hypoglycemia without coma; E03.9 Hypothyroidism, unspecified; I25.10 Atherosclerotic heart disease of native coronary artery without angina pectoris; I10 Essential (primary) hypertension; G30.9 Alzheimer's disease, unspecified; F32.9 Major depressive disorder, single episode, unspecified; E78.5 Hyperlipidemia, unspecified; F02.80 Dementia in other diseases classified elsewhere, unspecified severity, without behavioral disturbance, psychotic disturbance, mood disturbance, and anxiety; Z79.4 Long term (current) use of insulin; Z95.5 Presence of coronary angioplasty implant and graft; Z79.82 Long term (current) use of aspirin; Z79.899 Other long term (current) drug therapy; Z79.84 Long term (current) use of oral hypoglycemic drugs
CPT/HCPCS: 80048; 81001; 82962; 85025; 87086; 87088; 87186; 96365; 96375; 99283; J7030; A4216

== ENCOUNTER → 2019-11-10 07:50 | Outpatient (CLI) | payer MEDICARE, OTHER, SELFPAY ==
[2019-11-02 15:46] VITALS: BMI 27.1
--- NOTE | 2019-11-10 07:55 | CT_ITS ---
STUDY: CT BRAIN WITH AND WITHOUT CONTRAST REASON FOR EXAM: Female, 68 years old. POSSIBLE HEAD TRAUMA RADIATION DOSAGE (If Supplied By Facility): CTDIvol = ( 44.99 ) mGy, DLP = ( 1479.73 ) mGycm TECHNIQUE: Transaxial CT imaging of the brain was performed pre and post contrast administration. The examination was performed with intravenous administration of IV 50mL Isovue-370. Individualized dose optimization techniques were used for this CT. COMPARISON: Comparison is made with prior study dated April 10, 2019 FINDINGS: Normal soft tissue structures. Normal calvarium. There is mild cerebral atrophy with widening of the extra-axial spaces and ventricular dilatation. There are areas of decreased attenuation within the white matter tracts of the supratentorial brain, consistent with microvascular disease changes. There are small punctate calcifications of the basal ganglia which are seen in the aging brain as a normal variant. Normal brainstem. Normal cerebellum. There is no intracranial hemorrhage. There are no findings of an acute ischemic infarction. Atherosclerotic calcification of the cavernous portions of the internal carotid arteries bilaterally. Normal visualized paranasal sinuses. CT/Brain/Head W/WO Contrast IMPRESSION: Chronic involutional changes of the brain. Electronically Signed: Theodore Gorman, at 8:47 EDT , Service support ,
== END ==
PROVIDERS: PCP Family Medicine; Referring Provider Internal Medicine Endocrinology, Diabetes & Metabolism; Visit Provider Internal Medicine Endocrinology, Diabetes & Metabolism
DX: S09.90XA Unspecified injury of head, initial encounter (principal)
CPT/HCPCS: 70470; Q9967

== ENCOUNTER → 2020-01-05 12:03 | Outpatient (CLI) | payer MEDICARE, OTHER, SELFPAY ==
[2020-01-05 13:24] LABS: AST(SGOT) 14 U/L (15-37); Alanine Aminotransfer ALT/SGPT 22 U/L (13-56); Anion Gap 4 (5-15); BUN 24 mg/dL (7-18); BUN/Creat Ratio 29.6 RATIO (10-20); Calcium,Total 9.4 mg/dL (8.5-10.1); Chloride 107 mmol/L (98-107); Creatinine, Serum 0.81 mg/dL (0.55-1.02); EST Glomerular Filtration Rate 74 mL/min (>60); Est Glom Filt Rate - Afr Amer 90 mL/min (>60); Glucose 269 mg/dL (74-106); Potassium 4.1 mmol/L (3.5-5.1); Sodium Level 139 mmol/L (136-145)
[2020-01-05 13:36] LABS: Hemoglobin A1c 8.9 % (4.2-6.3)
== END ==
PROVIDERS: PCP Family Medicine; Referring Provider Internal Medicine Endocrinology, Diabetes & Metabolism; Visit Provider Internal Medicine Endocrinology, Diabetes & Metabolism
DX: E11.65 Type 2 diabetes mellitus with hyperglycemia (principal)
CPT/HCPCS: 36415; 80048; 83036; 84450; 84460

== ENCOUNTER 2020-01-10 00:19 | Observation (INO) | payer MEDICARE, OTHER, SELFPAY ==
[2020-01-10] VITALS (15 sets, daily range): BP systolic 96–143; BP diastolic 43–100; PULSE 55–91; RESP 15–20; TEMP 36.4–37; O2SAT 94–100; BMI 26.2; BMI 27.3; BMI 27.4
[2020-01-10 00:41] LABS: Absolute Neutrophil Count 3.4 X10^3/uL (2.0-7.7); Basophil# 0.04 X10^3/uL; Basophil% 0.6 % (0-1); Eosinophil# 0.08 X10^3/uL; Eosinophils% 1.2 % (0-5); Hematocrit 41.1 % (37-47); Mean Corp Hgb Conc 31.6 g/dL (32-36); Mean Corpuscular Hgb 29.7 pg (27.0-32.0); Mean Corpuscular Volume 94.1 fL (81-99); Monocyte% 10.4 % (0-10); NRBC Flagged by Analyzer 0 % (0-5); Neutrophil # 3.39 X10^3/uL (2.7-7.7); Neutrophil % 50.1 % (47-70); Platelet Count 224 K/mm3 (150-450); RBC Distribution Width CV 14.8 % (11.6-14.6); RBC Distribution Width SD 51.2 fl (35.1-43.9); Red Blood Count 4.37 M/mm3 (4.2-5.4); White Blood Count 6.8 K/mm3 (4.4-11.0)
--- NOTE | 2020-01-10 00:45 | ED.VIS.GEN ---
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 She had a stent placed in the LAD 2008 and a drug-eluting stent placement to the first obtuse marginal branch and second diagonal in 2009. She also has hypertension, hyperlipidemia and diabetes noticed. Family called because she collapsed. When squad arrived she was pale diaphoretic. First EKG was performed at 2355 and revealed a sinus bradycardia with a ventricular rate of 54 with decreased anterior force and ossific ST-T wave changes in the inferolateral leads. Second EKG was obtained at 20 3:55:41 which revealed narrow complex bradycardia with PVC. Rate was less than 30. There is artifact in lead V4 through V6. No QRS complex was noted in V1, V2 or V3. EKG by EMS was repeated at 010 and revealed a sinus rhythm rate of 63 with a right axis otherwise unremarkable. EKG was repeated at 012 and again reveals sinus rhythm with right axis and decreased anterior force. Patient arrived pale, diaphoretic. I was informed blood pressure is low. Fluid bolus was ordered. Patient denies black or maroon stool. She denies chest pain or shortness of breath. She did have episode of emesis prior to arrival. She denies abdominal pain. Emesis was not bloody or coffee-ground. She denies headache, visual, ocular auditory symptoms. She denies urologic symptoms. She denies neurologic symptoms. Prior similar symptoms: Yes - Had multiple visits March 2019 for syncope. Recent Illness/Hospitalization: No - Follow-up appointment with Dr. Saldanaori March 15, 2020. - Past Medical History (1) Syncope Status: Acute Comment: suspect due to orthostatic hypotension (2) Atherosclerotic heart disease of [place] coronary artery without angina pectoris Status: Chronic Comment: [id number] LAD 02/13/2009; PCI-JERROD to OM1 and D2 10/12/2009 (3) Dementia Status: Chronic Comment: on Aricept (4) Depression Status: Chronic (5) Essential (primary) hypertension Status: Chronic (6) History of coronary artery stent placement Status: Chronic Comment: [id number] LAD 02/13/2009; PCI-JERROD to OM1 and D2 10/12/2009 (7) Hypertension Status: Chronic (8) Hypothyroidism Status: Chronic (9) Iron deficiency anemia Status: Chronic (10) Overactive bladder Status: Chronic (11) Type 2 diabetes mellitus Status: Chronic Comment: uncontrolled (12) Vitiligo Status: Chronic Past Medical History - Allergies and Home Meds Allergies/Adverse Reactions: Allergies fentanyl Allergy (Verified 01/10/20 00:25) Low blood pressure diazepam [From Valium] Adverse Reaction (Verified 01/10/20 00:25) Other Primary Care Physician: Johnathon Brown MD [Primary Care Provider] - Prior records reviewed: Yes Surgical History: angioplasty - x 2., - - Right hip nail fixation. Lives: With Family Smoking Status: Never smoker Alcohol: None Drugs: None - Family History Maternal Family History: Family History (Last Reviewed 03/10/19 @ 10:[address] Castro Kearney MD) Father CAD (coronary artery disease) CVA (cerebral vascular accident) Brother CVA (cerebral vascular accident) Sister Breast cancer Son Diabetes Family History: Reports: No pertinent history Paternal Family History: Family History (Last Reviewed 03/10/19 @ 10:[address] Castro Kearney MD) Father CAD (coronary artery disease) CVA (cerebral vascular accident) Brother CVA (cerebral vascular accident) Sister Breast cancer Son Diabetes Family History: Reports: Heart Disease, Stroke Sibling Family History: Family History (Last Reviewed 03/10/19 @ 10:[address] Castro Kearney MD) Father CAD (coronary artery disease) CVA (cerebral vascular accident) Brother CVA (cerebral vascular accident) Sister Breast cancer Son Diabetes Family History: Reports: Cancer - breast Offspring Family History: Family History (Last Reviewed 03/10/19 @ 10:[address] Castro Kearney MD) Father CAD (coronary artery disease) CVA (cerebral vascular accident) Brother CVA (cerebral vascular accident) Sister Breast cancer Son Diabetes Family History: Reports: Diabetes Review of Systems General: Denies: Chills, Fever, Sweats Eyes: Denies: Visual changes - bilaterally, Blurred Vision - bilaterally ENT: Denies: Bilateral ear pain, Rhinorrhea, Sore throat Cardiovascular: Denies: Chest pain, Palpitations, Heart racing Respiratory: Denies: Dyspnea, Cough, Sputum, Dyspnea on exertion Gastrointestinal: Reports: Vomiting. Denies: Abdominal pain, Diarrhea, Constipation, Melena, Hematochezia Genitourinary: Denies: Dysuria, Hematuria, Frequency Musculoskeletal: Denies: Myalgias, Arthralgias, Neck pain, Back pain, Swelling, Extremity Pain, -, - Skin: Denies: Rash, Wounds Neurological: Denies: Headache, Weakness, Parasthesia, Numbness Hematologic: Denies: Easy bruising, Easy bleeding Physical Exam Vital Signs/Narrative: Vital Signs Temp Pulse Resp BP Pulse Ox 01/10/20 00:21 98.1 F 61 20 H 102/75 94 Inital Vital Signs reviewed: Yes General: Well nourished, Well developed, No Acute Distress Head: Normocephalic, Atraumatic Eyes: Perrl, EOMI ENT: Moist mucous membranes, No rhinorrhea Neck: Supple, Nontender Cardiovascular: Regular rate, Regular rhythm, No murmurs, Normal S1, Normal S2 Respiratory: No distress, CTA bilaterally, Chest nontender Abdomen: Soft, Nontender, Nondistended, Normal bowel sounds Back: Nontender, Normal Inspection Extremities: Nontender, No edema Skin: Diaphoresis, Pallor, Rash. Negative for: Normal color, No rash Neurological: Alert, Oriented x3, Cranial nerves II-XII grossly intact, Normal Strength, Normal Sensation Psychological: Normal affect, Normal Mood Diagnostic/Tx/Re-eval Chest X-Ray - ED: 1 View, Read by ED Physician, Normal, Heart, Lungs, Mediastinum, Bony Structures, No Acute Disease, - - External pacer pads noted. Patient is rotated. Patient has not upright. There are no acute abnormalities noted. I.e. no infiltrate, effusion or pneumothorax. 01/10/20 00:45 Chest 1 View (Portable) [RAD] Stat Laboratory Results 01/10/20 01/10/20 01/10/20 00:25 00:25 00:58 WBC 6.8 RBC 4.37 Hgb 13.0 Hct 41.1 MCV 94.1 MCH 29.7 MCHC 31.6 L RDW Std Deviation 51.2 H RDW Coeff of Shikha 14.8 H Plt Count 224 MPV 10.0 Immature Gran % (Auto) 0.700 Neut % (Auto) 50.1 Lymph % (Auto) 37.0 [place] % (Auto) 10.4 H Eos % (Auto) 1.2 Baso % (Auto) 0.6 Absolute Neuts (auto) 3.4 Absolute Lymphs (auto) 2.50 Nucleated RBC % 0 Sodium 142 Potassium 3.9 Chloride 109 H Carbon Dioxide 26.0 Anion Gap 7 BUN 21 H Creatinine 0.83 Estim Creat Clear Calc 62.71 Est GFR (MDRD) Af Amer 87 Est GFR (MDRD) Non-Af 72 BUN/Creatinine Ratio 25.3 H Glucose 137 H Calcium 9.6 Total Bilirubin 0.30 AST 38 H ALT 34 Alkaline Phosphatase 97 Troponin I < 0.015 Total Protein 7.4 Albumin 3.5 Globulin 3.9 Albumin/Globulin Ratio 0.9 POC Glucose 96 - Medical Decision Making Syncope with bradycardia. This may represent vasovagal episode versus heart block/sinus arrest need to evaluate for cardiac ischemia. When I was informed the patient was hypotensive and bradycardic she was ordered a 500 cc bolus. Labs are pending. Case was discussed with Dr. Castro Kearney her mannequin mold maker. Will discuss case with hospitalist for admission. - Critical Care Time Critical care time (excluding procedures): 30-74 minutes, Discussing w/Patient &/or Family/Customer Records Division Supervisor, Discussing w/Consultants, Arranging Admission or Transfer - Critical care time 31 minutes ED Disposition - Plan for ED Patient: Disposition: Acute Care Hospital [facility] Diagnosis: Bradycardia by electrocardiogram, Syncope and collapse, Hypotension, History of coronary artery disease Referrals: Johnathon Brown MD [Primary Care Provider] -
--- NOTE | 2020-01-10 00:45 | RAD_ITS ---
STUDY: X-RAY CHEST REASON FOR EXAM: Female, 69 years old. Tachypnea and vomiting. TECHNIQUE: AP portable supine COMPARISON: 02/03/2019 CXR FINDINGS: No evidence of pneumonia, pulmonary edema, pneumothorax or pleural effusion. Mild elevation right hemidiaphragm with mild overlying left basilar subsegmental atelectasis. Cardiac silhouette, hilar and mediastinal contours with no acute findings. Heart size normal. Atherosclerosis of the thoracic aorta. Degenerative osseous changes with no acute osseous abnormality. RAD/Chest 1 View (Portable) IMPRESSION: No acute findings. Electronically Signed: Kevin Syed, at 1:34 EDT Tel , Service support ,
[2020-01-10 01:01] LABS: Bedside Glucose 96 mg/dL (70-110)
[2020-01-10 01:03] LABS: ALB/GLOB Ratio 0.9 RATIO (0.9-2.4); AST(SGOT) 38 U/L (15-37); Alanine Aminotransfer ALT/SGPT 34 U/L (13-56); Albumin, Serum 3.5 g/dL (3.2-5.0); Alkaline Phosphatase 97 U/L (45-117); Anion Gap 7 (5-15); BUN 21 mg/dL (7-18); BUN/Creat Ratio 25.3 RATIO (10-20); Calcium,Total 9.6 mg/dL (8.5-10.1); Chloride 109 mmol/L (98-107); Creatinine, Serum 0.83 mg/dL (0.55-1.02); EST Glomerular Filtration Rate 72 mL/min (>60); Est Glom Filt Rate - Afr Amer 87 mL/min (>60); Estimated Creatinine Clearance 62.71 ml/min; Globulin 3.9 g/dL (2.2-4.2); Glucose 137 mg/dL (74-106); Potassium 3.9 mmol/L (3.5-5.1); Protein, Total 7.4 g/dL (6.4-8.2); Sodium Level 142 mmol/L (136-145)
--- NOTE | 2020-01-10 01:19 | PCM.HP.STD ---
Problem List (1) Syncope and collapse Status: Acute (2) Hypotension Status: Acute Qualifiers: Hypotension type: unspecified hypotension type Qualified Code(s): I95.9 - Hypotension, unspecified (3) Bradycardia by electrocardiogram Status: Acute (4) Type 2 diabetes mellitus Status: Chronic Qualifiers: Diabetes mellitus keno terminal operator insulin use: with keno terminal operator use Diabetes mellitus complication status: with other specified complication Qualified Code(s): E11.69 - Type 2 diabetes mellitus with other specified complication; Z79.4 - long-term (current) use of insulin Comment: uncontrolled (5) Dementia Status: Chronic Qualifiers: Dementia type: unspecified type Dementia behavioral disturbance: without behavioral disturbance Qualified Code(s): F03.90 - Unspecified dementia without behavioral disturbance Comment: on Aricept (6) Hypothyroidism Status: Chronic Qualifiers: Hypothyroidism type: unspecified Qualified Code(s): E03.9 - Hypothyroidism, unspecified (7) Iron deficiency anemia Status: Chronic Qualifiers: Iron deficiency anemia type: unspecified iron deficiency Qualified Code(s): D50.9 - Iron deficiency anemia, unspecified (8) Depression Status: Chronic Qualifiers: Depression Type: unspecified Qualified Code(s): F32.9 - Major depressive disorder, single episode, unspecified (9) Essential (primary) hypertension Status: Chronic (10) HLD (hyperlipidemia) Status: Chronic Qualifiers: Hyperlipidemia type: unspecified Qualified Code(s): E78.5 - Hyperlipidemia, unspecified (11) Atherosclerotic heart disease of [place] coronary artery without angina pectoris Status: Chronic Qualifiers: Comment: [id number] LAD 02/13/2009; PCI-JERROD to OM1 and D2 10/12/2009 (12) History of coronary artery stent placement Status: Chronic Comment: [id number] LAD 02/13/2009; PCI-JERROD to OM1 and D2 10/12/2009 History of Present Illness Date of Admission: 01/10/20 Chief Complaint: Syncopal event, emesis, diaphoretic, ? Cardiac arrest The patient is a 69 y/o F w/ PMHx: Dementia without behavioral disturbance history, Anxiety and Depression, CAD s/p PCI prox LAD, OM1 and D2, Diabetes mellitus type II, HTN, HLD, Hx SDH, Hypothyroidism, Chronic anemia/Fe deficiency anemia who presents to the [facility] ED on 01/10/20 with history of 2 episodes of syncope late evening day prior to ED presentation with initial syncopal event at 11:26 PM on 01/09/2020 noted to be on the couch at which point she became mildly dyspneic describes herself as feeling off and was noted to be diaphoretic and pale with some perioral blue tinge followed by a syncopal events lasting minutes but eventually her daughter was able to awaken her following which she went to the restroom and had episodes of diarrhea by which time EMS had arrived and following her seated position with vital sign assessment she again described feeling off and was noted to grab her chest but during both events denied any chest discomfort or severe dyspnea nor any lightheadedness or dizziness but again became diaphoretic and had a syncopal recurrent events but eventually came to and following this had nausea and vomiting. EMS evaluation with noted bradycardia with rate down into the 20s. She denies any recent fever, chills, loss of sense of smell or taste or alteration, cough, myalgia or arthralgias. She does have a history of syncopal 2019 with evaluation at that time with concern for hypertensive medication hypotensive association with medication changes at that time. Work-up in the ED included T 98.1, heart rate 61, BP 102/75, respiratory rate 20, 94% on room air, CBC with differential BC 6.8, hemoglobin 13, platelet 224 without market shift, CMP with chloride 109, BUN/creatinine 21/0.83, glucose 137, lactic acid pending upon requested evaluation, AST/ALT 38/34, alk phos 97, troponin less than 0.015, chest x-ray with no acute cardiopulmonary findings, EKG with sinus bradycardia with nonspecific ST-T wave changes in the inferior lateral leads with a repeat EKG with narrow complex bradycardia with PVCs. In the ED patient ministered normal saline. Noted in the ED during evaluation to be hypotensive and bradycardic with concern for possible syncope associated vasovagal episode versus heart block/sinus arrest with concern for possible cardiac ischemia. ED physician did discuss case with the commercial solar sales consultant, Dr. Kearney. Past Medical History Past Medical History (Chronic Problems): Chronic Problems (Last Reviewed 03/10/19 @ 10:[address] Castro Kearney MD) Type 2 diabetes mellitus (Chronic) uncontrolled Vitiligo (Chronic) Hip fracture, left (Chronic) January [address] Barnard Dementia (Chronic) on Aricept Hypertension (Chronic) Alzheimers disease (Chronic) Hypothyroidism (Chronic) Hypomagnesemia (Chronic) Overactive bladder (Chronic) Iron deficiency anemia (Chronic) Allergic rhinitis (Chronic) Depression (Chronic) Essential (primary) hypertension (Chronic) HLD (hyperlipidemia) (Chronic) Atherosclerotic heart disease of [place] coronary artery without angina pectoris (Chronic) [id number] LAD 02/13/2009; PCI-JERROD to OM1 and D2 10/12/2009 History of coronary artery stent placement (Chronic 10/12/09) [id number] LAD 02/13/2009; PCI-JERROD to OM1 and D2 10/12/2009 Medical History: Medical History (Last Reviewed 03/10/19 @ 10:[address] Castro Kearney MD) Essential (primary) hypertension (Chronic) I10 HLD (hyperlipidemia) (Chronic) E78.5 Atherosclerotic heart disease of [place] coronary artery without angina pectoris (Chronic) I25.10 [id number]-Yzce LAD 02/13/2009; PCI-JERROD to OM1 and D2 10/12/2009 Controlled type 1 diabetes mellitus without complication E10.9 Dementia F03.90 Intertrochanteric fracture of right femur S72.141A History of non-ST elevation myocardial infarction (NSTEMI) Onset Date: 01/2009 I25.2 Fatigue (Inactive) R53.83 Other chest pain (Inactive) R07.89 Subdural hematoma Onset Date: 07/2017 S06.5X9A Allergies fentanyl Allergy (Verified 01/10/20 00:25) Low blood pressure diazepam [From Valium] Adverse Reaction (Verified 01/10/20 00:25) Other Home Medications: Ambulatory Orders Medication Instructions Recorded Amlodipine [Norvasc] 2.5 mg PO DAILY 03/24/19 Aspirin E.C. [Ecotrin] 81 mg PO DAILY 03/24/19 Clopidogrel Bisulfate [Clopidogrel] 75 mg PO DAILY 03/24/19 Ferrous Sulfate 325 mg PO DAILY 03/24/19 Mirtazapine [Remeron] 45 mg PO QHS 03/24/19 Benazepril HCl 20 mg PO BID 04/10/19 Biotin 1,000 mg PO DAILY 04/10/19 Cholecalciferol (Vitamin D3) 1,000 unit PO DAILY 04/10/19 [Vitamin D3] L.acidoph,Paracasei, B.lactis 1 tab PO DAILY 04/10/19 [Probiotic] Levothyroxine [Synthroid] 75 mcg PO DAILY@0600 04/10/19 Ubidecarenone [Coq-10] 100 mg PO DAILY 04/10/19 Donepezil HCl [Aricept] 10 mg PO QHS 04/13/19 Magnesium Oxide [Mag-Ox 400] 400 mg PO DAILY 04/13/19 Metoprolol Tartrate [Lopressor 75 mg PO BID 04/13/19 (beta rona)] Pioglitazone [Actos] 30 mg PO DAILY 04/13/19 metFORMIN (XR) [Glucophage Xr] 1,000 mg PO BID 04/13/19 Acetaminophen [Tylenol] 1,000 mg PO Q6H PRN PRN tab 04/22/19 Atorvastatin Calcium 80 mg PO QHS #30 tab 04/22/19 Calcium Carbonate [Tums] 500 mg PO Q4H PRN PRN tab 04/22/19 Isosorbide Mononitrate 20 mg PO BID #60 tab 04/22/19 Menthol/Lanolin/Calamine/Znox 1 applic TOPICAL 0600,2200 tube 04/22/19 [Calmoseptine Ointment] Pramipexole Di-HCl [Mirapex] 0.125 mg PO QHS #30 tab 04/22/19 Nitrofurantoin Macrocrystals 100 mg PO Q12 #14 cap 11/02/19 [Macrobid] Insulin Aspart [Novolog Flexpen 10 units SUBCUT BIDCM 01/10/20 ([facility])] Insulin NPH Human [Humulin N ([facility])] 14 units SUBCUT BIDAC 01/10/20 Surgical History: Surgical History (Last Reviewed 03/10/19 @ 10:[address] Castro Kearney MD) History of coronary artery stent placement (Chronic) Onset Date: 10/12/09 Z95.5 [id number] LAD 02/13/2009; PCI-JERROD to OM1 and D2 10/12/2009 History of hip surgery Onset Date: 02/01/19 Z98.890 cephalo-medullary fixation right hip on 02/01/19 Surgical History: angioplasty, - - Right hip nail fixation status post fracture, PCI x3, cataract surgery, recent left eye surgery for retinopathy. 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 Smoking Status: Never smoker Tobacco Use: Non-smoker Alcohol: None Drugs: None - *Family History Maternal Family History: Family History (Last Reviewed 03/10/19 @ 10:[address] Castro Kearney MD) Father CAD (coronary artery disease) CVA (cerebral vascular accident) Brother CVA (cerebral vascular accident) Sister Breast cancer Son Diabetes History Items: - - Patient denies any market maternal family history including heart disease, diabetes or cancer. Paternal Family History: Family History (Last Reviewed 03/10/19 @ 10:[address] Castro Kearney MD) Father CAD (coronary artery disease) CVA (cerebral vascular accident) Brother CVA (cerebral vascular accident) Sister Breast cancer Son Diabetes History Items: Heart Disease, Stroke Sibling Family History: Family History (Last Reviewed 03/10/19 @ 10:[address] Castro Kearney MD) Father CAD (coronary artery disease) CVA (cerebral vascular accident) Brother CVA (cerebral vascular accident) Sister Breast cancer Son Diabetes History Items: Cancer - breast Offspring Family History: Family History (Last Reviewed 03/10/19 @ 10:[address] Castro Kearney MD) Father CAD (coronary artery disease) CVA (cerebral vascular accident) Brother CVA (cerebral vascular accident) Sister Breast cancer Son Diabetes History Items: Diabetes Review of Systems Constitutional: Reports: Malaise, Weakness, Fatigue. Denies: Anorexia, Chills, Fever, Weight Change HEENT: Denies: Head Aches, Sinus Congestion, Sinus Drainage Cardiovascular: Reports: Syncope. Denies: Chest Pain, Chest Pressure, Chest Tightness, Heaviness, Light Headedness, Orthopnea, Palpitations Respiratory: Reports: Shortness of Breath. Denies: Cough, Shortness of breath at rest, Shortness of breath upon exertion, Sputum production Gastrointestinal: Reports: Abdominal Pain, Diarrhea, Nausea, Vomiting Genitourinary: Denies: Dysuria Musculoskeletal: Reports: Joint Pain. Denies: Joint Tenderness Skin: Denies: Rash, Wounds Neurological: Denies: Numbness, Tingling, Focal weakness Psychiatric: Denies: Anxiety, Depression, Homicidal Ideations, Suicidal Ideations Hematologic/ Lymphatic: Reports: Easy Bruising, Easy Bleeding VTE Information - Inpt Only VTE Present on Admission: No VTE Mechan Device Prophylaxis: SCD's VTE Pharm Prophylaxis ordered?: Yes Patient Problems: Active and Suspected Problems (Last Reviewed 03/10/19 @ 10:[address] Castro Kearney MD) Bradycardia by electrocardiogram (Acute) Syncope and collapse (Acute) Hypotension (Acute) History of coronary artery disease (Acute) Subjective: Patient laying in the ED bed, fatigued appearance, recent bout of emesis with emesis on her gown, currently vital signs stable. Objective: Physical Examination: General: awake, alert, oriented to self, place and recent events, underlying dementia history, daughter present, remains cooperative, in ED bed, fatigued appearance otherwise no acute distress. Skin: normal color, turgor, no icterus, cyanosis except noted vitiligo. HEENT: AT/NC, EOMI, PERRLA, mildly dry MM, no carotid bruits or JVD noted. Lungs: CTA bilaterally, moderate effort, moderate decrease BL bases, no rales, ronchi or wheezing. Heart: Improved, regular rate and rhythm; no gallop, rub audible. Abdomen: soft, NTTP, ND, mildly hyperactive BS, no HSM. Extremities: no cyanosis, clubbing, or edema. Neurological: patient awake, alert, oriented as noted; cognitive function appears baseline intact with noted history of underlying dementia; pupils equally reactive to light and accomodation; cranial nerves II-XII grossly normal, moving all 4 extremities, no focal deficits, strength severely global decrease secondary to acute presentation. Psychiatric: affect appears fatigued, no acute evidence of depressive or anxiety feelings. - Physical Exam Vitals/I&O's: Vital Signs Temp Pulse Resp BP Pulse Ox 98.1 F 61 20 H 102/75 94 01/10/20 00:21 01/10/20 00:21 01/10/20 00:21 01/10/20 00:21 01/10/20 00:21 Weight: 172 lb 6.424 oz Body Mass Index (BMI) 26.2 Finger Stick Blood Glucose 96 Laboratory Results 01/10/20 00:25: WBC 6.8, RBC 4.37, Hgb 13.0, Hct 41.1, MCV 94.1, MCH 29.7, MCHC 31.6 L, RDW Std Deviation 51.2 H, RDW Coeff of Shikha 14.8 H, Plt Count 224, MPV 10.0, Immature Gran % (Auto) 0.700, Neut % (Auto) 50.1, Lymph % (Auto) 37.0, [place] % (Auto) 10.4 H, Eos % (Auto) 1.2, Baso % (Auto) 0.6, Absolute Neuts (auto) 3.4, Absolute Lymphs (auto) 2.50, Nucleated RBC % 0 01/10/20 00:25: Sodium 142, Potassium 3.9, Chloride 109 H, Carbon Dioxide 26.0, Anion Gap 7, BUN 21 H, Creatinine 0.83, Estim Creat Clear Calc 62.71, Est GFR (MDRD) Af Amer 87, Est GFR (MDRD) Non-Af 72, BUN/Creatinine Ratio 25.3 H, Glucose 137 H, Calcium 9.6, Total Bilirubin 0.30, AST 38 H, ALT 34, Alkaline Phosphatase 97, Troponin I < 0.015, Total Protein 7.4, Albumin 3.5, Globulin 3.9, Albumin/Globulin Ratio 0.9 01/10/20 00:58: Lactic Acid Pending 01/10/20 00:58: POC Glucose 96 Assessment/Plan All Active Problems (Last Reviewed 03/10/19 @ 10:[address] Castro Kearney MD) Syncope (Acute) Closed bimalleolar fracture of right ankle (Acute) Dehydration (Acute) Debility (Acute) Fall (Acute) Bradycardia by electrocardiogram (Acute) Syncope and collapse (Acute) Hypotension (Acute) History of coronary artery disease (Acute) The patient is a 69 y/o F w/ PMHx: Dementia without behavioral disturbance history, Anxiety and Depression, CAD s/p PCI prox LAD, OM1 and D2, Diabetes mellitus type II, HTN, HLD, Hx SDH, Hypothyroidism, Chronic anemia/Fe deficiency anemia who presents to the [facility] ED on 01/10/20 with history of 2 episodes of syncope late evening day prior to ED presentation. 1. Syncopal Event with Bradycardia concerning for Possible Vasovagal episode versus possible Heart Block/Sinus arrest: Unclear etiololgy. EKG changes in the ED with significant bradycardia and some progressive findings upon repeat EKGs, CXR w/ no acute cardiopulmonary findings, initial trop normal. Will admit to PCU, place on a monitored bed to assure no acute myocardial infarction with serial cardiac enzymes and EKGs. Will maintain on fall precautions, obtain admission orthostatic and AM orthostatic VS, continue hydration, will obtain ECHO and carotid US. Will hold patient metoprolol and judiciously continue her hypertensive regimen with hold strict parameters given hypotension in the ED. We will continue cardiology consultation initiated per ED. ASA, NG, morphine. FLP in AM. Mag requested. TSH pending. 2. Intermittent Diarrhea, Ongoing: Notes several week history of intermittent diarrhea and abdominal cramping, was admitted ~ 1 month prior on abx at that time for UTI, will obtain cdiff and stool culture, certainly could be contributing to her acute presentatino #1. 3. CAD: Status post PCI proximal LAD, OM1 and D2, continue patient aspirin, Plavix, statin, holding metoprolol as noted, benazepril. 4. Hypertension: Will judiciously continue patient home Norvasc, benazepril, isosorbide with specific hold parameters given hypotension in the ED, hold beta-rona therapy given bradycardia, PRN IV hydralazine. 5. Hyperlipidemia: Continue home statin regimen. AM FLP. 6. Diabetes mellitus type II: Hold oral home regimen, continue home insulin regimen, ADA diet, accu checks w/ ISS. 7. Iron deficiency anemia: Admission hemoglobin 13, stable, continue iron supplementation and trend. 8. RLS: We will continue patient home Mirapex regimen. 9. Anxiety and depression: We will continue patient home Remeron regimen. 10. Dementia, unclear type with no behavioral disturbance history: Patient with underlying history of mild to moderate dementia, will continue patient home Aricept regimen, maintain on fall precautions. 11. Hypothyroidism: Continue home synthroid regimen, TSH pending. 12. Chronic UTIs: Will continue home chronic macrobid regimen. 13. DVT prophylaxis: SCDs, lovenox. 14. CODE status: Patient MARGARET is her youngest daughter, Arminda and living will is currently in place. Discussed CODE status at length including difference between FULL code, DNR-CCA and DNR-CC status. Following discussions about the differences in these status, requested full code status. Advanced Care Planning Face to Face Time: 16 minutes. OBSV E&M: 20491 Initial observation care L3 Procedures: 20326 Advncd Care Plan 30 Min
[2020-01-10 01:33] LABS: Lactic Acid 2.2 mmol/L (0.4-1.9)
--- NOTE | 2020-01-10 02:07 | ECHOD_ITS ---
Reason For Study: ARRHYTHMIA Procedure This was a 2D Doppler, Color Flow transthoracic echocardiogram. Exam performed portable in patient room. Left Ventricle Normal LV size. Left ventricular systolic function is normal. The estimated ejection fraction is 65 %. Stage 1 diastolic dysfunction. No regional wall motion abnormalities noted. Right Ventricle Normal RV size. Normal systolic function. Atria Normal left atrium. Normal right atrium. Mitral Valve There is moderate mitral annular calcification. Mild (1+) eccentric mitral valve insufficiency. Tricuspid Valve Normal tricuspid valve. Mild (1+) tricuspid valve insufficiency. Pulmonary artery systolic pressure is 30 mmHg. Aortic Valve Trisinus/trileaflet aortic valve. Pulmonic Valve Normal pulmonic valve. Great Vessels Normal aortic root. Pericardium/Pleural No pericardial effusion. MMode/2D Measurements & Calculations LVIDd: 4.1 cm IVSd: 0.88 cm Ao root diam: 3.2 cm LVIDs: 2.4 cm LVPWd: 0.90 cm RVDd: 3.7 cm FS: 40.9 % LAV(MOD-bp): 40.2 ml LA A4 area: 17.3 cm2 LA dimension(2D): 4.2 cm LAV(MOD-bp) Indexed: 21.0 ml/m2 LAV(MOD-sp2): 34.8 ml LAV(MOD-sp4): 46.7 ml RA A4 area: 11.7 cm2 Time Measurements MV dec time: 0.31 sec Doppler Measurements & Calculations MV E max gulshan: 97.5 cm/sec Lat Peak E' Gulshan: 5.8 cm/sec Med Peak E' Gulshan: 5.4 cm/sec MV A max gulshan: 116.3 cm/sec E/E' lat: 16.8 E/E' med: 18.0 MV E/A: 0.84 MV V2 max: 118.4 cm/sec Ao V2 max: 131.7 cm/sec LV V1 max: 94.0 cm/sec MV max P.6 mmHg Ao max P.9 mmHg LV V1 max P.5 mmHg MV V2 mean: 59.1 cm/sec MV mean P.8 mmHg MV V2 VTI: 41.9 cm PA V2 max: 84.5 cm/sec TR max gulshan: 262.3 cm/sec MV P1/2t-pr_phl: 96.7 msec TR max P.5 mmHg Interpretation Summary Normal LV size. Left ventricular systolic function is normal. The estimated ejection fraction is 65 %. There is moderate mitral annular calcification. Mild (1+) eccentric mitral valve insufficiency. Stage 1 diastolic dysfunction. Ordering Physician: Natasha Rosa Referring Physician: JORDAN SANCHEZ Performed By: Saba Jordan, POWER, RVT
[2020-01-10 02:35] LABS: Magnesium 1.8 mg/dL (1.6-2.6)
--- NOTE | 2020-01-10 03:02 | NURSING ---
Daughter does not think pt has had PNA shot.
[2020-01-10] MEDS: 0.9% Normal Saline 1,000 ML 999 ML IV (03:37)
[2020-01-10] MEDS: 0.9% Saline Lock 10 ML Syringe IV ×2 (03:37→19:03)
[2020-01-10] MEDS: 0.9% Normal Saline 1,000 ML 100 ML IV ×2 (04:52→15:04)
[2020-01-10 05:01] LABS: Reflex Lactate? Y
--- NOTE | 2020-01-10 05:55 | EKG12_ITS ---
Test Reason : ARRYTHMIA Blood Pressure : / mmHG Vent. Rate : 064 BPM Atrial Rate : 064 BPM P-R Int : 164 ms QRS Dur : 082 ms QT Int : 466 ms P-R-T Axes : 063 033 034 degrees QTc Int : 480 ms Normal sinus rhythm Normal ECG When compared with ECG of 10-JAN-2020 01:04, MANUAL COMPARISON REQUIRED, DATA IS UNCONFIRMED Confirmed by BAUTISTA VELASCO, KARTIK ([id number]), scientific editor CHELSEA SPIVEY ([id number]) on 01/17/2020 3:52:50 PM Referred By: PHILOMENA Confirmed By:KARTIK BAUM MD
--- NOTE | 2020-01-10 05:55 | CDU_ITS ---
Reason For Study: syncope Rt. Velocities/BP Lt. Velocities/BP Prox CCA 63.0/9.5 cm/sec. Prox CCA 84.9/9.1 cm/sec. Mid CCA 70.8/12.1 cm/sec. Mid CCA 87.1/10.2 cm/sec. Dist CCA 64.3/10.8 cm/sec. Dist CCA 64.0/13.5 cm/sec. Prox ICA 44.3/9.1 cm/sec. Prox ICA 57.4/12.4 cm/sec. Mid ICA 60.8/12.4 cm/sec. Mid ICA 47.6/12.4 cm/sec. Dist ICA 76.2/12.4 cm/sec. Dist ICA 63.1/16.8 cm/sec. Rt. ICA/CCA = 1.1. Lt. ICA/CCA = .7. Prox ECA 76.0 cm/sec. Prox ECA 75.0 cm/sec. Rt. Vert. 49.8/9.1 cm/sec. Lt. Vert. 45.8/10.2 cm/sec. Right Extracranial There is intimal thickening but no significant atherosclerotic plaque noted in the right common carotid artery. There is heterogeneous, smooth atherosclerotic plaque noted in the right internal carotid artery. There is intimal thickening but no significant atherosclerotic plaque noted in the right external carotid artery. Antegrade flow is noted in the right vertebral artery. Left Extracranial There is intimal thickening but no significant atherosclerotic plaque noted in the left common carotid artery. There is heterogeneous, irregular atherosclerotic plaque noted in the left internal carotid artery. There is intimal thickening but no significant atherosclerotic plaque noted in the left external carotid artery. Antegrade flow is noted in the left vertebral artery. Procedure Carotid Duplex [id number]. The exam was diagnostic. Exam performed portable in patient room. Interpretation Summary Smooth plaque at the proximal right internal carotid <50% stenosis right internal carotid <50 % stenosis right external carotid Minimal irregular plaque at the proximal left internal carotid <50% stenosis left internal carotid <50% stenosis left external carotid Patent, antegrade vertebrals bilaterally Ordering Physician: Natasha Rosa Performed By: Elton Weiss RVT
[2020-01-10 06:07] LABS: Absolute Neutrophil Count 4.4 X10^3/uL (2.0-7.7); Basophil# 0.02 X10^3/uL; Basophil% 0.3 % (0-1); Eosinophil# 0.02 X10^3/uL; Eosinophils% 0.3 % (0-5); Hematocrit 38.9 % (37-47); Hemoglobin 11.8 g/dL (12.0-15.0); Mean Corp Hgb Conc 30.3 g/dL (32-36); Mean Corpuscular Hgb 29.8 pg (27.0-32.0); Mean Corpuscular Volume 98.2 fL (81-99); Mean Platelet Vol. 10.1 fl (6.2-12.0); Monocyte# 0.47 X10^3/uL; Monocyte% 7.4 % (0-10); NRBC Flagged by Analyzer 0 % (0-5); Neutrophil # 4.43 X10^3/uL (2.7-7.7); Neutrophil % 69.5 % (47-70); POSITIVE COUNT YES; Platelet Count 167 K/mm3 (150-450); RBC Distribution Width CV 14.7 % (11.6-14.6); RBC Distribution Width SD 53.2 fl (35.1-43.9); Red Blood Count 3.96 M/mm3 (4.2-5.4); White Blood Count 6.4 K/mm3 (4.4-11.0)
[2020-01-10 06:12] LABS: Differential Indicated SCAN CRITERIA MET
[2020-01-10 06:31] LABS: Lactic Acid 1.8 mmol/L (0.4-1.9)
[2020-01-10 06:38] LABS: Anion Gap 6 (5-15); BUN 19 mg/dL (7-18); BUN/Creat Ratio 33.5 RATIO (10-20); Calcium,Total 8.2 mg/dL (8.5-10.1); Chloride 116 mmol/L (98-107); Creatinine, Serum 0.57 mg/dL (0.55-1.02); EST Glomerular Filtration Rate 112 mL/min (>60); Est Glom Filt Rate - Afr Amer 135 mL/min (>60); Estimated Creatinine Clearance 42.68 ml/min; Glucose 58 mg/dL (74-106); Potassium 3.9 mmol/L (3.5-5.1); Sodium Level 140 mmol/L (136-145); Thyroid Stim Hormone (TSH) 1.35 uIU/mL (0.358-3.74)
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
[2020-01-10] MEDS: Isosorbide Mononitrate 20 MG Tablet PO ×2 (08:19→17:17)
[2020-01-10] MEDS: Aspirin E.C. 81 MG Tablet PO (08:19)
[2020-01-10] MEDS: amLODIPine 2.5 MG Tablet PO (08:19)
[2020-01-10] MEDS: Clopidogrel Bisulfate 75 MG Tablet PO (08:19)
[2020-01-10] MEDS: Enoxaparin 40 MG/0.4 ML Syringe SC (08:19)
[2020-01-10] MEDS: Lisinopril 20 MG Tablet PO ×2 (08:20→21:57)
[2020-01-10 08:26] LABS: Bedside Glucose 105 mg/dL (70-110)
[2020-01-10] MEDS: prednisoLONE eye drops (5 mL) 1 DROP OPTH.BTL 1 DRP LEFT EYE ×4 (10:00→21:51)
[2020-01-10 11:46] LABS: Bedside Glucose 143 mg/dL (70-110)
--- NOTE | 2020-01-10 11:59 | PCM.PN.HOSP ---
<Piero Chilel - Last Filed: 01/10/20 11:59> Patient Problems: Active and Suspected Problems (Last Reviewed 03/10/19 @ 10:[address] Castro Kearney MD) Bradycardia by electrocardiogram (Acute) Syncope and collapse (Acute) Hypotension (Acute) History of coronary artery disease (Acute) Reason for Visit: syncope Subjective: patient had some nausea vomiting and diarrhea yesterday prior to and after the syncopal episode. She cannot remember how long this has been going on. She thinks she had some lightheadedness yesterday but is unsure. She denies palpitations. She denies CP. She thinks she may have been somewhat short of breath yesterday. She has a difficult time remembering the events of the past 24 hours. The pt denies a hx of seizures and has had no muscle spasms, no tongue biting, and no loss of bowel or bladder. Vitals/I&O's: Vital Signs Temp Pulse Resp BP Pulse Ox 98.0 F 70 16 129/100 H 96 01/10/20 08:20 01/10/20 08:20 01/10/20 08:20 01/10/20 08:20 01/10/20 08:58 Oxygen Delivery Method Room Air Weight: 154 lb 8.705 oz Body Mass Index (BMI) 27.3 Finger Stick Blood Glucose 96 Orthostatic Vital Signs Start: 01/10/20 03:20 Freq: q24h Status: Active Protocol: Activity Type Activity Date Activity User E-Sign Co-Sign Detail Recorded Client Recorded Date Recorded By Document 01/10/20 08:20 AMG [id number] 01/10/20 08:27 AMG 01/10/20 08:20 Orthostatic Vitals Standing -Blood Pressure (90/60-120/80) 143/90 H -Extremity Use Right Arm -Pulse Rate (60-100) 79 Sitting -Blood Pressure (90/60-120/80) 138/79 H -Extremity Use Right Arm -Pulse Rate (60-100) 69 Lying -Blood Pressure (90/60-120/80) 129/100 H -Extremity Use Right Arm -Pulse Rate (60-100) 70 Intake and Output for Last 24 Hours 01/08/20 01/09/20 01/10/20 23:59 23:59 23:59 Intake Total 1500 / 1500 Output Total 0 / 0 Balance 1500 / 1500 General: Alert, Oriented x3, Cooperative HEENT: Atraumatic, PERRLA, EOMI, Normocephalic Neck: Supple, No JVD, Negative Carotid Bruits Lungs: Clear to auscultation, Normal air movement Cardiovascular: Regular rate, No murmurs Abdomen: Bowel Sounds Present, Soft, Non Tender Extremities: No edema, Capillary Refill Less than 3 Seconds Skin: No rashes, No breakdown Musculoskeletal: No Tenderness to Palpation of Joints or Extremities Neurological: Cranial nerves II-XII grossly intact Psych/Mental Status: Normal Affect, Appropriate, Alert and oriented to time, place, person, mood and affect Laboratory Results 01/10/20 00:25: WBC 6.8, RBC 4.37, Hgb 13.0, Hct 41.1, MCV 94.1, MCH 29.7, MCHC 31.6 L, RDW Std Deviation 51.2 H, RDW Coeff of Shikha 14.8 H, Plt Count 224, MPV 10.0, Immature Gran % (Auto) 0.700, Neut % (Auto) 50.1, Lymph % (Auto) 37.0, [place] % (Auto) 10.4 H, Eos % (Auto) 1.2, Baso % (Auto) 0.6, Absolute Neuts (auto) 3.4, Absolute Lymphs (auto) 2.50, Nucleated RBC % 0 01/10/20 00:25: Sodium 142, Potassium 3.9, Chloride 109 H, Carbon Dioxide 26.0, Anion Gap 7, BUN 21 H, Creatinine 0.83, Estim Creat Clear Calc 62.71, Est GFR (MDRD) Af Amer 87, Est GFR (MDRD) Non-Af 72, BUN/Creatinine Ratio 25.3 H, Glucose 137 H, Calcium 9.6, Total Bilirubin 0.30, AST 38 H, ALT 34, Alkaline Phosphatase 97, Troponin I < 0.015, Total Protein 7.4, Albumin 3.5, Globulin 3.9, Albumin/Globulin Ratio 0.9 01/10/20 00:25: Magnesium 1.8 01/10/20 00:58: Lactic Acid 2.2 H* 01/10/20 00:58: POC Glucose 96 01/10/20 03:56: Troponin I < 0.015 01/10/20 05:56: WBC 6.4, RBC 3.96 L, Hgb 11.8 L, Hct 38.9, MCV 98.2, MCH 29.8, MCHC 30.3 L, RDW Std Deviation 53.2 H, RDW Coeff of Shikha 14.7 H, Plt Count 167, MPV 10.1, Immature Gran % (Auto) 0.500, Neut % (Auto) 69.5, Lymph % (Auto) 22.0, [place] % (Auto) 7.4, Eos % (Auto) 0.3, Baso % (Auto) 0.3, Absolute Neuts (auto) 4.4, Absolute Lymphs (auto) 1.40, Nucleated RBC % 0, Differential Comment 01/10/20 05:56: Sodium 140, Potassium 3.9, Chloride 116 H, Carbon Dioxide 18.0 L, Anion Gap 6, BUN 19 H, Creatinine 0.57, Estim Creat Clear Calc 42.68, Est GFR (MDRD) Af Amer 135, Est GFR (MDRD) Non-Af 112, BUN/Creatinine Ratio 33.5 H, Glucose 58 L, Calcium 8.2 L, Troponin I < 0.015, TSH 1.35 01/10/20 05:56: Lactic Acid 1.8 01/10/20 08:18: POC Glucose 105 01/10/20 11:43: POC Glucose 143 H Current Medications Acetaminophen (Tylenol) 650 mg PO Q6H PRN PRN PRN Reason: Pain Score 1-10/Temp > 100.7 F Al Hydroxide/Mg Hydroxide (Mylanta Ii) 30 ml PO Q6H PRN PRN PRN Reason: Gastric Burning Albuterol Sulfate (Ventolin Aerosols) 2.5 mg INHALATION Q2H PRN PRN PRN Reason: Dyspnea, wheezing Amlodipine Besylate (Norvasc) 2.5 mg PO DAILY [facility] Last Admin: 01/10/20 08:19 Dose: 2.5 mg Documented by: [facility] ([facility]) [facility] Last Admin: 01/10/20 08:19 Dose: 81 mg Documented by: Atorvastatin Calcium (Lipitor) 80 mg PO QHS [facility] Clopidogrel Bisulfate (Plavix) 75 mg PO DAILY [facility] Last Admin: 01/10/20 08:19 Dose: 75 mg Documented by: Dextrose (D50w Syringe) 0 gm IV X1 PRN; Protocol PRN Reason: Hypoglycemia Donepezil HCl (Aricept) 10 mg PO QHS [facility] Enoxaparin Sodium (Lovenox) 40 mg SC DAILY [facility] Last Admin: 01/10/20 08:19 Dose: 40 mg Documented by: Glucagon () 1 mg IM .X1 PRN PRN Reason: Hypoglycemia Guaifenesin (Robitussin) 20 ml PO Q4H PRN PRN PRN Reason: COUGH Hydralazine HCl (Apresoline Iv) 10 mg IV Q4H PRN PRN PRN Reason: SBP > 160 Sodium Chloride () 1,000 mls @ 100 mls/hr IV .Q10H [facility] Last Admin: 01/10/20 04:52 Dose: 100 mls/hr Documented by: Sodium Chloride () 250 mls @ 15 mls/hr IV .[id number] PRN PRN Reason: Saline Flush Sodium Chloride () 250 mls @ 15 mls/hr IV .[id number] PRN PRN Reason: Additional IVPB Infusion Insulin Human Lispro (Humalog Kwikpen (Bkc)) 10 unit SC 0700 [facility] Last Admin: 01/10/20 09:57 Dose: Not Given Documented by: Insulin Human Lispro (Humalog Kwikpen (Bkc)) 0 unit SC ACHS [facility]; Protocol Last Admin: 01/10/20 11:53 Dose: Not Given Documented by: Insulin Human Lispro (Humalog Kwikpen (Bkc)) 4 unit SC 1600 [facility] Insulin Human NPH (Humulin N (Bkc)) 14 units SC 0700 [facility] Last Admin: 01/10/20 09:57 Dose: Not Given Documented by: Insulin Human NPH (Humulin N (Bkc)) 10 units SC 1600 [facility] Isosorbide Mononitrate (Monoket) 20 mg PO BID@1000,1700 [facility] Last Admin: 01/10/20 08:19 Dose: 20 mg Documented by: Levothyroxine Sodium (Synthroid) 75 mcg PO DAILY@0600 [facility] Last Admin: 01/10/20 04:07 Dose: Not Given Documented by: Lisinopril (Zestril) 20 mg PO BID [facility] Last Admin: 01/10/20 08:20 Dose: 20 mg Documented by: Magnesium Hydroxide (Milk Of Magnesia) 30 ml PO DAILY PRN PRN PRN Reason: Constipation Melatonin (Melatonin) 5 mg PO QHS [facility] Mirtazapine (Remeron) 45 mg PO QHS [facility] Morphine Sulfate () 2 mg IV Q3H PRN PRN PRN Reason: Pain Score 6-10/10 Nitroglycerin (Nitrostat) 0.4 mg SUBLINGUAL Q5M PRN PRN Reason: CARDIAC/CHEST PAIN Non-Formulary Medication (Ofloxacin 0.3% [Floxin 0.3% Otic]) 1 drp LEFT EYE 4X/DAY [facility] Non-Formulary Medication (Bacitracin/Polymyxin B Sulfate [Bacitracin-Polymyxin Eye Oint]) 1 applic LEFT EYE QHS [facility] Ondansetron HCl (Zofran) 4 mg IV Q8H PRN PRN PRN Reason: NAUSEA/VOMITING Oxycodone HCl (Oxyir) 5 mg PO Q4H PRN PRN PRN Reason: Pain Score 4-5/10 Prednisolone Acetate (Pred Forte Eye Drops (5 Ml)) 1 drop LEFT EYE 4X/DAY [facility] Last Admin: 01/10/20 10:00 Dose: 1 drop Documented by: Prochlorperazine Edisylate (Compazine Iv) 5 mg IV Q4H PRN PRN PRN Reason: Breakthrough Nausea/Vomiting Psyllium Hydrophilic Mucilloid (Metamucil) 1 packet PO DAILY PRN PRN PRN Reason: Constipation Senna/Docusate Sodium (Senokot-S, Ella-Colace) 2 tablet PO BID PRN PRN PRN Reason: Constipation Sodium Chloride () 10 - 40 ml IV UD PRN PRN Reason: SALINE FLUSH Last Admin: 01/10/20 03:37 Dose: 10 ml Documented by: Throat Lozenges (Cepacol Sore Throat Lozenge) 1 lozenge MUCOUS MEM Q2H PRN PRN PRN Reason: SORE THROAT STROKE Vital Signs/Narrative: Vital Signs Temp Pulse Pulse Pulse Pulse Resp BP 01/10/20 08:58 01/10/20 08:20 98.0 F 69 70 69 79 16 138/79 H BP BP BP Pulse Ox 01/10/20 08:58 96 01/10/20 08:20 129/100 H 138/79 H 143/90 H 98 Medical Necessity - Tobacco Use Smoking Status: Never smoker Tobacco Use: Non-smoker Assessment/Plan All Active Problems (Last Reviewed 03/10/19 @ 10:[address] Castro Kearney MD) Syncope (Acute) Closed bimalleolar fracture of right ankle (Acute) Dehydration (Acute) Debility (Acute) Fall (Acute) Bradycardia by electrocardiogram (Acute) Syncope and collapse (Acute) Hypotension (Acute) History of coronary artery disease (Acute) 1. Syncope, cardiac - had bradycardia, this is resolved. She also had positive orthostatic vitals evidenced by drop is diastolic >10 from lying to sitting. She may have some dehydration from vomiting and diarrhea. her metoprolol has been stopped. cardiology is following. echo pending. maintain tele. No suspicion for seizure. Troponin negative x 3. TSH normal. 2. Vomiting / diarrhea - unclear duration. if no vomiting or diarrhea today discontinue enteric precautions. this could be 2/2 low BP/pulse. 3. CAD - prior stent, continue asa/plavix/niki/imdur. beta rona held for #1 4. DMt2 - orals held. continue SSI, NPH, scheduled lispro 5. Hx iron def anemia - continue po iron. Hgb 13.0-->11.8. 6. RLS - mirapex 7. Hx Alzheimers - pt very poor historian. Continue aricept. DVT ppx: lovenox DC planning: with alzheimers dz and fall/syncope will obtain PT OT evals. This patient was seen by Piero Chilel PA-C under the supervision of Dr. Casey. <Atiya Casey - Last Filed: 01/10/20 17:31> Vitals/I&O's: Vital Signs Temp Pulse Resp BP Pulse Ox 98.6 F 69 18 123/59 H 96 01/10/20 14:20 01/10/20 15:02 01/10/20 14:20 01/10/20 14:20 01/10/20 14:20 Oxygen Delivery Method Room Air Weight: 154 lb 8.705 oz Body Mass Index (BMI) 27.3 Finger Stick Blood Glucose 96 Orthostatic Vital Signs Start: 01/10/20 03:20 Freq: q24h Status: Active Protocol: Activity Type Activity Date Activity User E-Sign Co-Sign Detail Recorded Client Recorded Date Recorded By Document 01/10/20 08:20 AMG [id number] 01/10/20 08:27 AMG 01/10/20 08:20 Orthostatic Vitals Standing -Blood Pressure (90/60-120/80) 143/90 H -Extremity Use Right Arm -Pulse Rate (60-100) 79 Sitting -Blood Pressure (90/60-120/80) 138/79 H -Extremity Use Right Arm -Pulse Rate (60-100) 69 Lying -Blood Pressure (90/60-120/80) 129/100 H -Extremity Use Right Arm -Pulse Rate (60-100) 70 Intake and Output for Last 24 Hours 01/08/20 01/09/20 01/10/20 23:59 23:59 23:59 Intake Total 2620 / 2620 Output Total 0 / 0 Balance 2620 / 2620 Microbiology Past 72 Hours 01/10/20 11:38 Stool Enteric Bacteriology - Final 01/10/20 11:38 Stool C. difficile DNA Amplification - Final Laboratory Results 01/10/20 00:25: WBC 6.8, RBC 4.37, Hgb 13.0, Hct 41.1, MCV 94.1, MCH 29.7, MCHC 31.6 L, RDW Std Deviation 51.2 H, RDW Coeff of Shikha 14.8 H, Plt Count 224, MPV 10.0, Immature Gran % (Auto) 0.700, Neut % (Auto) 50.1, Lymph % (Auto) 37.0, [place] % (Auto) 10.4 H, Eos % (Auto) 1.2, Baso % (Auto) 0.6, Absolute Neuts (auto) 3.4, Absolute Lymphs (auto) 2.50, Nucleated RBC % 0 01/10/20 00:25: Sodium 142, Potassium 3.9, Chloride 109 H, Carbon Dioxide 26.0, Anion Gap 7, BUN 21 H, Creatinine 0.83, Estim Creat Clear Calc 62.71, Est GFR (MDRD) Af Amer 87, Est GFR (MDRD) Non-Af 72, BUN/Creatinine Ratio 25.3 H, Glucose 137 H, Calcium 9.6, Total Bilirubin 0.30, AST 38 H, ALT 34, Alkaline Phosphatase 97, Troponin I < 0.015, Total Protein 7.4, Albumin 3.5, Globulin 3.9, Albumin/Globulin Ratio 0.9 01/10/20 00:25: Magnesium 1.8 01/10/20 00:58: Lactic Acid 2.2 H* 01/10/20 00:58: POC Glucose 96 01/10/20 03:56: Troponin I < 0.015 01/10/20 05:56: WBC 6.4, RBC 3.96 L, Hgb 11.8 L, Hct 38.9, MCV 98.2, MCH 29.8, MCHC 30.3 L, RDW Std Deviation 53.2 H, RDW Coeff of Shikha 14.7 H, Plt Count 167, MPV 10.1, Immature Gran % (Auto) 0.500, Neut % (Auto) 69.5, Lymph % (Auto) 22.0, [place] % (Auto) 7.4, Eos % (Auto) 0.3, Baso % (Auto) 0.3, Absolute Neuts (auto) 4.4, Absolute Lymphs (auto) 1.40, Nucleated RBC % 0, Differential Comment 01/10/20 05:56: Sodium 140, Potassium 3.9, Chloride 116 H, Carbon Dioxide 18.0 L, Anion Gap 6, BUN 19 H, Creatinine 0.57, Estim Creat Clear Calc 42.68, Est GFR (MDRD) Af Amer 135, Est GFR (MDRD) Non-Af 112, BUN/Creatinine Ratio 33.5 H, Glucose 58 L, Calcium 8.2 L, Troponin I < 0.015, TSH 1.35 01/10/20 05:56: Lactic Acid 1.8 01/10/20 08:18: POC Glucose 105 01/10/20 11:43: POC Glucose 143 H 01/10/20 17:00: POC Glucose 275 H Current Medications Acetaminophen (Tylenol) 650 mg PO Q6H PRN PRN PRN Reason: Pain Score 1-10/Temp > 100.7 F Al Hydroxide/Mg Hydroxide (Mylanta Ii) 30 ml PO Q6H PRN PRN PRN Reason: Gastric Burning Albuterol Sulfate (Ventolin Aerosols) 2.5 mg INHALATION Q2H PRN PRN PRN Reason: Dyspnea, wheezing Amlodipine Besylate (Norvasc) 2.5 mg PO DAILY [facility] Last Admin: 01/10/20 08:19 Dose: 2.5 mg Documented by: Aspirin (Ecotrin) 81 mg PO DAILYCM [facility] Last Admin: 01/10/20 08:19 Dose: 81 mg Documented by: Atorvastatin Calcium (Lipitor) 80 mg PO QHS [facility] Clopidogrel Bisulfate (Plavix) 75 mg PO DAILY [facility] Last Admin: 01/10/20 08:19 Dose: 75 mg Documented by: Dextrose (D50w Syringe) 0 gm IV X1 PRN; Protocol PRN Reason: Hypoglycemia Donepezil HCl (Aricept) 10 mg PO QHS [facility] Enoxaparin Sodium (Lovenox) 40 mg SC DAILY [facility] Last Admin: 01/10/20 08:19 Dose: 40 mg Documented by: Glucagon () 1 mg IM .X1 PRN PRN Reason: Hypoglycemia Guaifenesin (Robitussin) 20 ml PO Q4H PRN PRN PRN Reason: COUGH Hydralazine HCl (Apresoline Iv) 10 mg IV Q4H PRN PRN PRN Reason: SBP > 160 Sodium Chloride () 1,000 mls @ 100 mls/hr IV .Q10H [facility] Last Admin: 01/10/20 15:04 Dose: 100 mls/hr Documented by: Sodium Chloride () 250 mls @ 15 mls/hr IV .[id number] PRN PRN Reason: Saline Flush Sodium Chloride () 250 mls @ 15 mls/hr IV .[id number] PRN PRN Reason: Additional IVPB Infusion Insulin Human Lispro (Humalog Kwikpen (Bkc)) 10 unit SC 0700 [facility] Last Admin: 01/10/20 09:57 Dose: Not Given Documented by: Insulin Human Lispro (Humalog Kwikpen (Bkc)) 0 unit SC ACHS [facility]; Protocol Last Admin: 01/10/20 17:19 Dose: 4 u Documented by: Insulin Human Lispro (Humalog Kwikpen (Bkc)) 4 unit SC 1600 [facility] Last Admin: 01/10/20 17:19 Dose: 4 u Documented by: Insulin Human NPH (Humulin N (Bkc)) 14 units SC 0700 [facility] Last Admin: 01/10/20 09:57 Dose: Not Given Documented by: Insulin Human NPH (Humulin N (Bkc)) 10 units SC 1600 [facility] Last Admin: 01/10/20 17:18 Dose: 10 u Documented by: Isosorbide Mononitrate (Monoket) 20 mg PO BID@1000,1700 [facility] Last Admin: 01/10/20 17:17 Dose: 20 mg Documented by: Levothyroxine Sodium (Synthroid) 75 mcg PO DAILY@0600 [facility] Last Admin: 01/10/20 04:07 Dose: Not Given Documented by: Lisinopril (Zestril) 20 mg PO BID [facility] Last Admin: 01/10/20 08:20 Dose: 20 mg Documented by: Magnesium Hydroxide (Milk Of Magnesia) 30 ml PO DAILY PRN PRN PRN Reason: Constipation Melatonin (Melatonin) 5 mg PO QHS [facility] Mirtazapine (Remeron) 45 mg PO QHS [facility] Morphine Sulfate () 2 mg IV Q3H PRN PRN PRN Reason: Pain Score 6-10/10 Nitroglycerin (Nitrostat) 0.4 mg SUBLINGUAL Q5M PRN PRN Reason: CARDIAC/CHEST PAIN Non-Formulary Medication (Bacitracin/Polymyxin B Sulfate [Bacitracin-Polymyxin Eye Oint]) 1 applic LEFT EYE QHS [facility] Ofloxacin (Ofloxacin) 0 ml LEFT EYE 4X/DAY [facility] Last Admin: 01/10/20 17:17 Dose: 1 ml Documented by: Ondansetron HCl (Zofran) 4 mg IV Q8H PRN PRN PRN Reason: NAUSEA/VOMITING Oxycodone HCl (Oxyir) 5 mg PO Q4H PRN PRN PRN Reason: Pain Score 4-5/10 Prednisolone Acetate (Pred Forte Eye Drops (5 Ml)) 1 drop LEFT EYE 4X/DAY [facility] Last Admin: 01/10/20 17:16 Dose: 1 drop Documented by: Prochlorperazine Edisylate (Compazine Iv) 5 mg IV Q4H PRN PRN PRN Reason: Breakthrough Nausea/Vomiting Psyllium Hydrophilic Mucilloid (Metamucil) 1 packet PO DAILY PRN PRN PRN Reason: Constipation Senna/Docusate Sodium (Senokot-S, Ella-Colace) 2 tablet PO BID PRN PRN PRN Reason: Constipation Sodium Chloride () 10 - 40 ml IV UD PRN PRN Reason: SALINE FLUSH Last Admin: 01/10/20 03:37 Dose: 10 ml Documented by: Throat Lozenges (Cepacol Sore Throat Lozenge) 1 lozenge MUCOUS MEM Q2H PRN PRN PRN Reason: SORE THROAT STROKE Vital Signs/Narrative: Vital Signs Temp Pulse Resp BP Pulse Ox 01/10/20 15:02 69 01/10/20 14:20 98.6 F 91 18 123/59 H 96 Assessment/Plan Pateint seen by Piero Chilel PA-C under my supervision Patient seen and examined. She was admitted with a complaint of syncope. She also had bradycardia but this is resolved. Orthostatics were positive. She had also been having vomiting and diarrhea, which have resolved. Patient complained of feeling weak and tired this morning. She denied any dizziness, nausea, vomiting or diarrhea. Review of systems otherwise negative. Labs and vitals reviewed. Metoprolol is on hold. o/e: Vital Signs Temp Pulse Resp BP Pulse Ox 98.6 F 69 18 123/59 H 96 01/10/20 14:20 01/10/20 15:02 01/10/20 14:20 01/10/20 14:20 01/10/20 14:20 General: Alert, Oriented x3, Cooperative HEENT: Atraumatic, PERRLA, EOMI, Normocephalic Neck: Supple, No JVD, Negative Carotid Bruits Lungs: Clear to auscultation, Normal air movement Cardiovascular: Regular rate, No murmurs Abdomen: Bowel Sounds Present, Soft, Non Tender Extremities: No edema, Capillary Refill Less than 3 Seconds Skin: No rashes, No breakdown Musculoskeletal: No Tenderness to Palpation of Joints or Extremities Neurological: Cranial nerves II-XII grossly intact Psych/Mental Status: Normal Affect, Appropriate, Alert and oriented to time, place, person, mood and affect Plan Is to continue gentle hydration. Continue holding metoprolol. PT OT on board. Neurology on board. 2D echo done showed EF of 65% with stage I diastolic dysfunction and no regional motion abnormalities noted. Pulmonary systolic pressure is 30 mmHg. Carotid duplex showed less than 50% stenosis of the right internal and external carotid and left internal and external carotid and minimal irregular plaque at the proximal left internal carotid with patent antegrade vertebrals bilaterally. Await PT OT evaluation. Rest as per Piero Chilel PA-C's notes which I reviewed and endorsed. OBSV E&M: [id number] Subsequent observation care L2
--- NOTE | 2020-01-10 12:56 | CHAPLAIN ---
Type of Pastoral Visit _x__ Initial Visit ___ Follow-up Visit ___ On-call Visit ___ General Patient Visit ___ Spiritual Assessment ___ Family Conference ___ Bereavement ___ Rapid Response ___ Code Blue ___ Other (describe below) Pastoral Care Referral From _x__ Patient ___ Family ___ Nurse ___ Physician ___ Histology Manager ___ Machine Tool Electrician ___ Other (describe below) Sacrament/Intervention _x__ Active listening ___ Anointing ___ Confucianism ___ Bereavement ___ Communion _x__ Natalya exploration ___ ___ Life review _x__ Prayer ___ Reconciliation ___ Sacrament of Sick _x__ Supportive presence ___ Wedding ___ Other (describe below) Pastoral Comments
--- NOTE | 2020-01-10 13:35 | CASEMGMT ---
Addendum entered by Marian Wallace 01/10/20 16:43: 1335: Reviewed CHARLES form with Arminda during this conversation as well. Arminda denies having any questions at this time. Form signed by LASHANDA SIMMONS as telephone consent/review. Copy made and placed on chart and original placed in pt's room to be sent home with her @ D/C. Arminda advised to ask for RN cM if she does have any questions in the future. She voices understanding. Original Note: RN CM ASSESSMENT Noted documentation states pt w/dementia. Call placed to pt's daughter, Arminda Delcid at this time. Introduced self and role of RN FANTASMA to Arminda and RN CM assessment completed via phone conversation at this time. PCP: Dr Johnathon Brown Specialists: Dr Kearney--cloud solutions architect, Dr Bernie Price--endocrinology [facility], Dr Steven--eye doctor, Was seeing a neurologist @ [facility] and plans on having pt follow up with new neurologist Preferred Pharmacy: [facility] Insurance: [employer], Other commercial Prescription Benefit: Yes Living Will/HPOA: Arminda states pt has LW and Healthcare POA, and that she is the POA. She states she thinks Lianet Jon, pt's daughter, is listed as 1st alternative. Arminda made aware copies are not on file @ [facility]. She states she has copies of them. LASHANDA MEEK asked if she could have them brought in to [facility] to placed on pt's chart. LNOK: 3 sons and 2 daughters. Arminda states she is the Healthcare POA Living Arrangements: Lives in a one-story home w/walk-out basement. Her son, Christ and his 2 kids live in the basement. Arminda states she sets up pt's medications weekly. Arminda states someone is with pt all day from 9 AM to 10:30/11 PM until pt goes to bed. Then, she states they have a Video Camera to monitor pt during the night. She states pt is not aware of this. The person who stays with the pt during the day is a neighbor/friend who prepares meals (breakfast and lunch) and administers pt's insulin before the meals and other medications. Pt is able to shower and dress herself, but needs reminders to do so. Arminda states, she struggles to remember when she bathed last and sometimes she just sponge bathes, but we try and encourage a shower at least every other day. She states they have had to make adjustments with helping pt be able to as independent as possible. Arminda states one of pt's children then are with pt in the evening after the neighbor/friend leaves for the day until pt goes to bed. Transportation: Arminda or pt's other children. DME: States pt has the following DME: shower chair, raised toilet seat, cane. Pt also has a Free-style [employer] Glucometer sensor. Arminda sends the readings to the bioinformatics scientist every 2 weeks and adjustments are made as needed. Pt states no need for further DME at this time. HHC/SNF: of [facility] and [facility]. PT/OT evals are pending. Discussed options of HHC or OP therapy with Arminda. She states that pt is sensitive to needing help at this time and that if a stranger would come in to help her, that this would just heighten her sensitivity. She states she does not feel that pt needs HHC or OP therapy at this time. CM to follow for any discharge planning/needs. Arminda voices no concerns/needs at this time. Advised her to ask for CM if any further questions/concerns/needs arise. Voices understanding. LASHANDA MEEK provided Arminda with [facility]Alzheimer's support group contact information. She voices appreciation. PLAN: Home w/family support and discharge plans in place. Holden HAZEL RN, CM
[2020-01-10] MEDS: OFLOXACIN 5 ML DROPS LEFT EYE ×3 (14:01→21:51)
[2020-01-10 17:05] LABS: Bedside Glucose 275 mg/dL (70-110)
[2020-01-10] MEDS: Insulin NPH Human 100 UNITS/ML PEN 10 UNITS SC (17:18)
[2020-01-10] MEDS: Insulin Lispro 100 UNIT/ML INSULN.PEN SC ×3 (17:19→22:02)
[2020-01-10] MEDS: Atorvastatin Calcium 80 MG Tablet PO (21:56)
[2020-01-10] MEDS: Mirtazapine 15 MG Tablet 45 MG PO (21:57)
[2020-01-10] MEDS: Donepezil HCl 10 MG Tablet PO (21:57)
[2020-01-10] MEDS: MELATONIN 10 MG TABLET 5 MG PO (21:58)
[2020-01-10 22:31] LABS: Bedside Glucose 261 mg/dL (70-110)
[2020-01-11] MEDS: 0.9% Normal Saline 1,000 ML 100 ML IV (01:11)
[2020-01-11 03:22] VITALS: BP 140/74; PULSE 61; RESP 16; TEMP 36.7; O2SAT 96
[2020-01-11 04:24] VITALS: PULSE 56
[2020-01-11] MEDS: Levothyroxine 75 MCG Tablet PO (05:45)
[2020-01-11 06:40] VITALS: O2SAT 97
[2020-01-11 07:00] VITALS: PULSE 57
[2020-01-11 07:55] LABS: Absolute Neutrophil Count 2.1 X10^3/uL (2.0-7.7); Basophil# 0.02 X10^3/uL; Basophil% 0.5 % (0-1); Eosinophil# 0.08 X10^3/uL; Eosinophils% 1.8 % (0-5); Hematocrit 37.8 % (37-47); Hemoglobin 12.2 g/dL (12.0-15.0); Lymphocyte % 40.6 % (19-41); Mean Corp Hgb Conc 32.3 g/dL (32-36); Mean Corpuscular Hgb 29.7 pg (27.0-32.0); Mean Platelet Vol. 9.4 fl (6.2-12.0); Monocyte# 0.39 X10^3/uL; Monocyte% 8.8 % (0-10); NRBC Flagged by Analyzer 0 % (0-5); Neutrophil # 2.12 X10^3/uL (2.7-7.7); Neutrophil % 47.8 % (47-70); Platelet Count 169 K/mm3 (150-450); RBC Distribution Width CV 14.4 % (11.6-14.6); RBC Distribution Width SD 48.6 fl (35.1-43.9); Red Blood Count 4.11 M/mm3 (4.2-5.4); White Blood Count 4.4 K/mm3 (4.4-11.0)
[2020-01-11] MEDS: Insulin Lispro 100 UNIT/ML INSULN.PEN 10 UNIT SC (08:11)
[2020-01-11] MEDS: Insulin Lispro 100 UNIT/ML INSULN.PEN SC (08:12)
[2020-01-11] MEDS: Insulin NPH Human 100 UNITS/ML PEN 14 UNITS SC (08:12)
[2020-01-11 08:21] LABS: Bedside Glucose 285 mg/dL (70-110)
--- NOTE | 2020-01-11 08:26 | PN.CARD_ITS ---
Subjectve: Patient seen and evaluated. Appears to be doing quite well at this time no further episodes Objective: Vital Signs Temp Pulse Resp BP Pulse Ox 98.0 F 57 L 16 140/74 H 96 01/11/20 03:22 01/11/20 07:00 01/11/20 03:22 01/11/20 03:22 01/11/20 03:22 Oxygen Delivery Method Room Air Weight: 154 lb 8.705 oz Body Mass Index (BMI) 27.3 Finger Stick Blood Glucose 96 Orthostatic Vital Signs Start: 01/10/20 03:20 Freq: q24h Status: Active Protocol: Activity Type Activity Date Activity User E-Sign Co-Sign Detail Recorded Client Recorded Date Recorded By Document 01/10/20 08:20 AMG [id number] 01/10/20 08:27 AMG 01/10/20 08:20 Orthostatic Vitals Standing -Blood Pressure (90/60-120/80) 143/90 H -Extremity Use Right Arm -Pulse Rate (60-100) 79 Sitting -Blood Pressure (90/60-120/80) 138/79 H -Extremity Use Right Arm -Pulse Rate (60-100) 69 Lying -Blood Pressure (90/60-120/80) 129/100 H -Extremity Use Right Arm -Pulse Rate (60-100) 70 Intake and Output for Last 24 Hours 01/09/20 01/10/20 01/11/20 23:59 23:59 23:59 Intake Total 2860 / 2860 1230 / 1230 Output Total 0 / 0 Balance 2860 / 2860 1230 / 1230 General: Awake, Alert, Oriented x 3 HEENT: PERRL, EOMI, Sclera Non Icteric Neck: Supple, Good ROM, No Lymph Node Enlargement Lungs: Clear to auscultation Cardiovascular: Regular Rhythm, Normal S1, Normal S2, No Murmurs, No Rubs, No Gallops Vascular: No Carotid Bruits, Normal Femoral Pulses, Normal Radial Pulses, Normal Dorsalis Pedal Pulse, Normal Posterior Tibial Pulses Abdomen: Bowel Sounds Present, Soft, Non Tender, No HSM, No Organomegaly Extremities: No Cyanosis, No Clubbing, No edema Musculoskeletal: No Erythema Skin: No Rashes Neurological: No Focal Motor or Sensory Deficit Psych/Mental Status: Appropriate 01/11/20 07:48: WBC 4.4, RBC 4.11 L, Hgb 12.2, Hct 37.8, MCV 92.0 D, MCH 29.7, MCHC 32.3 D, Plt Count 169, MPV 9.4, Immature Gran % (Auto) 0.500, Neut % (Auto) 47.8, Lymph % (Auto) 40.6, [place] % (Auto) 8.8, Eos % (Auto) 1.8, Baso % (Auto) 0.5, Absolute Neuts (auto) 2.1, Nucleated RBC % 0 Rhythm: EKG: ECHO: Stress Test: Cardiac Cath: PCI: CT Surgery: Holter monitor: EPS: PPM: CXR: Chest CT Scan: Medical Necessity - Tobacco Use Smoking Status: Never smoker Tobacco Use: Non-smoker Assessment/Plan 1. Syncopal episode * Etiology of the above is not entirely clear to me at this particular time. It could be related to a bradycardia arrhythmia or a vagal event. * Recommendation will be to watch her on telemetry through today to see whether any significant dysrhythmia may occur * Will hold her beta-rona for now * Over the last 24 hours no significant arrhythmias have been noted. Will discontinue beta-rona for now discharge patient with a thought of bringing the patient back as an outpatient for an implantable loop recorder. My office will schedule the above. 2. Coronary artery disease * Patient is status post previous angioplasty as noted above. She underwent stress testing over a year ago which did not demonstrate any evidence of ischemia at a moderate workload. * At this time there are no EKG changes and would not necessarily repeat the above. * 3. Hypertension * Blood pressure appears to be under good control at this particular time and will not make any changes. * 4. Hyperlipidemia * Continue with secondary risk factor modification. * * Thank you for allowing me to participate in the care of your patient. Please don't hesitate to call if any issues arise.
[2020-01-11 08:30] LABS: Anion Gap 10 (5-15); BUN 11 mg/dL (7-18); BUN/Creat Ratio 17.8 RATIO (10-20); Chloride 109 mmol/L (98-107); Creatinine, Serum 0.62 mg/dL (0.55-1.02); EST Glomerular Filtration Rate 101 mL/min (>60); Est Glom Filt Rate - Afr Amer 122 mL/min (>60); Estimated Creatinine Clearance 42.68 ml/min; Glucose 298 mg/dL (74-106); Potassium 3.4 mmol/L (3.5-5.1); Sodium Level 139 mmol/L (136-145)
--- NOTE | 2020-01-11 09:00 | DCINST_ITS ---
- Discharge Diagnoses Current Active Problems: Current Active and Chronic Problems (Last Reviewed 03/10/19 @ 10:[address] Castro Kearney MD) Bradycardia by electrocardiogram (Acute) Syncope and collapse (Acute) Hypotension (Acute) History of coronary artery disease (Acute) You will use the following diet at home:: Calorie/Carbohydrate Controlled (specify 1200, 1400, etc) - 1800 yuliya / day, Cardiac Your food should be the consistency of: Regular Your liquids should be the consistency of: Regular/Thin Discharge Activity: Return to Normal Activity Allergies/Adverse Reactions: Allergies fentanyl Allergy (Verified 01/10/20 00:25) Low blood pressure diazepam [From Valium] Adverse Reaction (Verified 01/10/20 00:25) Other Medications to take at Discharge Amlodipine [Norvasc] 2.5 mg PO DAILY 03/24/19 Aspirin E.C. [Ecotrin] 81 mg PO DAILY 03/24/19 Clopidogrel Bisulfate [Clopidogrel] 75 mg PO DAILY 03/24/19 Mirtazapine [Remeron] 45 mg PO QHS 03/24/19 Benazepril HCl 20 mg PO BID 04/10/19 Biotin 1,000 mg PO QHS 04/10/19 Cholecalciferol (Vitamin D3) [Vitamin D3] 1,000 unit PO QHS 04/10/19 L.acidoph,Paracasei, B.lactis [Probiotic] 1 tab PO DAILY 04/10/19 Levothyroxine [Synthroid] 75 mcg PO QHS 04/10/19 Ubidecarenone [Coq-10] 100 mg PO QHS 04/10/19 Donepezil HCl [Aricept] 10 mg PO QHS 04/13/19 Magnesium Oxide [Mag-Ox 400] 400 mg PO DAILY 04/13/19 Pioglitazone [Actos] 30 mg PO QHS 04/13/19 metFORMIN (XR) [Glucophage Xr] 1,000 mg PO BID 04/13/19 Acetaminophen [Tylenol] 1,000 mg PO Q6H PRN PRN tab 04/22/19 Atorvastatin Calcium 80 mg PO QHS #30 tab 04/22/19 Calcium Carbonate [Tums] 500 mg PO Q4H PRN PRN tab 04/22/19 Isosorbide Mononitrate 20 mg PO BID #60 tab 04/22/19 Bacitracin/Polymyxin B Sulfate [Bacitracin-Polymyxin Eye Oint] 1 applic LEFT EYE QHS 01/10/20 Insulin Aspart [Novolog Flexpen] 10 units SUBCUT BIDCM 01/10/20 Melatonin 5 mg PO QHS 01/10/20 Ofloxacin 0.3% [Floxin 0.3% Otic] 1 drp LEFT EYE 4X/DAY 01/10/20 Prednisolone Acetate/Pf [Prednisolone Acet 1% Eye Drop] 1 drp LEFT EYE 4X/DAY 01/10/20 Insulin NPH Human [Humulin N Pen] 12 units SUBCUT BIDAC #0 01/11/20 Primary Care Physician: Johnathon Brown MD [Primary Care Provider] - Please follow up with your Primary Care Physician in: 1-2 weeks Test Results: Test results from this visit will be discussed in further detail at your follow- up appointment, if applicable. Please Follow Up With: Castro Kearney MD - Call to set up appointment for Loop Recorder When: as directed Proposed Discharge Date: 01/11/20
[2020-01-11] MEDS: Lisinopril 20 MG Tablet PO (09:15)
[2020-01-11] MEDS: Isosorbide Mononitrate 20 MG Tablet PO (09:15)
[2020-01-11] MEDS: Clopidogrel Bisulfate 75 MG Tablet PO (09:15)
[2020-01-11] MEDS: Aspirin E.C. 81 MG Tablet PO (09:15)
[2020-01-11] MEDS: amLODIPine 2.5 MG Tablet PO (09:15)
[2020-01-11] MEDS: prednisoLONE eye drops (5 mL) 1 DROP OPTH.BTL 1 DRP LEFT EYE (09:16)
[2020-01-11] MEDS: Enoxaparin 40 MG/0.4 ML Syringe SC (09:16)
[2020-01-11] MEDS: OFLOXACIN 5 ML DROPS LEFT EYE (09:16)
[2020-01-11 09:18] VITALS: BP 137/71; PULSE 68; RESP 18; TEMP 36.4; O2SAT 97
--- NOTE | 2020-01-11 10:50 | PCM.DC.SUM ---
<Piero Chilel - Last Filed: 01/11/20 10:50> Discharge Date and Diagnosis Date of Admission: 01/10/20 Date of Discharge: 01/11/20 - Primary Discharge Diagnosis Acute Problems: Active and Suspected Problems (Last Reviewed 03/10/19 @ 10:[address] Castro Kearney MD) Syncope Bradycardia and orthostatic Hypotension 2/2 metoprolol History of coronary artery disease DMt2 with hypoglycemia Hx iron def anemia RLS Alzheimer dementia - Secondary Discharge Diagnosis Chronic Problems: Chronic Problems (Last Reviewed 03/10/19 @ 10:[address] Castro Kearney MD) Type 2 diabetes mellitus (Chronic) uncontrolled Vitiligo (Chronic) Hip fracture, left (Chronic) January [address] Barnard Dementia (Chronic) on Aricept Hypertension (Chronic) Alzheimers disease (Chronic) Hypothyroidism (Chronic) Hypomagnesemia (Chronic) Overactive bladder (Chronic) Iron deficiency anemia (Chronic) Allergic rhinitis (Chronic) Depression (Chronic) Essential (primary) hypertension (Chronic) HLD (hyperlipidemia) (Chronic) Atherosclerotic heart disease of [place] coronary artery without angina pectoris (Chronic) [id number] LAD 02/13/2009; PCI-JERROD to OM1 and D2 10/12/2009 History of coronary artery stent placement (Chronic 10/12/09) [id number] LAD 02/13/2009; PCI-JERROD to OM1 and D2 10/12/2009 Hospital Course and Treatment Imaging Results: RAD/Chest 1 View (Portable) IMPRESSION: No acute findings. 2D TTE: Interpretation Summary Normal LV size. Left ventricular systolic function is normal. The estimated ejection fraction is 65 %. There is moderate mitral annular calcification. Mild (1+) eccentric mitral valve insufficiency. Stage 1 diastolic dysfunction. Carotid US: Interpretation Summary Smooth plaque at the proximal right internal carotid <50% stenosis right internal carotid <50 % stenosis right external carotid Minimal irregular plaque at the proximal left internal carotid <50% stenosis left internal carotid <50% stenosis left external carotid Patent, antegrade vertebrals bilaterally Consults: Cardiology - Christel Operations: None Procedures: 2-D Echocardiogram Summary of Care Provided: Hospital course: The patient is a 69 year old F with past medical history as above who presented to the emergency room with complaints of syncope. The patient was at home sitting on a couch and had lightheadedness followed by syncopal episode with complete loss of consciousness. She had had vomiting and diarrhea that day. EMS came to evaluate her and found her heart rate in the 20s. When she got to the emergency room her heart rate was in the 60s. She was admitted to the PCU and cardiology was consulted. Her metoprolol was discontinued. Her heart rate remained in the 50s and 60s while here. Echocardiogram was obtained notable for 1+ MVI, EF 65%, stage I diastolic dysfunction, normal LV size and systolic function. Carotid ultrasound was obtained and demonstrated less than 50% stenosis of the right and left internal and external carotids, patent vertebrals. Orthostatic vitals were obtained and did demonstrate orthostatic hypotension notably from lying to sitting with a decline greater than 10 in her diastolic blood pressure. Troponin was negative x3 and TSH was normal. She had mild hypoglycemia the first night here and her insulin therapy was decreased adjusted. Cardiology felt that the patient could be discharged home with arrangements for a loop recorder to be obtained as an outpatient. The patient was discharged home in stable condition and will need to follow-up with cardiology as directed and with her PCP in 1 to 2 weeks. Also of note she was checked for enteric panel and C. difficile test, both of which were negative, she had no further diarrhea or vomiting after admission. This patient was seen by Piero Chilel PA-C under the supervision of Doctor Jacinto. [] - Physical Exam Vitals/I&O's: Vital Signs Temp Pulse Resp BP Pulse Ox 97.6 F L 68 18 137/71 H 97 01/11/20 09:18 01/11/20 09:18 01/11/20 09:18 01/11/20 09:18 01/11/20 09:18 Oxygen Delivery Method Room Air Weight: 154 lb 8.705 oz Body Mass Index (BMI) 27.3 Finger Stick Blood Glucose 96 Orthostatic Vital Signs Start: 01/10/20 03:20 Freq: q24h Status: Active Protocol: Activity Type Activity Date Activity User E-Sign Co-Sign Detail Recorded Client Recorded Date Recorded By Document 01/10/20 08:20 AMG [id number] 01/10/20 08:27 AMG 01/10/20 08:20 Orthostatic Vitals Standing -Blood Pressure (90/60-120/80) 143/90 H -Extremity Use Right Arm -Pulse Rate (60-100) 79 Sitting -Blood Pressure (90/60-120/80) 138/79 H -Extremity Use Right Arm -Pulse Rate (60-100) 69 Lying -Blood Pressure (90/60-120/80) 129/100 H -Extremity Use Right Arm -Pulse Rate (60-100) 70 Intake and Output for Last 24 Hours 01/09/20 01/10/20 01/11/20 23:59 23:59 23:59 Intake Total 2860 / 2860 2129 Output Total 0 / 0 Balance 2859 / 0 2129 General: Alert, Oriented x3, Cooperative HEENT: Atraumatic, PERRLA, EOMI, Normocephalic Neck: Supple, No JVD, Negative Carotid Bruits Lungs: Clear to auscultation, Normal air movement Cardiovascular: Regular rate, No murmurs Abdomen: Bowel Sounds Present, Soft, Non Tender Extremities: No edema, Capillary Refill Less than 3 Seconds Skin: No rashes, No breakdown Musculoskeletal: No Tenderness to Palpation of Joints or Extremities Neurological: Cranial nerves II-XII grossly intact Psych/Mental Status: Normal Affect, Appropriate, Alert and oriented to time, place, person, mood and affect Microbiology Past 72 Hours 01/10/20 11:38 Stool Enteric Bacteriology - Final 01/10/20 11:38 Stool C. difficile DNA Amplification - Final Laboratory Results 01/10/20 11:43: POC Glucose 143 H 01/10/20 17:00: POC Glucose 275 H 01/10/20 21:55: POC Glucose 261 H 01/11/20 07:48: WBC 4.4, RBC 4.11 L, Hgb 12.2, Hct 37.8, MCV 92.0 D, MCH 29.7, MCHC 32.3 D, RDW Std Deviation 48.6 H, RDW Coeff of Shikha 14.4, Plt Count 169, MPV 9.4, Immature Gran % (Auto) 0.500, Neut % (Auto) 47.8, Lymph % (Auto) 40.6, [place] % (Auto) 8.8, Eos % (Auto) 1.8, Baso % (Auto) 0.5, Absolute Neuts (auto) 2.1, Absolute Lymphs (auto) 1.80, Nucleated RBC % 0 01/11/20 07:48: Sodium 139, Potassium 3.4 L, Chloride 109 H, Carbon Dioxide 20.0 L, Anion Gap 10, BUN 11, Creatinine 0.62, Estim Creat Clear Calc 42.68, Est GFR (MDRD) Af Amer 122, Est GFR (MDRD) Non-Af 101, BUN/Creatinine Ratio 17.8, Glucose 298 H, Calcium 8.0 L 01/11/20 08:11: POC Glucose 285 H Current Medications Acetaminophen (Tylenol) 650 mg PO Q6H PRN PRN PRN Reason: Pain Score 1-10/Temp > 100.7 F Al Hydroxide/Mg Hydroxide (Mylanta Ii) 30 ml PO Q6H PRN PRN PRN Reason: Gastric Burning Albuterol Sulfate (Ventolin Aerosols) 2.5 mg INHALATION Q2H PRN PRN PRN Reason: Dyspnea, wheezing Amlodipine Besylate (Norvasc) 2.5 mg PO DAILY [facility] Last Admin: 01/11/20 09:15 Dose: 2.5 mg Documented by: [facility] ([facility]) [facility] Last Admin: 01/11/20 09:15 Dose: 81 mg Documented by: Atorvastatin Calcium (Lipitor) 80 mg PO QHS [facility] Last Admin: 01/10/20 21:56 Dose: 80 mg Documented by: Clopidogrel Bisulfate (Plavix) 75 mg PO DAILY [facility] Last Admin: 01/11/20 09:15 Dose: 75 mg Documented by: Dextrose (D50w Syringe) 0 gm IV X1 PRN; Protocol PRN Reason: Hypoglycemia Donepezil HCl (Aricept) 10 mg PO QHS [facility] Last Admin: 01/10/20 21:57 Dose: 10 mg Documented by: Enoxaparin Sodium (Lovenox) 40 mg SC DAILY [facility] Last Admin: 01/11/20 09:16 Dose: 40 mg Documented by: Glucagon () 1 mg IM .X1 PRN PRN Reason: Hypoglycemia Guaifenesin (Robitussin) 20 ml PO Q4H PRN PRN PRN Reason: COUGH Hydralazine HCl (Apresoline Iv) 10 mg IV Q4H PRN PRN PRN Reason: SBP > 160 Sodium Chloride () 1,000 mls @ 100 mls/hr IV .Q10H [facility] Last Infusion: 01/11/20 10:11 Dose: Infused Documented by: Sodium Chloride () 250 mls @ 15 mls/hr IV .[id number] PRN PRN Reason: Saline Flush Sodium Chloride () 250 mls @ 15 mls/hr IV .[id number] PRN PRN Reason: Additional IVPB Infusion Insulin Human Lispro (Humalog Kwikpen (Bkc)) 10 unit SC 0700 [facility] Last Admin: 01/11/20 08:11 Dose: 10 u Documented by: Insulin Human Lispro (Humalog Kwikpen (Bkc)) 0 unit SC ACHS [facility]; Protocol Last Admin: 01/11/20 08:12 Dose: 4 u Documented by: Insulin Human Lispro (Humalog Kwikpen (Bkc)) 4 unit SC 1600 [facility] Last Admin: 01/10/20 17:19 Dose: 4 u Documented by: Insulin Human NPH (Humulin N (Bk)) 14 units SC BIDAC [facility] Isosorbide Mononitrate (Monoket) 20 mg PO BID@1000,1700 [facility] Last Admin: 01/11/20 09:15 Dose: 20 mg Documented by: Levothyroxine Sodium (Synthroid) 75 mcg PO DAILY@0600 [facility] Last Admin: 01/11/20 05:45 Dose: 75 mcg Documented by: Lisinopril (Zestril) 20 mg PO BID [facility] Last Admin: 01/11/20 09:15 Dose: 20 mg Documented by: Magnesium Hydroxide (Milk Of Magnesia) 30 ml PO DAILY PRN PRN PRN Reason: Constipation [facility] Admin: 01/10/20 21:58 Dose: 5 mg Documented by: Mirtazapine (Remeron) [facility] Last Admin: 01/10/20 21:57 Dose: 45 mg Documented by: Morphine Sulfate () 2 mg IV Q3H PRN PRN PRN Reason: Pain Score 6-10/10 Nitroglycerin (Nitrostat) 0.4 mg SUBLINGUAL Q5M PRN PRN Reason: CARDIAC/CHEST PAIN Non-Formulary Medication (Bacitracin/Polymyxin B Sulfate [Bacitracin-Polymyxin Eye Oint]) [facility] applic [facility] Last Admin: 01/10/20 21:53 Dose: 1 applic Documented by: Ofloxacin (Ofloxacin) 0 ml LEFT EYE 4X/DAY [facility] Last Admin: 01/11/20 09:16 Dose: 1 ml Documented by: Ondansetron HCl (Zofran) 4 mg IV Q8H PRN PRN PRN Reason: NAUSEA/VOMITING Oxycodone HCl (Oxyir) 5 mg PO Q4H PRN PRN PRN Reason: Pain Score 4-5/10 Prednisolone Acetate (Pred Forte Eye Drops (5 Ml)) 1 drop LEFT EYE 4X/DAY [facility] Last Admin: 01/11/20 09:16 Dose: 1 drop Documented by: Prochlorperazine Edisylate (Compazine Iv) 5 mg IV Q4H PRN PRN PRN Reason: Breakthrough Nausea/Vomiting Psyllium Hydrophilic Mucilloid (Metamucil) 1 packet PO DAILY PRN PRN PRN Reason: Constipation Senna/Docusate Sodium (Senokot-S, Ella-Colace) 2 tablet PO BID PRN PRN PRN Reason: Constipation Sodium Chloride () 10 - 40 ml IV UD PRN PRN Reason: SALINE FLUSH Last Admin: 01/10/20 19:03 Dose: 10 ml Documented by: Throat Lozenges (Cepacol Sore Throat Lozenge) 1 lozenge MUCOUS MEM Q2H PRN PRN PRN Reason: SORE THROAT Discharge Diet: Low fat/ Low Cholesterol, 1800 Calorie Control Diet, 2000 mg Sodium Diet Discharge Activity: Return to Normal Activity Home Medications: Medications to take at Discharge Amlodipine [Norvasc] 2.5 mg PO DAILY 03/24/19 Aspirin E.C. [Ecotrin] 81 mg PO DAILY 03/24/19 Clopidogrel Bisulfate [Clopidogrel] 75 mg PO DAILY 03/24/19 Mirtazapine [Remeron] 45 mg PO QHS 03/24/19 Benazepril HCl 20 mg PO BID 04/10/19 Biotin 1,000 mg PO QHS 04/10/19 Cholecalciferol (Vitamin D3) [Vitamin D3] 1,000 unit PO QHS 04/10/19 L.acidoph,Paracasei, B.lactis [Probiotic] 1 tab PO DAILY 04/10/19 Levothyroxine [Synthroid] 75 mcg PO QHS 04/10/19 Ubidecarenone [Coq-10] 100 mg PO QHS 04/10/19 Donepezil HCl [Aricept] 10 mg PO QHS 04/13/19 Magnesium Oxide [Mag-Ox 400] 400 mg PO DAILY 04/13/19 Pioglitazone [Actos] 30 mg PO QHS 04/13/19 metFORMIN (XR) [Glucophage Xr] 1,000 mg PO BID 04/13/19 Acetaminophen [Tylenol] 1,000 mg PO Q6H PRN PRN tab 04/22/19 Atorvastatin Calcium 80 mg PO QHS #30 tab 04/22/19 Calcium Carbonate [Tums] 500 mg PO Q4H PRN PRN tab 04/22/19 Isosorbide Mononitrate 20 mg PO BID #60 tab 04/22/19 Bacitracin/Polymyxin B Sulfate [Bacitracin-Polymyxin Eye Oint] 1 applic LEFT EYE QHS 01/10/20 Insulin Aspart [Novolog Flexpen] 10 units SUBCUT BIDCM 01/10/20 Melatonin 5 mg PO QHS 01/10/20 Ofloxacin 0.3% [Floxin 0.3% Otic] 1 drp LEFT EYE 4X/DAY 01/10/20 Prednisolone Acetate/Pf [Prednisolone Acet 1% Eye Drop] 1 drp LEFT EYE 4X/DAY 01/10/20 Insulin NPH Human [Humulin N Pen] 12 units SUBCUT BIDAC #0 01/11/20 Primary Care Physician: Johnathon Brown MD [Primary Care Provider] - Please follow up with your Primary Care Physician in: 1-2 weeks Please Follow Up With: Castro Kearney MD - Call to set up appointment for Loop Recorder When: as directed Disposition: Home Minutes spent on discharge:: 35 Patient Condition:: Stable Medical Necessity - Tobacco Use Smoking Status: Never smoker Tobacco Use: Non-smoker Meaningful Use Info Meaningful Use Diagnoses (Choose all that apply): None applicable <Atiya Casey - Last Filed: 01/11/20 17:20> Discharge Date and Diagnosis - Secondary Discharge Diagnosis Chronic Problems: Chronic Problems (Last Reviewed 03/10/19 @ 10:[address] Castro Kearney MD) Type 2 diabetes mellitus (Chronic) uncontrolled Vitiligo (Chronic) Hip fracture, left (Chronic) January [address] Barnard Dementia (Chronic) on Aricept Hypertension (Chronic) Alzheimers disease (Chronic) Hypothyroidism (Chronic) Hypomagnesemia (Chronic) Overactive bladder (Chronic) Iron deficiency anemia (Chronic) Allergic rhinitis (Chronic) Depression (Chronic) Essential (primary) hypertension (Chronic) HLD (hyperlipidemia) (Chronic) Atherosclerotic heart disease of [place] coronary artery without angina pectoris (Chronic) [id number] LAD 02/13/2009; PCI-JERROD to OM1 and D2 10/12/2009 History of coronary artery stent placement (Chronic 10/12/09) [id number] LAD 02/13/2009; PCI-JERROD to OM1 and D2 10/12/2009 Hospital Course and Treatment Summary of Care Provided: Patient seen by Piero Chilel PA-C under my supervision The patient is a 69 year old F with a past medical history as outlined was admitted with a complaint of syncope. He had also had vomiting and diarrhea on the day of admission. EMS found her to be having a heart rate of 20s when they arrived. On arrival in the ED her heart rate was up in the 60s. She was admitted and managed for her bradycardia and hypotension. Cardiology was consulted and her metoprolol was discontinued. Heart rate remained in the 50s and 60s during admission. 2D echo done showed EF of 65% with stage I diastolic dysfunction and normal left ventricular size and systolic function. Carotid ultrasound done showed patent vertebral arteries with less than 50% stenosis of the right and left internal and external carotid arteries. Orthostatics were negative. Troponins x3 were negative and TSH was normal. Patient remained stable during admission and ambulated well with physical therapy. Patient was therefore deemed safe for discharge to follow-up with cardiology on outpatient basis for placement of loop recorder. Patient was discharged home on 01/11/2020, to follow-up with her primary care doctor and with cardiology. Patient seen and examined prior to discharge. She had no complaints and was ready to be discharged home. Review of symptoms otherwise negative. Labs and vitals reviewed. Home medication reviewed and reconciled. o/e: Vital Signs Temp Pulse Resp BP Pulse Ox 97.6 F L 68 18 137/71 H 97 01/11/20 09:18 01/11/20 09:18 01/11/20 09:18 01/11/20 09:18 01/11/20 09:18 [] General: Alert, Oriented x3, Cooperative HEENT: Atraumatic, PERRLA, EOMI, Normocephalic Neck: Supple, No JVD, Negative Carotid Bruits Lungs: Clear to auscultation, Normal air movement Cardiovascular: Regular rate, No murmurs Abdomen: Bowel Sounds Present, Soft, Non Tender Extremities: No edema, Capillary Refill Less than 3 Seconds Skin: No rashes, No breakdown Musculoskeletal: No Tenderness to Palpation of Joints or Extremities Neurological: Cranial nerves II-XII grossly intact Psych/Mental Status: Normal Affect, Appropriate, Alert and oriented to time, place, person, mood and affect Plan is for dc home today. Rest as per Piero Chilel PA-C's note, which I have reviewed and endorsed. - Physical Exam Vitals/I&O's: Vital Signs Temp Pulse Resp BP Pulse Ox 97.6 F L 68 18 137/71 H 97 01/11/20 09:18 01/11/20 09:18 01/11/20 09:18 01/11/20 09:18 01/11/20 09:18 Oxygen Delivery Method Room Air Weight: 154 lb 8.705 oz Body Mass Index (BMI) 27.3 Finger Stick Blood Glucose 96 Orthostatic Vital Signs Start: 01/10/20 03:20 Freq: q24h Status: Active Protocol: Activity Type Activity Date Activity User E-Sign Co-Sign Detail Recorded Client Recorded Date Recorded By Document 01/10/20 08:20 AMG [id number] 01/10/20 08:27 AMG 01/10/20 08:20 Orthostatic Vitals Standing -Blood Pressure (90/60-120/80) 143/90 H -Extremity Use Right Arm -Pulse Rate (60-100) 79 Sitting -Blood Pressure (90/60-120/80) 138/79 H -Extremity Use Right Arm -Pulse Rate (60-100) 69 Lying -Blood Pressure (90/60-120/80) 129/100 H -Extremity Use Right Arm -Pulse Rate (60-100) 70 Intake and Output for Last 24 Hours 01/09/20 01/10/20 01/11/20 23:59 23:59 23:59 Intake Total 2860 / 2860 2130 / 2130 Output Total 0 / 0 Balance 2860 / 2860 2130 / 2130 Microbiology Past 72 Hours 01/10/20 11:38 Stool Enteric Bacteriology - Final 01/10/20 11:38 Stool C. difficile DNA Amplification - Final Laboratory Results 01/10/20 21:55: POC Glucose 261 H 01/11/20 07:48: WBC 4.4, RBC 4.11 L, Hgb 12.2, Hct 37.8, MCV 92.0 D, MCH 29.7, MCHC 32.3 D, RDW Std Deviation 48.6 H, RDW Coeff of Shikha 14.4, Plt Count 169, MPV 9.4, Immature Gran % (Auto) 0.500, Neut % (Auto) 47.8, Lymph % (Auto) 40.6, [place] % (Auto) 8.8, Eos % (Auto) 1.8, Baso % (Auto) 0.5, Absolute Neuts (auto) 2.1, Absolute Lymphs (auto) 1.80, Nucleated RBC % 0 01/11/20 07:48: Sodium 139, Potassium 3.4 L, Chloride 109 H, Carbon Dioxide 20.0 L, Anion Gap 10, BUN 11, Creatinine 0.62, Estim Creat Clear Calc 42.68, Est GFR (MDRD) Af Amer 122, Est GFR (MDRD) Non-Af 101, BUN/Creatinine Ratio 17.8, Glucose 298 H, Calcium 8.0 L 01/11/20 08:11: POC Glucose 285 H OBSV E&M: [id number] Observation care discharge
== END 2020-01-11 09:02 | disposition home or self-care (01) ==
LOC: ED 01:20 → PCU 01:52
PROVIDERS: Admitting Provider Family Medicine; Emergency Provider Emergency Medicine; PCP Family Medicine; Visit Provider Student in an Organized Health Care Education/Training Program
DX: R55 Syncope and collapse (principal); I10 Essential (primary) hypertension; E78.5 Hyperlipidemia, unspecified; I25.10 Atherosclerotic heart disease of native coronary artery without angina pectoris; F32.9 Major depressive disorder, single episode, unspecified; F41.9 Anxiety disorder, unspecified; E11.649 Type 2 diabetes mellitus with hypoglycemia without coma; E03.9 Hypothyroidism, unspecified; D50.9 Iron deficiency anemia, unspecified; I08.1 Rheumatic disorders of both mitral and tricuspid valves; N32.81 Overactive bladder; L80 Vitiligo; E87.2 Acidosis; G30.9 Alzheimer's disease, unspecified; F02.80 Dementia in other diseases classified elsewhere, unspecified severity, without behavioral disturbance, psychotic disturbance, mood disturbance, and anxiety; R19.7 Diarrhea, unspecified; G25.81 Restless legs syndrome; Z79.899 Other long term (current) drug therapy; Z79.02 Long term (current) use of antithrombotics/antiplatelets; Z79.82 Long term (current) use of aspirin; Z79.4 Long term (current) use of insulin; Z79.52 Long term (current) use of systemic steroids; Z95.5 Presence of coronary angioplasty implant and graft
CPT/HCPCS: 36415; 71045; 80048; 80053; 82962; 83605; 83735; 84443; 84484; 85025; 87493; 87506; 93005; 93306; 93880; 96360; 96361; 96372; 97116; 97161; 97166; 97530; 97802; 99218; 99251; 99285; J7030; A4216; G0378; G0463

== ENCOUNTER 2020-01-18 06:54 | Day surgery (SDC) | payer MEDICARE, OTHER, SELFPAY ==
[2020-01-10 02:33] VITALS: BMI 27.3
--- NOTE | 2020-01-18 08:25 | CL.IE_ITS ---
Patient: KAYLEIGH ROBERTS Study Date: 01/18/2020 Performing: Castro Kearney MD : 1950 Age: 69 Gender: female PROCEDURES PERFORMED [id number] OF LOOP RECORDER INDICATIONS Syncope PROCEDURE DETAILS The patient was brought to the Catheterization Lab in the postabsorptive nonsedated state. Infor med consent was obtained prior to the procedure. Local anesthetic was given subcutaneously to the le ft upper chest area with Lidocaine 2%. Incision was made to the left upper chest. ICM Reveal LINQ was inserted into the pocket. The patient tolerated the procedure well. Estimated Blood Loss: < 10 mls IMPLANTED / EX-PLANTED DEVICES IMPLANTED DEVICE(S): ICM Reveal LINQ - [employer]: [employer], Model # [id number] Serial # [id number] DEVICE PARAMETERS CONCLUSIONS / RECOMMENDATIONS Device Conclusions: Successful implantation of a patient activated loop recorder. Device Recommendations: Follow up with Primary Care Physician PROCEDURE MEDICATIONS Ancef 2 Gm IV @ 01/18/2020 08:05:02 Signed By Castro Kearney MD On 01/18/2020 08:23:26 Castro Kearney MD
[2020-01-18 08:50] LABS: Bedside Glucose 39 mg/dL (70-110)
[2020-01-18 10:06] LABS: Bedside Glucose 127 mg/dL (70-110)
== END 2020-01-18 10:10 | disposition home or self-care (01) ==
LOC: CLSP 06:56
PROVIDERS: PCP Family Medicine; Referring Provider Internal Medicine Cardiovascular Disease; Visit Provider Internal Medicine Cardiovascular Disease
DX: Z45.09 Encounter for adjustment and management of other cardiac device (principal); R55 Syncope and collapse; I25.10 Atherosclerotic heart disease of native coronary artery without angina pectoris; Z95.5 Presence of coronary angioplasty implant and graft; E11.9 Type 2 diabetes mellitus without complications; I10 Essential (primary) hypertension; E78.5 Hyperlipidemia, unspecified; Z79.02 Long term (current) use of antithrombotics/antiplatelets; Z79.82 Long term (current) use of aspirin; Z79.899 Other long term (current) drug therapy; Z79.84 Long term (current) use of oral hypoglycemic drugs
CPT/HCPCS: 33285; 82962; J7040

== ENCOUNTER → 2020-02-07 11:08 | Outpatient (CLI) | payer MEDICARE, OTHER, SELFPAY ==
[2020-01-10 02:33] VITALS: BMI 27.3
[2020-02-07 11:16] LABS: Bacteria 0 SEEN /hpf (None Seen); Mucous, Urine 0 SEEN /hpf (<or=2+); Red Blood Cells-Urine 0 SEEN /hpf (0-5)
[2020-02-07 12:22] LABS: Color, Urine Yellow (Yellow); Glucose, Dipstick 1000 mg/dl (Normal); Ketone-Dipstick 50 mg/dl (Negative); Leukocyte Esterase-Dipstick 100 /ul (Negative); Nitrite-Dipstick Negative (Negative); Occult Blood-Urine Negative /ul (Negative); Protein-Dipstick 30 mg/dl (Negative); Urine Bilirubin Dipstick Negative (Negative); Urine Clarity Sl. Cloudy (Clear); Urine Urobilinogen Normal (Normal)
[2020-02-07 12:36] LABS: Squamous Epithelial Cells - UA 0-5 SEEN /hpf (5-10); White Blood Cells 10-25 SEEN /hpf (0-5)
== END ==
PROVIDERS: PCP Family Medicine; Referring Provider Family Medicine; Visit Provider Family Medicine
DX: R39.9 Unspecified symptoms and signs involving the genitourinary system (principal)
CPT/HCPCS: 81001; 87086; 87088

== ENCOUNTER → 2020-02-09 11:38 | Outpatient (CLI) | payer MEDICARE, OTHER, SELFPAY ==
[2020-01-10 02:33] VITALS: BMI 27.3
--- NOTE | 2020-02-09 11:41 | RAD_ITS ---
STUDY: X-RAY CHEST REASON FOR EXAM: Female, 69 years old. RALES 1/4 [address] UP POSTERIORLY CHEST WALL ON THE RIGHT SIDE. PATIENT HAS LOOP RECORDER PLACED ABOUT 2 WEEKS AGO. TECHNIQUE: PA and lateral views of the chest. COMPARISON: Comparison is made with prior study dated January 10, 2020. FINDINGS: Hypoinflation. The lungs are clear. There is no demonstrated pleural abnormality. Normal size heart. A loop recorder device is seen overlying the left side of the heart. Normal mediastinum and sandra. Normal visualized pulmonary arteries. There is atherosclerotic calcification of the aortic arch with tortuosity. There is demineralization of the osseous structures. Normal visualized ribs, clavicles, and shoulders. There is no demonstrated abnormality of the visualized soft tissue structures of the upper abdomen. RAD/Chest PA and Lateral IMPRESSION: Hyperinflation. The lungs are clear. Electronically Signed: Theodore Gorman, at 12:12 EDT , Service support ,
[2020-02-09 12:44] LABS: Absolute Lymphocyte Count 2.18 X10^3/uL (0.83-4.51); Absolute Neutrophil Count 6.7 X10^3/uL (2.0-7.7); Basophil# 0.03 X10^3/uL; Basophil% 0.3 % (0-1); Eosinophil# 0.02 X10^3/uL; Eosinophils% 0.2 % (0-5); Hematocrit 44.9 % (37-47); Hemoglobin 13.8 g/dL (12.0-15.0); Lymphocyte # 2.18 X10^3/ul (4.0); Lymphocyte % 22.9 % (19-41); Mean Corp Hgb Conc 30.7 g/dL (32-36); Mean Corpuscular Hgb 29.1 pg (27.0-32.0); Mean Corpuscular Volume 94.5 fL (81-99); Mean Platelet Vol. 9.8 fl (6.2-12.0); Monocyte# 0.52 X10^3/uL; Monocyte% 5.5 % (0-10); NRBC Flagged by Analyzer 0 % (0-5); Neutrophil # 6.73 X10^3/uL (2.7-7.7); Neutrophil % 70.5 % (47-70); Platelet Count 268 K/mm3 (150-450); RBC Distribution Width CV 12.7 % (11.6-14.6); RBC Distribution Width SD 44.5 fl (35.1-43.9); Red Blood Count 4.75 M/mm3 (4.2-5.4); White Blood Count 9.5 K/mm3 (4.4-11.0)
[2020-02-09 13:17] LABS: ALB/GLOB Ratio 0.9 RATIO (0.9-2.4); AST(SGOT) 18 U/L (15-37); Alanine Aminotransfer ALT/SGPT 20 U/L (13-56); Albumin, Serum 3.9 g/dL (3.2-5.0); Alkaline Phosphatase 103 U/L (45-117); Anion Gap 22 (5-15); BUN 37 mg/dL (7-18); BUN/Creat Ratio 28.7 RATIO (10-20); Calcium,Total 9.7 mg/dL (8.5-10.1); Chloride 97 mmol/L (98-107); Creatinine, Serum 1.29 mg/dL (0.55-1.02); EST Glomerular Filtration Rate 43 mL/min (>60); Est Glom Filt Rate - Afr Amer 52 mL/min (>60); Globulin 4.2 g/dL (2.2-4.2); Glucose 490 mg/dL (74-106); Lipase 46 U/L (73-393); Protein, Total 8.1 g/dL (6.4-8.2); Sodium Level 131 mmol/L (136-145)
== END ==
PROVIDERS: PCP Family Medicine; Referring Provider Family Medicine; Visit Provider Family Medicine
DX: R09.89 Other specified symptoms and signs involving the circulatory and respiratory systems (principal); R11.0 Nausea
CPT/HCPCS: 36415; 71046; 80053; 83690; 84145; 85025